=== PATIENT | male | born 1935 | race Caucasian/White ===

== ENCOUNTER 2019-08-23 07:26 | Outpatient (RCR) | payer MEDICARE, SELFPAY ==
--- NOTE | 2019-07-01 12:43 | WPDWOUNDNOTE ---
Wound Care Note Date/Time: 07/01/19 12:43 History: Past Medical History: Asperger's syndrome AV fistula Grubbs's palsy Depression Diabetic peripheral neuropathy Duodenal ulcer disease End stage renal disease on dialysis Gout Hypertension Kidney stones Morbid obesity Plantar fasciitis Type II diabetes mellitus Wound history: This is an 84-year-old diabetic male with a history of IDDM, peripheral neuropathy, CKD on hemodialysis, HTN, EVIE, COPD, Asbergers, depression, gout, and GERD, who presented to the emergency department with a left heel wound on 06/23/19. He reports that he does pay close attention to his feet daily and sees a Corrections Corporal regularly. He typically wears either socks or his diabetic orthopedic shoes. The patient reports he had first noticed any abnormality in his left foot that morning (06/23/19) upon waking. He was getting dressed for dialysis and putting on his socks when he noticed an open red wound on the heel of his left foot. He does not recall any injury to this area or previous wounds. He denies fevers or chills. He states that he also noticed a layer of skin lying on his bed right under where his heel was and he thinks it was a blister that the top skin had rubbed off while sleeping. He states his feet looked normal the day prior. ED workup revealed a normal WBC count, slightly elevated CRP, and elevated renal function tests knowing that he was due for dialysis this day. I had seen the patient in the ER at that time and he appeared to have a blister on his left heel that had unroofed with no signs of infection or surrounding cellulitis. He was given a dose of IV antibiotics in the ER. He was sent home with a prescription of ciprofloxacin x 7 days and silver gel. He was instructed to apply silver gel to this wound once daily and cover with gauze with a gauze roll. He was also instructed to wash this daily. He has home health come to his house on Thursday, Thursday, and Thursday. He also has ongoing physical therapy. He does live at home alone. The patient now presents to the wound clinic today for his initial follow-up after his ER visit to be seen by Dr. Copeland and myself. No new complaints at this time. He reports having no feeling in his feet, so no pain. No concerning changes to the wound of infection. He does report some bilateral lower extremity edema due to missing 2 days of dialysis with the infection and GI upset from the antibiotics. No other complaints at this time. The patient did have another wound that was noted on assessment and appeared to be an abrasion to the left anterior burris but the patient denies any known or recent injury to this area. He is unsure when this occurred. Wound approximation: No Wound width: 6.0 cm Wound length: 5.3 cm Wound depth: 0.2 cm Drainage: Serosanguineous drainage on the dressing. No purulent or pus drainage. Surrounding tissue appearance: Surrounding skin appears dry and there is pitting edema of the bilateral lower legs and feet. No significant cellulitis surrounding the wound. Percentage granulation tissue: 100% Treatment/Procedures: Dressing change and wound evaluation. Assessment: Left heel wound has some granulation tissue noted in the wound bed and epithelialization noted at the wound edges. No signs of infection or surrounding cellulitis. He does have lower extremity pitting edema that was discussed with him as well. There were some areas of skin around the wound edges that were trimmed with sharp scissors and pickups by Dr. Copeland. Otherwise, the wound appears to be healing well and we will continue with the below mentioned treatment. Also noted was a small abrasion to the left anterior burris that did have some scabbing noted. No signs of infection or surrounding cellulitis. Patient is unsure how this occurred. Dressings: Applied silver gel to the left heel wound and left anterior burris abrasion. Cover the heel wound with gauze roll and cover the left burris abrasion with either Mepliex border o
[2019-07-01 12:59] VITALS: BMI 44.6
--- NOTE | 2019-08-09 13:05 | WPDWOUNDNOTE ---
Wound Care Note Date/Time: 08/09/19 12:30 History: Past Medical History: Asperger's syndrome AV fistula Grubbs's palsy Depression Diabetic peripheral neuropathy Duodenal ulcer disease End stage renal disease on dialysis Gout Hypertension Kidney stones Morbid obesity Plantar fasciitis Type II diabetes mellitus Wound history: This is an 84-year-old diabetic male with a history of IDDM, peripheral neuropathy, CKD on hemodialysis, HTN, EVIE, COPD, Asbergers, depression, gout, and GERD, who presented to the emergency department with a left heel wound and was initially seen on 06/23/19. He reported paying close attention to his feet daily and seeing a Tram Operator regularly. He typically wears either socks or his diabetic orthopedic shoes. The patient reports he had first noticed an abnormality in his left foot the morning of 06/23/19 upon waking. He was getting dressed for dialysis and putting on his socks when he noticed an open red wound on the heel of his left foot. He does not recall any injury to this area or previous wounds. He denies fevers or chills. He states that he also noticed a layer of skin lying on his bed right under where his heel was and he thinks it was a blister that the top skin had rubbed off while sleeping. He states his feet looked normal the day prior. ED workup revealed a normal WBC count, slightly elevated CRP, and elevated renal function tests knowing that he was due for dialysis this day. I had seen the patient in the ER at that time and he appeared to have a blister on his left heel that had unroofed with no signs of infection or surrounding cellulitis. He was given a dose of IV antibiotics in the ER. He was sent home with a prescription of ciprofloxacin x 7 days and silver gel. He was instructed to apply silver gel to this wound once daily and cover with gauze with a gauze roll and wash the wound daily. He was apparently doing well and was seen in the wound clinic on 07/01/[address] Copeland. The wound was continuing to heal without signs of infection. He was instructed to continue dressing changes and wound care as he was previously doing. He then presented back to the emergency department on 07/08/19 and 07/09/19 due to worsening symptoms of the left heel wound. He was then admitted through 07/14/19. He was treated with IV antibiotics and evaluated by Dr. Gilliam. He had evidence of a blister that had formed over the wound with concern that there was purulent drainage underneath this. Dr. Gilliam then performed a bedside debridement of the skin of a left heel ulcer on 08/10/19. Findings showed an enlarged thick blister of the left heel extending around the medial aspect of the heel with no purulent fluid or necrotic tissue. We restarted local wound care with silver gel dressing changes post-operatively and antibiotics were stopped. The [facility] for [facility] care. He apparently did well there and has now been transferred back to home with home health who comes three days per week. The patient reports doing dressing changes as instructed. No significant changes in the left heel ulcer per the patient and his caregiver. The patient presents today for follow-up after discharge in the wound clinic with myself and Dr. Copeland. He denies any new complaints. He does have neuropathy and denies feeling or pain in the left lower leg. He apparently is scheduled to see Dr. Mayes, a Vascular Surgeon at [facility], next week to discuss the need for vascular intervention for peripheral arterial disease. He knows the patient from the past when he formed his fistula for dialysis. 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 Angioplasty was not successful due to significant tortuosity and he was referred to Dr. Mayes. The patient denies any other new complaints or changes in his care. Uvaldo
--- NOTE | ~2019-08-23 | XR_ITS ---
XR heel LT min 2V 08/23/2019 12:52 Indication: Redness and swelling. Open wound of the left heel. Procedure: 2 views left heel/os calcis Comparison: 07/09/2017 Findings: There has been development of mixed lucency and sclerosis along the posterior aspect of the calcaneus, suspicious for osteomyelitis. There is soft tissue ulceration overlying the heel. No fore ign bodies identified. Impression: 1: Ill-defined mixed ostial lysis and sclerosis involving the posterior aspect of the calcaneus, susp icious for underlying osteomyelitis. Recommend correlation with MRI. Reviewed, dictated and finalized at location B. SCOPY TECH Impression: 1: Ill-defined mixed ostial lysis and sclerosis involving the posterior aspect of the calcaneus, suspicious for underlying osteomyelitis. Recommend correlatio n with MRI.
--- NOTE | 2019-08-23 15:47 | WPDWOUNDNOTE ---
Wound Care Note Date/Time: 08/23/19 15:47 Patient seen today in the outpatient wound clinic because his is a nurse called and stated that he was developing some cellulitis of his left leg which is the leg where he has a open heel ulcer which we have been treating with silver gel. Oral Levaquin was started last Thursday and the patient was set up to come to wound clinic sooner. Tomorrow he is scheduled to go in for a vascular procedure with Dr. Mcclelland. Also be noted today that there was a mix up and the physician that he was to go to see about the vascular surgery actually does only vascular access surgery does not do peripheral vascular surgery. So he will not be going to see the physician ( Dr. Mayes) at [facility] that did his vascular access in the past. History: This is an 84-year-old diabetic male with a history of IDDM, peripheral neuropathy, CKD on hemodialysis, HTN, EVIE, COPD, Asbergers, depression, gout, and GERD, who presented to the emergency department with a left heel wound and was initially seen on 06/23/19. He reported paying close attention to his feet daily and seeing a Plisse Machine Operator regularly. He typically wears either socks or his diabetic orthopedic shoes. The patient reports he had first noticed an abnormality in his left foot the morning of 06/23/19 upon waking. He was getting dressed for dialysis and putting on his socks when he noticed an open red wound on the heel of his left foot. He does not recall any injury to this area or previous wounds. He denies fevers or chills. He states that he also noticed a layer of skin lying on his bed right under where his heel was and he thinks it was a blister that the top skin had rubbed off while sleeping. He states his feet looked normal the day prior. ED workup revealed a normal WBC count, slightly elevated CRP, and elevated renal function tests knowing that he was due for dialysis this day. I had seen the patient in the ER at that time and he appeared to have a blister on his left heel that had unroofed with no signs of infection or surrounding cellulitis. He was given a dose of IV antibiotics in the ER. He was sent home with a prescription of ciprofloxacin x 7 days and silver gel. He was instructed to apply silver gel to this wound once daily and cover with gauze with a gauze roll and wash the wound daily. Wound history: He was apparently doing well and was seen in the wound clinic on 07/01/19 Giselle ELY and myself. The wound was continuing to heal without signs of infection. He was instructed to continue dressing changes and wound care as he was previously doing. He then presented back to the emergency department on 07/08/19 and 07/09/19 due to worsening symptoms of the left heel wound. He was then admitted through 07/14/19. He was treated with IV antibiotics and evaluated by Dr. Gilliam. He had evidence of a blister that had formed over the wound with concern that there was purulent drainage underneath this. Dr. Gilliam then performed a bedside debridement of the skin of a left heel ulcer on 08/10/19. Findings showed an enlarged thick blister of the left heel extending around the medial aspect of the heel with no purulent fluid or necrotic tissue. We restarted local wound care with silver gel dressing changes post-operatively and antibiotics were stopped. The patient was eventually discharged to [place] [facility] on 07/14/19 for wound care. He apparently did well there and has now been transferred back to home with home health who comes three days per week. The patient reports doing dressing changes as instructed. No significant changes in the left heel ulcer per the patient and his caregiver. The patient presents today for follow-up after discharge, Dr. Copeland. He denies any new complaints. He does have neuropathy and denies feeling or pain in the left lower leg. During the patient's last hospital stay, he did have an angiography showing significant distal vessel disease with total occlusion of l
--- NOTE | 2019-08-24 18:32 | PM.PROC ---
Procedure Note - Detailed Date of procedure: 08/23/19 Pre-op diagnosis: diabetic ulcer left foot Necrotic left heel ulcer Post-op diagnosis: same Procedure performed: outpatient wound debridement left heel Description of procedure: with the patient sitting in the wound clinic and his left heel exposed elevated an approximate 4 x 5 cm eschar of subcutaneous tissue and a small amount of muscle was debrided with a 15 blade knife off the approximately 6 x 6 cm rounded ulcer on the patient's heel. There was some underlying purulent material and a culture was taken. On palpation following the debridement it appears that there was some fatty tissue between the wound and the calcaneal bone but probably only 0.5 cm of tissue present still be for exposure of the bone. The edges of this wound blood just a small amount. The center of the wound is not granulating yet and has spongy reddish brown fat present. More posterior another 2 x 1 cm area of necrotic tissue was debrided separately. None of this tissue was sent for pathology at this time. Anesthesia: none Surgeon: Gomez Copeland MD Underwriter Solicitation Director: Wound care nurseAhmet Estimated blood loss (mL): 5 Drains: No Packing: No Pathology: none sent Complications: No immediate complications Condition: stable Disposition: no change Findings: Thick necrotic tissue about 1 cm thick overlying the open wound with underlying reddish brown purulence. C&S and Gram stain sent.
== END 2019-09-29 23:59 | disposition home or self-care (01) ==
LOC: ANHWOC 07:26
PROVIDERS: PCP Nurse Practitioner Family; Visit Provider Surgery
DX: E11.621 Type 2 diabetes mellitus with foot ulcer (principal); L97.429 Non-pressure chronic ulcer of left heel and midfoot with unspecified severity
CPT/HCPCS: 11043; 73650; 87070; 87077; 87186; 87205; 99214; A9270; G0463

== ENCOUNTER 2019-08-24 15:03 | Inpatient (IN) | payer MEDICARE, SELFPAY ==
[2019-08-24] VITALS (8 sets, daily range): BP systolic 98–122; BP diastolic 40–55; PULSE 53–58; RESP 16–20; TEMP 36.5–36.6; O2SAT 98–100; BMI 42.5
--- NOTE | ~2019-08-24 | US_ITS ---
EXAMINATION: US arterial ankle brachial ind DATE: 08/31/2019 13:57 INDICATION: Peripheral vascular disease. TECHNIQUE: Segmental pressures and plethysmographic and Doppler waveforms of the brachial and lower e xtremity arteries were obtained. COMPARISON: Arterial Doppler and segmental pressures 07/11/2019 FINDINGS: Right brachial artery pressure is 118 mm Hg. The left brachial artery pressure was not measured due t o the fistula. The right ankle-brachial index (STEPHANIE) could not be measured due to inability to cuff occlude the arter ies (normal >= 0.9-1.0). The right great toe-brachial index (TBI) is 0.72 (normal >= 0.65). Arterial Doppler waveforms are at least biphasic at the ankle. The left STEPHANIE could not be measured due to inability to cuff occlude the arteries. The left TBI is 0.3 6. Arterial Doppler waveforms are biphasic at the ankle. IMPRESSION: 1. Decreased left TBI, consistent with arterial occlusive disease. Normal right STEPHANIE. Nondiagnostic AB Is. Reviewed, dictated and finalized at location A. IMPRESSION: 1. Decreased left TBI, consistent with arterial occlusive disease. Normal right STEPHANIE. Nondiagnostic ABIs.
--- NOTE | ~2019-08-24 | XR_ITS ---
EXAMINATION: XR chest 2V EXAM DATE: 08/24/2019 17:14 INDICATION: Generalized weakness.] The foot infection yesterday. TECHNIQUE: Frontal and lateral projections of the chest obtained and reviewed. Comparison is made to prior examination from 12/15/2018. FINDINGS: The lungs are clear. There are no pleural effusions. The cardiomediastinal silhouette is within normal limits. There is no pneumothorax suspected. The bones and soft tissues are unremarkab le. IMPRESSION: No acute cardiopulmonary findings. Reviewed, dictated and finalized at location A. [employer] PERSON
--- NOTE | ~2019-08-24 | XR_ITS ---
EXAMINATION: XR foot LT min 3V EXAM DATE: 08/24/2019 19:08 INDICATION: Wound left heel. Pain in heel. TECHNIQUE: Left foot dorsoplantar, lateral and oblique projections obtained and reviewed. Comparison is made to prior examination from 08/23/2019. FINDINGS: Left metatarsal bones unremarkable. Difficult to identify the small region of cortical il l-defined left calcaneal demineralization identified on yesterday's dorsal plantar calcaneal image. There are no acute fractures identified. No appreciable subcutaneous gas. Posterior heel ulceration w hich has bandaged. There are arterial calcifications, arteriosclerosis. Scattered mild to moderate po lyarticular osteoarthritis. IMPRESSION: 1. Mild polyarticular osteoarthritis. 2. Posterior heel ulceration. 3. Please correlate with yesterday's calcaneal x-ray. Reviewed, dictated and finalized at location A. [employer]
--- NOTE | ~2019-08-24 | MR_ITS ---
EXAMINATION: MR ankle LT wo con DATE: 08/30/2019 15:14 INDICATION: Osteomyelitis of left calcaneus. TECHNIQUE: Magnetic resonance imaging (MRI) of the left ankle was performed without intravenous contr ast. Sequences included sagittal, axial, and coronal STIR FSE and T1-weighted FSE. COMPARISON: Left foot radiographs 08/24/2019, calcaneus radiographs 08/23/2019 FINDINGS: Medial ankle ligaments: There are changes of prior sprain of the superficial component of the deltoid ligament characterized by thickening and increased signal intensity. The deep component is intact. Lateral ankle ligaments: The anterior and posterior talofibular ligaments, calcaneofibular ligament, and posterior tibiofibula r ligament are intact. There are changes of prior sprain of anterior tibiofibular ligament characteri zed by thickening and increased signal intensity. Tendons: The medial and anterior ankle tendons, peroneal tendons, and Achilles tendon are normal. Plantar fascia: There is thickening of central band of plantar fascia, consistent with plantar fasciitis. There is an enthesophyte at the calcaneal attachment. Bones/other: Bone alignment is normal. There is a large ulcer overlying the calcaneal tuberosity, which demonstrat es cortical erosions and bone marrow edema, consistent with osteoarthritis. Bone marrow edema extends into the body of the calcaneus. The talar dome is normal. There is widespread moderate to severe fat ty atrophy of the musculature. There is widespread increased T2-weighted signal intensity in the musc ulature, consistent with subacute on chronic denervation. Fluid: There is no joint effusion. IMPRESSION: 1. Osteomyelitis involving the calcaneal body and tuberosity. Reviewed, dictated and finalized at location A.
[2019-08-24 17:00] LABS: Basophils Percent Auto 0.2 % (0.2-1.2); Eosinophils Percent Auto 0.3 % (0-4.4); Hematocrit 28.2 % (42.0-52.0); Hemoglobin 8.9 g/dL (14.0-18.0); Lymphocytes Absolute Auto 1.06 K/mm3 (0.9-3.2); Lymphocytes Percent Auto 11.1 % (18.3-44.2); Mean Corpuscular HGB Conc 31.6 g/dl (32-36); Mean Corpuscular Volume 98.3 fl (80-100); Mean Platelet Volume 11.3 fl (7.4-10.4); Monocytes Absolute Auto 1.2 K/mm3 (0.1-0.6); Monocytes Percent Auto 12.5 % (2.6-8.5); Neutrophils Absolute Auto 7.1 K/mm3 (1.3-6.7); Neutrophils Percent Auto 74.9 % (45.5-73.1); Platelet Count Result 222 k/mm3 (150-375); Red Blood Count 2.87 M/mm3 (4.6-6.20); Red Cell Distribution Width 13.5 % (11.5-14.5); White Blood Count 9.5 K/mm3 (4.5-10.0)
[2019-08-24 17:13] LABS: Alanine Aminotransferase 23 U/L (4-50); Albumin Level 3.5 g/dL (3.5-5.1); Alkaline Phosphatase 70 U/L (38-126); Aspartate Amino Transferase 39 U/L (17-59); Bilirubin,Total 0.7 mg/dL (0.2-1.3); Blood Urea Nitrogen 58 mg/dL (9-20); Calcium 9.1 mg/dL (8.4-10.2); Carbon Dioxide 27 mmol/L (22-30); Chloride 95 mmol/L (98-107); Estimated CRCL calculation 11 ml/min; Estimated Glomerular Filt Rate 8; Glucose 124 mg/dL (75-110); Potassium 5.1 mmol/L (3.4-5.0); Sodium 137 mmol/L (137-145)
--- NOTE | 2019-08-24 17:53 | ECG_ITS ---
Measurements Intervals [place] Rate: 54 P: 81 MO: 185 QRS: 26 QRSD: 106 T: 40 QT: 452 QTc: 431 Interpretive Statements SINUS BRADYCARDIA BASELINE ARTIFACT- I, II, III, AVR, AVL, AVF BORDERLINE ECG Electronically Signed On 08-24-2019 20:12:19 FLEXO PRESS OPERATOR by César Aragon D.O.
--- NOTE | 2019-08-24 18:42 | ED.WEAKNESS ---
HPI - Weakness General Chief complaint: Weakness Stated complaint: weakness/n/v/fever Time Seen by Provider: 08/24/19 18:36 Source: patient and RN notes reviewed Mode of arrival: EMS Limitations: no limitations History of Present Illness HPI Narrative: Pt is a 84 y/o male with a Hx of DM, who presents to the ED via EMS with c/o generalized weakness. He notes that he has been weak and nauseas for the past several days. Pt states that he received a debridement of an ulcer on his lt heel by Dr. Copeland yesterday. He notes that he became increasingly fatigued and weak after the procedure last night. Pt states that he vomited after eating dinner last night. He notes having a decreased intake throughout the day today due to his nausea. Pt also reports a low-grade fever and chronic dyspnea on exertion, but denies any CP. He notes that he hasn't had any recent falls. MD Complaint: generalized weakness Onset (ago): day(s) (several) Location: generalized Context: recent surgery (debridement of ulcer) Associated symptoms: fever/chills (low-grade fever), nausea/vomiting and other (decreased intake; dyspnea on exertion (chronic); fatigue) Related Data Home Medications Medication Instructions Recorded Confirmed AndroGel 2 pump TOPICAL DAILY 05/10/19 08/24/19 Anoro Ellipta 1 puff INHALATION DAILY 05/10/19 08/24/19 Centrum Silver Men 1 tablet PO DAILY 05/10/19 08/24/19 Januvia 25 mg PO DAILY 05/10/19 08/24/19 allopurinol 300 mg PO DAILY 05/10/19 08/24/19 cholecalciferol (vitamin D3) 400 unit PO DAILY 05/10/19 08/24/19 citalopram 1 mg DAILY 05/10/19 08/24/19 cyanocobalamin (vitamin B-12) 1,000 mcg PO [id number] 05/10/19 08/24/19 fenofibrate 160 mg PO DAILY 05/10/19 08/24/19 fexofenadine [Louisa Allergy] 180 mg PO DAILY 05/10/19 08/24/19 metoclopramide HCl [Reglan] 10 mg PO Q6H PRN 05/10/19 08/24/19 pioglitazone [Actos] 45 mg PO DAILY 05/10/19 08/24/19 pyridoxine (vitamin B6) 100 mg PO DAILY 05/10/19 08/24/19 sevelamer carbonate [Renvela] 800 mg PO TID 05/10/19 08/24/19 trazodone 50 mg PO HS 05/10/19 08/24/19 propranolol 60 mg PO DAILY 05/11/19 08/24/19 labetalol 100 mg PO BID 06/23/19 08/24/19 silodosin [Rapaflo] 8 mg DAILY 06/23/19 08/24/19 Ultra CoQ10 75 mg PO DAILY 07/09/19 08/24/19 lactulose 20 g PO DAILY 08/24/19 08/25/19 Allergies Allergy/AdvReac Type Severity Reaction Status Date / Time aspirin Allergy Unknown Flushing Verified 06/23/19 08:05 salicylates Allergy Unknown Flushing Verified 06/23/19 08:05 Review of Systems Review of Systems: All systems reviewed & are unremarkable except as noted in HPI and below Constitutional: Constitutional: Reports fatigue, Reports fever(s) (low-grade), Reports weakness (generalized) and Reports other (decreased intake) Cardiovascular: Cardiovascular: Denies chest pain Respiratory: Respiratory: Reports dyspnea on exertion (chronic) Gastrointestinal: Gastrointestinal: Reports nausea and Reports vomiting PMFSH Past Medical History Medical History Asperger's syndrome AV fistula Grubbs's palsy Constipation Depression Diabetic peripheral neuropathy Dialysis patient Thursday, , Thursday Duodenal ulcer disease Emphysema of lung End stage renal disease on dialysis Gout Hypertension Kidney stones Morbid obesity Plantar fasciitis Type II diabetes mellitus Surgical History Surgical History History of appendectomy History of cardiac catheterization History of cataract surgery History of cholecystectomy History of colonoscopy History of esophagogastroduodenoscopy (EGD) History of gastric bypass History of morbid obesity with Gastric Bypass in 1974 with reversal when he had a colectomy performed in 1999 for pre-cancerous polyps. History of total right knee replacement Family History Family History Father Prostate carcinoma
--- NOTE | 2019-08-24 19:00 | PC.NURSE ---
Portable xray being taken of patient's right foot. Multiple attempts to initiate IV unsuccessful per this RN.
--- NOTE | 2019-08-24 19:34 | PC.NURSE ---
Report to MILE Hernandez, to continue care.
[2019-08-24 20:05] LABS: Lactic Acid Reflex 0.8 mmol/L (0.7-2.1)
[2019-08-24] MEDS: SODIUM CHLORIDE 0.9% IV 500 ML 999 ML IV CONT (20:25)
[2019-08-24 20:33] LABS: CRP 15.3 mg/dL (<1.0)
--- NOTE | 2019-08-24 21:31 | PC.NURSE ---
Patient report faxed to 3rd [facility] med-surg.
[2019-08-24 22:14] LABS: Glucose Point of Care 86 (65-105)
--- NOTE | 2019-08-24 22:14 | PM.IMHP ---
H&P: HPI History of Present Illness Chief complaint: generalized weakness left heel infected wound Narrative: This is a pleasant 84-year-old diabetic male with known past medical history of end-stage renal disease on hemodialysis 3 times a week, obstructive sleep apnea with CPAP use and chronic hypoxic respiratory failure who presented to the [facility] with a complaint of increased weakness. Yesterday the patient had debridement of his left heel by general surgeon, Dr. Copeland. The patient's left heel diabetic wound has been ongoing for the past 2 months and has only worsened. He states that since last night he has had severe weakness and he laid in his urine all night because he was too weak to clean himself. The patient is known to live alone and is mostly wheelchair bound but he does transfer on his own normally. Associated symptoms include fever, nausea, and vomiting. He states he was just recently on Levquin for his diabetic foot ulcer. He apparently had a follow up visit with Dr. Corey to be evaluate for possible vascular intervention to help with his poor circulation of his left lower extremity. The patient tells me that his surgeon has already advised him that if his foot ulcer does not improve he may need to have an amputation. Review of Systems Review of Systems: All systems reviewed & are unremarkable except as noted in HPI and below PMFSH Past Medical History Medical History Asperger's syndrome AV fistula Grubbs's palsy Constipation Depression Diabetic peripheral neuropathy Dialysis patient Thursday, , Thursday Duodenal ulcer disease Emphysema of lung End stage renal disease on dialysis Gout Hypertension Kidney stones Morbid obesity Plantar fasciitis Type II diabetes mellitus Surgical History Surgical History History of appendectomy History of cardiac catheterization History of cataract surgery History of cholecystectomy History of colonoscopy History of esophagogastroduodenoscopy (EGD) History of gastric bypass History of morbid obesity with Gastric Bypass in 1973 with reversal when he had a colectomy performed in 1999 for pre-cancerous polyps. History of total right knee replacement Family History Family History Father Prostate carcinoma Social History Social History Social History: The patient currently lives at home alone. He has a close friend, Camila Pittman, who helps him and checks in on him. He also has a healthcare power of managing attorney, Rossy Way. The patient has a separate caregiver come to his house 3 times per week as well. Smoking status: Never smoker Second hand tobacco smoke exposure: No Alcohol intake: never Substance use: never Substance use type: does not use Gender identity (if verbalized by the patient): Male Spiritual care concerns: No Agree to blood products: Yes Meds Home Medications and Allergies Home Medications Medication Instructions Recorded Confirmed Type AndroGel 2 pump TOPICAL DAILY 05/10/19 08/24/19 History Anoro Ellipta 1 puff INHALATION DAILY 05/10/19 08/24/19 History Centrum Silver Men 1 tablet PO DAILY 05/10/19 08/24/19 History Januvia 25 mg PO DAILY 05/10/19 08/24/19 History allopurinol 300 mg PO DAILY 05/10/19 08/24/19 History cholecalciferol (vitamin D3) 400 unit PO DAILY 05/10/19 08/24/19 History citalopram 1 mg DAILY 05/10/19 08/24/19 History cyanocobalamin (vitamin B-12) 1,000 mcg PO [id number] 05/10/19 08/24/19 History fenofibrate 160 mg PO DAILY 05/10/19 08/24/19 History fexofenadine [Louisa Allergy] 180 mg PO DAILY 05/10/19 08/24/19 History metoclopramide HCl [Reglan] 10 mg PO Q6H PRN 05/10/19 08/24/19 History pioglitazone [Actos] 45 mg PO DAILY 05/10/19 08/24/19 History pyridoxine (vitamin B6) 100 mg PO DA
--- NOTE | 2019-08-24 22:19 | ADMGEN ---
This patient, Gonsalo Moore, was admitted to [facility] Surg Room 307-01. Patient/family oriented to hospital policies and general routines including ID bracelet, bed and alarms, visiting hours, pain management, procedures, bathroom and other care routines, personal items, smoking policy, room service/diet, and visiting hours. Valuables list has been completed. Information on how to activate the Rapid Response Team has been discussed. Patient/Family are encouraged to report perceived risks to care and to ask questions if they do not understand what they are told or what they should do.
[2019-08-25] VITALS (51 sets, daily range): BP systolic 120–139; BP diastolic 43–67; PULSE 50–70; RESP 14–22; TEMP 36–36.9; O2SAT 94–100
[2019-08-25 06:43] LABS: Basophils Percent Auto 0.3 % (0.2-1.2); Eosinophils Absolute Auto 0.1 K/mm3 (0-0.3); Hematocrit 26.6 % (42.0-52.0); Hemoglobin 8.5 g/dL (14.0-18.0); Immature Granulocyte Absolute 0.09 K/mm3 (0.00-0.031); Immature Granulocyte Percent A 0.9 % (0-0.5); Lymphocytes Absolute Auto 0.96 K/mm3 (0.9-3.2); Mean Corpuscular Hemoglobin 30.9 pg (26-34); Mean Corpuscular Volume 96.7 fl (80-100); Mean Platelet Volume 11.3 fl (7.4-10.4); Monocytes Absolute Auto 1.3 K/mm3 (0.1-0.6); Monocytes Percent Auto 13.3 % (2.6-8.5); Neutrophils Absolute Auto 7.1 K/mm3 (1.3-6.7); Neutrophils Percent Auto 74.5 % (45.5-73.1); Platelet Count Result 203 k/mm3 (150-375); Red Blood Count 2.75 M/mm3 (4.6-6.20); Red Cell Distribution Width 13.5 % (11.5-14.5); White Blood Count 9.6 K/mm3 (4.5-10.0)
[2019-08-25 06:57] LABS: Alanine Aminotransferase 22 U/L (4-50); Albumin Level 3.2 g/dL (3.5-5.1); Alkaline Phosphatase 68 U/L (38-126); Aspartate Amino Transferase 36 U/L (17-59); Bilirubin,Total 0.6 mg/dL (0.2-1.3); Blood Urea Nitrogen 67 mg/dL (9-20); Calcium 8.7 mg/dL (8.4-10.2); Carbon Dioxide 24 mmol/L (22-30); Chloride 94 mmol/L (98-107); Estimated CRCL calculation 10 ml/min; Estimated Glomerular Filt Rate 7; Glucose 173 mg/dL (75-110); Phosphorus 5.9 mg/dL (2.5-4.5); Potassium 4.6 mmol/L (3.4-5.0); Sodium 136 mmol/L (137-145)
[2019-08-25] MEDS: ENOXAPARIN 30 MG/0.3 ML SYRINGE SUB-Q (08:24)
[2019-08-25] MEDS: CLOPIDOGREL BISULFATE 75 MG TABLET PO (08:25)
[2019-08-25] MEDS: INSULIN GLARGINE (*BKC) 100 UNITS/ML 20 UNITS SUB-Q (08:26)
[2019-08-25 08:27] LABS: Glucose Point of Care 149 (65-105)
[2019-08-25 09:09] LABS: Hepatitis B Surface Antigen Negative (Negative)
[2019-08-25 09:15] LABS: HAV RESULT Negative (Negative); Hepatitis B Core IgM Result Negative (Negative)
[2019-08-25 09:28] LABS: Hepatitis B Surface Anti Res Positive; Hepatitis C Virus Antibody Negative (Negative)
[2019-08-25] MEDS: EPOETIN ALFA 10,000 UNITS/ML VIAL 10000 UNITS IV PUSH (10:00)
--- NOTE | 2019-08-25 10:05 | P.PNNP_ITS ---
Progress Note: A&P Assessment and Plan (1) End stage renal disease: Code(s): N18.6 - End stage renal disease Status: Chronic Assessment and Plan: * HD today and continue T/T/S schedule while hospitalized * follow electrolytes, volume status, and clearance (2) Chronic ulcer of left heel: Qualifiers: Non-pressure ulcer stage: unspecified non-pressure ulcer stage Qualified Code(s): L97.429 - Non-pressure chronic ulcer of left heel and midfoot with unspecified severity Code(s): L97.429 - Non-pressure chronic ulcer of left heel and midfoot with unspecified severity Status: Acute Assessment and Plan: * long standing issues * follows in wound clinic with Dr. Copeland * local wound care (3) Peripheral vascular disease: Code(s): I73.9 - Peripheral vascular disease, unspecified Status: Acute Assessment and Plan: * concern that this may cause of poor wound healing * Dr. Corey consulted for further evaluation (4) Weakness: Code(s): R53.1 - Weakness Status: Acute Assessment and Plan: * multifactorial - heal wound, deconditioning, ESRD...etc. * PT/OT as tolerated FULL CONSULT TO FOLLOW Subjective Date/time seen: 08/25/19 10:05 Tolerating dialysis at the time of my visi (seen on HD at ~10:00AM); no acute issues or problems noted; no events overnight or earlier this AM. Exam Narrative: Exam Narrative: General: WD/WN male in NAD Heart: normal S1 and S2; no rub Lungs: clear to auscultation Abdomen: soft, nontender, nondistended, positive bowel sounds Extremities: no cyanosis or clubbing; 1++ edema Skin: left heel ulcer in dressings Objective Data Vital Signs Vital Signs: Vital Signs Temp Pulse Resp BP Pulse Ox 08/25/19 08:00 56 L 08/25/19 06:47 36.4 C 53 L 16 122/52 L 99 08/25/19 04:24 54 L 17 98 08/25/19 04:00 51 L 08/25/19 00:51 18 08/25/19 00:00 58 L 08/24/19 22:05 36.6 C 58 L 20 122/52 L 100 08/24/19 21:21 58 L 18 113/54 L 98 08/24/19 19:31 56 L 114/51 L 100 08/24/19 19:30 55 L 100 08/24/19 19:16 54 L 113/55 L 100 08/24/19 19:00 53 L 100 08/24/19 18:54 53 L 08/24/19 16:40 36.5 C 54 L 16 98/40 L 99 Intake/Output Intake/Output: Intake & Output 08/22/19 08/23/19 08/24/19 08/25/19 23:59 23:59 23:59 23:59 Intake Total 500 250 Output Total 500 Balance 500 -250 Meds/Results Medications: Active Medications Generic Name Dose Route Start Last Admin Trade Name Freq PRN Reason Stop Dose Admin Acetaminophen 650 mg 08/24/19 22:28 Tylenol Tablet PO Q4H PRN Mild Pain (1-3) or Fever Allopurinol 300 mg 08/25/19 08:00 Zyloprim PO DAILY@0800 [facility] Citalopram Hydrobromide 40 mg 08/25/19 09:00 Celexa BY MOUTH DAILY [facility] Clopidogrel Bisulfate 75 mg 08/25/19 09:00 08/25/19 08:25 Plavix PO 75 mg QAM [facility] Administration Cyanocobalamin 1,000 mcg 09/07/19 09:00 Vitamin B-12 Tab PO [id number] [facility] Dextrose 12.5 gm 08/24/19 22:28 Dextrose 50% Syringe IV PUSH
--- NOTE | 2019-08-25 10:05 | PM.PNNEP ---
Progress Note: A&P Assessment and Plan (1) End stage renal disease: Code(s): N18.6 - End stage renal disease Status: Chronic Assessment and Plan: HD today and continue T/T/S schedule while hospitalized follow electrolytes, volume status, and clearance (2) Chronic ulcer of left heel: Qualifiers: Non-pressure ulcer stage: unspecified non-pressure ulcer stage Qualified Code(s): L97.429 - Non-pressure chronic ulcer of left heel and midfoot with unspecified severity Code(s): L97.429 - Non-pressure chronic ulcer of left heel and midfoot with unspecified severity Status: Acute Assessment and Plan: long standing issues follows in wound clinic with Dr. Copeland local wound care (3) Peripheral vascular disease: Code(s): I73.9 - Peripheral vascular disease, unspecified Status: Acute Assessment and Plan: concern that this may cause of poor wound healing Dr. Corey consulted for further evaluation (4) Weakness: Code(s): R53.1 - Weakness Status: Acute Assessment and Plan: multifactorial - heal wound, deconditioning, ESRD...etc. PT/OT as tolerated FULL CONSULT TO FOLLOW Subjective Date/time seen: 08/25/19 10:05 Tolerating dialysis at the time of my visi (seen on HD at ~10:00AM); no acute issues or problems noted; no events overnight or earlier this AM. Exam Narrative: Exam Narrative: General: WD/WN male in NAD Heart: normal S1 and S2; no rub Lungs: clear to auscultation Abdomen: soft, nontender, nondistended, positive bowel sounds Extremities: no cyanosis or clubbing; 1++ edema Skin: left heel ulcer in dressings Objective Data Vital Signs Vital Signs: Vital Signs Temp Pulse Resp BP Pulse Ox 08/25/19 08:00 56 L 08/25/19 06:47 36.4 C 53 L 16 122/52 L 99 08/25/19 04:24 54 L 17 98 08/25/19 04:00 51 L 08/25/19 00:51 18 08/25/19 00:00 58 L 08/24/19 22:05 36.6 C 58 L 20 122/52 L 100 08/24/19 21:21 58 L 18 113/54 L 98 08/24/19 19:31 56 L 114/51 L 100 08/24/19 19:30 55 L 100 08/24/19 19:16 54 L 113/55 L 100 08/24/19 19:00 53 L 100 08/24/19 18:54 53 L 08/24/19 16:40 36.5 C 54 L 16 98/40 L 99 Intake/Output Intake/Output: Intake & Output 08/22/19 08/23/19 08/24/19 08/25/19 23:59 23:59 23:59 23:59 Intake Total 500 250 Output Total 500 Balance 500 -250 Meds/Results Medications: Active Medications Generic Name Dose Route Start Last Admin Trade Name Freq PRN Reason Stop Dose Admin Acetaminophen 650 mg 08/24/19 22:28 Tylenol Tablet PO Q4H PRN Mild Pain (1-3) or Fever Allopurinol 300 mg 08/25/19 08:00 Zyloprim PO DAILY@0800 [facility] Citalopram Hydrobromide 40 mg 08/25/19 09:00 Celexa BY MOUTH DAILY [facility] Clopidogrel Bisulfate 75 mg 08/25/19 09:00 08/25/19 08:25 Plavix PO 75 mg QAM [facility] Administration Cyanocobalamin 1,000 mcg 09/07/19 09:00 Vitamin B-12 Tab PO [id number] [facility] Dextrose 12.5 gm 08/24/19 22:28 Dextrose 50% Syringe IV PUSH PRN PRN Hypoglycemia Protocol Enoxaparin Sodium 30 mg 08/25/19 09:00 08/25/19 08:24 Lovenox SUB-Q 30 mg DAILY [facility] Administration Epoetin Isaiah 10,000 units 08/25/19 18:00 08/25/19 10:00 Epogen IV PUSH 10,000 units TuThSa@1800 [facility] Administration Fenofibrate 160 mg 08/25/19 09:00 Fenofibrate PO DAILY [facility] Glucagon 1 mg 08/24/19 22:28 Glucagon For Inj IM PRN PRN Hypoglycemia Protocol Glucose 15 gm 08/24/19 22:28 Glutose 15 PO PRN PRN Hypoglycemia Protocol Vancomycin HCl 1,500 mg in 500 mls @ 333.333 mls/hr 08/24/19 20:55 Vancomycin 1,500 Mg/D5w 500 Ml IVPB PRN PRN PER PROTOCOL Piperacillin Sod/Tazobactam Sod 2.25 gm in 50 mls @ 100 mls/hr 08/25/19 06:00 08/25/19 05:51 Zosyn 2.25 Gm/D5w 50 Ml IVPB Infused
--- NOTE | 2019-08-25 11:57 | PM.IMPN ---
Progress Note: A&P Assessment and Plan (1) Chronic ulcer of left heel: Qualifiers: Non-pressure ulcer stage: unspecified non-pressure ulcer stage Qualified Code(s): L97.429 - Non-pressure chronic ulcer of left heel and midfoot with unspecified severity Code(s): L97.429 - Non-pressure chronic ulcer of left heel and midfoot with unspecified severity Status: Acute Assessment and Plan: -----x-ray concerning for osteomyelitis but requires MRI. I spoke to surgery briefly about this and they will look into it. Continue IV antibiotics at this time. Cardiology on board who may do an intervention since he has decreased blood flow to the area. Will hold off on infectious disease consult as the patient may be transferred depending on vascular status? If not, would suggest getting Dr. young involved. (2) Peripheral vascular disease: Code(s): I73.9 - Peripheral vascular disease, unspecified Status: Acute Assessment and Plan: -----may undergo intervention today. Will await further instructions from Dr. Mcclelland's group (3) Generalized weakness: Code(s): R53.1 - Weakness Status: Acute Assessment and Plan: -----likely secondary to chronic illnesses and acute GI upset. Will hold off on PT and OT until plan for his foot ulcer is in place. (4) End stage renal disease on dialysis: Code(s): N18.6 - End stage renal disease; Z99.2 - Dependence on renal dialysis Status: Chronic Assessment and Plan: -----continue dialysis. Patient usually goes Thursday, , Thursday. (5) Diabetic peripheral neuropathy: Code(s): E11.42 - Type 2 diabetes mellitus with diabetic polyneuropathy Status: Chronic Assessment and Plan: -----stable in chronic (6) T2DM (type 2 diabetes mellitus): Code(s): E11.9 - Type 2 diabetes mellitus without complications Status: Chronic Assessment and Plan: -----last glucose 149. Patient may be going under procedure today so will watch his sugar closely since he did receive some Lantus. MILE Guadarrama aware. Continue accuchecks, SSI coverage, continue long acting insulin. hypoglycemic protocol. (7) Congestive heart failure: Code(s): I50.9 - Heart failure, unspecified Status: Chronic Assessment and Plan: ------Monitor fluid status, Is and Os, daily weights. (8) Chronic anticoagulation: Code(s): Z79.01 - senior living (current) use of anticoagulants Status: Acute Assessment and Plan: -----patient usually on Xarelto. He does not recall why he is on this and says he has never had a blood clot or afib. He says the doctor at [facility] started it. With his vascular disease and immobility, I suspect this is for preventative measures. Will hold this in light of possible procedure. If no procedure planned, would recommend restarting. (9) Bradycardia: Code(s): R00.1 - Bradycardia, unspecified Status: Acute Assessment and Plan: -----patient has asymptomatic bradycardia and looks like this is chronic for him. He is on propanolol and labetalol for unclear reasons. I will hold the propanolol and likely stop this altogether at discharge. Additional Plan Date of service was 08/24/2019 at 22:00 hrs. Time Spent With Patient Time with patient: 25 - 35 minutes Subjective Date/time seen: 08/25/19 11:57 Interval history: Pt is a 84-year-old male who presented emergency room for weakness and chronic heel wound. Patient was seen today and says he is not any pain and he has neuropathy so he does not usually have pain in his feet. He said he is very tired because he did get any sleep because of rowdy roommate. He said he ate breakfast with no vomiting but has had some vomiting last few days. He denies chest pain, shortness of breath, nausea, vomiting, chills, diarrhea or constipation. He had a bowel movement yes
--- NOTE | 2019-08-25 13:29 | PM.CNGS ---
Assessment and Plan Assessment and plan (1) Chronic ulcer of left heel: Onset Date: ~05/2019 Qualifiers: Non-pressure ulcer stage: unspecified non-pressure ulcer stage Qualified Code(s): L97.429 - Non-pressure chronic ulcer of left heel and midfoot with unspecified severity Code(s): L97.429 - Non-pressure chronic ulcer of left heel and midfoot with unspecified severity Status: Acute Assessment and Plan: This heal wound was recently debrided of all necrotic tissue. Recent dressing changes have been Dakin's solution and gauze with a daily dressing change. Our plan had been to consider placing a wound VAC on it on 08/26/2019 if wound was improving after revascularization by Dr. Canales. Will await results of today's planned procedure and evaluation of the wound tomorrow with the wound care nurses. Thank you for asking us to help with the continuing care of this complex patient. (2) Diabetic foot ulcer: Onset Date: ~04/2019 Code(s): E11.621 - Type 2 diabetes mellitus with foot ulcer; L97.509 - Non-pressure chronic ulcer of other part of unspecified foot with unspecified severity Status: Acute Assessment and Plan: see above under chronic heel ulcer (3) Chronic anticoagulation: Onset Date: Unknown Code(s): Z79.01 - [facility] (current) use of anticoagulants Status: Acute (4) Generalized weakness: Onset Date: ~08/23/19 Code(s): R53.1 - Weakness Status: Acute Assessment and Plan: Unknown etiology. (5) Peripheral vascular disease: Code(s): I73.9 - Peripheral vascular disease, unspecified Status: Acute Assessment and Plan: Stenosis in 1 of 3 left lower leg vessels possible leading to ischemia and ulcer formation on his left heel (6) End stage renal disease on dialysis: Code(s): N18.6 - End stage renal disease; Z99.2 - Dependence on renal dialysis Status: Chronic Assessment and Plan: appreciate nephrology consultation and continued care. History of Present Illness Consult details Consult date: 08/25/19 Reason for consult: wound care Requesting physician: Jeffy Munson MD Narrative: This is an 84-year-old diabetic male with a history of IDDM, peripheral neuropathy, CKD on hemodialysis, HTN, EVIE, COPD, Asbergers, depression, gout, and GERD, who presented to the emergency department with a left heel wound and was initially seen on 06/23/19. last night a presented to the ER again with generalized weakness. Please see the ER workup and H&P by Dr. Munson from last night In the past he reported paying close attention to his feet daily and seeing a [employer] regularly. He typically wears either socks or his diabetic orthopedic shoes. The patient reports he had first noticed an abnormality on his left foot the morning of 06/23/19 upon waking. He was getting dressed for dialysis and putting on his socks when he noticed an open red wound on the heel of his left foot. He does not recall any injury to this area or previous wounds. At that time he denied fevers or chills. He states that he also noticed a layer of skin lying on his bed right under where his heel was and he thinks it was a blister that the top skin had rubbed off while he was sleeping. He states his feet looked normal the day prior. The previous ED workup revealed a normal WBC count, slightly elevated CRP, and elevated renal function tests knowing that he was due for dialysis that day. The patient had been seen iin the ER at that time and he appeared to have a blister on his left heel that had become unroofed with no signs of infection or surrounding cellulitis. He was given a dose of IV antibiotics in the ER. He was sent home with a prescription of ciprofloxacin x 7 days and silver gel dressing. He was instructed to apply silver gel to this wound once daily and cover with gauze with a gauze roll and wash the wound daily. Most recently the p
--- NOTE | 2019-08-25 14:26 | WPDMODSED ---
Moderate Sedation Note-Pt Data Patient Data Allergies Allergy/AdvReac Type Severity Reaction Status Date / Time aspirin Allergy Unknown Flushing Verified 06/23/19 08:05 salicylates Allergy Unknown Flushing Verified 06/23/19 08:05 Home Medications Medication Instructions Recorded Confirmed Type AndroGel 2 pump TOPICAL DAILY 05/10/19 08/24/19 History Anoro Ellipta 1 puff INHALATION DAILY 05/10/19 08/24/19 History Centrum Silver Men 1 tablet PO DAILY 05/10/19 08/24/19 History Januvia 25 mg PO DAILY 05/10/19 08/24/19 History allopurinol 300 mg PO DAILY 05/10/19 08/24/19 History cholecalciferol (vitamin D3) 400 unit PO DAILY 05/10/19 08/24/19 History citalopram 1 mg DAILY 05/10/19 08/24/19 History cyanocobalamin (vitamin B-12) 1,000 mcg PO [id number] 05/10/19 08/24/19 History fenofibrate 160 mg PO DAILY 05/10/19 08/24/19 History fexofenadine [Louisa Allergy] 180 mg PO DAILY 05/10/19 08/24/19 History metoclopramide HCl [Reglan] 10 mg PO Q6H PRN 05/10/19 08/24/19 History pioglitazone [Actos] 45 mg PO DAILY 05/10/19 08/24/19 History pyridoxine (vitamin B6) 100 mg PO DAILY 05/10/19 08/24/19 History sevelamer carbonate [Renvela] 800 mg PO TID 05/10/19 08/24/19 History trazodone 50 mg PO HS 05/10/19 08/24/19 History propranolol 60 mg PO DAILY 05/11/19 08/24/19 History labetalol 100 mg PO BID 06/23/19 08/24/19 History silodosin [Rapaflo] 8 mg DAILY 06/23/19 08/24/19 History Ultra CoQ10 75 mg PO DAILY 07/09/19 08/24/19 History Laurent Rodney U-300 Insulin 20 unit SUBCUT DAILY #0 ml 07/14/19 08/24/19 Rx clopidogrel 75 mg PO QAM #30 tablet 07/14/19 08/24/19 Rx polyethylene glycol 3350 [Miralax] 17 g PO QAM #30 ea 07/14/19 08/24/19 Rx rivaroxaban [Xarelto] 2.5 mg PO Q12HR #60 tablet 07/14/19 08/24/19 Rx tramadol 50 mg PO TID PRN #15 tablet 07/14/19 08/24/19 Rx lactulose 20 g PO DAILY 08/24/19 08/25/19 History Current Medications: Active Medications Acetaminophen (Tylenol Tablet) 650 mg PO Q4H PRN PRN Reason: Mild Pain (1-3) or Fever Allopurinol (Zyloprim) 300 mg PO DAILY@0800 [facility] Citalopram Hydrobromide (Celexa) 40 mg BY MOUTH DAILY [facility] Clopidogrel Bisulfate (Plavix) 75 mg PO QAM [facility] Last Admin: 08/25/19 08:25 Dose: 75 mg Documented by: Cyanocobalamin (Vitamin B-12 Tab) 1,000 mcg PO [id number] [facility] Dextrose (Dextrose 50% Syringe) 12.5 gm IV PUSH PRN PRN; Protocol PRN Reason: Hypoglycemia Enoxaparin Sodium (Lovenox) 30 mg SUB-Q DAILY [facility] Last Admin: 08/25/19 08:24 Dose: 30 mg Documented by: Epoetin Isaiah (Epogen) 10,000 units IV PUSH TuThSa@1800 [facility] Last Admin: 08/25/19 10:00 Dose: 10,000 units Documented by: Fenofibrate (Fenofibrate) 160 mg PO DAILY [facility] Glucagon (Glucagon For Inj) 1 mg IM PRN PRN; Protocol PRN Reason: Hypoglycemia Glucose (Glutose 15) 15 gm PO PRN PRN; Protocol PRN Reason: Hypoglycemia Vancomycin HCl (Vancomycin 1,500 Mg/D5w 500 Ml) 1,500 mg in 500 mls @ 333.333 mls/hr IVPB PRN PRN PRN Reason: PER PROTOCOL Piperacillin Sod/Tazobactam Sod (Zosyn 2.25 Gm/D5w 50 Ml) 2.25 gm in 50 mls @ 100 mls/hr IVPB Q8HR [facility] Last Admin: 08/25/19 14:17 Dose: 100 mls/hr Documented by: Dextrose (Dextrose 5% 1,000 Ml) 1,000 mls @ 100 mls/hr IVPB PRN PRN; Protocol PRN Reason: Hypoglycemia Albumin Human (Albutein) 50 mls @ 999 mls/hr IVPB Q10M PRN PRN Reason: HYPOTENSION Stop: 09/23/19 23:39 Insulin Aspart (Novolog) 3 - 6 units SUB-Q TIDWM BELKIS; Protocol Last Admin: 08/25/19 14:11 Dose: Not Given Documented by: Insulin Glargine (Lantus) 20 units SUB-Q DAILY [facility] Stop: 09/24/19 09:01 Last Admin: 08/25/19 08:26 Dose: 20 units Documented by: Labetalol HCl (Trandate) 100 mg PO BID [facility] Lactulose (Lactulose) 20 gm PO DAILY PRN PRN Reason: Constipation Loratadine (Claritin) 10 mg PO DAILY [facility] Stop: 09/24/19 09:01 Melatonin (Melatonin) 5 mg PO HS [facility] Metoclopramide HCl (Reglan) 10 mg PO Q6H PRN PRN Reason: Heartburn Multivitamins/Minerals (Ocuvite) 1 tablet PO DAILY [facility] Non-Formulary Medication (Anoro Ellipt
--- NOTE | 2019-08-25 16:55 | WPDCARDPROC ---
Cardiac Cath Procedure Note Date of procedure:: 08/25/19 Performing physician:: Emre Mcclelland MD Balloon angioplasty to the left posterior tibial artery was done, I was able to open the the proximal 50% of the vessel which was totally occluded, with chronic total occlusion. The distal half of the vessel is very calcified we could not get that open, there was good flow noted after the angioplasty, but the distal portion is still showing so totally occluded vessel was very calcified lesion. Will continue medical treatment I would expect some improvement of the perfusion of the ankle.. Need to be on systemic oral anticoagulation long-term to improve blood flow once all the surgical interventions are done
--- NOTE | 2019-08-25 18:00 | PC.NURSE ---
Was informed by cardiac cath nurse that the patient will be going to ICU post procedure. Belongings and medications gathered and sent with ICU staff. Gave report to Rupali TREADWELL.
[2019-08-25 18:18] LABS: Activated Clotting Time 153 sec (74-137)
[2019-08-25 18:18] LABS: Activated Clotting Time 169 sec (74-137)
--- NOTE | 2019-08-25 18:44 | PC.NURSE ---
Received patient from labor relations consultant. Left groin sheath in place. Will get PTT at [address] ulrich sheath may be pulled if PTT is 45 or below.
[2019-08-25 18:56] LABS: Glucose Point of Care 155 (65-105)
[2019-08-25 19:12] LABS: Partial Thromboplastin Time 34.8 SECONDS (22.3-36.8)
[2019-08-25] MEDS: LABETALOL HCL 100 MG TABLET PO (19:21)
[2019-08-25 20:11] LABS: Vancomycin Random 7.7 ug/mL (10-20)
[2019-08-25] MEDS: MELATONIN 5 MG TABLET PO (21:10)
[2019-08-25] MEDS: TRAZODONE HCL 50 MG TABLET PO (21:10)
[2019-08-25 21:20] LABS: Glucose Point of Care 212 (65-105)
--- NOTE | 2019-08-25 22:23 | OP_ITS ---
DATE OF PROCEDURE: COMPLICATIONS: None. BLOOD LOSS: Minimal. SEDATION: Conscious sedation using 1 mg of Versed, 25 mcg of fentanyl administered by Tashia TREADWELL, under my supervision. He received total of 1 mg of Versed, 25 mcg fentanyl. Starting time is 1442, ending time is 1616. PROCEDURE: 1. Access to the left common femoral artery using an antegrade approach using ultrasound guidance. 2. Insertion of 6-Kazakh sheath to the left common femoral artery extending to the left SFA. 3. Angiogram to the SFA on the left side with distal runoff. 4. Balloon angioplasty to the totally occluded posterior tibial artery, multiple inflations. 5. Repeat angiogram. 6. Conscious sedation as above. 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 He has nonhealing ulcer which got worse and did not improve with medical treatment only, was brought for possible treatment with revascularization. TECHNIQUE: After informed consent obtained from the patient, he was brought to the vat house laborer and put on a vat house laborer table, prepped and draped in usual sterile fashion. The left groin was prepped and draped. Subsequently, ultrasound-guided access was obtained. There was some difficulty obtaining access, but this over came by further assistance with the radiographic imaging. Finally, we were able to get access, 6-Kazakh sheath inserted and angiogram was done to visualize the lesion. Subsequently, a [place] catheter was inserted over the guidewire, advanced to the level of the popliteal and then subsequently a Command wire was inserted, advanced to the popliteal and subsequently advanced to the TP trunk and subsequently advanced to the left posterior tibial artery. With some difficulties, I was able to navigate the wire down about 10 cm within the totally occluded vessel, but then at the distal section of the vessel, multiple attempts were made. I cannot further pass the wire. I was able to use balloon to support the wire and then balloon angioplasty was done to the proximal portion of the left posterior tibial using a 1.5 x 100 mm balloon and subsequently a 2.5 x 100 mm balloon with multiple inflations, which improved the proximal portion of the vessel, but still could not navigate through the distal portion of the vessel. I used a Seek support catheter to try to navigate the vessel further. In spite of multiple attempts, not able to go any further. At this point, the procedure was stopped. The patient tolerated the procedure with no complication. Taken from the vat house laborer to his room in stable condition and stable vital signs. Subsequently, the sheath was removed applying pressure for hemostasis. ANGIOGRAPHIC FINDINGS: Left SFA is patent, no significant disease or stenosis. Left popliteal patent, no significant disease or stenosis. Left anterior tibial, minimal disease distally. Peroneal on the left, minimal disease distally. Posterior tibial on the left showed total occlusion at the proximal portion. This improved after the angioplasty with open vessel, less than 10% narrowing up to 50% of the vessel and then distal portion still totally occluded with heavy calcification. SUMMARY: 1. 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 2. Severe peripheral vascular disease. RECOMMENDATION: Continue with medical treatment. Would continue to watch closely. If no improvement with this procedure, we will consider amputation of the gangrenous area. Kiera I MT: Lupe HAMILTON
[2019-08-26] VITALS (17 sets, daily range): BP systolic 100–136; BP diastolic 38–72; PULSE 49–84; RESP 12–22; TEMP 36.3–37.1; O2SAT 94–100
[2019-08-26 04:43] LABS: Hematocrit 28.1 % (42.0-52.0); Mean Corpuscular Volume 96.9 fl (80-100); Platelet Count Result 196 k/mm3 (150-375); Red Cell Distribution Width 13.3 % (11.5-14.5); White Blood Count 8.4 K/mm3 (4.5-10.0)
[2019-08-26 05:00] LABS: Albumin Level 3.3 g/dL (3.5-5.1); Blood Urea Nitrogen 39 mg/dL (9-20); Calcium 8.9 mg/dL (8.4-10.2); Carbon Dioxide 26 mmol/L (22-30); Chloride 99 mmol/L (98-107); Estimated CRCL calculation 16 ml/min; Estimated Glomerular Filt Rate 12; Glucose 182 mg/dL (75-110); Magnesium 1.8 mg/dL (1.6-2.3); Phosphorus 5.3 mg/dL (2.5-4.5); Potassium 4.1 mmol/L (3.4-5.0); Sodium 134 mmol/L (137-145)
--- NOTE | 2019-08-26 08:12 | PM.CNCAR ---
Assessment and Plan Assessment and plan (1) Peripheral vascular disease: Code(s): I73.9 - Peripheral vascular disease, unspecified Status: Acute Assessment and Plan: s/p intervention on posterior tibial artery occlusion. Continue Plavix. Also on Xarelto 2.5 BID (2) End stage renal disease: Code(s): N18.6 - End stage renal disease Status: Chronic Assessment and Plan: Dialysis per nephrology (3) T2DM (type 2 diabetes mellitus): Code(s): E11.9 - Type 2 diabetes mellitus without complications Status: Chronic History of Present Illness History of Present Illness Consult date/time: 08/26/19 08:12 Late entry. Pt was seen yesterday. 84 y/o with h/o ESRD on HD, DM, and severe PVD followed by Dr Alexander. He is known to have totally occluded posterior tibial artery with unsuccessful attempt of revascularization in the past. He had recent debridement of left leg ulcer and following that returned home but was too weak to take care of him self. He was brought back to the hospital. He denies chest pain or shortness of breath. He was seen by Dr Mcclelland and underwent peripheral angiogram and balloon angioplasty with some improvement of flow. . Reason For Visit: generalized weakness left heel infected wound Review of Systems Review of Systems: All systems reviewed & are unremarkable except as noted in HPI and below Constitutional: Constitutional: Denies fatigue and Denies headache(s) Eyes: Eyes: Denies blurry vision ENT: Reports Normal hearing present and Denies headache(s) Cardiovascular: Cardiovascular: Denies chest pain, Denies diaphoresis, Denies pedal edema, Denies leg edema, Denies lightheadedness, Denies palpitations and Denies dyspnea Respiratory: Respiratory: Denies cough and Denies dyspnea Gastrointestinal: Gastrointestinal: Denies abdominal pain Musculoskeletal: Musculoskeletal: Denies back pain Neurologic: Reports Normal hearing present and Denies headache(s) Psychiatric: Psychiatric: Denies anxiety Endocrine: Endocrine: Denies fatigue and Denies palpitations PMF Past Medical History Medical History Asperger's syndrome AV fistula Grubbs's palsy Constipation Depression Diabetic peripheral neuropathy Dialysis patient Thursday, , Thursday Duodenal ulcer disease Emphysema of lung End stage renal disease on dialysis Gout Hypertension Kidney stones Morbid obesity Plantar fasciitis Type II diabetes mellitus Surgical History Surgical History History of appendectomy History of cardiac catheterization History of cataract surgery History of cholecystectomy History of colonoscopy History of esophagogastroduodenoscopy (EGD) History of gastric bypass History of morbid obesity with Gastric Bypass in 1973 with reversal when he had a colectomy performed in 1999 for pre-cancerous polyps. History of total right knee replacement Family History Family History Father Prostate carcinoma Social History Social History Social History: The patient currently lives at home alone. He has a close friend, Camila Pittman, who helps him and checks in on him. He also has a healthcare power of admitted attorneys, [address]. The patient has a separate caregiver come to his house 3 times per week as well. Smoking status: Never smoker Second hand tobacco smoke exposure: No Alcohol intake: never Substance use: never Substance use type: does not use Gender identity (if verbalized by the patient): Male Spiritual care concerns: No Agree to blood products: Yes Meds Home Medications and Allergies Home Medications Medication Instructions Recorded Confirmed Type AndroGel 2 pump TOPICAL DAILY 05/10/19 08/24/19 History Anoro Ellipta 1 puf
[2019-08-26] MEDS: polyethylene glycoL 3350 17 GM POWD.PACK PO (09:06)
[2019-08-26] MEDS: CLOPIDOGREL BISULFATE 75 MG TABLET PO (09:06)
[2019-08-26] MEDS: SEVELAMER CARBONATE 800 MG TABLET PO ×3 (09:06→16:53)
[2019-08-26] MEDS: ENOXAPARIN 30 MG/0.3 ML SYRINGE SUB-Q (09:06)
[2019-08-26] MEDS: CHOLECALCIFEROL 400 UNITS TABLET (VIT D) PO (09:06)
[2019-08-26] MEDS: PIOGLITAZONE HCL 45 MG TABLET PO (09:06)
[2019-08-26] MEDS: FENOFIBRATE 160 MG TABLET PO (09:07)
[2019-08-26] MEDS: PYRIDOXINE HCL 50 MG TABLET 100 MG PO (09:07)
[2019-08-26] MEDS: allopurinoL 300 MG TABLET PO (09:07)
[2019-08-26] MEDS: CITALOPRAM HYDROBROMIDE 20 MG TABLET 40 MG BY MOUTH (09:07)
[2019-08-26] MEDS: LORATADINE 10 MG TABLET PO (09:08)
[2019-08-26] MEDS: LABETALOL HCL 100 MG TABLET PO ×2 (09:08→16:53)
[2019-08-26] MEDS: INSULIN GLARGINE (*BKC) 100 UNITS/ML 20 UNITS SUB-Q (09:12)
[2019-08-26 09:19] LABS: Glucose Point of Care 166 (65-105)
--- NOTE | 2019-08-26 09:52 | WPDCNINT ---
Assessment and Plan Assessment and plan (1) Sepsis: Qualifiers: Sepsis type: sepsis due to unspecified organism Sepsis acute organ dysfunction status: without acute organ dysfunction Qualified Code(s): A41.9 - Sepsis, unspecified organism Code(s): A41.9 - Sepsis, unspecified organism Status: Acute Assessment and Plan: patient presented with generalized weakness, fevers - blood culture 08/24/2019 growing Proteus, 1 of 2 bottles. will repeat blood cultures - wound culture 08/23/2019 growing Staph aureus and Gram-negative bacilli - continue patient on Zosyn and vancomycin (2) Chronic ulcer of left heel: Onset Date: ~05/2019 Qualifiers: Non-pressure ulcer stage: unspecified non-pressure ulcer stage Qualified Code(s): L97.429 - Non-pressure chronic ulcer of left heel and midfoot with unspecified severity Code(s): L97.429 - Non-pressure chronic ulcer of left heel and midfoot with unspecified severity Status: Acute Assessment and Plan: appreciate surgery evaluation and recommendations - patient had debridement of his wound today (3) Peripheral vascular disease: Code(s): I73.9 - Peripheral vascular disease, unspecified Status: Acute Assessment and Plan: peripheral vascular disease most likely related to end-stage renal disease and diabetes could also be related to hypertension - partially successful treatment to the totally occluded 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 (4) Generalized weakness: Onset Date: ~08/23/19 Code(s): R53.1 - Weakness Status: Acute Assessment and Plan: will have PT/OT follow the patient (5) End stage renal disease on dialysis: Code(s): N18.6 - End stage renal disease; Z99.2 - Dependence on renal dialysis Status: Chronic Assessment and Plan: nephrology following the patient, patient did get dialyzed on 08/25/2019. Further dialysis per Nephrology (6) DVT prophylaxis: Code(s): Z29.9 - Encounter for prophylactic measures, unspecified Status: Acute Assessment and Plan: and oxaprozin Additional Plan discussed with patient updated him with his condition and plan of care. I answered all question. Also discussed with Dr. Copeland the surgeon. code status: Full code Critical care time spent: 42 minutes Due to a high probability of clinically significant, life threatening deterioration, the patient required my highest level of preparedness to intervene emergently and I personally spent this critical care time directly and personally managing the patient. This critical care time included obtaining a history; examining the patient; pulse oximetry; ordering and review of studies; arranging urgent treatment with development of a management plan; evaluation of patient's response to treatment; frequent reassessment; and discussions with other providers. It was exclusive of separately billable procedures and treating other patients and teaching time. 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 HPI: Gonsalo Moore is a 84 year old male with known history of end-stage renal disease on hemodialysis, peripheral vascular disease, diabetes, diabetic left heel ulcer/wound, chronic hypoxic respiratory failure, EVIE with CPAP use presented the ED on 08/24/2019 with complains of increased weakness. Patient had is left heel debrided by Dr. Copeland on 08/23/2019 and was started on Levaquin. A day prior to admission patient had severe weakness and was unable to clean himself or get out of bed. Nhung
--- NOTE | 2019-08-26 10:27 | PM.IMPN ---
Progress Note: A&P Assessment and Plan (1) Chronic ulcer of left heel: Onset Date: ~05/2019 Qualifiers: Non-pressure ulcer stage: unspecified non-pressure ulcer stage Qualified Code(s): L97.429 - Non-pressure chronic ulcer of left heel and midfoot with unspecified severity Code(s): L97.429 - Non-pressure chronic ulcer of left heel and midfoot with unspecified severity Status: Acute Assessment and Plan: -----x-ray concerning for osteomyelitis but requires MRI to make diagnosis. Culture reviewed growing staph aureus. No sensativities back as of yet. Will add vanc. Plan discussed with Dr. Copeland, may do MRI on thursday before dialysis. Angiogram with balloon angioplasty 08/24. Will hold off on infectious disease consult as the patient may be transferred depending on vascular status? If not, would suggest getting Dr. young involved. (2) Peripheral vascular disease: Code(s): I73.9 - Peripheral vascular disease, unspecified Status: Acute Assessment and Plan: -----Partially successful Balloon angioplasty 08/[address] Mcclelland. Jeremiahrelto still on hold, await cardiology's recs on when to restart. (3) Generalized weakness: Onset Date: ~08/23/19 Code(s): R53.1 - Weakness Status: Acute Assessment and Plan: -----likely secondary to chronic illnesses and acute GI upset. Will hold off on PT and OT until plan for his foot ulcer is in place. (4) End stage renal disease on dialysis: Code(s): N18.6 - End stage renal disease; Z99.2 - Dependence on renal dialysis Status: Chronic Assessment and Plan: -----continue dialysis. Patient usually goes Thursday, , Thursday. (5) Diabetic peripheral neuropathy: Code(s): E11.42 - Type 2 diabetes mellitus with diabetic polyneuropathy Status: Chronic Assessment and Plan: -----stable in chronic (6) T2DM (type 2 diabetes mellitus): Code(s): E11.9 - Type 2 diabetes mellitus without complications Status: Chronic Assessment and Plan: -----last glucose 166. Continue accuchecks, SSI coverage, continue long acting insulin. hypoglycemic protocol. (7) Congestive heart failure: Code(s): I50.9 - Heart failure, unspecified Status: Chronic Assessment and Plan: ------Monitor fluid status, Is and Os, daily weights. (8) Chronic anticoagulation: Onset Date: Unknown Code(s): Z79.01 - skilled nursing (current) use of anticoagulants Status: Acute Assessment and Plan: -----patient usually on Xarelto. He does not recall why he is on this and says he has never had a blood clot or afib. He says the doctor at [facility] started it. With his vascular disease and immobility, I suspect this is for preventative measures. Will hold this in light of recent procedure. Recommend restarting once okay with cardiology/sx (9) Bradycardia: Code(s): R00.1 - Bradycardia, unspecified Status: Acute Assessment and Plan: -----Improved. patient had asymptomatic bradycardia and looks like this is chronic for him. He came in on propanolol and labetalol for unclear reasons. I will hold the propanolol and likely stop this altogether at discharge. Additional Plan Date of service was 08/24/2019 at 22:00 hrs. Subjective Date/time seen: 08/26/19 10:27 Interval history: Pt is a 84-year-old male who presented emergency room for weakness and chronic heel wound. Patient was seen today and has no complaints. he is eating and drinking well and is not having any issues with pain. he has no pain in his LE. Pt denies nausea, vomiting, fevers, chills, constipation, diarrhea, chest pain, sob, or abdominal pain. Exam Narrative: Exam Narrative: General: Overweight patient resting comfortably in bed in NAD HEENT: normocephalic Neck: supple Neuro: Alert and oriented x 4 CV: NSR 72 on tele. Less br
--- NOTE | 2019-08-26 10:40 | PM.PNGS ---
Progress Note: A&P Assessment and Plan (1) Chronic ulcer of left heel: Onset Date: ~05/2019 Qualifiers: Non-pressure ulcer stage: unspecified non-pressure ulcer stage Qualified Code(s): L97.429 - Non-pressure chronic ulcer of left heel and midfoot with unspecified severity Code(s): L97.429 - Non-pressure chronic ulcer of left heel and midfoot with unspecified severity Status: Acute Assessment and Plan: Wound cultures from Thursday growing Staph aureus and an unclassified bacillus (gram-negative). Some necrotic tissue remained and this was debrided. There wa mild purulence present but not as bad as 3 days ago. Will plan to use an irrigating wound VAC over the next 3 days. Then in order to rule out osteomyelitis remove the wound VAC on Thursday and do MR of his foot prior to his dialysis on Thursday of next week. (2) Diabetic foot ulcer: Onset Date: ~04/2019 Code(s): E11.621 - Type 2 diabetes mellitus with foot ulcer; L97.509 - Non-pressure chronic ulcer of other part of unspecified foot with unspecified severity Status: Acute Assessment and Plan: See note above. (3) Peripheral vascular disease: Code(s): I73.9 - Peripheral vascular disease, unspecified Status: Acute Assessment and Plan: Peripheral vascular angioplasty yesterday. Apparently partially opened left posterior tibial. Will await results and evaluation of the wound over the next week or so. Patient may develop some improved collaterals with the partial revascularization. Patient knows that there is still unfortunately a possible need to pursue below the knee amputation on this left side if he actually has osteomyelitis of the calcaneus or if his wound does not begin granulating well with use of the wound VAC. (4) End stage renal disease on dialysis: Code(s): N18.6 - End stage renal disease; Z99.2 - Dependence on renal dialysis Status: Chronic (5) Morbid obesity: Code(s): E66.01 - Morbid (severe) obesity due to excess calories Status: Acute Assessment and Plan: Will ask dietitian to consult and see if his nutritional status is adequate for good healing. Subjective Subjective Date/Time Seen: 08/26/19 10:40 Patient in ICU today only because he still had a femoral sheath in place after his peripheral vascular procedure by Dr. M a solid yesterday. He is sitting up eating. He is not in any pain. Dressing had been changed yesterday with Dakin's solution on his left heel. Review of Systems Constitutional: Constitutional: Reports no additional constitutional complaints ENT: Reports other (Mucous Membranes moist.) Cardiovascular: Cardiovascular: Denies dyspnea Respiratory: Respiratory: Denies pain on inspiration and Denies dyspnea Musculoskeletal: Musculoskeletal: Reports other (No calf swelling or edema) Integumentary/Breasts: Skin/Breast: Reports system reviewed and no additional complaints, except as docu Exam Const: General: cooperative, no acute distress, alert and awake Orientation/consciousness: patient oriented x3 HENMT: Mouth: Yes moist mucous membranes Neck: Neck: normal visual inspection Chest: Chest palpation & inspection: normal inspection of the chest Resp: Effort & Inspection: normal respiratory effort Auscultation: clear to auscultation bilaterally Cardio: Jugular venous distension: no JVD Rate: regular rate Rhythm: regular rhythm GI: Rectal Exam: deferred Neuro: General: patient oriented x3 and moves all extremities Speech: normal speech Extrem: Left lower extremity: foot ( Nearly half of the wound had some necrotic tissue on it.) Other: Dressing removed and the circular heel ulcer debrided at bedside (see separate note). the wound had a slight necrotic black edges upon completing the debridement and some grayish bowie residual subcutaneous tissue present but no significant amount of necrotic tissue remains af
[2019-08-26 11:45] LABS: Glucose Point of Care 277 (65-105)
[2019-08-26] MEDS: INSULIN ASPART (*BKC) 100 UNITS/ML SUB-Q (11:48)
--- NOTE | 2019-08-26 15:13 | PM.CNNEP ---
Assessment and Plan Assessment and plan (1) End stage renal disease: Code(s): N18.6 - End stage renal disease Status: Chronic Assessment and Plan: continue hemodialysis schedule of T/T/S while hospitalized follow electrolytes, volume status, and clearance (2) Chronic ulcer of left heel: Onset Date: ~05/2019 Qualifiers: Non-pressure ulcer stage: unspecified non-pressure ulcer stage Qualified Code(s): L97.429 - Non-pressure chronic ulcer of left heel and midfoot with unspecified severity Code(s): L97.429 - Non-pressure chronic ulcer of left heel and midfoot with unspecified severity Status: Acute Assessment and Plan: long standing issues follows in wound clinic with Dr. Copeland local wound care (3) Peripheral vascular disease: Code(s): I73.9 - Peripheral vascular disease, unspecified Status: Acute Assessment and Plan: concern that this may cause of poor wound healing s/p left lower extremity angiogram and intervention as noted by Dr. Corey Cardiology following (4) Weakness: Code(s): R53.1 - Weakness Status: Acute Assessment and Plan: multifactorial - heal wound, deconditioning, ESRD...etc. PT/OT as tolerated I will continue to follow the patient with you and make further recommendations during his hospital course. Thank you for allowing me to participate in the care of this patient History of Present Illness Reason for Consult Consult date: 08/26/19 Reason for consult: end stage renal disease Chief Complaint Chief complaint: generalized weakness left heel infected wound History of Present Illness Narrative: The patient is a 84-year-old Caucasianwith an extensive past medical history as outlined below who presented to [facility] ER with compliaints of generalized weakness and fatigue. The day prior to admssion, patient had debridement of his left heel by Dr. Copeland in the [facility]. He has had a left heel diabetic wound has been ongoing for the past 2 months and despite conservative therapy appears to continue to deteriorate. For the last 24 hours prior to admission, he states that he has not been able to do his activities of daily living including cleaning after himself. Other associaed symptoms included s urine all night because he was too weak he has not beebto clean himself. The patient is known to live alone and is mostly wheelchair bound but he does transfer on his own normally. Associated symptoms include fever, nausea, and vomiting. He apparently was scheduled for a follow up visit with Dr. Corey to be evaluate for possible vascular intervention to help with his poor circulation of his left lower extremity. He apparanely also states that his surgeon has already advised him that if his foot ulcer does not improve he may need to have an amputation. Workup and evaluation in the emergency room demonstrated the patient to be hemodynamically stable with routine blood test that were consistent with his known history of end-stage renal disease. However, given his history as above and has his chronic medical issues and problems, he was admitted the hospital for further evaluation and therapy. Renal consultation was requested due to his end-stage renal disease. The patient normally dialyzes on a Thursday, , Thursday dialysis schedule at [facility] under the care of Dr. Tulio Blas. From a dialysis perspective, he usually tolerates his treatments reasonably well and most of his issues/problems related to his end-stage renal disease her are due to his significant and large fluid gains in between dialysis treatments which result in difficulty getting him down to his dry weight. He did receive dialysis yesterday in the hospital in effort to maintain his outpatient dialysis schedule. Since his admission to the hospital, he is noted to have positive cultures with regard to the afor
--- NOTE | 2019-08-26 15:36 | PM.PNNEP ---
Progress Note: A&P Assessment and Plan (1) End stage renal disease: Code(s): N18.6 - End stage renal disease Status: Chronic Assessment and Plan: hemodialysis tomorrow and continue outpatient schedule of T/T/S while hospitalized follow electrolytes, volume status, and clearance (2) Chronic ulcer of left heel: Onset Date: ~05/2019 Qualifiers: Non-pressure ulcer stage: unspecified non-pressure ulcer stage Qualified Code(s): L97.429 - Non-pressure chronic ulcer of left heel and midfoot with unspecified severity Code(s): L97.429 - Non-pressure chronic ulcer of left heel and midfoot with unspecified severity Status: Acute Assessment and Plan: long standing issues follows in wound clinic with Dr. Copeland local wound care (3) Peripheral vascular disease: Code(s): I73.9 - Peripheral vascular disease, unspecified Status: Acute Assessment and Plan: concern that this may cause of poor wound healing s/p left lower extremity angiogram and intervention as noted by Dr. Corey Cardiology following (4) Weakness: Code(s): R53.1 - Weakness Status: Acute Assessment and Plan: multifactorial - heal wound, deconditioning, ESRD...etc. PT/OT as tolerated Will continue to follow Subjective Date/time seen: 08/26/19 15:36 Tolerated dialysis yesterday and subsequent angiogram without any issues or problems; admitted to ICU post-procedure for closer monitoring; no acute distress voiced at this time; no distress voiced. Objective Data Vital Signs Vital Signs: Vital Signs Temp Pulse Pulse Resp BP Pulse Ox 08/26/19 14:00 74 14 128/65 99 08/26/19 12:00 36.9 C 70 22 H 120/47 L 99 08/26/19 10:00 68 20 136/72 98 08/26/19 09:08 58 L 08/26/19 08:00 36.9 C 50 L 14 120/43 L 99 08/26/19 06:00 53 L 20 117/50 L 97 08/26/19 04:00 36.9 C 56 L 12 112/42 L 99 08/26/19 02:50 53 L 19 98 08/26/19 02:00 53 L 17 102/40 L 94 08/26/19 01:43 49 L 20 100/40 L 98 08/26/19 00:43 55 L 17 119/52 L 99 08/26/19 00:00 36.8 C 49 L 18 129/49 L 100 08/25/19 23:45 53 L 22 H 98 08/25/19 23:43 60 21 H 132/48 L 100 08/25/19 23:13 51 L 17 133/53 L 100 08/25/19 22:43 55 L 16 128/54 L 100 08/25/19 22:13 54 L 20 129/51 L 98 08/25/19 22:00 55 L 17 126/49 L 98 08/25/19 21:43 56 L 16 131/54 L 99 08/25/19 21:13 65 15 122/47 L 97 08/25/19 20:43 63 16 128/56 L 100 08/25/19 20:40 64 19 127/51 L 97 08/25/19 20:35 64 16 130/53 L 96 08/25/19 20:30 65 18 120/53 L 98 08/25/19 20:25 65 14 131/54 L 98 08/25/19 20:20 65 14 129/52 L 94 08/25/19 20:15 67 14 134/51 L 95 08/25/19 20:10 36.8 C 66 18 139/46 L 99 08/25/19 20:00 36.9 C 65 16 125/65 98 08/25/19 19:21 62 08/25/19 18:46 61 08/25/19 18:45 61 14 130/57 L 100 08/25/19 18:00 63 61 16 128/54 L 100 08/25/19 17:30 61 61 16 122/50 L 100 08/25/19 17:15 60 60 16 126/50 L 100 08/25/19 17:00 62 62 16 120/43 L 100 08/25/19 16:45 61 61 16 122/52 L 100 08/25/19 16:30 61 61 16 139/63 100 Intake/Output Intake/Output: Intake & Output 08/23/19 08/24/19 08/25/19 08/26/19 23:59 23:59 23:59 23:59 Intake Total 500 1210 890 Output Total 5500 Balance 500 -4290 890 Meds/Results Medications: Active Medications Generic Name Dose Route Start Last Admin Trade Name Red PRN Reason Stop Dose Admin Acetaminophen 650 mg 08/24/19 22:28 Tylenol Tablet PO Q4H PRN Mild Pain (1-3) or Fever Allopurinol 300 mg 08/25/19 08:00 08/26/19 09:07 Zyloprim PO 300 mg DAILY@0800 [facility] Administration Citalopram Hydrobromide 40 mg 08/25/19 09:00 08/26/19 09:07 Celexa BY MOUTH 40 mg DAILY [facility] Administration Clopidogrel Bisulfate 75 mg 08/25/19 09:00 0
--- NOTE | 2019-08-26 15:39 | P.OP_ITS ---
Procedure Note - Detailed Date of procedure: 08/26/19 Pre-op diagnosis: generalized weakness left heel infected wound Necrotic wound left heel Post-op diagnosis: same Procedure performed: excisionally debridement of fat and muscle left heel Description of procedure: Patient was seen in his ICU bed. Dressing removed and it appeared that there was significant necrotic tissue again present specially on the posterior inferior part of the circular tissue defect on his left heel. The patient was placed in the supine position. After a surgical time out confirming patient and procedure the patient was prepped and draped in the usual sterile fashion. Because the patient has significant neuropathy the there was no pain during this debridement. Wound was already opened and is considered contaminated so I simply used a suture removal kit and using the forceps and scissors trimmed away any necrotic tissue that was able to be elevated. Did not expose any bone in doing so. There was minimal bleeding which stopped with pressure as I did this. An elliptical area of necrotic tissue approximately 4 x 3 cm in size was removed. This included tissue that I feel was the most likely devascularized fat and muscle that would of been underneath the skin of the heel but superficial to the calcaneus.. I dissected as much as possible all the necrotic tissue off of this area. There may be slight necrotic skin along the edges and extending underneath the edge a little bit in some areas. Bleeding was controlled with pressure. Patient tolerated this well. The wound care nurse Rosy our wound care nurse a nice myself evaluated the wound it appeared the rest the tissue was fairly viable and there was no bone exposed. Therefore will try placing a area a wound VAC on this to see if this will stimulate some better blood flow and granulation formation. Anesthesia: none Surgeon: Gomez Copeland MD [employer] Instructor: Wound care nurse -- Rosy Estimated blood loss (mL): 3 Drains: No Packing: No Pathology: none sent Complications: No immediate complications Condition: stable Disposition: other ( patient remains in his ICU bed under monitoring.) Findings: Necrotic subcutaneous and muscular tissue on the left heel
[2019-08-26 17:01] LABS: Glucose Point of Care 162 (65-105)
--- NOTE | 2019-08-26 19:23 | PC.NURSE ---
This patient, Gonsalo Moore, was transferred to [facility] on 08/26/19 at 1915. Personal belongings sent with patient. Belongings list checked and signed with receiving. Report given to MILE Wallis on dayshift. Appropriate documentation sent with patient.
--- NOTE | 2019-08-26 19:24 | PC.NURSE ---
Request for medical records pertaining to stent in left upper arm sent.
[2019-08-26] MEDS: MELATONIN 5 MG TABLET PO (20:11)
[2019-08-26] MEDS: TRAZODONE HCL 50 MG TABLET PO (20:11)
[2019-08-26] MEDS: RIVAROXABAN 2.5 MG TABLET PO (20:11)
[2019-08-26 21:42] LABS: Glucose Point of Care 200 (65-105)
[2019-08-27] VITALS (24 sets, daily range): BP systolic 112–163; BP diastolic 39–81; PULSE 52–80; RESP 16–22; TEMP 36–36.7; O2SAT 95–100
[2019-08-27 05:32] LABS: Hematocrit 27.2 % (42.0-52.0); Hemoglobin 8.6 g/dL (14.0-18.0)
[2019-08-27 05:59] LABS: Albumin Level 3.1 g/dL (3.5-5.1); Blood Urea Nitrogen 51 mg/dL (9-20); Calcium 8.7 mg/dL (8.4-10.2); Carbon Dioxide 24 mmol/L (22-30); Chloride 97 mmol/L (98-107); Estimated CRCL calculation 11 ml/min; Estimated Glomerular Filt Rate 8; Glucose 141 mg/dL (75-110); Phosphorus 5.8 mg/dL (2.5-4.5); Potassium 4.1 mmol/L (3.4-5.0); Sodium 133 mmol/L (137-145)
[2019-08-27 08:17] LABS: Glucose Point of Care 128 (65-105)
--- NOTE | 2019-08-27 08:18 | PM.IMPN ---
Progress Note: A&P Assessment and Plan (1) Chronic ulcer of left heel: Onset Date: ~05/2019 Qualifiers: Non-pressure ulcer stage: unspecified non-pressure ulcer stage Qualified Code(s): L97.429 - Non-pressure chronic ulcer of left heel and midfoot with unspecified severity Code(s): L97.429 - Non-pressure chronic ulcer of left heel and midfoot with unspecified severity Status: Acute Assessment and Plan: -----status post debridement 08/25 with wound VAC placement. Plan to do an MRI on Thursday before dialysis. I will talk to Nephrology about this. We are awaiting records from [facility] due to a stent. X-ray concerning for osteomyelitis but requires MRI to make diagnosis. Culture reviewed growing staph aureus and sensativities are not back. I called [facility] and they said this sensitivities will probably be back tomorrow because they had to isolated before they could grow it. He also has Proteus in his blood which is sensitive to zosyn. Only 1 bottle is positive complaints of fevers, chills or systemic infection. His wound culture had multiple organisms as well. At this point I will consult infectious disease and I appreciate his recommendations on antibiotic management. (2) Peripheral vascular disease: Code(s): I73.9 - Peripheral vascular disease, unspecified Status: Acute Assessment and Plan: -----Partially successful Balloon angioplasty 08/[address] Mcclelland. Jeremiahrelto still on hold, surgery recommends restarting Thursday. Pulses were able to be heard with Doppler this morning (3) Generalized weakness: Onset Date: ~08/23/19 Code(s): R53.1 - Weakness Status: Acute Assessment and Plan: -----likely secondary to chronic illnesses and acute GI upset. Will placed PT and OT orders. (4) End stage renal disease on dialysis: Code(s): N18.6 - End stage renal disease; Z99.2 - Dependence on renal dialysis Status: Chronic Assessment and Plan: -----continue dialysis. Patient usually goes Thursday, , Thursday. (5) Diabetic peripheral neuropathy: Code(s): E11.42 - Type 2 diabetes mellitus with diabetic polyneuropathy Status: Chronic Assessment and Plan: -----stable in chronic (6) T2DM (type 2 diabetes mellitus): Code(s): E11.9 - Type 2 diabetes mellitus without complications Status: Chronic Assessment and Plan: -----last glucose 166. Continue accuchecks, SSI coverage, continue long acting insulin. hypoglycemic protocol. (7) Congestive heart failure: Code(s): I50.9 - Heart failure, unspecified Status: Chronic Assessment and Plan: ------Monitor fluid status, Is and Os, daily weights. (8) Chronic anticoagulation: Onset Date: Unknown Code(s): Z79.01 - [employer] (current) use of anticoagulants Status: Acute Assessment and Plan: -----patient usually on Xarelto. He does not recall why he is on this and says he has never had a blood clot or afib. He says the doctor at [facility] started it. With his vascular disease and immobility, I suspect this is for preventative measures. Will restart on Thursday (9) Bradycardia: Code(s): R00.1 - Bradycardia, unspecified Status: Acute Assessment and Plan: -----patient is still persistently bradycardic. Initial he came on on propanolol and. Initially the propanolol was held but the patient continues to be bradycardic. He is asymptomatic with this. He has been utilizing his CPAP. I will hold the labetalol today. May end up decreasing it in the future. I will hold the propanolol and likely stop this altogether at discharge. Subjective Date/time seen: 08/27/19 08:18 Interval history: Pt is a 84-year-old male who presented emergency room for weakness and chronic heel wound. Patient was seen today and states that he is doing okay. Last night he said h
[2019-08-27] MEDS: LORATADINE 10 MG TABLET PO (08:25)
[2019-08-27] MEDS: polyethylene glycoL 3350 17 GM POWD.PACK PO (08:25)
[2019-08-27] MEDS: PYRIDOXINE HCL 50 MG TABLET 100 MG PO (08:25)
[2019-08-27] MEDS: PIOGLITAZONE HCL 45 MG TABLET PO (08:25)
[2019-08-27] MEDS: CITALOPRAM HYDROBROMIDE 20 MG TABLET 40 MG BY MOUTH (08:25)
[2019-08-27] MEDS: SEVELAMER CARBONATE 800 MG TABLET PO ×3 (08:26→18:36)
[2019-08-27] MEDS: allopurinoL 300 MG TABLET PO (08:26)
[2019-08-27] MEDS: CLOPIDOGREL BISULFATE 75 MG TABLET PO (08:26)
[2019-08-27] MEDS: CHOLECALCIFEROL 400 UNITS TABLET (VIT D) PO (08:26)
[2019-08-27] MEDS: FENOFIBRATE 160 MG TABLET PO (08:26)
[2019-08-27] MEDS: INSULIN GLARGINE (*BKC) 100 UNITS/ML 20 UNITS SUB-Q (08:27)
--- NOTE | 2019-08-27 08:42 | PM.PNNEP ---
Progress Note: A&P Assessment and Plan (1) End stage renal disease: Code(s): N18.6 - End stage renal disease Status: Chronic Assessment and Plan: hemodialysis today. Volume status looks good. Potassium is fine. (2) Chronic ulcer of left heel: Onset Date: ~05/2019 Qualifiers: Non-pressure ulcer stage: unspecified non-pressure ulcer stage Qualified Code(s): L97.429 - Non-pressure chronic ulcer of left heel and midfoot with unspecified severity Code(s): L97.429 - Non-pressure chronic ulcer of left heel and midfoot with unspecified severity Status: Acute Assessment and Plan: long standing issues follows in wound clinic with Dr. Copeland He has a wound VAC on. Considering an MRI. (3) Peripheral vascular disease: Code(s): I73.9 - Peripheral vascular disease, unspecified Status: Acute Assessment and Plan: concern that this may cause of poor wound healing s/p left lower extremity angiogram and intervention as noted by Dr. Corey Cardiology following No cardiac issues. (4) Weakness: Code(s): R53.1 - Weakness Status: Acute Assessment and Plan: multifactorial - heal wound, deconditioning, ESRD...etc. PT/OT as tolerated With the wound and wound VAC he can't bear weight on that foot. Will continue to follow Subjective Date/time seen: 08/27/19 08:42 Interval history: patient is feeling okay no cp or sob no more nausea or vomiting. he ate a good dinner last night. Review of Systems Cardiovascular: Cardiovascular: Reports no additional cardiovascular complaints Respiratory: Respiratory: Reports no additional respiratory complaints Gastrointestinal: Gastrointestinal: Reports no additional gastrointestinal complaints Genitourinary: Genitourinary: Reports no additional male genitourinary complaints Exam Narrative: Exam Narrative: Well developed well-nourished in no acute distress Lungs clear Heart regular without rub Abdomen bowel sounds positive soft nontender Extremities no edema! Skin no rash Objective Data Vital Signs Vital Signs: Vital Signs - 24 hr 08/26/19 09:08 08/26/19 10:00 08/26/19 12:00 Temperature 36.9 C Pulse Rate 58 L 68 70 Respiratory Rate 20 22 H Blood Pressure 136/72 120/47 L Pulse Oximetry 98 99 08/26/19 14:00 08/26/19 16:00 08/26/19 16:53 Temperature 37.1 C Pulse Rate 74 70 74 Respiratory Rate 14 20 Blood Pressure 128/65 123/54 L Pulse Oximetry 99 100 08/26/19 20:00 08/26/19 21:23 08/26/19 22:55 Temperature 36.3 C L Pulse Rate 73 84 63 Respiratory Rate 18 20 Blood Pressure 118/38 L Pulse Oximetry 95 96 08/27/19 00:00 08/27/19 02:00 08/27/19 04:00 Temperature 36.2 C L Pulse Rate 53 L 80 59 L Respiratory Rate 16 Blood Pressure 116/42 L Pulse Oximetry 96 08/27/19 06:00 Temperature 36.1 C L Pulse Rate 68 Respiratory Rate 18 Blood Pressure 125/41 L Pulse Oximetry 100 Intake/Output Intake/Output: Intake & Output 08/24/19 08/25/19 08/26/19 08/27/19 23:59 23:59 23:59 23:59 Intake Total 500 1210 2150 300 Output Total 5500 125 Balance 500 -4290 2025 300 Meds/Results Medications: Active Medications Generic Name Dose Route Start Last Admin Trade Name Freq PRN Reason Stop Dose Admin Acetaminophen 650 mg 08/24/19 22:28 Tylenol Tablet PO Q4H PRN Mild Pain (1-3) or Fever Allopurinol 300 mg 08/25/19 08:00 08/27/19 08:26 Zyloprim PO 300 mg DAILY@0800 [facility] Administration Citalopram Hydrobromide 40 mg 08/25/19 09:00 08/27/19 08:25 Celexa BY MOUTH 40 mg DAILY [facility] Administration Clopidogrel Bisulfate 75 mg 08/25/19 09:00 08/27/19 08:26 Plavix PO 75 mg QAM [facility] Administration Cyanocobalamin 1,000 mcg 09/07/19 09:00 Vitamin B-12 Tab PO [id number] [facility] Dextrose 12.5 gm 08/24/19 22:28 Dextrose 50% Syringe IV PUSH PRN PRN Hypoglycemia
--- NOTE | 2019-08-27 09:20 | PM.PNCARD ---
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 Also on Xarelto 2.5 BID (2) End stage renal disease: Code(s): N18.6 - End stage renal disease Status: Chronic Assessment and Plan: Dialysis per nephrology (3) T2DM (type 2 diabetes mellitus): Code(s): E11.9 - Type 2 diabetes mellitus without complications Status: Chronic Subjective Date/time seen: 08/27/19 09:20 He feels pretty well today, no chest pain no shortness of breath and no leg pain or leg swelling. Left ankle seems to be slightly improving, no active pain Exam Const: General: no acute distress Eyes: Sclera: sclerae normal Neck: Neck: no JVD Carotids: no bruits Resp: Effort & Inspection: normal respiratory effort Auscultation: clear to auscultation bilaterally Cardio: Rate: regular rate and not tachycardic Rhythm: regular rhythm Heart sounds: no gallops, no murmurs and no rubs Skin: General skin exam: normal color Neuro: Cranial nerves: Yes Normal hearing present Speech: normal speech Extrem: General: capillary refill normal, no pedal edema and no edema Psych: Affect: normal affect Objective Data Vital Signs Vital Signs: Vital Signs - 24 hr 08/26/19 10:00 08/26/19 12:00 08/26/19 14:00 Temperature 36.9 C Pulse Rate 68 70 74 Respiratory Rate 20 22 H 14 Blood Pressure 136/72 120/47 L 128/65 Pulse Oximetry 98 99 99 08/26/19 16:00 08/26/19 16:53 08/26/19 20:00 Temperature 37.1 C Pulse Rate 70 74 73 Respiratory Rate 20 Blood Pressure 123/54 L Pulse Oximetry 100 08/26/19 21:23 08/26/19 22:55 08/27/19 00:00 Temperature 36.3 C L Pulse Rate 84 63 53 L Respiratory Rate 18 20 Blood Pressure 118/38 L Pulse Oximetry 95 96 08/27/19 02:00 08/27/19 04:00 08/27/19 06:00 Temperature 36.2 C L 36.1 C L Pulse Rate 80 59 L 68 Respiratory Rate 16 18 Blood Pressure 116/42 L 125/41 L Pulse Oximetry 96 100 Intake/Output Intake/Output: Intake & Output 08/24/19 08/25/19 08/26/19 08/27/19 23:59 23:59 23:59 23:59 Intake Total 500 1210 2150 300 Output Total 5500 125 Balance 500 -4290 2025 300 Meds/Results Medications: Active Medications Generic Name Dose Route Start Last Admin Trade Name Freq PRN Reason Stop Dose Admin Acetaminophen 650 mg 08/24/19 22:28 Tylenol Tablet PO Q4H PRN Mild Pain (1-3) or Fever Allopurinol 300 mg 08/25/19 08:00 08/27/19 08:26 Zyloprim PO 300 mg DAILY@0800 [facility] Administration Citalopram Hydrobromide 40 mg 08/25/19 09:00 08/27/19 08:25 Celexa BY MOUTH 40 mg DAILY [facility] Administration Clopidogrel Bisulfate 75 mg 08/25/19 09:00 08/27/19 08:26 Plavix PO 75 mg QAM [facility] Administration Cyanocobalamin 1,000 mcg 09/07/19 09:00 Vitamin B-12 Tab PO [id number] [facility] Dextrose 12.5 gm 08/24/19 22:28 Dextrose 50% Syringe IV PUSH PRN PRN Hypoglycemia Protocol Epoetin Isaiah 10,000 units 08/25/19 18:00 08/25/19 10:00 Epogen IV PUSH 10,000 units TuThSa@1800 [facility] Administration Epoetin Isaiah 10,000 units 08/27/19 19:45 Epogen IV PUSH 08/27/19 19:46 ONCE ONE Fenofibrate 160 mg 08/25/19 09:00 08/27/19 08:26 Fenofibrate PO 160 mg DAILY [facility] Administration Glucagon 1 mg 08/24/19 22:28 Glucagon For Inj IM PRN PRN Hypoglycemia Protocol Glucose 15 gm 08/24/19 22:28 Glutose 15 PO PRN PRN Hypoglycemia Protocol Vancomycin HCl 1,500 mg in 500 mls @ 333.333 mls/hr 08/24/19 20:55 Vancomycin 1,500 Mg/D5w 500 Ml IVPB PRN PRN PER PROTOCOL Piperacillin Sod/Tazobactam Sod 2.25 gm in 50 mls @ 100 mls/hr 08/25/19 06:00 08/27/19 05:48 Zosyn 2.25 Gm/D5w 50 Ml IVPB 100 mls/
[2019-08-27] MEDS: INSULIN ASPART (*BKC) 100 UNITS/ML SUB-Q (11:45)
[2019-08-27] MEDS: RIVAROXABAN 2.5 MG TABLET PO ×2 (11:45→20:12)
[2019-08-27 12:20] LABS: Glucose Point of Care 243 (65-105)
--- NOTE | 2019-08-27 14:28 | PM.PNGS ---
Progress Note: A&P Assessment and Plan (1) Chronic ulcer of left heel: Onset Date: ~05/2019 Qualifiers: Non-pressure ulcer stage: unspecified non-pressure ulcer stage Qualified Code(s): L97.429 - Non-pressure chronic ulcer of left heel and midfoot with unspecified severity Code(s): L97.429 - Non-pressure chronic ulcer of left heel and midfoot with unspecified severity Status: Acute Assessment and Plan: continue wound VAC with irrigation after debridement yesterday. Check wound again on Thursday. (2) Peripheral vascular disease: Code(s): I73.9 - Peripheral vascular disease, unspecified Status: Acute Assessment and Plan: Had posterior tibial artery angioplasty 2 days ago. Continue Plavix and Xarelto. (3) End stage renal disease on dialysis: Code(s): N18.6 - End stage renal disease; Z99.2 - Dependence on renal dialysis Status: Chronic Subjective Subjective Date/Time Seen: 08/27/19 14:28 Patient reports: no new complaints and tolerating a regular diet Review of Systems Review of Systems: All systems reviewed & are unremarkable except as noted in HPI and below Constitutional: Constitutional: Denies headache(s) ENT: Denies headache(s) Cardiovascular: Cardiovascular: Denies chest pain and Denies dyspnea Respiratory: Respiratory: Denies cough and Denies dyspnea Neurologic: Denies confusion and Denies headache(s) Psychiatric: Psychiatric: Denies confusion Exam Const: General: comfortable and no acute distress; No confusion Orientation/consciousness: patient oriented x3 and No confusion Neuro: General: patient oriented x3, no focal motor deficits and No confusion Extrem: General: no calf tenderness and no edema Left lower extremity: foot ( Left heel with wound VAC in place. No bleeding, no swelling. Foot warm ) Psych: Affect: normal affect Insight: Good insight present (Psych) Judgement: Good judgement present (Psych) Objective Data Vital Signs Vital Signs: Vital Signs - 24 hr 08/26/19 16:00 08/26/19 16:53 08/26/19 20:00 Temperature 37.1 C Pulse Rate 70 74 73 Respiratory Rate 20 Blood Pressure 123/54 L Pulse Oximetry 100 08/26/19 21:23 08/26/19 22:55 08/27/19 00:00 Temperature 36.3 C L Pulse Rate 84 63 53 L Respiratory Rate 18 20 Blood Pressure 118/38 L Pulse Oximetry 95 96 08/27/19 02:00 08/27/19 04:00 08/27/19 06:00 Temperature 36.2 C L 36.1 C L Pulse Rate 80 59 L 68 Respiratory Rate 16 18 Blood Pressure 116/42 L 125/41 L Pulse Oximetry 96 100 08/27/19 10:00 08/27/19 13:02 08/27/19 13:13 Temperature 36.1 C L 36.7 C Pulse Rate 63 67 65 Respiratory Rate 18 18 Blood Pressure 114/45 L 163/57 H 133/81 Pulse Oximetry 96 08/27/19 13:30 08/27/19 13:45 08/27/19 14:00 Temperature Pulse Rate 57 L 54 L 53 L Respiratory Rate Blood Pressure 144/67 H 151/72 H 155/74 H Pulse Oximetry Intake/Output Intake/Output: Intake & Output 08/24/19 08/25/19 08/26/19 08/27/19 23:59 23:59 23:59 23:59 Intake Total 500 1210 2150 780 Output Total 5500 125 Balance 500 -4290 2025 780 Meds/Results Medications: Active Medications Generic Name Dose Route Start Last Admin Trade Name Freq PRN Reason Stop Dose Admin Acetaminophen 650 mg 08/24/19 22:28 Tylenol Tablet PO Q4H PRN Mild Pain (1-3) or Fever Allopurinol 300 mg 08/25/19 08:00 08/27/19 08:26 Zyloprim PO 300 mg DAILY@0800 [facility] Administration Citalopram Hydrobromide 40 mg 08/25/19 09:00 08/27/19 08:25 Celexa BY MOUTH 40 mg DAILY [facility] Administration Clopidogrel Bisulfate 75 mg 08/25/19 09:00 08/27/19 08:26 Plavix PO 75 mg QAM [facility] Administration Cyanocobalamin 1,000 mcg 09/07/19 09:00 Vitamin B-12 Tab PO [id number] [facility] Dextrose 12.5 gm 08/24/19 22:28 Dextrose 50% Syringe IV PUSH PRN PRN Hypoglycemia Protocol Epoetin Isaiah 10,000 units 08/25/19
[2019-08-27] MEDS: EPOETIN ALFA 10,000 UNITS/ML VIAL 10000 UNITS IV PUSH ×2 (14:36→18:45)
[2019-08-27 18:53] LABS: Glucose Point of Care 115 (65-105)
[2019-08-27] MEDS: MELATONIN 5 MG TABLET PO (20:13)
[2019-08-27] MEDS: TRAZODONE HCL 50 MG TABLET PO (20:13)
[2019-08-27 21:38] LABS: Glucose Point of Care 212 (65-105)
[2019-08-28] VITALS (14 sets, daily range): BP systolic 96–120; BP diastolic 43–58; PULSE 48–76; RESP 16–22; TEMP 36.1–36.7; O2SAT 95–100
--- NOTE | 2019-08-28 03:07 | PC.NURSE ---
Daylight Savings Time For Daylight Savings Time Ending in the Fall - Clocks are moved back. For Daylight Savings Time Beginning in the Spring - Clocks are moved ahead. For [facility], the time of change occurs at 0200 hrs. Time is taken from the beverage server. This entry on the patient's chart recognizes the change in time reflected during documentation. Example: 2 entries for vital signs may be charted for 0200 hrs.
[2019-08-28 05:42] LABS: Hematocrit 29.9 % (42.0-52.0); Hemoglobin 9.4 g/dL (14.0-18.0)
[2019-08-28 05:48] LABS: Basophils Absolute Auto 0.1 K/mm3 (0.0-0.1); Basophils Percent Auto 0.8 % (0.2-1.2); Eosinophils Absolute Auto 0.2 K/mm3 (0-0.3); Eosinophils Percent Auto 1.9 % (0-4.4); Hematocrit 29.9 % (42.0-52.0); Hemoglobin 9.4 g/dL (14.0-18.0); Immature Granulocyte Absolute 0.49 K/mm3 (0.00-0.031); Immature Granulocyte Percent A 5.3 % (0-0.5); Lymphocytes Absolute Auto 1.53 K/mm3 (0.9-3.2); Lymphocytes Percent Auto 16.4 % (18.3-44.2); Mean Corpuscular HGB Conc 31.4 g/dl (32-36); Mean Corpuscular Volume 98.7 fl (80-100); Mean Platelet Volume 10.6 fl (7.4-10.4); Monocytes Percent Auto 11.1 % (2.6-8.5); Neutrophils Percent Auto 64.5 % (45.5-73.1); Nucleated Red Blood Cells Perc 0.2 % (0.0-0.2); Platelet Count Result 217 k/mm3 (150-375); Red Blood Count 3.03 M/mm3 (4.6-6.20); Red Cell Distribution Width 13.4 % (11.5-14.5); White Blood Count 9.3 K/mm3 (4.5-10.0)
[2019-08-28 06:07] LABS: Albumin Level 3.2 g/dL (3.5-5.1); Blood Urea Nitrogen 33 mg/dL (9-20); CRP 7.2 mg/dL (<1.0); Calcium 8.9 mg/dL (8.4-10.2); Carbon Dioxide 28 mmol/L (22-30); Chloride 98 mmol/L (98-107); Estimated CRCL calculation 16 ml/min; Estimated Glomerular Filt Rate 12; Glucose 132 mg/dL (75-110); Phosphorus 4.6 mg/dL (2.5-4.5); Sodium 135 mmol/L (137-145)
--- NOTE | 2019-08-28 09:27 | PM.PNNEP ---
Progress Note: A&P Assessment and Plan (1) End stage renal disease: Code(s): N18.6 - End stage renal disease Status: Chronic Assessment and Plan: hemodialysis Thursday. Volume status looks good. Potassium is fine. His dialysis went well yesterday. They removed some fluid. (2) Chronic ulcer of left heel: Onset Date: ~05/2019 Qualifiers: Non-pressure ulcer stage: unspecified non-pressure ulcer stage Qualified Code(s): L97.429 - Non-pressure chronic ulcer of left heel and midfoot with unspecified severity Code(s): L97.429 - Non-pressure chronic ulcer of left heel and midfoot with unspecified severity Status: Acute Assessment and Plan: long standing issues follows in wound clinic with Dr. Copeland He has a wound VAC on. Considering an MRI. (3) Peripheral vascular disease: Code(s): I73.9 - Peripheral vascular disease, unspecified Status: Acute Assessment and Plan: concern that this may cause of poor wound healing s/p left lower extremity angiogram and intervention as noted by Dr. Corey Cardiology following No cardiac issues. He denies chest pain or shortness of breath. (4) Weakness: Code(s): R53.1 - Weakness Status: Acute Assessment and Plan: multifactorial - heal wound, deconditioning, ESRD...etc. PT/OT as tolerated With the wound and wound VAC he can't bear weight on that foot. Subjective Date/time seen: 08/28/19 09:27 Interval history: patient is feeling okay Slept well with his CPAP machine. Eating okay. Review of Systems Cardiovascular: Cardiovascular: Reports no additional cardiovascular complaints Respiratory: Respiratory: Reports no additional respiratory complaints Gastrointestinal: Gastrointestinal: Reports no additional gastrointestinal complaints Genitourinary: Genitourinary: Reports no additional male genitourinary complaints Exam Narrative: Exam Narrative: Well developed well-nourished in no acute distress Lungs clear Heart regular without rub or gallop Abdomen bowel sounds positive soft nontender Extremities no edema! Skin no rash or subcu nodules Objective Data Vital Signs Vital Signs: Vital Signs - 24 hr 08/27/19 10:00 08/27/19 13:02 08/27/19 13:13 Temperature 36.1 C L 36.7 C Pulse Rate 63 67 65 Respiratory Rate 18 18 Blood Pressure 114/45 L 163/57 H 133/81 Pulse Oximetry 96 08/27/19 13:30 08/27/19 13:45 08/27/19 14:00 Temperature Pulse Rate 57 L 54 L 53 L Respiratory Rate Blood Pressure 144/67 H 151/72 H 155/74 H Pulse Oximetry 08/27/19 14:15 08/27/19 14:30 08/27/19 14:45 Temperature Pulse Rate 53 L 55 L 53 L Respiratory Rate Blood Pressure 159/73 H 143/72 H 159/77 H Pulse Oximetry 08/27/19 15:00 08/27/19 15:15 08/27/19 16:00 Temperature Pulse Rate 73 52 L 53 L Respiratory Rate Blood Pressure 150/63 H 151/73 H Pulse Oximetry 08/27/19 17:20 08/27/19 18:00 08/27/19 20:00 Temperature 36.6 C 36.1 C L Pulse Rate 61 58 L 70 Respiratory Rate 20 18 Blood Pressure 116/61 112/39 L Pulse Oximetry 100 08/27/19 21:18 08/27/19 21:35 08/28/19 00:00 Temperature 36.3 C L Pulse Rate 66 56 L 50 L Respiratory Rate 22 H 18 Blood Pressure 112/42 L Pulse Oximetry 95 97 08/28/19 00:45 08/28/19 01:20 08/28/19 04:00 Temperature 36.2 C L Pulse Rate 76 62 48 L Respiratory Rate 22 H 18 Blood Pressure 116/48 L Pulse Oximetry 95 98 08/28/19 06:00 Temperature 36.2 C L Pulse Rate 66 Respiratory Rate 18 Blood Pressure 110/51 L Pulse Oximetry 98 Intake/Output Intake/Output: Intake & Output 08/25/19 08/26/19 08/27/19 08/29/19 23:59 23:59 23:59 00:59 Intake Total 1210 2150 1330 350 Output Total 5500 125 5000 Balance -4290 2025 -3670 350 Meds/Results Medications: Active Medications Generic Name Dose Route Start Last Admin Trade Name Freq PRN Reason Stop Dose Admin Ac
[2019-08-28] MEDS: SEVELAMER CARBONATE 800 MG TABLET PO ×3 (09:42→17:32)
[2019-08-28] MEDS: allopurinoL 300 MG TABLET PO (09:42)
[2019-08-28] MEDS: LORATADINE 10 MG TABLET PO (09:43)
[2019-08-28] MEDS: CITALOPRAM HYDROBROMIDE 20 MG TABLET 40 MG BY MOUTH (09:43)
[2019-08-28] MEDS: CLOPIDOGREL BISULFATE 75 MG TABLET PO (09:43)
[2019-08-28] MEDS: FENOFIBRATE 160 MG TABLET PO (09:43)
[2019-08-28] MEDS: PIOGLITAZONE HCL 45 MG TABLET PO (09:43)
[2019-08-28] MEDS: CHOLECALCIFEROL 400 UNITS TABLET (VIT D) PO (09:43)
[2019-08-28] MEDS: PYRIDOXINE HCL 50 MG TABLET 100 MG PO (09:44)
[2019-08-28] MEDS: RIVAROXABAN 2.5 MG TABLET PO ×2 (09:44→20:31)
[2019-08-28] MEDS: polyethylene glycoL 3350 17 GM POWD.PACK PO (09:44)
[2019-08-28] MEDS: INSULIN GLARGINE (*BKC) 100 UNITS/ML 20 UNITS SUB-Q (09:44)
--- NOTE | 2019-08-28 11:01 | PM.IMPN ---
Progress Note: A&P Assessment and Plan (1) Chronic ulcer of left heel: Onset Date: ~05/2019 Qualifiers: Non-pressure ulcer stage: unspecified non-pressure ulcer stage Qualified Code(s): L97.429 - Non-pressure chronic ulcer of left heel and midfoot with unspecified severity Code(s): L97.429 - Non-pressure chronic ulcer of left heel and midfoot with unspecified severity Status: Acute Assessment and Plan: -----status post debridement 08/25 with wound VAC placement. Culture growing MRSA and vancomycin added. Awaiting Dr. young is recommendations. Plan to do an MRI on Thursday before dialysis. I will talk to Nephrology about this. We are awaiting records from [facility] due to a stent and I have asked the nursing staff to re-fax it today since records are not back yet. X-ray concerning for osteomyelitis but requires MRI to make diagnosis. He also has Proteus in his blood which is sensitive to zosyn. Only 1 bottle is positive complaints of fevers, chills or systemic infection. His wound culture had multiple organisms as well. At this point I will consult infectious disease and I appreciate his recommendations on antibiotic management. New blood cultures have no growth. (2) Peripheral vascular disease: Code(s): I73.9 - Peripheral vascular disease, unspecified Status: Acute Assessment and Plan: -----Partially successful Balloon angioplasty 08/[address] Mcclelland. Continue Xarelto and Plavix. Pulses palpable (3) Generalized weakness: Onset Date: ~08/23/19 Code(s): R53.1 - Weakness Status: Acute Assessment and Plan: -----likely secondary to chronic illnesses and acute GI upset. Pt has not been out of bed. Will try and get him a recliner. (4) End stage renal disease on dialysis: Code(s): N18.6 - End stage renal disease; Z99.2 - Dependence on renal dialysis Status: Chronic Assessment and Plan: -----continue dialysis. Patient usually goes Thursday, , Thursday. (5) Diabetic peripheral neuropathy: Code(s): E11.42 - Type 2 diabetes mellitus with diabetic polyneuropathy Status: Chronic Assessment and Plan: -----stable in chronic (6) T2DM (type 2 diabetes mellitus): Code(s): E11.9 - Type 2 diabetes mellitus without complications Status: Chronic Assessment and Plan: -----last glucose 132. Continue accuchecks, SSI coverage, continue long acting insulin. hypoglycemic protocol. (7) Congestive heart failure: Code(s): I50.9 - Heart failure, unspecified Status: Chronic Assessment and Plan: ------Monitor fluid status, Is and Os, daily weights. (8) Chronic anticoagulation: Onset Date: Unknown Code(s): Z79.01 - halfway (current) use of anticoagulants Status: Acute Assessment and Plan: -----continue xaralto, likely due to vascular disease and immobility since pt states hes never had a DVT, PE or Afib. (9) Bradycardia: Code(s): R00.1 - Bradycardia, unspecified Status: Acute Assessment and Plan: -----patient is still persistently bradycardic. Initial he came on on propanolol and labetalol. Initially the propanolol was held and then the labetalol was held as well and the patient continues to be bradycardic. He is asymptomatic with this. He has been utilizing his CPAP. May stop beta-blockers at discharge? Will speak to Cardiology about this Additional Plan Subjective Date/time seen: 08/28/19 11:01 Interval history: Pt is a 84-year-old male here for left foot wound. Patient was seen today and states that he is doing okay with no problems overnight. Pt denies nausea, vomiting, fevers, chills, night sweats, constipation, diarrhea, chest pain, sob, or abdominal pain. He is eating and drinking well. He is not not been out of bed. He usually doesn't walk much but sits at his computer [facility]
[2019-08-28 11:16] LABS: Glucose Point of Care 135 (65-105)
[2019-08-28 12:26] LABS: Glucose Point of Care 243 (65-105)
[2019-08-28] MEDS: INSULIN ASPART (*BKC) 100 UNITS/ML SUB-Q (12:29)
[2019-08-28 14:02] LABS: Vancomycin Trough 11.2 ug/mL (10.0-20.0)
[2019-08-28 17:36] LABS: Glucose Point of Care 195 (65-105)
[2019-08-28] MEDS: TRAZODONE HCL 50 MG TABLET PO (20:30)
[2019-08-28] MEDS: MELATONIN 5 MG TABLET PO (20:30)
[2019-08-28 22:23] LABS: Glucose Point of Care 181 (65-105)
[2019-08-29] VITALS (14 sets, daily range): BP systolic 106–115; BP diastolic 53–62; PULSE 48–88; RESP 17–21; TEMP 35.9–36.3; O2SAT 95–100
[2019-08-29 06:42] LABS: Hemoglobin 9.1 g/dL (14.0-18.0)
[2019-08-29 07:01] LABS: Albumin Level 3.2 g/dL (3.5-5.1); Blood Urea Nitrogen 48 mg/dL (9-20); Calcium 9.1 mg/dL (8.4-10.2); Carbon Dioxide 23 mmol/L (22-30); Chloride 95 mmol/L (98-107); Estimated CRCL calculation 12 ml/min; Estimated Glomerular Filt Rate 9; Glucose 102 mg/dL (75-110); Phosphorus 5.2 mg/dL (2.5-4.5); Potassium 4.4 mmol/L (3.4-5.0); Sodium 131 mmol/L (137-145)
[2019-08-29] MEDS: allopurinoL 300 MG TABLET PO (08:53)
[2019-08-29] MEDS: FENOFIBRATE 160 MG TABLET PO (08:53)
[2019-08-29] MEDS: SEVELAMER CARBONATE 800 MG TABLET PO ×3 (08:53→18:00)
[2019-08-29] MEDS: CHOLECALCIFEROL 400 UNITS TABLET (VIT D) PO (08:53)
[2019-08-29] MEDS: CITALOPRAM HYDROBROMIDE 20 MG TABLET 40 MG BY MOUTH (08:53)
[2019-08-29] MEDS: CLOPIDOGREL BISULFATE 75 MG TABLET PO (08:53)
[2019-08-29] MEDS: LORATADINE 10 MG TABLET PO (08:54)
[2019-08-29] MEDS: PYRIDOXINE HCL 50 MG TABLET 100 MG PO (08:54)
[2019-08-29] MEDS: polyethylene glycoL 3350 17 GM POWD.PACK PO (08:54)
[2019-08-29] MEDS: PIOGLITAZONE HCL 45 MG TABLET PO (08:54)
[2019-08-29] MEDS: INSULIN GLARGINE (*BKC) 100 UNITS/ML 20 UNITS SUB-Q (08:55)
[2019-08-29] MEDS: RIVAROXABAN 2.5 MG TABLET PO ×2 (08:59→21:29)
[2019-08-29 09:06] LABS: Glucose Point of Care 140 (65-105)
[2019-08-29 12:05] LABS: Glucose Point of Care 186 (65-105)
--- NOTE | 2019-08-29 12:17 | WPDINFPN2 ---
Progress Note: A&P Assessment and Plan (1) Proteus septicemia: Code(s): A41.59 - Other Gram-negative sepsis Status: Acute Assessment and Plan: 1. Proteus septicemia, L heel soft tissue source 2. MRSA in wound, of questionable significance 3. 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 CRF 5. PN REC PipTazo # 5, Vanc #1. 6 weeks IV therapy would be ideal, SNF is the most realistic option. Even then, I counseled the patient that he may after all require BKA. Subjective Date/time seen: 08/29/19 12:17 Objective Data Vital Signs Vital Signs: Vital Signs - 24 hr 08/28/19 14:00 08/28/19 16:00 08/28/19 18:00 Temperature 36.7 C 36.5 C Pulse Rate 63 57 L 58 L Respiratory Rate 20 18 Blood Pressure 96/58 L 117/43 L Pulse Oximetry 97 100 08/28/19 20:00 08/28/19 21:25 08/28/19 22:55 Temperature 36.1 C L Pulse Rate 69 62 71 Respiratory Rate 16 18 Blood Pressure 104/48 L Pulse Oximetry 98 96 08/29/19 00:00 08/29/19 02:13 08/29/19 04:00 Temperature 36.1 C L Pulse Rate 48 L 52 L 53 L Respiratory Rate 18 Blood Pressure 106/59 L Pulse Oximetry 100 08/29/19 04:10 08/29/19 06:00 08/29/19 08:00 Temperature 36.0 C L Pulse Rate 73 76 60 Respiratory Rate 18 18 Blood Pressure 107/53 L Pulse Oximetry 95 100 08/29/19 10:16 Temperature 36.1 C L Pulse Rate 65 Respiratory Rate 18 Blood Pressure 111/56 L Pulse Oximetry 96 Intake/Output Intake/Output: Intake & Output 08/26/19 08/27/19 08/28/19 08/29/19 22:59 22:59 23:59 23:59 Intake Total 470 Output Total 240 Balance 230 Meds/Results Medications: Active Medications Generic Name Dose Route Start Last Admin Trade Name Freq PRN Reason Stop Dose Admin Acetaminophen 650 mg 08/24/19 22:28 Tylenol Tablet PO Q4H PRN Mild Pain (1-3) or Fever Allopurinol 300 mg 08/25/19 08:00 08/29/19 08:53 Zyloprim PO 300 mg DAILY@0800 [facility] Administration Citalopram Hydrobromide 40 mg 08/25/19 09:00 08/29/19 08:53 Celexa BY MOUTH 40 mg DAILY [facility] Administration Clopidogrel Bisulfate 75 mg 08/25/19 09:00 08/29/19 08:53 Plavix PO 75 mg QAM [facility] Administration Cyanocobalamin 1,000 mcg 09/07/19 09:00 Vitamin B-12 Tab PO [id number] [facility] Dextrose 12.5 gm 08/24/19 22:28 Dextrose 50% Syringe IV PUSH PRN PRN Hypoglycemia Protocol Epoetin Isaiah 10,000 units 08/25/19 18:00 08/27/19 18:45 Epogen IV PUSH 10,000 units TuThSa@1800 [facility] Administration Fenofibrate 160 mg 08/25/19 09:00 08/29/19 08:53 Fenofibrate PO 160 mg DAILY [facility] Administration Glucagon 1 mg 08/24/19 22:28 Glucagon For Inj IM PRN PRN Hypoglycemia Protocol Glucose 15 gm 08/24/19 22:28 Glutose 15 PO PRN PRN Hypoglycemia Protocol Piperacillin Sod/Tazobactam Sod 2.25 gm in 50 mls @ 100 mls/hr 08/25/19 06:00 08/29/19 06:43 Zosyn 2.25 Gm/D5w 50 Ml IVPB Infused Q8HR [facility] Infusion Dextrose 1,000 mls @ 100 mls/hr 08/24/19 22:28 Dextrose 5% 1,000 Ml IVPB PRN PRN Hypoglycemia Protocol Albumin Human 50 mls @ 999 mls/hr 08/24/19 23:38 Albutein IVPB 09/23/19 23:39 Q10M PRN HYPOTENSION Sodium Chloride 1,000 mls @ 0 mls/hr 08/26/19 12:25 Normal Saline Iv IRRIGATION .Q0M [facility] Wide Open Vancomycin HCl 1,500 mg in 500 mls @ 333.333 mls/hr 08/28/19 15:28 Vancomycin 1,500 Mg/D5w 500 Ml IVPB PRN PRN Kinetics Consult Insulin Aspart 3 - 6 units 08/25/19 08:00 08/29/19 12:02 Novolog SUB-Q Not Given TIDWM [facility] Protocol Insulin Glargine 20 units 08/25/19 09:00 08/29/19 08:55 Lantus SUB-Q 09/24/19 09:01 20 units DAILY [facility] Administration Labetalol HCl 100 mg 08/25/19 09:00 08/26/19 16:53 Trandate PO 100 mg BID [facility] Administration Lactulose 20 gm 08/25/19 01:15 Lactulose PO DAILY PRN Constipation [place]
--- NOTE | 2019-08-29 14:19 | CONS_ITS ---
DATE OF CONSULTATION: 08/29/2019 REASON FOR CONSULTATION: Proteus bacteremia. HISTORY OF PRESENT ILLNESS: The patient is an 84-year-old male who has longstanding diabetes mellitus. He has been on a chronic hemodialysis for about the last year and a half. About 2 months before admission, he developed a blood blister over the left heel. This then burst and he has had a progressive ulcer ever since, then he seen Wound Care and has had debridement performed just prior to admission. However, the appearance of the wound was concerning enough that he was sent to the emergency room on August 23. He is now on piperacillin and vancomycin was added today, consultation was requested. Blood cultures 1 set show Proteus. The patient was on levofloxacin in the days prior to admission, but this caused too much nausea for him and it is not ongoing. He has no other antibiotic intolerances. He is on no systemic immunosuppressants. He denies previous surgery to the left foot and knows of no vascular compromise. ALLERGIES: ASPIRIN CAUSES FLUSHING. HABITS: Never smoked. No alcohol. PRESENT MEDICATIONS: List reviewed. No immunosuppressants. PAST MEDICAL HISTORY: Right total knee arthroplasty, gastric bypass, cholecystectomy, cataract surgery, cardiac cath, appendectomy, plantar fasciitis, morbid obesity, nephrolithiasis, hypertension, gout, COPD, peripheral neuropathy, depression, constipation, Grubbs's palsy, Asperger's. He has an AV fistula for dialysis. FAMILY HISTORY: Prostate cancer. SOCIAL HISTORY: He is single, retired, lives here in [place]. Has a friend who helps look after him. No pets. REVIEW OF SYSTEMS: Constipation is improved. Urinates 0 to 2 times per day in small volumes, some edema, largely wheelchair-bound due to generalized weakness and poor balance, though does use a walker for transfers or very short distances. 14-point review otherwise negative. PHYSICAL EXAMINATION: GENERAL: This is an elderly male who appears younger than his actual age. No acute distress. VITAL SIGNS: Since arrival, he has been afebrile and his blood pressure 111/56, pulse 65, respirations 18, 96% room air. SKIN: Venous stasis changes in both shins. No rashes. Warm and dry. EENT: The conjunctivae appear normal. Pupils equal, round, and reactive to light. The oral mucosa also normal. NECK: Supple. No masses, thyromegaly, or tenderness. LUNGS: Clear to auscultation and percussion. CARDIAC: Regular rate and rhythm without murmur, gallop, or rub. Peripheral pulses are 2+ and equal at the dorsalis pedis and the popliteals. ABDOMEN: Obese, nontender. No mass. No organomegaly. EXTREMITIES: He has a wound VAC in place of the left heel. No surrounding erythema and there is no streaking. He has no pedal edema. No tenderness. He has absent light touch sensation from the ankle distally. He can move his ankle and toes without difficulty. LABORATORY DATA: From August 23, blood cultures 1/2 sets Proteus mirabilis. I reviewed the susceptibilities. Blood culture repeated on August 25, no growth after 3 days incubation. Previous MRSA screen was negative. His white count consistently normal 9.3 yesterday, hemoglobin is stable 9.1, and platelets are 217. Differential with minimal left shift. Has mild hyponatremia, low chloride. BUN 48, creatinine 6.1, and glucose 102. His phosphorus high, normal calcium, albumin 3.2, vancomycin trough 11. Hepatitis panel, positive for surface antibody, core IgM is nonreactive. RADIOLOGY: Foot x-ray showed posterior heel ulceration, osteolysis, and sclerosis of the posterior aspect of the calcaneus. ASSESSMENT: 1. Proteus bacteremia with infection, left heel soft tissue source. Other sources less likely including pulmonary, primar
--- NOTE | 2019-08-29 17:02 | PM.PNGS ---
Progress Note: A&P Assessment and Plan (1) Chronic ulcer of left heel: Onset Date: ~05/2019 Qualifiers: Non-pressure ulcer stage: unspecified non-pressure ulcer stage Qualified Code(s): L97.429 - Non-pressure chronic ulcer of left heel and midfoot with unspecified severity Code(s): L97.429 - Non-pressure chronic ulcer of left heel and midfoot with unspecified severity Status: Acute Assessment and Plan: We are continuing the irrigating wound VAC on his heel wound. Planning for MR without contrast tomorrow to check for osteomyelitis of the left heel. Patient was subsequently have dialysis. Both Radiology and Nephrology have suggested avoiding the gadolinium contrast associated with MR so will see what kind of imaging we get with the MR without contrast. Main goal is to image the calcaneus and see if there are signs of osteomyelitis. (2) Proteus septicemia: Onset Date: ~08/23/19 Code(s): A41.59 - Other Gram-negative sepsis Status: Acute Assessment and Plan: Dialysis tomorrow after MR of the left heel. (3) End stage renal disease on dialysis: Code(s): N18.6 - End stage renal disease; Z99.2 - Dependence on renal dialysis Status: Chronic Additional Plan Appreciate input from ID. Will evaluate left heel wound while dressing off tomorrow. Subjective Subjective Date/Time Seen: 08/29/19 17:02 Patient is sitting up in the chair with his leg propped up. No pressure on his heel. Wound VAC is worked well over the weekend. Review of Systems Constitutional: Constitutional: Reports no additional constitutional complaints ENT: Reports other (Mucous Membranes moist.) Cardiovascular: Cardiovascular: Denies dyspnea Respiratory: Respiratory: Denies pain on inspiration and Denies dyspnea Musculoskeletal: Musculoskeletal: Reports other (No calf swelling or edema) Integumentary/Breasts: Skin/Breast: Reports system reviewed and no additional complaints, except as docu Exam Const: General: cooperative, no acute distress, alert and awake Orientation/consciousness: patient oriented x3 HENMT: Mouth: Yes moist mucous membranes Neck: Neck: normal visual inspection Chest: Chest palpation & inspection: normal inspection of the chest Resp: Effort & Inspection: normal respiratory effort Auscultation: clear to auscultation bilaterally Cardio: Jugular venous distension: no JVD Rate: regular rate Rhythm: regular rhythm GI: Rectal Exam: deferred Neuro: General: patient oriented x3 and moves all extremities Speech: normal speech Extrem: General: normal exam except as noted Left lower extremity: foot (Dressing and wound VAC over the heel aspect of left foot) Other: Yellowish serous drainage in the wound VAC canister. Wound VAC is apparently keeping a nice seal. Psych: Mental Status: mental status grossly normal Speech and movement: Normal speech and movement present Affect: normal affect Thought content: Yes Normal thought content present Objective Data Vital Signs Vital Signs: Vital Signs - 24 hr 08/28/19 18:00 08/28/19 20:00 08/28/19 21:25 Temperature 36.5 C 36.1 C L Pulse Rate 58 L 69 62 Respiratory Rate 18 16 Blood Pressure 117/43 L 104/48 L Pulse Oximetry 100 98 08/28/19 22:55 08/29/19 00:00 08/29/19 02:13 Temperature 36.1 C L Pulse Rate 71 48 L 52 L Respiratory Rate 18 18 Blood Pressure 106/59 L Pulse Oximetry 96 100 08/29/19 04:00 08/29/19 04:10 08/29/19 06:00 Temperature 36.0 C L Pulse Rate 53 L 73 76 Respiratory Rate 18 18 Blood Pressure 107/53 L Pulse Oximetry 95 100 08/29/19 08:00 08/29/19 10:16 08/29/19 12:00 Temperature 36.1 C L Pulse Rate 60 65 68 Respiratory Rate 18 Blood Pressure 111/56 L Pulse Oximetry 96 08/29/19 14:30 Temperature 35.9 C L Pulse Rate 61 Respiratory Rate 20 Blood Pressure 115/55 L Pulse Oximetry 98 Intake/Output Intake/Output: Intake & Output 08/26/19
--- NOTE | 2019-08-29 17:24 | PM.IMPN ---
Progress Note: A&P Assessment and Plan (1) Chronic ulcer of left heel: Onset Date: ~05/2019 Qualifiers: Non-pressure ulcer stage: unspecified non-pressure ulcer stage Qualified Code(s): L97.429 - Non-pressure chronic ulcer of left heel and midfoot with unspecified severity Code(s): L97.429 - Non-pressure chronic ulcer of left heel and midfoot with unspecified severity Status: Acute Assessment and Plan: -----status post debridement 08/25 with wound VAC placement. Culture growing MRSA and pt on vanc and piperacillin per Dr. Wilks. Plan to do an MRI on Thursday before dialysis without contrast. We are awaiting records from [facility] due to a stent. X-ray concerning for osteomyelitis but requires MRI to make diagnosis. He also has Proteus in his blood which is sensitive to zosyn. (2) Peripheral vascular disease: Code(s): I73.9 - Peripheral vascular disease, unspecified Status: Acute Assessment and Plan: -----Partially successful Balloon angioplasty 08/[address] Mcclelland. Continue Xarelto and Plavix. Pulses palpable (3) Generalized weakness: Onset Date: ~08/23/19 Code(s): R53.1 - Weakness Status: Acute Assessment and Plan: -----likely secondary to chronic illnesses and acute GI upset. Pt has not been out of bed. Will try and get him a recliner. (4) End stage renal disease on dialysis: Code(s): N18.6 - End stage renal disease; Z99.2 - Dependence on renal dialysis Status: Chronic Assessment and Plan: -----continue dialysis. Patient usually goes Thursday, , Thursday. (5) Diabetic peripheral neuropathy: Code(s): E11.42 - Type 2 diabetes mellitus with diabetic polyneuropathy Status: Chronic Assessment and Plan: -----stable in chronic (6) T2DM (type 2 diabetes mellitus): Code(s): E11.9 - Type 2 diabetes mellitus without complications Status: Chronic Assessment and Plan: -----last glucose 186. Continue accuchecks, SSI coverage, continue long acting insulin. hypoglycemic protocol. (7) Congestive heart failure: Code(s): I50.9 - Heart failure, unspecified Status: Chronic Assessment and Plan: ------Monitor fluid status, Is and Os, daily weights. (8) Chronic anticoagulation: Onset Date: Unknown Code(s): Z79.01 - manager long term care (current) use of anticoagulants Status: Acute Assessment and Plan: -----continue xaralto, likely due to vascular disease and immobility since pt states hes never had a DVT, PE or Afib. (9) Bradycardia: Code(s): R00.1 - Bradycardia, unspecified Status: Acute Assessment and Plan: -----patient is still persistently bradycardic mostly at night. Likely worsens at night because of his obesity. Initial he came on on propanolol and labetalol. Initially the propanolol was held and then the labetalol was held as well and the patient continues to be bradycardic. He is asymptomatic with this. He has been utilizing his CPAP. Will d/c tele. May stop beta-blockers at discharge? Will speak to Cardiology about this Additional Plan Subjective Date/time seen: 08/29/19 17:24 Interval history: Pt is a 84-year-old male here for left foot wound. Patient was seen today and states that he is doing okay with no problems overnight. Pt denies nausea, vomiting, fevers, chills, night sweats, constipation, diarrhea, chest pain, sob, or abdominal pain. His last BM was yesterday. Exam Narrative: Exam Narrative: General: Overweight patient resting comfortably in the recliner in NAD HEENT: normocephalic Neck: supple Neuro: Alert and oriented x 4 CV: Telemetry shows sinus bradycardia down in the 50s. Current rate 64. Bradycardic with no murmurs on physical exam. Lower extremity pulses weak but present. Resp: CTA Abd: Soft, non distended. Hernia palpated. No pain to
[2019-08-29] MEDS: INSULIN ASPART (*BKC) 100 UNITS/ML SUB-Q (18:00)
--- NOTE | 2019-08-29 18:06 | PC.NURSE ---
On returning to bed from the chair via the maxi move, patient had moderate amount of bright red blood from rectum. On returning to bed, no further active bleeding was noted. Noted hemorrhoid in patient's rectum. No open areas present. Patient states he has had trouble with hemorrhoids in the past. Notified Radha GODINEZ of episode and orders received. Patient states he has been constipated recently and has been straining to have a BM.
[2019-08-29 18:07] LABS: Glucose Point of Care 208 (65-105)
--- NOTE | 2019-08-29 18:22 | PM.PNNEP ---
Progress Note: A&P Assessment and Plan (1) End stage renal disease: Code(s): N18.6 - End stage renal disease Status: Chronic Assessment and Plan: hemodialysis tomorrow and continue T/T/S schedule while hosptialized follow electrolytes, volume status, and clearance (2) Chronic ulcer of left heel: Onset Date: ~05/2019 Qualifiers: Non-pressure ulcer stage: unspecified non-pressure ulcer stage Qualified Code(s): L97.429 - Non-pressure chronic ulcer of left heel and midfoot with unspecified severity Code(s): L97.429 - Non-pressure chronic ulcer of left heel and midfoot with unspecified severity Status: Acute Assessment and Plan: General Surgery following MRI planned for tomorrow on IV antibiotics per Infectious Disease (3) Peripheral vascular disease: Code(s): I73.9 - Peripheral vascular disease, unspecified Status: Acute Assessment and Plan: concerned that this may cause of poor wound healing s/p left lower extremity angiogram and intervention as noted by Dr. Corey Cardiology following as needed (4) Weakness: Code(s): R53.1 - Weakness Status: Acute Assessment and Plan: multifactorial - heal wound, deconditioning, ESRD...etc. PT/OT as tolerated Subjective Date/time seen: 08/29/19 18:22 No acute distress voiced at this time; sitting up in chair (with wound vac in place); no issues or problems overnight or earlier this AM. Exam Narrative: Exam Narrative: General: WD/WN male in NAD Heart: normal S1 and S2; no rub Lungs: clear to auscultation Abdomen: soft, nontender, nondistended, positive bowel sounds Extremities: no cyanosis or clubbing; trace edema Skin: left heel wound Vac in place Objective Data Vital Signs Vital Signs: Vital Signs Temp Pulse Resp BP Pulse Ox 08/29/19 18:00 36.2 C L 88 18 109/62 99 08/29/19 16:00 68 08/29/19 14:30 35.9 C L 61 20 115/55 L 98 08/29/19 12:00 68 08/29/19 10:16 36.1 C L 65 18 111/56 L 96 08/29/19 08:00 60 08/29/19 06:00 36.0 C L 76 18 107/53 L 100 08/29/19 04:10 73 18 95 08/29/19 04:00 53 L 08/29/19 02:13 36.1 C L 52 L 18 106/59 L 100 08/29/19 00:00 48 L 08/28/19 22:55 71 18 96 08/28/19 21:25 36.1 C L 62 16 104/48 L 98 08/28/19 20:00 69 Intake/Output Intake/Output: Intake & Output 08/26/19 08/27/19 08/28/19 08/29/19 22:59 22:59 23:59 23:59 Intake Total 2100 Output Total 240 Balance 1860 Meds/Results Medications: Active Medications Generic Name Dose Route Start Last Admin Trade Name Freq PRN Reason Stop Dose Admin Acetaminophen 650 mg 08/24/19 22:28 Tylenol Tablet PO Q4H PRN Mild Pain (1-3) or Fever Allopurinol 300 mg 08/25/19 08:00 08/29/19 08:53 Zyloprim PO 300 mg DAILY@0800 ON LICENSE OF [facility] Administration Citalopram Hydrobromide 40 mg 08/25/19 09:00 08/29/19 08:53 Celexa BY MOUTH 40 mg DAILY ON LICENSE OF [facility] Administration Clopidogrel Bisulfate 75 mg 08/25/19 09:00 08/29/19 08:53 Plavix PO 75 mg QAM ON LICENSE OF [facility] Administration Cyanocobalamin 1,000 mcg 09/07/19 09:00 Vitamin B-12 Tab PO [id number] ON LICENSE OF [facility] Dextrose 12.5 gm 08/24/19 22:28 Dextrose 50% Syringe IV PUSH PRN PRN Hypoglycemia Protocol Epoetin Isaiah 10,000 units 08/25/19 18:00 08/27/19 18:45 Epogen IV PUSH 10,000 units TuThSa@1800 ON LICENSE OF [facility] Administration Fenofibrate 160 mg 08/25/19 09:00 08/29/19 08:53 Fenofibrate PO 160 mg DAILY ON LICENSE OF [facility] Administration Glucagon 1 mg 08/24/19 22:28 Glucagon For Inj IM PRN PRN Hypoglycemia Protocol Glucose 15 gm 08/24/19 22:28 Glutose 15 PO PRN PRN Hypoglycemia Protocol Piperacillin Sod/Tazobactam Sod 2.25 gm in 50 mls @ 100 mls/hr 08/25/19 06:00 08/29/19 15:21 Zosyn 2.25 Gm/D5w 50 Ml IVPB Infused Q8HR [facility] Infusion Dextrose 1,000 mls @ 10
[2019-08-29 20:36] LABS: Glucose Point of Care 224 (65-105)
[2019-08-29] MEDS: TRAZODONE HCL 50 MG TABLET PO (21:13)
[2019-08-29] MEDS: MELATONIN 5 MG TABLET PO (21:14)
[2019-08-30] VITALS (22 sets, daily range): BP systolic 100–141; BP diastolic 46–75; PULSE 50–75; RESP 16–21; TEMP 35.9–37.3; O2SAT 95–100
[2019-08-30 06:23] LABS: Blood Urea Nitrogen 62 mg/dL (9-20); Calcium 9.1 mg/dL (8.4-10.2); Carbon Dioxide 24 mmol/L (22-30); Chloride 93 mmol/L (98-107); Estimated CRCL calculation 10 ml/min; Estimated Glomerular Filt Rate 7; Glucose 132 mg/dL (75-110); Phosphorus 6.3 mg/dL (2.5-4.5); Potassium 4.3 mmol/L (3.4-5.0); Sodium 128 mmol/L (137-145)
[2019-08-30 08:06] LABS: Activated Clotting Time 180 SEC (74-137)
[2019-08-30] MEDS: INSULIN GLARGINE (*BKC) 100 UNITS/ML 20 UNITS SUB-Q (08:41)
[2019-08-30] MEDS: polyethylene glycoL 3350 17 GM POWD.PACK PO (08:44)
[2019-08-30] MEDS: LORATADINE 10 MG TABLET PO (08:45)
[2019-08-30] MEDS: FENOFIBRATE 160 MG TABLET PO (08:45)
[2019-08-30] MEDS: LACTULOSE 20 GM/30 ML UDC PO (08:45)
[2019-08-30] MEDS: SEVELAMER CARBONATE 800 MG TABLET PO ×3 (08:45→16:23)
[2019-08-30] MEDS: CHOLECALCIFEROL 400 UNITS TABLET (VIT D) PO (08:45)
[2019-08-30] MEDS: allopurinoL 300 MG TABLET PO (08:45)
[2019-08-30] MEDS: CLOPIDOGREL BISULFATE 75 MG TABLET PO (08:46)
[2019-08-30] MEDS: PYRIDOXINE HCL 50 MG TABLET 100 MG PO (08:46)
[2019-08-30] MEDS: PIOGLITAZONE HCL 45 MG TABLET PO (08:46)
[2019-08-30] MEDS: RIVAROXABAN 2.5 MG TABLET PO (08:47)
[2019-08-30] MEDS: CITALOPRAM HYDROBROMIDE 20 MG TABLET 40 MG BY MOUTH (08:47)
--- NOTE | 2019-08-30 10:31 | PM.PNNEP ---
Progress Note: A&P Assessment and Plan (1) End stage renal disease: Code(s): N18.6 - End stage renal disease Status: Chronic Assessment and Plan: hemodialysis today and continue T/T/S schedule while hosptialized follow electrolytes, volume status, and clearance (2) Chronic ulcer of left heel: Onset Date: ~05/2019 Qualifiers: Non-pressure ulcer stage: unspecified non-pressure ulcer stage Qualified Code(s): L97.429 - Non-pressure chronic ulcer of left heel and midfoot with unspecified severity Code(s): L97.429 - Non-pressure chronic ulcer of left heel and midfoot with unspecified severity Status: Acute Assessment and Plan: General Surgery following MRI today on IV antibiotics per Infectious Disease (3) Peripheral vascular disease: Code(s): I73.9 - Peripheral vascular disease, unspecified Status: Acute Assessment and Plan: concerned that this may cause of poor wound healing s/p left lower extremity angiogram and intervention as noted by Dr. Corey Cardiology following as needed (4) Weakness: Code(s): R53.1 - Weakness Status: Acute Assessment and Plan: multifactorial - heal wound, deconditioning, ESRD...etc. PT/OT as tolerated Subjective Date/time seen: 08/30/19 10:31 Appears to be doing reasonably well at the time of my visit; due for dialysis today; no other issues or problems voiced at this time. Exam Narrative: Exam Narrative: General: WD/WN male in NAD Heart: normal S1 and S2; no rub Lungs: clear to auscultation Abdomen: soft, nontender, nondistended, positive bowel sounds Extremities: no cyanosis or clubbing; trace edema Skin: left heel wound Vac in place Objective Data Vital Signs Vital Signs: Vital Signs Temp Pulse Resp BP Pulse Ox 08/30/19 06:00 37.3 C 50 L 21 H 108/46 L 100 08/30/19 03:02 72 18 95 08/30/19 02:00 36.2 C L 51 L 20 141/55 H 98 08/29/19 23:30 70 17 96 08/29/19 22:00 36.3 C L 57 L 21 H 113/57 L 100 08/29/19 20:00 70 17 96 08/29/19 18:00 36.2 C L 88 18 109/62 99 08/29/19 16:00 68 08/29/19 14:30 35.9 C L 61 20 115/55 L 98 08/29/19 12:00 68 Intake/Output Intake/Output: Intake & Output 08/27/19 08/28/19 08/29/19 08/30/19 22:59 23:59 23:59 23:59 Intake Total 2150 590 Output Total 240 Balance 1910 590 Meds/Results Medications: Active Medications Generic Name Dose Route Start Last Admin Trade Name Freq PRN Reason Stop Dose Admin Acetaminophen 650 mg 08/24/19 22:28 Tylenol Tablet PO Q4H PRN Mild Pain (1-3) or Fever Allopurinol 300 mg 08/25/19 08:00 08/30/19 08:45 Zyloprim PO 300 mg DAILY@0800 [facility] Administration Citalopram Hydrobromide 40 mg 08/25/19 09:00 08/30/19 08:47 Celexa BY MOUTH 40 mg DAILY [facility] Administration Clopidogrel Bisulfate 75 mg 08/25/19 09:00 08/30/19 08:46 Plavix PO 75 mg QAM [facility] Administration Cyanocobalamin 1,000 mcg 09/07/19 09:00 Vitamin B-12 Tab PO [id number] [facility] Dextrose 12.5 gm 08/24/19 22:28 Dextrose 50% Syringe IV PUSH PRN PRN Hypoglycemia Protocol Epoetin Isaiah 10,000 units 08/25/19 18:00 08/27/19 18:45 Epogen IV PUSH 10,000 units TuThSa@1800 [facility] Administration Fenofibrate 160 mg 08/25/19 09:00 08/30/19 08:45 Fenofibrate PO 160 mg DAILY [facility] Administration Glucagon 1 mg 08/24/19 22:28 Glucagon For Inj IM PRN PRN Hypoglycemia Protocol Glucose 15 gm 08/24/19 22:28 Glutose 15 PO PRN PRN Hypoglycemia Protocol Piperacillin Sod/Tazobactam Sod 2.25 gm in 50 mls @ 100 mls/hr 08/25/19 06:00 08/30/19 06:57 Zosyn 2.25 Gm/D5w 50 Ml IVPB Infused Q8HR [facility] Infusion Dextrose 1,000 mls @ 100 mls/hr 08/24/19 22:28 Dextrose 5% 1,000 Ml IVPB PRN PRN Hypoglycemia Protocol Albumin Human 50 mls @ 999
[2019-08-30 11:33] LABS: Glucose Point of Care 126 (65-105)
[2019-08-30 11:35] LABS: Glucose Point of Care 200 (65-105)
--- NOTE | 2019-08-30 12:50 | PM.IMPN ---
Progress Note: A&P Assessment and Plan (1) Chronic ulcer of left heel: Onset Date: ~05/2019 Qualifiers: Non-pressure ulcer stage: unspecified non-pressure ulcer stage Qualified Code(s): L97.429 - Non-pressure chronic ulcer of left heel and midfoot with unspecified severity Code(s): L97.429 - Non-pressure chronic ulcer of left heel and midfoot with unspecified severity Status: Acute Assessment and Plan: S/p debridement 08/25 with wound VAC placement - poor healing. Significant peripheral vascular disease. MRI today confirms osteomyelitis. Wound culture grew MRSA; blood culture grew Proteus. Repeat blood cultures pending. ID, general surgery, Dr Mcclelland following and appreciate all input. Wound not healing well despite balloon angioplasty to left posterior tib, debridement and wound vac ; may consider transfer for vascular surgery vs possibly left BKA? Continue vancomycin and Zosyn per Dr. Wilks's recommendations (2) Osteomyelitis: Qualifiers: Osteomyelitis type: unspecified type Osteomyelitis location: foot Laterality: left Qualified Code(s): M86.9 - Osteomyelitis, unspecified Code(s): M86.9 - Osteomyelitis, unspecified Status: Acute Assessment and Plan: See above. (3) Peripheral vascular disease: Code(s): I73.9 - Peripheral vascular disease, unspecified Status: Acute Assessment and Plan: Partially successful Balloon angioplasty 08/[address] Mcclelland. 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 Continue Xarelto and Plavix. (4) Generalized weakness: Onset Date: ~08/23/19 Code(s): R53.1 - Weakness Status: Acute Assessment and Plan: Suspect secondary to chronic illnesses and acute GI upset. Up to chair. (5) End stage renal disease on dialysis: Code(s): N18.6 - End stage renal disease; Z99.2 - Dependence on renal dialysis Status: Chronic Assessment and Plan: HD on Thu/ur/Sat; appreciate nephrology recommendations. (6) Diabetic peripheral neuropathy: Code(s): E11.42 - Type 2 diabetes mellitus with diabetic polyneuropathy Status: Chronic (7) T2DM (type 2 diabetes mellitus): Qualifiers: Diabetes mellitus pigs feet cleaner insulin use: with pigs feet cleaner use Diabetes mellitus complication status: with skin complications Diabetes mellitus complication detail: with foot ulcer Qualified Code(s): E11.621 - Type 2 diabetes mellitus with foot ulcer; L97.509 - Non-pressure chronic ulcer of other part of unspecified foot with unspecified severity; Z79.4 - longterm (current) use of insulin Code(s): E11.9 - Type 2 diabetes mellitus without complications Status: Chronic Assessment and Plan: Blood sugars appropriate today. Continue to monitor with Accu-Cheks and cover with SSI. Continue long-acting insulin for tight glycemic control to optimize wound healing. (8) Congestive heart failure: Qualifiers: Heart failure type: diastolic Heart failure chronicity: chronic Qualified Code(s): I50.32 - Chronic diastolic (congestive) heart failure Code(s): I50.9 - Heart failure, unspecified Status: Chronic Assessment and Plan: Chronic, diastolic. Appears well-compensated at this time. Monitor fluid status, Is and Os, daily weights. (9) Chronic anticoagulation: Onset Date: Unknown Code(s): Z79.01 - longterm (current) use of anticoagulants Status: Acute Assessment and Plan: Continue xarelto (10) Bradycardia: Code(s): R00.1 - Bradycardia, unspecified Status: Acute Assessment and Plan: Asymptomatic, mostly at night. Patient was on both prop
--- NOTE | 2019-08-30 13:59 | WPDINFPN2 ---
Progress Note: A&P Assessment and Plan (1) Proteus septicemia: Onset Date: ~08/23/19 Code(s): A41.59 - Other Gram-negative sepsis Status: Acute Assessment and Plan: 1. Proteus septicemia, L heel soft tissue source 2. MRSA in wound, of questionable significance 3. Diabetic heel ulcer with probable osteomyelitis, stable 4. CRF 5. PN REC PipTazo # 6, Vanc #2, continue, target trough 15-20, PharmD dosing and appreciate assistance. 6 weeks IV therapy would be ideal, SNF is the most realistic option. I counseled the patient caity today that he may after all require BKA. Subjective Date/time seen: 08/30/19 13:59 Interval history: no diarrhea skin rash, nausea anorecxia Exam Narrative: Exam Narrative: afebrile Const: General: no acute distress Eyes: General: appearance normal, both eyes and all related structures Resp: Effort & Inspection: normal respiratory effort Auscultation: clear to auscultation bilaterally Cardio: Rate: regular rate Rhythm: regular rhythm Heart sounds: Gallop heart sound present GI: Inspection: non-distended GI Palp: Yes Soft to palpation and No Tenderness to palpation present (GI) Skin: General skin exam: normal color and no rashes or lesions noted Other: foot dressed, no drainage Objective Data Vital Signs Vital Signs: Vital Signs - 24 hr 08/29/19 14:30 08/29/19 16:00 08/29/19 18:00 Temperature 35.9 C L 36.2 C L Pulse Rate 61 68 88 Respiratory Rate 20 18 Blood Pressure 115/55 L 109/62 Pulse Oximetry 98 99 08/29/19 20:00 08/29/19 22:00 08/29/19 23:30 Temperature 36.3 C L Pulse Rate 70 57 L 70 Respiratory Rate 17 21 H 17 Blood Pressure 113/57 L Pulse Oximetry 96 100 96 08/30/19 02:00 08/30/19 03:02 08/30/19 06:00 Temperature 36.2 C L 37.3 C Pulse Rate 51 L 72 50 L Respiratory Rate 20 18 21 H Blood Pressure 141/55 H 108/46 L Pulse Oximetry 98 95 100 08/30/19 10:52 Temperature 35.9 C L Pulse Rate 63 Respiratory Rate 20 Blood Pressure 105/53 L Pulse Oximetry 98 Intake/Output Intake/Output: Intake & Output 08/27/19 08/28/19 08/29/19 08/30/19 22:59 23:59 23:59 23:59 Intake Total 2150 590 Output Total 240 Balance 1910 590 Meds/Results Medications: Active Medications Generic Name Dose Route Start Last Admin Trade Name Freq PRN Reason Stop Dose Admin Acetaminophen 650 mg 08/24/19 22:28 Tylenol Tablet PO Q4H PRN Mild Pain (1-3) or Fever Allopurinol 300 mg 08/25/19 08:00 08/30/19 08:45 Zyloprim PO 300 mg DAILY@0800 [facility] Administration Citalopram Hydrobromide 40 mg 08/25/19 09:00 08/30/19 08:47 Celexa BY MOUTH 40 mg DAILY [facility] Administration Clopidogrel Bisulfate 75 mg 08/25/19 09:00 08/30/19 08:46 Plavix PO 75 mg QAM [facility] Administration Cyanocobalamin 1,000 mcg 09/07/19 09:00 Vitamin B-12 Tab PO [id number] [facility] Dextrose 12.5 gm 08/24/19 22:28 Dextrose 50% Syringe IV PUSH PRN PRN Hypoglycemia Protocol Epoetin Isaiah 10,000 units 08/25/19 18:00 08/27/19 18:45 Epogen IV PUSH 10,000 units TuThSa@1800 [facility] Administration Fenofibrate 160 mg 08/25/19 09:00 08/30/19 08:45 Fenofibrate PO 160 mg DAILY [facility] Administration Glucagon 1 mg 08/24/19 22:28 Glucagon For Inj IM PRN PRN Hypoglycemia Protocol Glucose 15 gm 08/24/19 22:28 Glutose 15 PO PRN PRN Hypoglycemia Protocol Piperacillin Sod/Tazobactam Sod 2.25 gm in 50 mls @ 100 mls/hr 08/25/19 06:00 08/30/19 06:57 Zosyn 2.25 Gm/D5w 50 Ml IVPB Infused Q8HR [facility] Infusion Dextrose 1,000 mls @ 100 mls/hr 08/24/19 22:28 Dextrose 5% 1,000 Ml IVPB PRN PRN Hypoglycemia Protocol Albumin Human 50 mls @ 999 mls/hr 08/24/19 23:38 Albutein IVPB 09/23/19 23:39 Q10M PRN HYPOTENSION Sodium Chloride 1,000 mls @ 0 mls/hr 08/26/19 12:25 Normal Saline Iv IRRIGATION .Q0M [facility] Wide Ope
--- NOTE | 2019-08-30 16:05 | PM.PNGS ---
Progress Note: A&P Assessment and Plan (1) Chronic ulcer of left heel: Onset Date: ~05/2019 Qualifiers: Non-pressure ulcer stage: unspecified non-pressure ulcer stage Qualified Code(s): L97.429 - Non-pressure chronic ulcer of left heel and midfoot with unspecified severity Code(s): L97.429 - Non-pressure chronic ulcer of left heel and midfoot with unspecified severity Status: Acute Assessment and Plan: Wound VAC dressing changed today and the wound continues to have areas of necrosis and slough with poor healing. Will stop wound irrigating VAC therapy therapy and switch to local wound care with Dakin's solution dressing changes. MRI showed osteomyelitis involving the calcaneal body and tuberosity. Continue IV antibiotics for now, which he is also currently on for the bactremia per ID. Before considering partial amputation or further surgical intervention to the left heel, we would recommend evaluation from a vascular surgeon to see what the patient's options are to maximize the inflow to his left foot. Could consider seeing what Dr. Mcclelland's opinion would be about discussing the patient's case with vascular surgery at [facility]. If there is no other options for vascular surgery to improve the inflow to his left foot, then the patient will likely require a left below the knee amputation. (2) Proteus septicemia: Onset Date: ~08/23/19 Code(s): A41.59 - Other Gram-negative sepsis Status: Acute Assessment and Plan: Continue IV antibiotics per ID. (3) End stage renal disease on dialysis: Code(s): N18.6 - End stage renal disease; Z99.2 - Dependence on renal dialysis Status: Chronic Additional Plan Discussed patient's case and plan of care with Dr. Copeland. Subjective Subjective Date/Time Seen: 08/30/19 10:05 Patient reports: no new complaints and bowel movement (today) Interval history: Patient seen and examined. Denies any new complaints. Reports feeling well today. Has had a bowel movement. No acute events overnight. Review of Systems Review of Systems: All systems reviewed & are unremarkable except as noted in HPI and below Exam Const: General: comfortable, no acute distress, alert and awake Orientation/consciousness: patient oriented x3 Extrem: General: no calf tenderness and no edema Other: Left heel ulcer with minimal granulation tissue noted on the edge of the medial aspect of the wound but the remaining surface of the wound is yellow/bowie slough with some darkened necrotic areas on the lateral edge of the wound. The wound bed is soft and boggy on the more lateral edges as well. No purulent drainage. No crepitus. The skin on the lateral aspect of the heel around the wound appears moist and callused and is peeling back. Psych: Mental Status: mental status grossly normal Affect: normal affect Attitude: cooperative Insight: Good insight present (Psych) Judgement: Good judgement present (Psych) Objective Data Vital Signs Vital Signs: Vital Signs - 24 hr 08/29/19 18:00 08/29/19 20:00 08/29/19 22:00 Temperature 36.2 C L 36.3 C L Pulse Rate 88 70 57 L Respiratory Rate 18 17 21 H Blood Pressure 109/62 113/57 L Pulse Oximetry 99 96 100 08/29/19 23:30 08/30/19 02:00 08/30/19 03:02 Temperature 36.2 C L Pulse Rate 70 51 L 72 Respiratory Rate 17 20 18 Blood Pressure 141/55 H Pulse Oximetry 96 98 95 08/30/19 06:00 08/30/19 10:52 08/30/19 15:15 Temperature 37.3 C 35.9 C L 36.2 C L Pulse Rate 50 L 63 75 Respiratory Rate 21 H 20 20 Blood Pressure 108/46 L 105/53 L 121/67 Pulse Oximetry 100 98 98 Intake/Output Intake/Output: Intake & Output 08/27/19 08/28/19 08/29/19 08/30/19 22:59 23:59 23:59 23:59 Intake Total 2150 590 Output Total 240 Balance 1910 590 Meds/Results Medications: Active Medications Generic Name Dose Route Start Last Admin Trade Name Freq PRN Reason Stop Dose Admin Acetaminophen 650 mg
[2019-08-30] MEDS: SOD HYPOCHLORITE 1/4 STRENGTH 473 ML 1 APPLIC TOPICAL (16:23)
[2019-08-30 18:19] LABS: Glucose Point of Care 173 (65-105)
[2019-08-30 18:56] LABS: Vancomycin Random 16.6 ug/mL (10-20)
[2019-08-30] MEDS: EPOETIN ALFA 10,000 UNITS/ML VIAL 10000 UNITS IV PUSH (23:20)
[2019-08-31] VITALS: BP 123/57; BP 132/54; PULSE 52; PULSE 61; RESP 21; TEMP 36.9; O2SAT 100
[2019-08-31 00:12] VITALS: BP 124/56; PULSE 64
[2019-08-31] MEDS: MELATONIN 5 MG TABLET PO (01:37)
[2019-08-31] MEDS: RIVAROXABAN 2.5 MG TABLET PO ×2 (01:37→09:54)
[2019-08-31] MEDS: TRAZODONE HCL 50 MG TABLET PO (01:37)
[2019-08-31 05:59] LABS: Basophils Absolute Auto 0.1 K/mm3 (0.0-0.1); Basophils Percent Auto 0.7 % (0.2-1.2); Eosinophils Absolute Auto 0.2 K/mm3 (0-0.3); Eosinophils Percent Auto 1.8 % (0-4.4); Hematocrit 27.8 % (42.0-52.0); Hemoglobin 9.1 g/dL (14.0-18.0); Immature Granulocyte Absolute 0.54 K/mm3 (0.00-0.031); Immature Granulocyte Percent A 5.6 % (0-0.5); Lymphocytes Percent Auto 14.6 % (18.3-44.2); Mean Corpuscular HGB Conc 32.7 g/dl (32-36); Mean Corpuscular Hemoglobin 31.2 pg (26-34); Mean Corpuscular Volume 95.2 fl (80-100); Monocytes Percent Auto 10.4 % (2.6-8.5); Neutrophils Absolute Auto 6.4 K/mm3 (1.3-6.7); Neutrophils Percent Auto 66.9 % (45.5-73.1); Platelet Count Result 243 k/mm3 (150-375); Red Blood Count 2.92 M/mm3 (4.6-6.20); Red Cell Distribution Width 13.6 % (11.5-14.5); White Blood Count 9.6 K/mm3 (4.5-10.0)
[2019-08-31 06:00] VITALS: BP 133/57; PULSE 53; RESP 20; TEMP 36.6; O2SAT 99
[2019-08-31 06:20] LABS: Alanine Aminotransferase 16 U/L (4-50); Albumin Level 3.1 g/dL (3.5-5.1); Alkaline Phosphatase 78 U/L (38-126); Aspartate Amino Transferase 24 U/L (17-59); Bilirubin,Total 0.4 mg/dL (0.2-1.3); Blood Urea Nitrogen 29 mg/dL (9-20); Carbon Dioxide 27 mmol/L (22-30); Chloride 97 mmol/L (98-107); Estimated CRCL calculation 17 ml/min; Estimated Glomerular Filt Rate 13; Glucose 154 mg/dL (75-110); Magnesium 1.9 mg/dL (1.6-2.3); Phosphorus 4.3 mg/dL (2.5-4.5); Potassium 3.5 mmol/L (3.4-5.0); Sodium 133 mmol/L (137-145)
[2019-08-31 06:53] LABS: Glucose Point of Care 136 (65-105)
--- NOTE | 2019-08-31 09:52 | PM.PNCARD ---
Progress Note: A&P Assessment and Plan (1) Peripheral vascular disease: Code(s): I73.9 - Peripheral vascular disease, unspecified Status: Acute Assessment and Plan: s/p intervention on left posterior tibial artery occlusion, continue to improve Plan for transfer to [facility] vascular surgery consultation and consideration of peripheral bypass Continue Plavix. Also on Xarelto 2.5 BID (2) End stage renal disease: Code(s): N18.6 - End stage renal disease Status: Chronic Assessment and Plan: Dialysis per nephrology (3) T2DM (type 2 diabetes mellitus): Qualifiers: Diabetes mellitus group home insulin use: with group home use Diabetes mellitus complication status: with skin complications Diabetes mellitus complication detail: with foot ulcer Qualified Code(s): E11.621 - Type 2 diabetes mellitus with foot ulcer; L97.509 - Non-pressure chronic ulcer of other part of unspecified foot with unspecified severity; Z79.4 - terminal clerk (current) use of insulin Code(s): E11.9 - Type 2 diabetes mellitus without complications Status: Chronic Subjective Date/time seen: 08/31/19 09:52 No overnight events. Denies chest pain or dyspnea. Review of Systems Review of Systems: All systems reviewed & are unremarkable except as noted in HPI and below Constitutional: Constitutional: Denies fatigue and Denies headache(s) Eyes: Eyes: Denies blurry vision ENT: Reports Normal hearing present and Denies headache(s) Cardiovascular: Cardiovascular: Denies chest pain, Denies diaphoresis, Denies pedal edema, Denies leg edema, Denies lightheadedness, Denies palpitations and Denies dyspnea Respiratory: Respiratory: Denies cough and Denies dyspnea Gastrointestinal: Gastrointestinal: Denies abdominal pain Musculoskeletal: Musculoskeletal: Denies back pain Neurologic: Reports Normal hearing present and Denies headache(s) Psychiatric: Psychiatric: Denies anxiety Endocrine: Endocrine: Denies fatigue and Denies palpitations Exam Const: General: no acute distress Eyes: Sclera: sclerae normal Neck: Neck: no JVD Carotids: no bruits Resp: Effort & Inspection: normal respiratory effort Auscultation: clear to auscultation bilaterally Cardio: Rate: regular rate and not tachycardic Rhythm: regular rhythm Heart sounds: no gallops, no murmurs and no rubs Skin: General skin exam: normal color Neuro: Cranial nerves: Yes Normal hearing present Speech: normal speech Extrem: General: capillary refill normal, no pedal edema and no edema Psych: Affect: normal affect Objective Data Vital Signs Vital Signs: Vital Signs - 24 hr 08/30/19 10:52 08/30/19 15:15 08/30/19 18:00 Temperature 35.9 C L 36.2 C L 36.0 C L Pulse Rate 63 75 61 Respiratory Rate 20 20 18 Blood Pressure 105/53 L 121/67 114/75 Pulse Oximetry 98 98 99 08/30/19 20:00 08/30/19 20:10 08/30/19 20:30 Temperature 36.7 C Pulse Rate 61 62 56 L Respiratory Rate 16 Blood Pressure 140/67 129/62 118/53 L Pulse Oximetry 100 08/30/19 20:45 08/30/19 21:00 08/30/19 21:15 Temperature Pulse Rate 54 L 55 L 57 L Respiratory Rate Blood Pressure 119/53 L 110/55 L 117/56 L Pulse Oximetry 08/30/19 21:30 08/30/19 21:45 08/30/19 22:00 Temperature Pulse Rate 54 L 54 L 55 L Respiratory Rate Blood Pressure 100/57 L 112/54 L 123/54 L Pulse Oximetry 08/30/19 22:19 08/30/19 22:30 08/30/19 22:45 Temperature Pulse Rate 56 L 55 L 60 Respiratory Rate Blood Pressure 125/56 L 121/58 L 124/55 L Pulse Oximetry 08/30/19 23:00 08/30/19 23:15 08/30/19 23:30 Temperature Pulse Rate 61 58 L 58 L Respiratory Rate Blood Pressure 104/60 122/60 124/57 L Pulse Oximetry 08/30/19 23:45 08/31/19 00:00 08/31/19 00:12 Temperature 36.9 C Pulse Rate 57 L 52 L 64 Respiratory Rate 21 H Blood Pressure 112/61 132/54 L 124/56 L Pulse Oximetry 100 08/31/19 06:00 Tempera
[2019-08-31] MEDS: PIOGLITAZONE HCL 45 MG TABLET PO (09:54)
[2019-08-31] MEDS: PYRIDOXINE HCL 50 MG TABLET 100 MG PO (09:54)
[2019-08-31] MEDS: CITALOPRAM HYDROBROMIDE 20 MG TABLET 40 MG BY MOUTH (09:54)
[2019-08-31] MEDS: LORATADINE 10 MG TABLET PO (09:54)
[2019-08-31] MEDS: FENOFIBRATE 160 MG TABLET PO (09:55)
[2019-08-31] MEDS: CHOLECALCIFEROL 400 UNITS TABLET (VIT D) PO (09:55)
[2019-08-31] MEDS: SEVELAMER CARBONATE 800 MG TABLET PO ×2 (09:55→15:18)
[2019-08-31] MEDS: CLOPIDOGREL BISULFATE 75 MG TABLET PO (09:55)
[2019-08-31] MEDS: allopurinoL 300 MG TABLET PO (09:55)
[2019-08-31] MEDS: INSULIN GLARGINE (*BKC) 100 UNITS/ML 20 UNITS SUB-Q (09:56)
[2019-08-31] MEDS: polyethylene glycoL 3350 17 GM POWD.PACK PO (09:56)
[2019-08-31] MEDS: SOD HYPOCHLORITE 1/4 STRENGTH 473 ML 1 APPLIC TOPICAL (09:56)
[2019-08-31 10:00] VITALS: BP 116/45; PULSE 58; RESP 16; TEMP 37; O2SAT 100
[2019-08-31 10:06] LABS: Glucose Point of Care 144 (65-105)
--- NOTE | 2019-08-31 11:51 | WPDINFPN2 ---
Progress Note: A&P Assessment and Plan (1) Proteus septicemia: Onset Date: ~08/23/19 Code(s): A41.59 - Other Gram-negative sepsis Status: Acute Assessment and Plan: 1. Proteus septicemia, L heel soft tissue source, microbiologic cure from blood 2. MRSA in wound, of questionable significance 3. Diabetic heel ulcer with acute osteomyelitis, stable. MRI noted 4. CRF 5. PN REC PipTazo # 7, Vanc #3, continue, target trough 15-20, PharmD dosing and appreciate assistance. 6 weeks IV therapy would be ideal. Possible transfer for vascular surgery opinion. Subjective Date/time seen: 08/31/19 11:51 Interval history: no new complaints Exam Narrative: Exam Narrative: afebrile Const: General: no acute distress Resp: Effort & Inspection: normal respiratory effort Auscultation: clear to auscultation bilaterally Cardio: Rate: regular rate Rhythm: regular rhythm Heart sounds: no murmurs GI: Inspection: non-distended GI Palp: Yes Soft to palpation, No Tenderness to palpation present (GI) and No Guarding due to palpation present (GI) Skin: Other: foot dressed, no drainage, no odor, no proximal erythema nor tenderness Objective Data Vital Signs Vital Signs: Vital Signs - 24 hr 08/30/19 15:15 08/30/19 18:00 08/30/19 20:00 Temperature 36.2 C L 36.0 C L 36.7 C Pulse Rate 75 61 61 Respiratory Rate 20 18 16 Blood Pressure 121/67 114/75 140/67 Pulse Oximetry 98 99 100 08/30/19 20:10 08/30/19 20:30 08/30/19 20:45 Temperature Pulse Rate 62 56 L 54 L Respiratory Rate Blood Pressure 129/62 118/53 L 119/53 L Pulse Oximetry 08/30/19 21:00 08/30/19 21:15 08/30/19 21:30 Temperature Pulse Rate 55 L 57 L 54 L Respiratory Rate Blood Pressure 110/55 L 117/56 L 100/57 L Pulse Oximetry 08/30/19 21:45 08/30/19 22:00 08/30/19 22:19 Temperature Pulse Rate 54 L 55 L 56 L Respiratory Rate Blood Pressure 112/54 L 123/54 L 125/56 L Pulse Oximetry 08/30/19 22:30 08/30/19 22:45 08/30/19 23:00 Temperature Pulse Rate 55 L 60 61 Respiratory Rate Blood Pressure 121/58 L 124/55 L 104/60 Pulse Oximetry 08/30/19 23:15 08/30/19 23:30 08/30/19 23:45 Temperature Pulse Rate 58 L 58 L 57 L Respiratory Rate Blood Pressure 122/60 124/57 L 112/61 Pulse Oximetry 08/31/19 00:00 08/31/19 00:12 08/31/19 06:00 Temperature 36.9 C 36.6 C Pulse Rate 52 L 64 53 L Respiratory Rate 21 H 20 Blood Pressure 132/54 L 124/56 L 133/57 L Pulse Oximetry 100 99 Intake/Output Intake/Output: Intake & Output 08/28/19 08/29/19 08/30/19 08/31/19 23:59 23:59 23:59 23:59 Intake Total 2150 1740 350 Output Total 591 323 7023 Balance 1910 1340 -2650 Meds/Results Medications: Active Medications Generic Name Dose Route Start Last Admin Trade Name Freq PRN Reason Stop Dose Admin Acetaminophen 650 mg 08/24/19 22:28 Tylenol Tablet PO Q4H PRN Mild Pain (1-3) or Fever Allopurinol 300 mg 08/25/19 08:00 08/31/19 09:55 Zyloprim PO 300 mg DAILY@0800 [facility] Administration Citalopram Hydrobromide 40 mg 08/25/19 09:00 08/31/19 09:54 Celexa BY MOUTH 40 mg DAILY [facility] Administration Clopidogrel Bisulfate 75 mg 08/25/19 09:00 08/31/19 09:55 Plavix PO 75 mg QAM [facility] Administration Cyanocobalamin 1,000 mcg 09/07/19 09:00 Vitamin B-12 Tab PO [id number] [facility] Dextrose 12.5 gm 08/24/19 22:28 Dextrose 50% Syringe IV PUSH PRN PRN Hypoglycemia Protocol Epoetin Isaiah 10,000 units 08/25/19 18:00 08/30/19 23:20 Epogen IV PUSH 10,000 units TuThSa@1800 [facility] Administration Fenofibrate 160 mg 08/25/19 09:00 08/31/19 09:55 Fenofibrate PO 160 mg DAILY [facility] Administration Glucagon 1 mg 08/24/19 22:28 Glucagon For Inj IM PRN PRN Hypoglycemia Protocol Glucose 15 gm 08/24/19 22:28 Glutose 15 PO PRN PRN Hypoglycemia Protocol Piperacillin Sod/Tazo
--- NOTE | 2019-08-31 12:00 | PM.IMPN ---
Progress Note: A&P Assessment and Plan (1) Osteomyelitis: Qualifiers: Laterality: left Osteomyelitis location: foot Osteomyelitis type: unspecified type Qualified Code(s): M86.9 - Osteomyelitis, unspecified Code(s): M86.9 - Osteomyelitis, unspecified Status: Acute Assessment and Plan: Transfer to [facility]; see Transfer Summary. Subjective Date/time seen: 08/31/19 1145 Interval history: Transfer to [facility], see Transfer Summary. Objective Data Vital Signs Vital Signs: Vital Signs - 24 hr 08/30/19 15:15 08/30/19 18:00 08/30/19 20:00 Temperature 97.2 F L 96.8 F L 98.0 F Pulse Rate 75 61 61 Respiratory Rate 20 18 16 Blood Pressure 121/67 114/75 140/67 Pulse Oximetry 98 99 100 08/30/19 20:10 08/30/19 20:30 08/30/19 20:45 Temperature Pulse Rate 62 56 L 54 L Respiratory Rate Blood Pressure 129/62 118/53 L 119/53 L Pulse Oximetry 08/30/19 21:00 08/30/19 21:15 08/30/19 21:30 Temperature Pulse Rate 55 L 57 L 54 L Respiratory Rate Blood Pressure 110/55 L 117/56 L 100/57 L Pulse Oximetry 08/30/19 21:45 08/30/19 22:00 08/30/19 22:19 Temperature Pulse Rate 54 L 55 L 56 L Respiratory Rate Blood Pressure 112/54 L 123/54 L 125/56 L Pulse Oximetry 08/30/19 22:30 08/30/19 22:45 08/30/19 23:00 Temperature Pulse Rate 55 L 60 61 Respiratory Rate Blood Pressure 121/58 L 124/55 L 104/60 Pulse Oximetry 08/30/19 23:15 08/30/19 23:30 08/30/19 23:45 Temperature Pulse Rate 58 L 58 L 57 L Respiratory Rate Blood Pressure 122/60 124/57 L 112/61 Pulse Oximetry 08/31/19 00:00 08/31/19 00:12 08/31/19 06:00 Temperature 98.4 F 97.8 F Pulse Rate 52 L 64 53 L Respiratory Rate 21 H 20 Blood Pressure 132/54 L 124/56 L 133/57 L Pulse Oximetry 100 99 08/31/19 10:00 Temperature 98.6 F Pulse Rate 58 L Respiratory Rate 16 Blood Pressure 116/45 L Pulse Oximetry 100 Intake/Output Intake/Output: Intake & Output 08/28/19 08/29/19 08/30/19 08/31/19 23:59 23:59 23:59 23:59 Intake Total 2150 1740 590 Output Total 053 532 2426 Balance 1910 1340 -2410 Meds/Results Medications: Active Medications Generic Name Dose Route Start Last Admin Trade Name Freq PRN Reason Stop Dose Admin Acetaminophen 650 mg 08/24/19 22:28 Tylenol Tablet PO Q4H PRN Mild Pain (1-3) or Fever Allopurinol 300 mg 08/25/19 08:00 08/31/19 09:55 Zyloprim PO 300 mg DAILY@0800 [facility] Administration Citalopram Hydrobromide 40 mg 08/25/19 09:00 08/31/19 09:54 Celexa BY MOUTH 40 mg DAILY [facility] Administration Clopidogrel Bisulfate 75 mg 08/25/19 09:00 08/31/19 09:55 Plavix PO 75 mg QAM [facility] Administration Cyanocobalamin 1,000 mcg 09/07/19 09:00 Vitamin B-12 Tab PO [id number] [facility] Dextrose 12.5 gm 08/24/19 22:28 Dextrose 50% Syringe IV PUSH PRN PRN Hypoglycemia Protocol Epoetin Isaiah 10,000 units 08/25/19 18:00 08/30/19 23:20 Epogen IV PUSH 10,000 units TuThSa@1800 [facility] Administration Fenofibrate 160 mg 08/25/19 09:00 08/31/19 09:55 Fenofibrate PO 160 mg DAILY [facility] Administration Glucagon 1 mg 08/24/19 22:28 Glucagon For Inj IM PRN PRN Hypoglycemia Protocol Glucose 15 gm 08/24/19 22:28 Glutose 15 PO PRN PRN Hypoglycemia Protocol Piperacillin Sod/Tazobactam Sod 2.25 gm in 50 mls @ 100 mls/hr 08/25/19 06:00 08/31/19 09:49 Zosyn 2.25 Gm/D5w 50 Ml IVPB 100 mls/hr Q8HR [facility] Administration Dextrose 1,000 mls @ 100 mls/hr 08/24/19 22:28 Dextrose 5% 1,000 Ml IVPB PRN PRN Hypoglycemia Protocol Albumin Human 50 mls @ 999 mls/hr 08/24/19 23:38 Albutein IVPB 09/23/19 23:39 Q10M PRN HYPOTENSION Sodium Chloride 1,000 mls @ 0 mls/hr 08/26/19 12:25 Normal Saline Iv IRRIGATION .Q0M [facility] Wide Open Vancomycin HCl 1,500 mg in 500 mls @ 333.
--- NOTE | 2019-08-31 13:05 | PM.PNGS ---
Progress Note: A&P Assessment and Plan (1) Chronic ulcer of left heel: Onset Date: ~05/2019 Qualifiers: Non-pressure ulcer stage: unspecified non-pressure ulcer stage Qualified Code(s): L97.429 - Non-pressure chronic ulcer of left heel and midfoot with unspecified severity Code(s): L97.429 - Non-pressure chronic ulcer of left heel and midfoot with unspecified severity Status: Acute Assessment and Plan: Chronic left heel ulcer still with areas of necrosis but poor inflow. Continue with local wound care with Dakin's solution. MRI showed osteomyelitis involving the calcaneal body and tuberosity. Continue IV antibiotics for now, which he is also currently on for the bactremia per ID. Before considering partial amputation or further surgical intervention to the left heel, we would recommend evaluation from a vascular surgeon to see what the patient's options are to maximize the inflow to his left foot. Discussed with the Hospitalist today to see if Vascular surgery at [place] would consider accepting the patient to evaluate him for vascular intervention. Appreciate their help. If there is no other options for vascular surgery to improve the inflow to his left foot, then the patient will likely require a left below the knee amputation. Discussed all of this with the patient who understands and is agreeable with current plan. (2) Proteus septicemia: Onset Date: ~08/23/19 Code(s): A41.59 - Other Gram-negative sepsis Status: Acute Assessment and Plan: Continue IV antibiotics per ID. (3) End stage renal disease on dialysis: Code(s): N18.6 - End stage renal disease; Z99.2 - Dependence on renal dialysis Status: Chronic Additional Plan Discussed patient's case and plan of care with Dr. Copeland. Subjective Subjective Date/Time Seen: 08/31/19 13:05 Patient reports: no new complaints Interval history: Patient reports feeling good today. No new complaints. No pain in his left foot. Review of Systems Review of Systems: All systems reviewed & are unremarkable except as noted in HPI and below Exam Const: General: comfortable, no acute distress, alert and awake Orientation/consciousness: patient oriented x3 Neuro: General: no focal motor deficits Extrem: Other: Left heel ulcer with minimal granulation tissue noted on the edge of the medial aspect of the wound but the remaining surface of the wound is yellow/bowie slough with some darkened necrotic areas on the lateral edge of the wound. The wound bed near the edges away from the calcaneus is soft and boggy. No purulent drainage. Mild odor. No crepitus. The skin on the lateral aspect of the heel around the wound appears moist and callused and is peeling back. Palpable weak left DP pulse. Weak but able to doppler PT pulse on left foot. Full ROM of left foot/ankle/toes. Decreased sensation of left foot. Psych: Mental Status: mental status grossly normal Speech and movement: Normal speech and movement present Affect: normal affect Attitude: cooperative Insight: Good insight present (Psych) Judgement: Good judgement present (Psych) Objective Data Vital Signs Vital Signs: Vital Signs - 24 hr 08/30/19 15:15 08/30/19 18:00 08/30/19 20:00 Temperature 36.2 C L 36.0 C L 36.7 C Pulse Rate 75 61 61 Respiratory Rate 20 18 16 Blood Pressure 121/67 114/75 140/67 Pulse Oximetry 98 99 100 08/30/19 20:10 08/30/19 20:30 08/30/19 20:45 Temperature Pulse Rate 62 56 L 54 L Respiratory Rate Blood Pressure 129/62 118/53 L 119/53 L Pulse Oximetry 08/30/19 21:00 08/30/19 21:15 08/30/19 21:30 Temperature Pulse Rate 55 L 57 L 54 L Respiratory Rate Blood Pressure 110/55 L 117/56 L 100/57 L Pulse Oximetry 08/30/19 21:45 08/30/19 22:00 08/30/19 22:19 Temperature Pulse Rate 54 L 55 L 56 L Respiratory Rate Blood Pressure 112/54 L 123/54 L 125/56 L Pulse Oximetry 08/30/19 22:30 08/30/19 22:4
[2019-08-31 14:00] VITALS: BP 113/58; PULSE 70; RESP 16; TEMP 36.7; O2SAT 93
[2019-08-31 14:10] LABS: Glucose Point of Care 188 (65-105)
--- NOTE | 2019-08-31 14:42 | PM.TDS ---
Transfer Discharge Sum: Prov Provider Date of admission: 08/26/19 11:15 Primary care physician: JENA,MALICK REYEZ Admitting clinician: Jeffy Munson MD Consults: 08/24/19 20:54 Consult to Physician Routine Comment: Consulting Provider: Gomez Copeland Reason for consultation: left heel infected wound Has provider been notified: Yes Consult to Physician Routine Comment: Consulting Provider: Cristina Amador Reason for consultation: ESRD on dialysis, Has provider been notified: Yes 08/25/19 06:33 Consult to Physician Routine Comment: consulted at 0925([facility] [place]) Consulting Provider: Emre Mcclelland automatic wheel line operator/MD group to consult: Dr. Corey Reason for consultation: revascularization of LLE- patient was scheduled to see you. Has provider been notified: Yes 08/27/19 07:13 Consult to Physician Routine Comment: Spoke with Dr Wilks @ 0835 ([facility]) Consulting Provider: Noel Wilks automatic wheel line operator/MD group to consult: infectious disease Reason for consultation: positive blood culture, foot wound Has provider been notified: Yes DS: Diagnosis Admitting Diagnosis Admitting Diagnosis: Non-pressure chronic ulcer of left heel and midfoot with unspecified severity Discharge Diagnosis (1) Chronic ulcer of left heel: Onset Date: ~05/2019 Qualifiers: Non-pressure ulcer stage: unspecified non-pressure ulcer stage Qualified Code(s): L97.429 - Non-pressure chronic ulcer of left heel and midfoot with unspecified severity Code(s): L97.429 - Non-pressure chronic ulcer of left heel and midfoot with unspecified severity Status: Acute Assessment and Plan: Date of Service 08/31/19 Mr. Moore is a pleasant 84yo M with history of end-stage renal disease on hemodialysis e//Thu, insulin-dependent type 2 diabetes mellitus, peripheral vascular disease on long-term Xarelto and Plavix, obstructive sleep apnea with CPAP use, and chronic diastolic CHF, who presented to the ER 08/24/19 due to weakness and a nonhealing left heel diabetic wound. He has been following with Dr Copeland, General Surgery, and the wound clinic at [facility] for this wound since June 2019 when he first noticed the wound 06/23/19. He was admitted here at [facility] from 07/09 - 07/14 and treated with IV antibiotics, bedside debridement by Dr Gilliam (General Surgery) 07/10/19. 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 Patient presented to Wound Clinic 08/24/19 and had outpatient debridement by Dr. Copeland and later presented to the ED for further evaluation. Dr. Copeland performed another bedside excisional debridement 08/26/19 and wound VAC was placed. He was started on IV Zosyn 08/25/19 and IV vancomycin was added 08/28/19 when wound culture began growing MRSA. He was seen by Dr. Wilks, Infectious Disease, for antibiotic recommendations. Blood cultures from 08/24/19; 1 of 2 bottles grew Proteus mirabilis; repeat blood cultures drawn 08/26/2019 are still pending on day of transfer with no growth to date so far. Dr. 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 Wound was reassessed 08/30/19 after 4 days of wound VAC therapy, still found to have areas of necrosis and slough with poor healing. Wound VAC was discontinued in general surgery switched to local wound care with Dakin's solution dressing changes. Delay in obtaining MRI over the weekend due to needing records regarding a left upper extremity peripheral stent to check for MRI safety. MRI 08/30/19 confirmed osteomyelitis involving the calcaneal body in tuberosity. General Surgery team recommends transfer to [facility] for Vascular Surgery consult.
== END 2019-08-31 15:55 | disposition short-term general hospital (02) | DRG 853 ==
LOC: ANHED 20:56 → ANH3MEDSUR 21:30 → ANHICU 08-25 18:35 → ANH2MED 08-27 06:50 → ANHICU 09-05 09:21
PROVIDERS: Emergency Medicine; Internal Medicine; Internal Medicine Nephrology; Physician Assistant; Specialist; Admitting Provider Family Medicine; Emergency Provider General Practice; PCP Nurse Practitioner Family; Visit Provider Physician Assistant
PROC: 047S3ZZ Dilation of Left Posterior Tibial Artery, Percutaneous Approach (ICD-10-PCS; CPT 37228; principal; 2019-08-25 14:00)
DX: A41.59 Other Gram-negative sepsis (principal); N18.6 End stage renal disease; I70.92 Chronic total occlusion of artery of the extremities; L97.429 Non-pressure chronic ulcer of left heel and midfoot with unspecified severity; F84.5 Asperger's syndrome; Z68.41 Body mass index [BMI] 40.0-44.9, adult; I12.0 Hypertensive chronic kidney disease with stage 5 chronic kidney disease or end stage renal disease; J96.11 Chronic respiratory failure with hypoxia; M86.172 Other acute osteomyelitis, left ankle and foot; I50.32 Chronic diastolic (congestive) heart failure; E11.621 Type 2 diabetes mellitus with foot ulcer; E11.51 Type 2 diabetes mellitus with diabetic peripheral angiopathy without gangrene; Z99.2 Dependence on renal dialysis; E11.22 Type 2 diabetes mellitus with diabetic chronic kidney disease; E11.42 Type 2 diabetes mellitus with diabetic polyneuropathy; K59.00 Constipation, unspecified; F32.9 Major depressive disorder, single episode, unspecified; J43.9 Emphysema, unspecified; Z87.442 Personal history of urinary calculi; E66.01 Morbid (severe) obesity due to excess calories; M10.9 Gout, unspecified; Z98.49 Cataract extraction status, unspecified eye; Z90.49 Acquired absence of other specified parts of digestive tract; K21.9 Gastro-esophageal reflux disease without esophagitis; Z98.84 Bariatric surgery status; Z96.651 Presence of right artificial knee joint; G47.33 Obstructive sleep apnea (adult) (pediatric); Z99.3 Dependence on wheelchair; B95.61 Methicillin susceptible Staphylococcus aureus infection as the cause of diseases classified elsewhere; Z79.01 Long term (current) use of anticoagulants; R00.1 Bradycardia, unspecified; Z79.4 Long term (current) use of insulin
CPT/HCPCS: 11043; 36415; 37228; 71046; 73630; 73650; 73721; 80053; 80069; 80074; 80202; 83605; 83735; 84100; 85014; 85018; 85025; 85027; 85730; 86140; 86706; 87040; 87070; 87077; 87186; 87205; 87804; 93005; 93922; 96361; 96365; 96366; 96367; 96372; 96375; 97110; 97162; 97165; 97166; 97530; 97535; 99285; C1725; C1769; A9270; C1887; C1894; G0257; G0378; J1644; J1650; J1815; J2250; J2543; J3010; J3370; J7030; J7040; Q4081

== ENCOUNTER 2019-11-14 12:46 | Emergency (ER) | payer MEDICARE, SELFPAY ==
--- NOTE | ~2019-11-14 | CT_ITS ---
EXAMINATION: CT brain wo con EXAM DATE: 11/14/2019 13:20 INDICATION: Fall, on blood thinners. TECHNIQUE: Spiral CT of the head was performed without contrast. Axial, coronal and sagittal images were reviewed. The dose-length product (DLP) for this examination was 681.00 mGy-cm. The exposure w as tailored according to patient size, and iterative reconstruction (ASIR) was used as additional dos e reduction technique. Comparison is made to prior examination from 06/26/2017. FINDINGS: There is no acute intraparenchymal hemorrhage. No evidence of intraparenchymal brain mass lesion. No evidence of acute infarction. Please note that initial head CT has limited sensitivity f or small or acute infarctions. There is mild periventricular and subcortical hypodensity, nonspecific but probably related to small vessel ischemic disease. There is moderate prominence of the sulci a nd ventricles related to cerebral atrophy. There is intracranial carotid arteriosclerosis. There a re no extra-axial collections. There is no mass effect or midline shift. Patient has had bilateral ocular lens surgery. There is laceration over the right brow. The visualized sinuses and mastoid air cells are well aerated. IMPRESSION: 1. No acute intracranial findings. 2. Chronic age related findings. 3. Right frontal brow soft tissue laceration. Reviewed, dictated and finalized at location A.
[2019-11-14 12:51] VITALS: BP 147/65; PULSE 56; RESP 17; TEMP 37.1; O2SAT 95
[2019-11-14 13:33] LABS: Glucose Point of Care 75 (65-105)
--- NOTE | 2019-11-14 14:19 | PC.NURSE ---
ALL SUPPLIES AT BEDSIDE FOR LACERATION. HERBERT GUNTER AWARE.
[2019-11-14 14:34] VITALS: BP 144/72; PULSE 69; RESP 16; O2SAT 100
--- NOTE | 2019-11-14 14:59 | PC.NURSE ---
HERBERT GUNTER AT BEDSIDE SUTURING PT.
--- NOTE | 2019-11-14 15:23 | ED.FALL ---
HPI - Fall General Chief Complaint: Fall <Rebecca Guzman PA-C - Last Filed: 11/14/19 15:31> Stated Complaint: Fall - laceration <YONATAN Alexandre Last Filed: 11/14/19 15:31> Time Seen by Provider: 11/14/19 13:02 <YONATAN Alexandre Last Filed: 11/14/19 15:31> Source: patient <YONATAN Alexandre Last Filed: 11/14/19 15:31> Mode of arrival: EMS <YONATAN Alexandre Last Filed: 11/14/19 15:31> Limitations: no limitations <YONATAN Alexandre Last Filed: 11/14/19 15:31> History of Present Illness HPI Narrative: This is an 84-year-old male that presents the emergency department after a fall today with laceration to the forehead. Reports he was repositioning in his wheelchair and lost his balance and fell forward. Reports hitting his head. Denies loss of consciousness. Reports a laceration over the right eyebrow. Denies chest pain, shortness of breath, prodromal symptoms, other injuries, neck, or back pain. <YONATAN Alexandre Last Filed: 11/14/19 15:31> Related Data Home Medications: Home Medications Medication Instructions Recorded Confirmed AndroGel 2 pump TOPICAL DAILY 05/10/19 08/24/19 Anoro Ellipta 1 puff INHALATION DAILY 05/10/19 08/24/19 Centrum Silver Men 1 tablet PO DAILY 05/10/19 08/24/19 allopurinol 100 mg PO DAILY 05/10/19 08/24/19 metoclopramide HCl [Reglan] 10 mg PO Q6H PRN 05/10/19 08/24/19 pyridoxine (vitamin B6) 100 mg PO DAILY 05/10/19 08/24/19 sevelamer carbonate [Renvela] 800 mg PO TID 05/10/19 08/24/19 trazodone 50 mg PO HS 05/10/19 08/24/19 labetalol 100 mg PO BID 06/23/19 08/24/19 Ultra CoQ10 75 mg PO DAILY 07/09/19 08/24/19 lactulose 20 g PO DAILY 08/24/19 08/25/19 acetaminophen 325 mg PO ONCE PRN 11/14/19 albuterol sulfate 1 inh INHALATION QID 11/14/19 azithromycin [Zithromax] 250 mg PO DAILY 11/14/19 dextromethorphan-guaifenesin 1 tablet PO Q12H 11/14/19 [Mucinex DM] epoetin narciso-epbx [Retacrit] 4,000 unit SUBCUT 3XW 11/14/19 escitalopram oxalate 20 mg PO DAILY 11/14/19 fenofibrate nanocrystallized 145 mg PO DAILY 11/14/19 [Tricor] fluticasone propionate 2 spray INTRANASAL DAILY 11/14/19 gabapentin 100 mg PO BID 11/14/19 guaifenesin 200 mg PO Q4H PRN 11/14/19 hydrocodone-acetaminophen [Ruby] 1 tablet PO HS PRN 11/14/19 insulin aspart U-100 7 unit SUBCUT TID 11/14/19 loperamide 2 mg PO Q4H PRN 11/14/19 loratadine 10 mg PO DAILY 11/14/19 pantoprazole 40 mg PO HS 11/14/19 sennosides-docusate sodium 1 tab-cap PO HS 11/14/19 [Senna-S] sucroferric oxyhydroxide [Velphoro] 500 mg PO TID 11/14/19 sulfamethoxazole-trimethoprim 1 tablet PO Q12H 11/14/19 [Bactrim DS] <Rebecca Guzman PA-C - Last Filed: 11/14/19 15:31> Allergies/Adverse Reactions: Allergies Allergy/AdvReac Type Severity Reaction Status Date / Time aspirin Allergy Unknown Flushing Verified 11/14/19 13:00 salicylates Allergy Unknown Flushing Verified 11/14/19 13:00 <Rebecca Guzman PA-C - Last Filed: 11/14/19 15:31> Review of Systems Review of Systems: Narrative: CONSTITUTIONAL: Denies fever EYES: Denies visual changes CARDIOVASCULAR: Denies chest pain RESPIRATORY: Denies dyspnea. GASTROINTESTINAL: Denies vomiting MUSCULOSKELETAL: Denies back pain, joint pain, or myalgia. NEUROLOGIC: Denies headache, numbness, or weakness. <Rebecca Guzman PA-C - Last Filed: 11/14/19 15:31> All systems reviewed & are unremarkable except as noted in HPI and below <Rebecca Guzman PA-C - Last Filed: 11/14/19 15:31> [facility] Social History Social History: Social History Social History: The patient currently lives at home alone. He has a close friend, Camila Pittman, who helps him and checks in on him. He also has a healthcare power of bandmill operator, Rossy [address]. The patient has a separate caregiver come to his house 3 times per week as well. Smoking status: Never smoker Second h
--- NOTE | 2019-11-14 15:35 | PC.NURSE ---
report called to RN at [facility] Tiera Alves.
--- NOTE | 2019-11-14 15:39 | PC.NURSE ---
[facility] CONTACTING EMS FOR TRANSPORT TO [facility] AT THIS TIME.
[2019-11-14] MEDS: TETANUS,DIPHTHERIA,AC PERTUSSIS ADULT (0.5 ML) BOOSTRIX IM (16:06)
[2019-11-14 18:08] VITALS: BP 138/75; PULSE 78; RESP 16; O2SAT 100
== END 2019-11-14 18:12 ==
PROVIDERS: Emergency Provider General Practice; PCP Nurse Practitioner Family
DX: S01.111A Laceration without foreign body of right eyelid and periocular area, initial encounter (principal); Z23 Encounter for immunization; Z79.4 Long term (current) use of insulin; E11.42 Type 2 diabetes mellitus with diabetic polyneuropathy; F32.9 Major depressive disorder, single episode, unspecified; E11.22 Type 2 diabetes mellitus with diabetic chronic kidney disease; I12.0 Hypertensive chronic kidney disease with stage 5 chronic kidney disease or end stage renal disease; N18.6 End stage renal disease; Z99.2 Dependence on renal dialysis; M10.9 Gout, unspecified; Z87.442 Personal history of urinary calculi; J43.9 Emphysema, unspecified; F84.5 Asperger's syndrome; W05.0XXA Fall from non-moving wheelchair, initial encounter
CPT/HCPCS: 12013; 70450; 82948; 90471; 90715; 99284

== ENCOUNTER 2019-12-20 16:55 | Observation (INO) | payer MEDICARE, SELFPAY ==
--- NOTE | ~2019-12-20 | CT_ITS ---
EXAMINATION: CT abdomen pelvis wo con DATE: 12/20/2019 17:46 INDICATION: Perineal pain and swelling, possible scrotal abscess TECHNIQUE: Computed tomography (CT) of the chest was performed without intravenous contrast. The dose -length product (DLP) was 2059.79 mGy-cm. Automated exposure control and iterative reconstruction kimmie hnique were employed. COMPARISON: 05/10/2019 FINDINGS: There are small pleural effusions, left greater than right. Calcified coronary artery ather osclerosis is noted. There is cardiomegaly. The gallbladder is absent. The liver, spleen, and adrenal glands are normal. Punctate calcifications of the pancreas are consistent with chronic pancreatitis. There is atrophy of the kidneys. Small cysts of the kidneys measure up to 13 mm on the left. There i s an approximately 6.5 x 4.8 cm abscess containing gas and fluid in the posterior aspect of the left perineum/scrotum. There is mild bilateral inguinal lymphadenopathy, likely reactive. There are change s of right hemicolectomy. There is no free intraperitoneal gas or evidence of bowel obstruction. Ther e is mild lumbar spondylosis. IMPRESSION: 1. 6.5 x 4.8 cm abscess of the left perineum/scrotum. 2. Mild inguinal lymphadenopathy, likely reactive. Reviewed, dictated and finalized at location A.
[2019-12-20 17:24] VITALS: BP 141/50; PULSE 66; RESP 20; TEMP 37.1; O2SAT 97
[2019-12-20 17:31] LABS: Basophils Absolute Auto 0.1 K/mm3 (0.0-0.1); Basophils Percent Auto 0.5 % (0.2-1.2); Eosinophils Absolute Auto 0.2 K/mm3 (0-0.3); Eosinophils Percent Auto 1.5 % (0-4.4); Hematocrit 36.7 % (42.0-52.0); Hemoglobin 11.7 g/dL (14.0-18.0); Immature Granulocyte Absolute 0.07 K/mm3 (0.00-0.031); Immature Granulocyte Percent A 0.7 % (0-0.5); Lymphocytes Absolute Auto 1.12 K/mm3 (0.9-3.2); Lymphocytes Percent Auto 11.3 % (18.3-44.2); Mean Corpuscular HGB Conc 31.9 g/dl (32-36); Mean Corpuscular Hemoglobin 33.1 pg (26-34); Mean Corpuscular Volume 103.7 fl (80-100); Mean Platelet Volume 9.6 fl (7.4-10.4); Monocytes Absolute Auto 1.2 K/mm3 (0.1-0.6); Monocytes Percent Auto 12.6 % (2.6-8.5); Neutrophils Absolute Auto 7.2 K/mm3 (1.3-6.7); Neutrophils Percent Auto 73.4 % (45.5-73.1); Platelet Count Result 164 k/mm3 (150-375); Red Blood Count 3.54 M/mm3 (4.6-6.20); Red Cell Distribution Width 15.6 % (11.5-14.5); White Blood Count 9.9 K/mm3 (4.5-10.0)
[2019-12-20 17:41] LABS: INR 1.1; Prothrombin Time 13.8 Seconds (11.1-14.7)
[2019-12-20 17:42] LABS: Partial Thromboplastin Time 30.7 SECONDS (22.3-36.8)
[2019-12-20 17:43] LABS: Lactic Acid Reflex 1.4 mmol/L (0.7-2.1)
[2019-12-20 17:47] LABS: Blood Urea Nitrogen 18 mg/dL (9-20); Calcium 9.2 mg/dL (8.4-10.2); Carbon Dioxide 25 mmol/L (22-30); Estimated Glomerular Filt Rate 22; Glucose 142 mg/dL (75-110); Potassium 4.4 mmol/L (3.4-5.0); Sodium 134 mmol/L (137-145)
[2019-12-20 17:52] LABS: Chloride 104 mmol/L (98-107)
--- NOTE | 2019-12-20 18:48 | ED.WOUNDLAC ---
HPI - Wound/Laceration General Chief Complaint: Wound/Laceration Stated Complaint: SCROTAL ABSCESS Time Seen by Provider: 12/20/19 17:03 History of Present Illness HPI narrative: Patient is an 84-year-old male who presents ER with concern for abscess to his scrotum and perineum. Patient reports he started having discomfort on Thursday (2 days ago) and was started on antibiotics. Chart review shows that he has been on ceftriaxone IM twice daily. Denies fevers or chills or sweats. Reports abscess continued to grow and so he was sent here for further evaluation. Patient is diabetic and on dialysis. Related Data Home Medications Medication Instructions Recorded Confirmed AndroGel 2 pump TOPICAL DAILY 05/10/19 08/24/19 Anoro Ellipta 1 puff INHALATION DAILY 05/10/19 08/24/19 Centrum Silver Men 1 tablet PO DAILY 05/10/19 08/24/19 allopurinol 100 mg PO DAILY 05/10/19 08/24/19 metoclopramide HCl [Reglan] 10 mg PO Q6H PRN 05/10/19 08/24/19 pyridoxine (vitamin B6) 100 mg PO DAILY 05/10/19 08/24/19 sevelamer carbonate [Renvela] 800 mg PO TID 05/10/19 08/24/19 trazodone 50 mg PO HS 05/10/19 08/24/19 labetalol 100 mg PO BID 06/23/19 08/24/19 Ultra CoQ10 75 mg PO DAILY 07/09/19 08/24/19 lactulose 20 g PO DAILY 08/24/19 08/25/19 acetaminophen 325 mg PO ONCE PRN 11/14/19 albuterol sulfate 1 inh INHALATION QID 11/14/19 azithromycin [Zithromax] 250 mg PO DAILY 11/14/19 dextromethorphan-guaifenesin 1 tablet PO Q12H 11/14/19 [Mucinex DM] epoetin narciso-epbx [Retacrit] 4,000 unit SUBCUT 3XW 11/14/19 escitalopram oxalate 20 mg PO DAILY 11/14/19 fenofibrate nanocrystallized 145 mg PO DAILY 11/14/19 [Tricor] fluticasone propionate 2 spray INTRANASAL DAILY 11/14/19 gabapentin 100 mg PO BID 11/14/19 guaifenesin 200 mg PO Q4H PRN 11/14/19 hydrocodone-acetaminophen [Sheppton] 1 tablet PO HS PRN 11/14/19 insulin aspart U-100 7 unit SUBCUT TID 11/14/19 loperamide 2 mg PO Q4H PRN 11/14/19 loratadine 10 mg PO DAILY 11/14/19 pantoprazole 40 mg PO HS 11/14/19 sennosides-docusate sodium 1 tab-cap PO HS 11/14/19 [Senna-S] sucroferric oxyhydroxide [Velphoro] 500 mg PO TID 11/14/19 sulfamethoxazole-trimethoprim 1 tablet PO Q12H 11/14/19 [Bactrim DS] Allergies Allergy/AdvReac Type Severity Reaction Status Date / Time aspirin Allergy Unknown Flushing Verified 12/20/19 17:29 salicylates Allergy Unknown Flushing Verified 12/20/19 17:29 Review of Systems Review of Systems: All systems reviewed & are unremarkable except as noted in HPI and below Constitutional: Constitutional: Denies chills, Denies fever(s) and Denies weakness Gastrointestinal: Gastrointestinal: Denies abdominal pain, Denies nausea and Denies vomiting Genitourinary: Genitourinary: Denies genital lesions and Denies testicular pain Comments: Perineal swelling Integumentary/Breasts: Skin/Breast: Denies pruritus and Denies erythema PMFSH Social History Social History Social History: The patient currently lives at home alone. He has a close friend, Camila Pittman, who helps him and checks in on him. He also has a healthcare power of anodizing line operator, [address]. The patient has a separate caregiver come to his house 3 times per week as well. Smoking status: Never smoker Second hand tobacco smoke exposure: No Alcohol intake: never Substance use: never Substance use type: does not use Gender identity (if verbalized by the patient): Male Spiritual care concerns: No Agree to blood products: Yes Exam Narrative: Exam Narrative: GENERAL: Chronically ill-appearing, morbidly obese, and in no acute distress. HEAD: Normocephalic, atraumatic. ENT: Mucous membranes moist. CHEST: Clear to auscultation. No respiratory distress. HEART: Regular rate and rhythm. Normal peripheral pulses. ABDOMEN: Soft, nontender, nondistended. : Normal-appearing penis and testicles without tenderness. Scrotum is very edematous and swo
[2019-12-20 19:05] VITALS: BP 126/80; PULSE 70; RESP 20; O2SAT 99
[2019-12-20 20:20] VITALS: BP 139/58; PULSE 65; RESP 20; TEMP 36.8; O2SAT 99
[2019-12-20 21:07] VITALS: BP 139/58; PULSE 66; RESP 16; TEMP 36.8; O2SAT 100
[2019-12-20 21:15] VITALS: BP 128/51; PULSE 64; RESP 18; TEMP 37.2; O2SAT 94; BMI 39.5
[2019-12-20 22:00] VITALS: BP 128/51; PULSE 66; RESP 18; TEMP 37.2; O2SAT 95
[2019-12-21 04:00] VITALS: BP 142/60; PULSE 62; RESP 20; TEMP 36.6; O2SAT 96
--- NOTE | 2019-12-21 04:30 | PM.IMHP ---
H&P: HPI History of Present Illness Chief complaint: Pain near his scrotum Narrative: Date and time of patient contact: 12/21/2019 at 2:45 a.m. Gonsalo Moore is a 84 year old male with a past medical history end-stage renal disease on hemodialysis, obesity and type 2 diabetes mellitus who presented to the ER from via EMS due to area of scrotal erythema and concern for possible scrotal abscess. The patient started having pain 2 days prior to presentation. He was started on antibiotic therapy with Rocephin IM on . He denies any fevers or chills. However he reported pain in his left peroneal region that was 7 to 8/10 in intensity. The pain was worse with any movement. He was unable to get up in his wheelchair due to the pain. The pain was pressure-like in nature. The abscess continue to grow in size and the snf since patient in for evaluation. Patient denied any constipation or diarrhea. In fact the patient had a very mushy black and is depends when I went to evaluate his perineal area. He still urinates once or twice a day and denies any dysuria. He has not been having any chest pain or shortness of breath. He denies any cough or congestion. When I asked what his recent glucoses have been he states they have been doing ?okay.? He undergoes dialysis Thursday// Thursday and completed his hemodialysis prior to arriving in the ER. The patient's abscess was I&D'd in the ER. The patient reports significant improvement in his pain in fact states that he has no pain at this time. Review of Systems Review of Systems: Narrative: 12 systems were reviewed with pertinent positives and negatives per HPI. Except as documented in the HPI, all other systems were reviewed and are negative. [facility] Past Medical History Medical History (Updated 12/21/19 @ 04:53 by Cecily Trevino DO) Asperger's syndrome Grubbs's palsy Constipation Critical limb ischemia with history of revascularization of same extremity With subsequent left heel ulcer requiring left below-knee amputation August 2019 Depression Diabetic peripheral neuropathy Duodenal ulcer disease Emphysema of lung End stage renal disease on dialysis Thursday managed by Dr. Blas. Gout Hypertension Kidney stones Morbid obesity Obstructive sleep apnea Peripheral vascular disease Plantar fasciitis Type II diabetes mellitus Hemoglobin A1c 7 in November of 2018 Surgical History Surgical History (Updated 12/21/19 @ 04:52 by Cecily Trevino DO) AV fistula Left upper extremity History of appendectomy History of cardiac catheterization History of cataract surgery History of cholecystectomy History of colonoscopy History of esophagogastroduodenoscopy (EGD) History of gastric bypass History of morbid obesity with Gastric Bypass in 1973 with reversal when he had a colectomy performed in 1999 for pre-cancerous polyps. History of left below knee amputation Due to peripheral vascular disease, nonhealing diabetic foot wound with osteomyelitis and Proteus bacteremia History of total right knee replacement Social History Social History (Updated 12/21/19 @ 05:04 by Cecily Trevino DO) Social History: He is currently residing [facility]. He lived in his own home until his hospitalization in August at which time he required a left [id number] amputation. He is wheelchair-bound. Healthcare power of assistant county attorney, [address]. Smoking status: Never smoker Second hand tobacco smoke exposure: No Alcohol intake: never Substance use: never Substance use type: does not use Gender identity (if verbalized by the patient): Male Spiritual care concerns: No Agree to blood products: Yes Meds Home Medications and Allergies Home Medications Medication Instructions Recorded Confirmed Type Anoro Ellipta 1 puff INHALATION DAILY 05/10/19 08/24/19 History Centrum Silver Men 1 tablet PO DAILY 05/10/19 08/24/19 History
[2019-12-21 06:20] LABS: Basophils Absolute Auto 0.1 K/mm3 (0.0-0.1); Basophils Percent Auto 0.6 % (0.2-1.2); Eosinophils Absolute Auto 0.2 K/mm3 (0-0.3); Eosinophils Percent Auto 2.3 % (0-4.4); Hematocrit 34.6 % (42.0-52.0); Hemoglobin 11.3 g/dL (14.0-18.0); Immature Granulocyte Absolute 0.05 K/mm3 (0.00-0.031); Immature Granulocyte Percent A 0.5 % (0-0.5); Lymphocytes Absolute Auto 1.11 K/mm3 (0.9-3.2); Lymphocytes Percent Auto 11.8 % (18.3-44.2); Mean Corpuscular HGB Conc 32.7 g/dl (32-36); Mean Corpuscular Hemoglobin 33.6 pg (26-34); Mean Platelet Volume 9.8 fl (7.4-10.4); Monocytes Absolute Auto 1.3 K/mm3 (0.1-0.6); Monocytes Percent Auto 13.3 % (2.6-8.5); Neutrophils Absolute Auto 6.7 K/mm3 (1.3-6.7); Neutrophils Percent Auto 71.5 % (45.5-73.1); Platelet Count Result 189 k/mm3 (150-375); Red Blood Count 3.36 M/mm3 (4.6-6.20); Red Cell Distribution Width 15.4 % (11.5-14.5); White Blood Count 9.4 K/mm3 (4.5-10.0)
[2019-12-21 06:47] LABS: Blood Urea Nitrogen 23 mg/dL (9-20); Calcium 9.3 mg/dL (8.4-10.2); Carbon Dioxide 24 mmol/L (22-30); Chloride 103 mmol/L (98-107); Estimated CRCL calculation 22 ml/min; Estimated Glomerular Filt Rate 18; Glucose 180 mg/dL (75-110); Potassium 4.5 mmol/L (3.4-5.0); Sodium 133 mmol/L (137-145)
[2019-12-21] MEDS: METOCLOPRAMIDE HCL 10 MG TABLET PO ×3 (07:41→18:39)
[2019-12-21 07:45] LABS: Folic Acid 12.6 ng/mL (2.76->20)
--- NOTE | 2019-12-21 08:11 | ADMGEN ---
This patient, Gonsalo Moore, was admitted to [facility] Surg Room 313-01. Patient/family oriented to hospital policies and general routines including ID bracelet, bed and alarms, visiting hours, pain management, procedures, bathroom and other care routines, personal items, smoking policy, room service/diet, and visiting hours. Valuables list has been completed. Information on how to activate the Rapid Response Team has been discussed. Patient/Family are encouraged to report perceived risks to care and to ask questions if they do not understand what they are told or what they should do.
[2019-12-21 08:19] LABS: Glucose Point of Care 165 (65-105)
[2019-12-21 08:51] VITALS: PULSE 64
[2019-12-21] MEDS: SEVELAMER CARBONATE 800 MG TABLET PO ×3 (08:51→18:39)
[2019-12-21] MEDS: CLOPIDOGREL BISULFATE 75 MG TABLET PO (08:51)
[2019-12-21] MEDS: LABETALOL HCL 100 MG TABLET PO ×2 (08:51→18:38)
[2019-12-21] MEDS: LORATADINE 10 MG TABLET PO (08:53)
[2019-12-21] MEDS: GABAPENTIN 100 MG CAPSULE PO ×2 (08:53→21:19)
[2019-12-21] MEDS: PYRIDOXINE HCL 50 MG TABLET 100 MG PO (08:53)
[2019-12-21] MEDS: ESCITALOPRAM OXALATE 10 MG TABLET 20 MG PO (08:53)
[2019-12-21] MEDS: PANTOPRAZOLE 40 MG TABLET PO (08:53)
[2019-12-21] MEDS: INSULIN ASPART (*BKC) 100 UNITS/ML 7 UNITS SUB-Q ×3 (08:54→18:36)
[2019-12-21] MEDS: FLUTICASONE PROPIONATE 0.05% NA SPR 16 GM BTL (*BKC) 2 SPRAY NASAL (08:55)
[2019-12-21] MEDS: INSULIN GLARGINE (*BKC) 100 UNITS/ML 14 UNITS SUB-Q ×2 (08:56→18:37)
[2019-12-21 12:24] LABS: Glucose Point of Care 171 (65-105)
[2019-12-21] MEDS: allopurinoL 100 MG TABLET PO (12:40)
--- NOTE | 2019-12-21 12:55 | PM.CNGS ---
Assessment and Plan Assessment and plan (1) Abscess of perineum: Code(s): L02.215 - Cutaneous abscess of perineum Status: Acute Assessment and Plan: The patient has evidence of a perineal abscess and is status post I&D in the ER yesterday. On my exam today, this seems to be adequately drained with no purulent drainage. No further indication for surgical intervention at this time. WBC normal and patient is afebrile. Continue with IV antibiotics and local wound care with packing 1/4 iodoform gauze daily to the incision. Thank you for allowing me to see the patient in consultation and we will continue to follow along with you. (2) Diabetes mellitus, with long-term current use of insulin: Code(s): E11.9 - Type 2 diabetes mellitus without complications; Z79.4 - long-term (current) use of insulin Status: Acute Assessment and Plan: Last hgb A1C 7.0 November of 2018. Blood glucose running in upper 100's currently. Glycemic control will be important for wound healing. Discussed this with the patient. (3) Congestive heart failure: Qualifiers: Heart failure chronicity: chronic Heart failure type: diastolic Qualified Code(s): I50.32 - Chronic diastolic (congestive) heart failure Code(s): I50.9 - Heart failure, unspecified Status: Chronic (4) End stage renal disease on dialysis: Code(s): N18.6 - End stage renal disease; Z99.2 - Dependence on renal dialysis Status: Chronic Assessment and Plan: Dialysis on Thursday//Thursday. Nephrology following. (5) Diabetic peripheral neuropathy: Code(s): E11.42 - Type 2 diabetes mellitus with diabetic polyneuropathy Status: Chronic (6) Morbid obesity: Code(s): E66.01 - Morbid (severe) obesity due to excess calories Status: Acute (7) Obstructive sleep apnea: Code(s): G47.33 - Obstructive sleep apnea (adult) (pediatric) Status: Acute (8) Antiplatelet or antithrombotic long-term use: Code(s): Z79.02 - long-term (current) use of antithrombotics/antiplatelets Status: Acute Assessment and Plan: Currently on Plavix. Okay to continue from our standpoint. Additional Plan Discussed the patient's case and plan of care with Dr. Whitlock today. History of Present Illness Consult details Consult date: 12/21/19 Reason for consult: other (Perineal abscess) Requesting physician: Durga Mcfarlane MD Narrative: This is an 82-year-old male with a history of end-stage renal disease on hemodialysis, type 2 diabetes, significant peripheral vascular disease, hypertension, and obstructive sleep apnea, who presented to the emergency department from [facility] for evaluation of perineal pain and scrotal swelling. ED workup revealed a left perineal abscess measuring 6.5 x 4.8 cm with mild inguinal lymphadenopathy noted on the CT scan. Labs revealed normal white blood cell count 9,900 and the patient was afebrile. An incision and drainage of the perineal abscess was performed by the ER provider. He was admitted to the hospitalist service and started on IV antibiotics and analgesics. Our service was consulted by the ED physician for the perineal abscess. The patient is now being seen on the medical floor. He reports noticing perineal pain for about 2 days, but denies any fever or chills. Also reports recent constipation but is unsure if he is taking anything for this. Patient reports his pain has improved significantly today since the I&D. No other complaints at this time. Reports a history of MRSA but cannot recall details. Patient is anuric on hemodialysis and typically gets dialysis on Thursday, , and Thursday. Nephrology has been consulted. Review of Systems Constitutional: Constitutional: Reports as per HPI, Denies chills, Denies excessive sweating, Denies fatigue, Denies fever(s), Denies headache(s) and Denies weakness Eyes: Eyes: Denies change in vision and Denies loss of vi
--- NOTE | 2019-12-21 13:00 | PM.IMPN ---
Progress Note: A&P Assessment and Plan (1) Abscess of perineum: Code(s): L02.215 - Cutaneous abscess of perineum Status: Acute Assessment and Plan: The patient presented with scrotal erythema and edema and was diagnosed with a scrotal abscess. He was treated with ceftriaxone IM outpatient for 2 days prior to admission without improvement. He underwent incision and drainage in the ED with resolution of his pain. General surgery is on board and input is greatly appreciated. General surgery packed the wound today. He is afebrile without leukocytosis. Plan to continue IV zosyn. (2) End stage renal disease on dialysis: Code(s): N18.6 - End stage renal disease; Z99.2 - Dependence on renal dialysis Status: Chronic Assessment and Plan: Nephrology has been consulted for hemodialysis management while inpatient and recommendations are greatly appreciated. Renally dose medications and avoid nephrotoxins. (3) Obstructive sleep apnea: Code(s): G47.33 - Obstructive sleep apnea (adult) (pediatric) Status: Acute Assessment and Plan: Autotitrate CPAP/BIPAP to home settings. (4) Diabetes mellitus, with long-term current use of insulin: Code(s): E11.9 - Type 2 diabetes mellitus without complications; Z79.4 - exterminator (current) use of insulin Status: Acute Assessment and Plan: Blood sugars were reviewed and are reasonably controlled. Continue home insulin regimen with mealtime insulin and tojeo (substitute lantus while inpatient and reduce dose by 20%). Continue moderate dose SSI. Continue ACHS blood glucose monitoring. Continue hypoglycemia protocol. Continue to monitor. (5) Hypertension: Code(s): I10 - Essential (primary) hypertension Status: Acute Assessment and Plan: Blood pressures were reviewed and are reasonably controlled. Plan to continue labetalol. Continue to monitor. (6) Emphysema of lung: Code(s): J43.9 - Emphysema, unspecified Status: Acute Assessment and Plan: Chronic and not in acute exacerbation. Contiue albuterol PRN and anoro. (7) Depression: Code(s): F32.9 - Major depressive disorder, single episode, unspecified Status: Acute Assessment and Plan: Stable. Continue escitalopram. (8) Congestive heart failure: Qualifiers: Heart failure type: diastolic Heart failure chronicity: chronic Qualified Code(s): I50.32 - Chronic diastolic (congestive) heart failure Code(s): I50.9 - Heart failure, unspecified Status: Chronic Assessment and Plan: Chronic and diastolic. Appears clinically compensated and he is euvolemic. Monitor fluid status, I/Os, and daily weights. (9) DVT prophylaxis: Code(s): Z29.9 - Encounter for prophylactic measures, unspecified Status: Acute Assessment and Plan: Will add lovenox SQ for DVT ppx. Time Spent With Patient Time with patient: 15 - 25 minutes Subjective Date/time seen: 12/21/19 13:00 Interval history: Mr. Moore is seen and examined at bedside in follow-up for a scrotal abscess. He has a hx of ESRD on HD, obesity, and IDDM. He reports that his pain has improved significantly following I&D. He denies nausea, vomiting, fever, and chills. He is tolerating PO intake well. He reports a regular bowel movement today and denies diarrhea. He denies chest pain and dyspnea. He denies cough. He denies lightheadedness, headaches, and dizziness. Review of Systems Review of Systems: All systems reviewed & are unremarkable except as noted in HPI and below Exam Narrative: Exam Narrative: General: Morbidly obese, well-developed, chronically ill-appearing 84 y.o. male lying in the semi-still's position in bed eating lunch in no acute distress. HEENT: Normocephalic and atraumatic. Conjunctivae and lids normal. Sclerae anicteric. EOMI. Mucous membranes moist. Oropharynx without eryt
[2019-12-21 14:00] VITALS: BP 145/53; PULSE 60; RESP 16; TEMP 36.5; O2SAT 96
--- NOTE | 2019-12-21 18:04 | PM.CNNEP ---
Assessment and Plan Assessment and plan (1) End stage renal disease: Code(s): N18.6 - End stage renal disease Status: Chronic (2) Abscess of perineum: Code(s): L02.215 - Cutaneous abscess of perineum Status: Acute (3) Hypertension: Code(s): I10 - Essential (primary) hypertension Status: Acute (4) T2DM (type 2 diabetes mellitus): Qualifiers: Diabetes mellitus complication detail: with foot ulcer Diabetes mellitus complication status: with skin complications Diabetes mellitus prison insulin use: with long term care social worker use Qualified Code(s): E11.621 - Type 2 diabetes mellitus with foot ulcer; L97.509 - Non-pressure chronic ulcer of other part of unspecified foot with unspecified severity; Z79.4 - residential (current) use of insulin Code(s): E11.9 - Type 2 diabetes mellitus without complications Status: Chronic Assessment and Plan: . Additional Plan Gonsalo has end-stage renal disease and is due for dialysis tomorrow I will continue his dialysis treatments on his outpatient schedule of Thursday, , and Thursday with his next planned treatment tomorrow. I will continue to follow his CKD parameters while he remains hospitalized and make further adjustments to his medications and dialysis prescription as deemed necessary Surgery is following the patient with regard to his scrotal abscess and the tentative plan for now is to continue IV antibiotic therapy and wound care since the initial incision and drainage done by the ER physician seems to have significantly improved this issue/problem. I will continue follow patient with you while remains hospitalized and make further recommendations during his hospital course Thank you for allowing me to participate in the care this patient. History of Present Illness Reason for Consult Consult date: 12/21/19 Reason for consult: end stage renal disease Chief Complaint Chief complaint: Pain near his scrotum History of Present Illness Narrative: The patient is a 84-year-old with an extensive past medical history as outlined below who presented to [facility] ER with complaints of scrotal pain and erythema. The patient states he started having pain 2 - 3 days prior to admission. The pain was localized to his perineal area, more so on the left side, rated 8/10 in severity. The described the pain as a pressure-like sensation and was worse with any type of movement. Apparently, it was noted by nursing facility that in the area of his pain was what appeared to be a scrotal abscess. As the presumed abscess continued to grow in size since first noted, he sent to the ER for further evaluation. Workup and evaluation in the emergency room demonstrated the patient to be hemodynamically stable with routine blood test that were consistent with his known history of end-stage renal disease. The scrotal abscess was noted in the ER physician performed an incision and drainage of this area. Given his complex medical history and the a for mentioned scrotal abscess, appropriate cultures were obtained and he was started on IV antibiotic therapy with subsequent admission to the hospital. Renal consultation was requested due to his end-stage renal disease. The patient normally dialyzes on a Thursday, , Thursday dialysis schedule at [facility] under the care of Dr. Tulio Blas. From a dialysis perspective, he usually tolerates his treatments reasonably well and most of his issues/problems related to his end-stage renal disease her are due to his significant and large fluid gains in between dialysis treatments which result in difficulty getting him down to his dry weight. He did receive dialysis yesterday at his outpatient unit prior to admission. Since his admission to the hospital, he has been seen in consultation by General surgery who feel that ongoing antibiotic therapy and dressing changes are appropriate given the
[2019-12-21 18:27] LABS: Glucose Point of Care 142 (65-105)
[2019-12-21 18:38] VITALS: PULSE 80
[2019-12-21 20:44] VITALS: PULSE 51; RESP 18; O2SAT 97
[2019-12-21] MEDS: HEPARIN SODIUM 5,000 UNITS/ML VIAL 5000 UNITS SUB-Q (21:19)
[2019-12-21] MEDS: traZODone HCL 50 MG TABLET PO (21:20)
[2019-12-21 22:00] VITALS: BP 136/37; PULSE 53; RESP 20; TEMP 36.3; O2SAT 100
[2019-12-21 22:12] LABS: Glucose Point of Care 180 (65-105)
[2019-12-22] VITALS (29 sets, daily range): BP systolic 118–164; BP diastolic 45–104; PULSE 51–80; RESP 16–27; TEMP 36.2–37; O2SAT 95–100
[2019-12-22] MEDS: METOCLOPRAMIDE HCL 10 MG TABLET PO ×5 (00:15→23:26)
[2019-12-22] MEDS: HEPARIN SODIUM 5,000 UNITS/ML VIAL 5000 UNITS SUB-Q ×3 (05:31→22:39)
[2019-12-22 06:01] LABS: Basophils Absolute Auto 0.1 K/mm3 (0.0-0.1); Basophils Percent Auto 0.8 % (0.2-1.2); Eosinophils Absolute Auto 0.3 K/mm3 (0-0.3); Eosinophils Percent Auto 3.7 % (0-4.4); Hematocrit 37.5 % (42.0-52.0); Hemoglobin 11.9 g/dL (14.0-18.0); Immature Granulocyte Absolute 0.05 K/mm3 (0.00-0.031); Immature Granulocyte Percent A 0.7 % (0-0.5); Lymphocytes Absolute Auto 1.21 K/mm3 (0.9-3.2); Lymphocytes Percent Auto 15.9 % (18.3-44.2); Mean Corpuscular HGB Conc 31.7 g/dl (32-36); Mean Corpuscular Volume 103.9 fl (80-100); Mean Platelet Volume 10.1 fl (7.4-10.4); Monocytes Absolute Auto 0.9 K/mm3 (0.1-0.6); Monocytes Percent Auto 11.7 % (2.6-8.5); Neutrophils Absolute Auto 5.1 K/mm3 (1.3-6.7); Neutrophils Percent Auto 67.2 % (45.5-73.1); Platelet Count Result 167 k/mm3 (150-375); Red Blood Count 3.61 M/mm3 (4.6-6.20); Red Cell Distribution Width 15.3 % (11.5-14.5); White Blood Count 7.6 K/mm3 (4.5-10.0)
[2019-12-22 06:37] LABS: Alanine Aminotransferase 24 U/L (4-50); Albumin Level 2.9 g/dL (3.5-5.1); Alkaline Phosphatase 95 U/L (38-126); Aspartate Amino Transferase 34 U/L (17-59); Bilirubin,Total 0.5 mg/dL (0.2-1.3); Blood Urea Nitrogen 31 mg/dL (9-20); Calcium 9.7 mg/dL (8.4-10.2); Carbon Dioxide 25 mmol/L (22-30); Chloride 103 mmol/L (98-107); Estimated CRCL calculation 18 ml/min; Estimated Glomerular Filt Rate 14; Glucose 102 mg/dL (75-110); Magnesium 1.7 mg/dL (1.6-2.3); Potassium 4.2 mmol/L (3.4-5.0); Sodium 134 mmol/L (137-145)
[2019-12-22] MEDS: INSULIN ASPART (*BKC) 100 UNITS/ML 7 UNITS SUB-Q ×3 (08:44→18:01)
[2019-12-22] MEDS: SEVELAMER CARBONATE 800 MG TABLET PO ×3 (08:44→18:50)
[2019-12-22] MEDS: allopurinoL 100 MG TABLET PO (08:44)
[2019-12-22] MEDS: FLUTICASONE PROPIONATE 0.05% NA SPR 16 GM BTL (*BKC) 2 SPRAY NASAL (08:44)
[2019-12-22] MEDS: CLOPIDOGREL BISULFATE 75 MG TABLET PO (08:44)
[2019-12-22] MEDS: INSULIN GLARGINE (*BKC) 100 UNITS/ML 14 UNITS SUB-Q ×2 (08:45→18:01)
--- NOTE | 2019-12-22 09:18 | PC.NURSE ---
To dialysis per bed.
[2019-12-22] MEDS: HEPARIN SODIUM 1,000 UNITS/ML VIAL 1000 UNITS (09:27)
[2019-12-22] MEDS: HEPARIN SODIUM 1,000 UNITS/ML VIAL 4000 UNITS (09:27)
[2019-12-22 10:19] LABS: Glucose Point of Care 129 (65-105)
[2019-12-22] MEDS: MORPHINE SULFATE 4 MG/ML INJ IV PUSH (11:03)
--- NOTE | 2019-12-22 11:08 | PM.PNNEP ---
Progress Note: A&P Assessment and Plan (1) End stage renal disease: Code(s): N18.6 - End stage renal disease Status: Chronic Assessment and Plan: HD today and continue T/T/S schedule follow electrolytes, volume status, and clearance (2) Abscess of perineum: Code(s): L02.215 - Cutaneous abscess of perineum Status: Acute Assessment and Plan: s/p I & D local wound care antibiotics General Surgery following (3) Hypertension: Code(s): I10 - Essential (primary) hypertension Status: Acute Assessment and Plan: reasonable control continue home medications follow hemodynamics (4) T2DM (type 2 diabetes mellitus): Qualifiers: Diabetes mellitus complication detail: with foot ulcer Diabetes mellitus complication status: with skin complications Diabetes mellitus longterm insulin use: with longterm use Qualified Code(s): E11.621 - Type 2 diabetes mellitus with foot ulcer; L97.509 - Non-pressure chronic ulcer of other part of unspecified foot with unspecified severity; 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 Subjective Date/time seen: 12/22/19 11:08 Tolerating dialysis at the time of my visit (seen on HD at ~ 11:00AM); no apparent distress voiced at this time; no events overnight or earlier this AM. Exam Narrative: Exam Narrative: General: WD/WN male in NAD Heart: normal S1 and S2; no rub Lungs: clear to auscultation Abdomen: soft, nontender, nondistended, positive bowel sounds Extremities: no cyanosis or clubbing; no edema; left BKA Skin: warm and dry Objective Data Vital Signs Vital Signs: Vital Signs Temp Pulse Resp BP Pulse Ox 12/22/19 11:00 54 L 140/79 12/22/19 10:45 55 L 152/72 H 12/22/19 10:30 53 L 151/69 H 12/22/19 10:15 54 L 144/64 H 12/22/19 10:00 53 L 153/73 H 12/22/19 09:45 53 L 152/79 H 12/22/19 09:30 59 L 149/77 H 12/22/19 09:20 36.7 C 59 L 16 153/79 H 12/22/19 05:57 36.2 C L 55 L 18 118/45 L 100 12/22/19 02:55 51 L 16 97 12/22/19 00:06 52 L 18 96 12/21/19 22:00 36.3 C L 53 L 20 136/37 L 100 12/21/19 20:44 51 L 18 97 12/21/19 18:38 80 12/21/19 14:00 36.5 C 60 16 145/53 H 96 Intake/Output Intake/Output: Intake & Output 12/19/19 12/20/19 12/21/19 12/22/19 23:59 23:59 23:59 23:59 Intake Total 50 1420 410 Output Total 0 Balance 50 1420 410 Meds/Results Medications: Active Medications Generic Name Dose Route Start Last Admin Trade Name Freq PRN Reason Stop Dose Admin Acetaminophen 650 mg 12/20/19 19:18 Tylenol Tablet PO Q4H PRN Mild Pain (1-3) or Fever Hydrocodone Bitart/Acetaminophen 1 tab 12/20/19 19:18 12/22/19 00:17 [place] 5-325 Mg PO 1 tab Q4H PRN Administration Pain Rated 4-6 Hydrocodone Bitart/Acetaminophen 1 tab 12/21/19 04:03 [place] 5-325 Mg PO Q6H PRN Pain (Scale Score 4-6) Albuterol 2 puff 12/21/19 04:03 Proventil Hfa INHALATION Q4H PRN Shortness Of Breath Allopurinol 100 mg 12/21/19 09:00 12/22/19 08:44 Zyloprim PO 100 mg DAILY BELKIS Administration Clopidogrel Bisulfate 75 mg 12/21/19 09:00 12/22/19 08:44 Plavix PO 75 mg QAM BELKIS Administration Dextrose 12.5 gm 12/21/19 04:09 Dextrose 50% Syringe IV PUSH PRN PRN Hypoglycemia Protocol Escitalopram Oxalate 20 mg 12/21/19 09:00 12/21/19 08:53 Lexapro PO 20 mg DAILY BELKIS Administration Fluticasone Propionate 2 spray 12/21/19 09:00 12/22/19 08:44 Flonase 0.05% Nasal [place] NASAL 2 spray DAILY BELKIS Administration Gabapentin 100 mg 12/21/19 09:12/21/19 21:19 Neurontin PO 100 mg Q12HR BELKIS Administration Glucagon 1 mg
[2019-12-22] MEDS: LORATADINE 10 MG TABLET PO (14:06)
[2019-12-22] MEDS: GABAPENTIN 100 MG CAPSULE PO ×2 (14:06→20:15)
[2019-12-22] MEDS: LABETALOL HCL 100 MG TABLET PO ×2 (14:06→18:49)
[2019-12-22] MEDS: ESCITALOPRAM OXALATE 10 MG TABLET 20 MG PO (14:08)
[2019-12-22] MEDS: PANTOPRAZOLE 40 MG TABLET PO (14:08)
[2019-12-22] MEDS: PYRIDOXINE HCL 50 MG TABLET 100 MG PO (14:09)
[2019-12-22 14:36] LABS: Glucose Point of Care 111 (65-105)
--- NOTE | 2019-12-22 16:23 | PM.IMPN ---
Progress Note: A&P Assessment and Plan (1) Abscess of perineum: Code(s): L02.215 - Cutaneous abscess of perineum Status: Acute Assessment and Plan: The patient presented with scrotal erythema and edema and was diagnosed with a scrotal abscess. He was treated with ceftriaxone IM outpatient for 2 days prior to admission without improvement. He underwent incision and drainage in the ED 12/20/19 with resolution of his pain. General surgery is on board and input is greatly appreciated. Wound care/packing per general surgery. He will continue dressing changes at the [facility]. His swelling, induration, erythema, and pain have improved significantly. He is afebrile without leukocytosis. Continue IV zosyn and transition to a PO antibiotic regimen at discharge. Hopeful discharge tomorrow. COVID-19 testing is pending for discharge. (2) End stage renal disease on dialysis: Code(s): N18.6 - End stage renal disease; Z99.2 - Dependence on renal dialysis Status: Chronic Assessment and Plan: Nephrology has been consulted for hemodialysis management while inpatient and recommendations are greatly appreciated. He will continue dialysis on a schedule. Management per nephrology. (3) Obstructive sleep apnea: Code(s): G47.33 - Obstructive sleep apnea (adult) (pediatric) Status: Acute Assessment and Plan: Autotitrate CPAP/BIPAP to home settings. 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 Continue home insulin regimen with mealtime insulin and substitute lantus while inpatient with reduced dose of 20% for now. Continue moderate dose SSI. Continue ACHS blood glucose monitoring. Continue hypoglycemia protocol. Continue to monitor. (5) Hypertension: Code(s): I10 - Essential (primary) hypertension Status: Acute Assessment and Plan: Blood pressures were reviewed and are reasonably controlled. Continue labetalol. Continue to monitor. (6) Emphysema of lung: Code(s): J43.9 - Emphysema, unspecified Status: Acute Assessment and Plan: Chronic and not in acute exacerbation. Contiue albuterol PRN and anoro. (7) Depression: Code(s): F32.9 - Major depressive disorder, single episode, unspecified Status: Acute Assessment and Plan: Stable. Continue escitalopram. (8) Congestive heart failure: Qualifiers: Heart failure type: diastolic Heart failure chronicity: chronic Qualified Code(s): I50.32 - Chronic diastolic (congestive) heart failure Code(s): I50.9 - Heart failure, unspecified Status: Chronic Assessment and Plan: Chronic and diastolic. Appears clinically compensated and he is euvolemic. Monitor fluid status, I/Os, and daily weights. (9) DVT prophylaxis: Code(s): Z29.9 - Encounter for prophylactic measures, unspecified Status: Acute Assessment and Plan: Continue heparin SQ for DVT ppx. Subjective Date/time seen: 12/22/19 16:23 Interval history: Mr. Moore is seen and examined at bedside in follow-up for a scrotal abscess. He has a hx of ESRD on HD, obesity, and IDDM. He reports that his pain has improved significantly following I&D. He denies nausea, vomiting, fever, and chills. He is tolerating PO intake well. He reports a regular bowel movement today and denies diarrhea. He denies chest pain and dyspnea. He denies cough. He denies lightheadedness, headaches, and dizziness. Review of Systems Review of Systems: All systems reviewed & are unremarkable except as noted in HPI and below Exam Narrative: Exam Narrative: General: Morbidly obese, well-developed, chronically ill-appearing 84 y.o. male barry
--- NOTE | 2019-12-22 16:43 | PM.PNGS ---
Progress Note: A&P Assessment and Plan (1) Abscess of perineum: Code(s): L02.215 - Cutaneous abscess of perineum Status: Acute Assessment and Plan: S/p I&D of perineal abscess in ER. POD2 and continues to improve. WBC normal and afebrile. Okay from a surgical standpoint to discharge the patient when okay with other services. Oral antibiotics on discharge per Hospitalist. Continue daily packing of 1/4 iodoform gauze. Will have the [facility] continue dressing changes. Follow-up only as needed. 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 Discussed this with the patient. (3) Congestive heart failure: Qualifiers: Heart failure type: diastolic Heart failure chronicity: chronic Qualified Code(s): I50.32 - Chronic diastolic (congestive) heart failure Code(s): I50.9 - Heart failure, unspecified Status: Chronic (4) End stage renal disease on dialysis: Code(s): N18.6 - End stage renal disease; Z99.2 - Dependence on renal dialysis Status: Chronic Assessment and Plan: Had dialysis today. Nephrology following. (5) Diabetic peripheral neuropathy: Code(s): E11.42 - Type 2 diabetes mellitus with diabetic polyneuropathy Status: Chronic (6) Morbid obesity: Code(s): E66.01 - Morbid (severe) obesity due to excess calories Status: Acute (7) Obstructive sleep apnea: Code(s): G47.33 - Obstructive sleep apnea (adult) (pediatric) Status: Acute (8) Antiplatelet or antithrombotic long-term use: Code(s): Z79.02 - jail (current) use of antithrombotics/antiplatelets Status: Acute Assessment and Plan: Currently on Plavix. Okay to continue from our standpoint. Additional Plan Discussed the patient's case and plan of care with Dr. Whitlock today. Subjective Subjective Date/Time Seen: 12/22/19 16:43 Post Op day: 2 (I&D perineal abscess) Patient reports: no new complaints, feels better and pain is less Interval history: Doing well today. No new complaints. Reports pain has improved. No complaints of pain except during dressing changes. Review of Systems Review of Systems: All systems reviewed & are unremarkable except as noted in HPI and below Exam Const: General: comfortable, no acute distress, alert and awake : Penis: Yes Localized penile swelling present (buried penis due to swelling) Scrotum: edematous (improved) and erythematous (improved) Other: Perineal abscess with 1 cm incision midway between the scrotum and the rectum, surrounding erythema and induration improved on my exam. Dressing and packing removed. No purulent drainage noted. Overall swelling improved. Repacked the incision with 1/4 iodoform packing and covered with gauze. Neuro: General: moves all extremities and Unable to assess gait Extrem: General: normal to inspection, no clubbing, cyanosis or edema and amputation noted Below the knee: left Psych: Appearance: grossly normal Mental Status: mental status grossly normal Speech and movement: Normal speech and movement present Affect: normal affect Attitude: cooperative Thought process: Normal thought process present Objective Data Vital Signs Vital Signs: Vital Signs - 24 hr 12/21/19 18:38 12/21/19 20:44 12/21/19 22:00 Temperature 36.3 C L Pulse Rate 80 51 L 53 L Respiratory Rate 18 20 Blood Pressure 136/37 L Pulse Oximetry 97 100 12/22/19 00:06 12/22/19 02:55 12/22/19 05:57 Temperature 36.2 C L Pulse Rate 52 L 51 L 55 L Respiratory Rate 18 16 18 Blood Pressure 118/45 L Pulse Oximetry 96 97 100 12/22/19 09:20 12/22/19 09:30 12/22/19 09:45 Temperature 36.7 C Pulse Rate 59 L 59 L 53 L Respiratory Rate 16 Blood Pressure 153/79 H 149/
[2019-12-22 17:54] LABS: Glucose Point of Care 175 (65-105)
[2019-12-22] MEDS: traZODone HCL 50 MG TABLET PO (20:15)
[2019-12-22 21:56] LABS: Glucose Point of Care 205 (65-105)
[2019-12-23 02:59] VITALS: PULSE 55; RESP 17; O2SAT 97
[2019-12-23] MEDS: HEPARIN SODIUM 5,000 UNITS/ML VIAL 5000 UNITS SUB-Q ×2 (05:20→13:37)
[2019-12-23] MEDS: METOCLOPRAMIDE HCL 10 MG TABLET PO ×3 (05:20→17:34)
[2019-12-23 05:33] VITALS: BP 174/67; PULSE 58; RESP 18; TEMP 36.4; O2SAT 98
[2019-12-23 06:28] LABS: Hematocrit 34.4 % (42.0-52.0); Hemoglobin 11.1 g/dL (14.0-18.0); Mean Corpuscular HGB Conc 32.3 g/dl (32-36); Mean Corpuscular Hemoglobin 33.2 pg (26-34); Mean Platelet Volume 10.4 fl (7.4-10.4); Platelet Count Result 149 k/mm3 (150-375); Red Blood Count 3.34 M/mm3 (4.6-6.20); White Blood Count 6.4 K/mm3 (4.5-10.0)
[2019-12-23 06:41] LABS: Albumin Level 2.8 g/dL (3.5-5.1); Blood Urea Nitrogen 21 mg/dL (9-20); Carbon Dioxide 30 mmol/L (22-30); Chloride 97 mmol/L (98-107); Estimated CRCL calculation 23 ml/min; Estimated Glomerular Filt Rate 19; Glucose 95 mg/dL (75-110); Phosphorus 2.5 mg/dL (2.5-4.5); Potassium 3.8 mmol/L (3.4-5.0); Sodium 133 mmol/L (137-145)
[2019-12-23 08:15] LABS: Glucose Point of Care 90 (65-105)
[2019-12-23] MEDS: CLOPIDOGREL BISULFATE 75 MG TABLET PO (08:59)
[2019-12-23] MEDS: ESCITALOPRAM OXALATE 10 MG TABLET 20 MG PO (09:00)
[2019-12-23] MEDS: allopurinoL 100 MG TABLET PO (09:00)
[2019-12-23 09:01] VITALS: PULSE 80
[2019-12-23] MEDS: FLUTICASONE PROPIONATE 0.05% NA SPR 16 GM BTL (*BKC) 2 SPRAY NASAL (09:01)
[2019-12-23] MEDS: LABETALOL HCL 100 MG TABLET PO ×2 (09:01→17:35)
[2019-12-23] MEDS: INSULIN GLARGINE (*BKC) 100 UNITS/ML 14 UNITS SUB-Q ×2 (09:01→17:38)
[2019-12-23] MEDS: SEVELAMER CARBONATE 800 MG TABLET PO ×3 (09:02→17:34)
[2019-12-23] MEDS: GABAPENTIN 100 MG CAPSULE PO (09:02)
[2019-12-23] MEDS: PANTOPRAZOLE 40 MG TABLET PO (09:03)
[2019-12-23] MEDS: LORATADINE 10 MG TABLET PO (09:03)
[2019-12-23] MEDS: PYRIDOXINE HCL 50 MG TABLET 100 MG PO (09:04)
--- NOTE | 2019-12-23 11:48 | PM.PNNEP ---
Progress Note: A&P Assessment and Plan (1) End stage renal disease: Code(s): N18.6 - End stage renal disease Status: Chronic Assessment and Plan: HD tomorrow and continue T/T/S schedule follow electrolytes, volume status, and clearance (2) Abscess of perineum: Code(s): L02.215 - Cutaneous abscess of perineum Status: Acute Assessment and Plan: s/p I & D local wound care antibiotics General Surgery following (3) Hypertension: Code(s): I10 - Essential (primary) hypertension Status: Acute Assessment and Plan: reasonable control continue home medications follow hemodynamics (4) T2DM (type 2 diabetes mellitus): Qualifiers: Diabetes mellitus complication detail: with foot ulcer Diabetes mellitus complication status: with skin complications Diabetes mellitus usp insulin use: with usp use Qualified Code(s): E11.621 - Type 2 diabetes mellitus with foot ulcer; L97.509 - Non-pressure chronic ulcer of other part of unspecified foot with unspecified severity; 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 Subjective Date/time seen: 12/23/19 11:48 Tolerated dialysis treatment yesterday without any acute issues or problems; no new issues or problems to report at this time; feels reasonable well. Exam Narrative: Exam Narrative: General: WD/WN male in NAD Heart: normal S1 and S2; no rub Lungs: clear to auscultation Abdomen: soft, nontender, nondistended, positive bowel sounds Extremities: no cyanosis or clubbing; no edema; left BKA Skin: warm and intact Objective Data Vital Signs Vital Signs: Vital Signs Temp Pulse Resp BP Pulse Ox 12/23/19 09:01 80 12/23/19 05:33 36.4 C 58 L 18 174/67 H 98 12/23/19 02:59 55 L 17 97 12/22/19 23:56 16 12/22/19 22:10 57 L 27 H 97 12/22/19 22:00 36.4 C L 58 L 18 142/45 H 95 12/22/19 18:49 80 12/22/19 14:06 72 12/22/19 14:00 36.9 C 73 16 130/61 100 12/22/19 13:35 36.8 C 58 L 16 137/73 12/22/19 13:30 53 L 148/68 H 12/22/19 13:15 56 L 146/104 H 12/22/19 13:00 55 L 130/63 12/22/19 12:45 54 L 136/67 12/22/19 12:30 55 L 134/64 12/22/19 12:15 57 L 131/75 12/22/19 12:00 58 L 162/72 H Intake/Output Intake/Output: Intake & Output 12/20/19 12/21/19 12/22/19 12/23/19 23:59 23:59 23:59 23:59 Intake Total 50 1420 1400 490 Output Total 0 3000 Balance 50 1420 -1600 490 Meds/Results Medications: Active Medications Generic Name Dose Route Start Last Admin Trade Name Freq PRN Reason Stop Dose Admin Acetaminophen 650 mg 12/20/19 19:18 Tylenol Tablet PO Q4H PRN Mild Pain (1-3) or Fever Hydrocodone Bitart/Acetaminophen 1 tab 12/20/19 19:18 12/22/19 00:17 [place] 5-325 Mg PO 1 tab Q4H PRN Administration Pain Rated 4-6 Hydrocodone Bitart/Acetaminophen 1 tab 12/21/19 04:03 12/22/19 14:44 [place] 5-325 Mg PO 1 tab Q6H PRN Administration Pain (Scale Score 4-6) Albuterol 2 puff 12/21/19 04:03 Proventil Hfa INHALATION Q4H PRN Shortness Of Breath Allopurinol 100 mg 12/21/19 09:00 12/23/19 09:00 Zyloprim PO 100 mg DAILY BELKIS Administration Clopidogrel Bisulfate 75 mg 12/21/19 09:00 12/23/19 08:59 Plavix PO 75 mg QAM BELKIS Administration Dextrose 12.5 gm 12/21/19 04:09 Dextrose 50% Syringe IV PUSH PRN PRN Hypoglycemia Protocol Escitalopram Oxalate 20 mg 12/21/19 09:00 12/23/19 09:00 Lexapro PO 20 mg DAILY BELKIS Administration Fluticasone Propionate 2 spray 12/21/19 09:00 12/23/19 09:01 Flonase 0.05% Nasal [place] NASAL 2 spray DAILY BELKIS Administration Gabapentin 100 mg 12/21/19 09:00 07
[2019-12-23 12:08] LABS: Glucose Point of Care 119 (65-105)
[2019-12-23 13:34] LABS: SARS-CoV-2 RNA PCR Negative
[2019-12-23] MEDS: INSULIN ASPART (*BKC) 100 UNITS/ML 7 UNITS SUB-Q ×2 (13:39→17:38)
[2019-12-23 14:00] VITALS: BP 170/63; PULSE 59; RESP 18; TEMP 36.7; O2SAT 98
--- NOTE | 2019-12-23 14:57 | PM.DS ---
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 Status: Chronic (5) Hypertension: Code(s): I10 - Essential (primary) hypertension Status: Chronic (6) Emphysema of lung: Code(s): J43.9 - Emphysema, unspecified Status: Chronic (7) Depression: Code(s): F32.9 - Major depressive disorder, single episode, unspecified Status: Chronic (8) Congestive heart failure: Qualifiers: Heart failure type: diastolic Heart failure chronicity: chronic Qualified Code(s): I50.32 - Chronic diastolic (congestive) heart failure Code(s): I50.9 - Heart failure, unspecified Status: Chronic DS: Summary Hospital Course Reason for hospitalization: Perineal/scrotal swelling and warmth Hospital Course: Mr. Moore is an 84 y.o. male with PMH significant for T2DM, ESRD ON HD, COPD, PAD, hypertension, and EVIE who presented to the ED due to concern for scrotal and perineal swelling, warmth, and pain. He reported pain in the area for 2 days. He was treated with ceftriaxone IM for 2 days without improvement. The abscess continued to enlarge so the [facility] sent him to the ED for further evaluation. Initial workup revealed WBC 9,900, Hb 11.7, Hct 36.7, platelet count 164, MCV 103.7, sodium 134, potassium 4.4, chloride 104, CO2 25, BUN 18, Cr 2.8, glucose 142, calcium 9.2, lactic acid 1.4, CT abd/pelvis was read as 6.5x4.8cm abscess of the left perineum/scrotum and mild inguinal lymphadenopathy, likely reactive. An incision and drainage was performed in the ED and the patient had significant improvement in his pain. He was admitted for IV antibiotics and evaluation by general surgery. Nephrology was consulted for hemodialysis management while inpatient. General surgery recommended local wound care with iodoform gauze packing and continued IV antibiotics. He improved clinically with resolution of the surrounding erythema, induration, and swelling. He tolerated dressing changes without discomfort and will need to continue dressing changes at the [facility] as instructed in his discharge instructions. He was cleared for discharge from a general surgery standpoint. He was discharged on PO augmentin and flagyl. He was discharged in stable condition on the afternoon of 12/23/19. Status at Discharge Functional status at discharge: wheelchair bound Overall status at discharge: patient is back to baseline Time Spent with Patient Time attestation: Total time spent providing and/or coordinating discharge services: 35 minutes Exam Narrative: Exam Narrative: General: Morbidly obese, well-developed, chronically ill-appearing 84 y.o. male lying in the semi-recumbent position in no acute distress. HEENT: Normocephalic and atraumatic. Conjunctivae and lids normal. EOMI. Mucous membranes moist. Oropharynx without erythema or exudate. Neck: Large neck circumference. Supple without lymphadenopathy or masses. Cardiac: Regular rate and rhythm. S1 and S2 normal. Lungs: Effort normal. Lungs are clear to auscultation bilaterally. Abdomen: Obese. Bowel sounds normoactive. Abdomen soft, non-distended, and non-tender. Extremities: Left BKA. Scant RLE pitting edema and chronic venous stasis skin changes with hemosiderin staining. Pedal pulses easily palpable on the right. AV graft present to the LUE with petey
[2019-12-23 17:35] VITALS: PULSE 75
[2019-12-23 18:33] LABS: Glucose Point of Care 129 (65-105)
== END 2019-12-23 19:40 ==
LOC: ANHED 19:28 → ANH3MEDSUR 20:21
PROVIDERS: Physician Assistant; Admitting Provider Internal Medicine; Emergency Provider Emergency Medicine; PCP Nurse Practitioner Family; Visit Provider Family Medicine
DX: L02.215 Cutaneous abscess of perineum (principal); E11.22 Type 2 diabetes mellitus with diabetic chronic kidney disease; I13.2 Hypertensive heart and chronic kidney disease with heart failure and with stage 5 chronic kidney disease, or end stage renal disease; I50.32 Chronic diastolic (congestive) heart failure; N18.6 End stage renal disease; Z99.2 Dependence on renal dialysis; Z11.59 Encounter for screening for other viral diseases; E11.621 Type 2 diabetes mellitus with foot ulcer; L97.509 Non-pressure chronic ulcer of other part of unspecified foot with unspecified severity; E11.42 Type 2 diabetes mellitus with diabetic polyneuropathy; E11.51 Type 2 diabetes mellitus with diabetic peripheral angiopathy without gangrene; E66.01 Morbid (severe) obesity due to excess calories; Z68.39 Body mass index [BMI] 39.0-39.9, adult; G47.33 Obstructive sleep apnea (adult) (pediatric); J43.9 Emphysema, unspecified; F32.9 Major depressive disorder, single episode, unspecified; F84.5 Asperger's syndrome; Z99.3 Dependence on wheelchair; Z79.02 Long term (current) use of antithrombotics/antiplatelets; Z79.4 Long term (current) use of insulin; Z89.512 Acquired absence of left leg below knee; Z96.651 Presence of right artificial knee joint
CPT/HCPCS: 10060; 36415; 46040; 74176; 80048; 80053; 80069; 82607; 82746; 83605; 83735; 85025; 85027; 85610; 85730; 87635; 96365; 96366; 96375; 96376; 99285; A9270; C9803; G0257; G0378; J1644; J1815; J2270; J2543; J7030; U0003

== ENCOUNTER 2020-05-13 05:53 | Emergency (ER) | payer MEDICARE, SELFPAY ==
[2020-05-13] VITALS (11 sets, daily range): BP systolic 91–130; BP diastolic 49–57; PULSE 57–63; RESP 12–22; O2SAT 96–99
--- NOTE | ~2020-05-13 | CT_ITS ---
EXAMINATION: CT abdomen pelvis wo con EXAM DATE: 05/13/2020 08:31 INDICATION: Kidney stone. TECHNIQUE: Spiral CT of the abdomen and pelvis was performed without contrast. Axial, coronal and sag ittal images were reviewed. The dose-length product (DLP) for this examination was 1453.40 mGy-cm. The exposure was tailored according to patient size (auto mA exposure control), and iterative reconst ruction (ASIR) was used as additional dose reduction technique. There is no prior study for comparis on. FINDINGS: There is no nephrolithiasis or hydronephrosis. There are small bilateral renal cysts, large st in the left kidney measuring 1.8 cm. Moderate bilateral renal atrophy. There is mild prostatomegal y. The bladder is unremarkable. Pancreatic calcifications, chronic pancreatitis. The liver, spleen, adrenal glands are unremarkable. Gallbladder is unremarkable. No biliary obstruction. There is no retroperitoneal or pelvic lymphadenopathy. There is mild to moderate scattered arteriosclerotic dis ease. There is severely distended rectosigmoid colon, mostly with gas but also with some stool, moderate di stention of the remaining transverse and descending colon. The stomach and small bowel are unremarkab le. Probable cecal resection. No free intraperitoneal gas. Trace left pleural effusion and left lower lobe subsegmental atelectasis. The lung bases are unremarkable. Mild to moderate lumbar dextr oscoliosis. IMPRESSION: 1. Severely distended rectosigmoid colon with more gas than stool. Consider constipation. 2. Moderate bilateral renal atrophy. 3. Chronic pancreatitis. 4. No nephrolithiasis or obstructive nephropathy. Reviewed, dictated and finalized at location A. LER HELPER IMPRESSION: 1. Severely distended rectosigmoid colon with more gas than stool. Consider co nstipation. 2. Moderate bilateral renal atrophy. 3. Chronic pancreatitis. 4. No nephrolithiasis or obstructive nephropathy.
[2020-05-13 06:25] LABS: Basophils Percent Auto 0.4 % (0.2-1.2); Eosinophils Absolute Auto 0.2 K/mm3 (0-0.3); Eosinophils Percent Auto 1.6 % (0-4.4); Hematocrit 27.7 % (42.0-52.0); Immature Granulocyte Absolute 0.07 K/mm3 (0.00-0.031); Immature Granulocyte Percent A 0.6 % (0-0.5); Lymphocytes Absolute Auto 1.39 K/mm3 (0.9-3.2); Lymphocytes Percent Auto 12.7 % (18.3-44.2); Mean Corpuscular HGB Conc 32.5 g/dl (32-36); Mean Corpuscular Hemoglobin 33.1 pg (26-34); Mean Corpuscular Volume 101.8 fl (80-100); Mean Platelet Volume 9.7 fl (7.4-10.4); Monocytes Percent Auto 8.7 % (2.6-8.5); Neutrophils Absolute Auto 8.3 K/mm3 (1.3-6.7); Platelet Count Result 194 k/mm3 (150-375); Red Blood Count 2.72 M/mm3 (4.6-6.20); Red Cell Distribution Width 13.2 % (11.5-14.5); White Blood Count 10.9 K/mm3 (4.5-10.0)
[2020-05-13 06:39] LABS: Alanine Aminotransferase 16 U/L (4-50); Albumin Level 3.5 g/dL (3.5-5.1); Alkaline Phosphatase 109 U/L (38-126); Anion Gap 7 mmol/L (8-16); Aspartate Amino Transferase 28 U/L (17-59); Bilirubin,Total 0.4 mg/dL (0.2-1.3); Blood Urea Nitrogen 52 mg/dL (9-20); Calcium 9.5 mg/dL (8.4-10.2); Carbon Dioxide 31 mmol/L (22-30); Chloride 97 mmol/L (98-107); Estimated CRCL calculation 19 ml/min; Estimated Glomerular Filt Rate 13; Glucose 148 mg/dL (75-110); Lipase 19 U/L (23-300); Potassium 4.1 mmol/L (3.4-5.0); Sodium 135 mmol/L (137-145)
[2020-05-13 07:16] LABS: Add Urine Microscopic? YES; Appearance Urine Clear (Clear); Bacteria Urine Trace /hpf; Bilirubin Urine Negative (Negative); Blood Urine Negative (Negative); Color Urine Yellow (Yellow); Glucose Urine UA Negative (Negative); Ketones Urine Negative (Negative); Leukocyte Esterase Ur Negative LEU/UL (Negative); Nitrate Urine Negative (Negative); Protein Urine 2+ mg/dL (Negative); RBC Urine 0-2 /hpf (0-2); Specific Grav Ur 1.017 (1.001-1.035); Squamous Epithelial Cell Urine Rare /hpf (Few); Urobilinogen Urine Negative mg/dL (<2.0)
--- NOTE | 2020-05-13 07:24 | PC.NURSE ---
Assumed care of pt, pt repositioned and is upright on stretcher, pt on tele monitor, VSS. Discussed POC.
--- NOTE | 2020-05-13 07:30 | ED.ABDPAIN ---
HPI - Abdominal Pain General Chief Complaint: Abdominal Pain Stated Complaint: abd pain Time Seen by Provider: 05/13/20 07:11 Source: patient and EMS Mode of arrival: EMS History of Present Illness HPI narrative: 84 years old white male, morbidly obese, [facility], went for dialysis at [facility] today, blood pressure was low. Patient denying any new symptoms except intermittent lower abdominal pain for the last 3 days. Patient denies any aggravating or relieving factors. Patient reported the pain is like a squeezing. Currently patient main complaint is pain at the anus. History of abdominal hernia repair, gastric bypass, cholecystectomy and appendectomy. Patient is DNR Patient blood pressure on arrival was 91/54, then 112/49. Currently 102/53 Related Data Home Medications Medication Instructions Recorded Confirmed Anoro Ellipta 1 puff INHALATION DAILY 05/10/19 12/21/19 Centrum Silver Men 1 tablet PO DAILY 05/10/19 12/21/19 allopurinol 100 mg PO DAILY 05/10/19 12/21/19 metoclopramide HCl [Reglan] 10 mg PO Q6H 05/10/19 12/21/19 pyridoxine (vitamin B6) 100 mg PO DAILY 05/10/19 12/21/19 sevelamer carbonate [Renvela] 800 mg PO TID 05/10/19 12/21/19 trazodone 50 mg PO HS 05/10/19 12/21/19 labetalol 100 mg PO BID 06/23/19 12/21/19 Ultra CoQ10 30 mg PO DAILY 07/09/19 12/21/19 lactulose 20 g PO DAILY PRN 08/24/19 12/21/19 Mucinex DM 1 tablet PO Q12H PRN 11/14/19 12/21/19 Retacrit 4,000 unit SUBCUT 3XW 11/14/19 12/21/19 Velphoro 500 mg PO TID 11/14/19 12/21/19 acetaminophen 650 mg PO Q6H PRN 11/14/19 12/21/19 albuterol sulfate 2 puff INHALATION Q4H PRN 11/14/19 12/21/19 escitalopram oxalate 20 mg PO DAILY 11/14/19 12/21/19 fenofibrate nanocrystallized 145 mg PO DAILY 11/14/19 12/21/19 [Tricor] fluticasone propionate 2 spray INTRANASAL DAILY 11/14/19 12/21/19 gabapentin 100 mg PO Q12H 11/14/19 12/21/19 guaifenesin 300 mg PO Q6H PRN 11/14/19 12/21/19 hydrocodone-acetaminophen [Downs] 1 tablet PO Q6H PRN 11/14/19 12/21/19 insulin aspart U-100 7 unit SUBCUT TID 11/14/19 12/21/19 loperamide 2 mg PO DIRECTED PRN 11/14/19 12/21/19 loratadine 10 mg PO DAILY 11/14/19 12/21/19 pantoprazole 40 mg PO DAILY 11/14/19 12/21/19 sennosides-docusate sodium 1 tab-cap PO Q12H PRN 11/14/19 12/21/19 [Senna-S] Toujeo SoloStar U-300 Insulin 20 unit SUBCUT BID 12/21/19 12/21/19 polyethylene glycol 3350 [Miralax] 17 g PO DAILY PRN 12/21/19 12/21/19 Allergies Allergy/AdvReac Type Severity Reaction Status Date / Time aspirin Allergy Unknown [place] Verified 05/13/20 06:03 salicylates Allergy Unknown [place] Verified 05/13/20 06:03 Review of Systems Review of Systems: Narrative: CONSTITUTIONAL: Denies fever, chills, or sweats. EYES: Denies visual changes, redness, or discharge. ENT: Denies rhinorrhea, congestion, sore throat, or otalgia. CARDIOVASCULAR: Denies chest pain, palpitations, or edema. RESPIRATORY: Denies cough or dyspnea. GASTROINTESTINAL: Denies abdominal pain, nausea, vomiting, or diarrhea. GENITOURINARY: Complaining of abdominal pain SKIN: Denies rash or itching. MUSCULOSKELETAL: Denies back pain, joint pain, or myalgia. NEUROLOGIC: Denies headache, numbness, or weakness. PSYCHIATRIC: Denies anxiety or depression. [facility] Past Medical History Medical History (Updated 05/13/20 @ 08:49 by Maisha Ayala MD) Asperger's syndrome Grubbs's palsy Constipation Critical limb ischemia with history of revascularization of same extremity With subsequent left heel ulcer requiring left below-knee amputation August 2019 Depression Diabetic peripheral neuropathy Duodenal ulcer disease Emphysema of lung End stage renal disease on dialysis Thursday managed by Dr. Blas. Gout Hypertension Kidney stones Morbid obesity Obstructive sleep apnea Peripheral vascular disease Plantar fasciitis Type II diabetes mellitus Hemoglobin A1c 7 in November of 2018 Surgical History Surgical History
[2020-05-13] MEDS: SODIUM CHLORIDE 0.9% IV 1,000 ML 500 ML IV CONT ×2 (07:44→09:05)
--- NOTE | 2020-05-13 09:53 | PC.NURSE ---
called gupta to transfer patient to [facility]. eta [id number]
--- NOTE | 2020-05-13 11:28 | PC.NURSE ---
gupta has arrived
== END 2020-05-13 11:42 ==
PROVIDERS: Emergency Medicine; Emergency Provider Emergency Medicine; PCP Nurse Practitioner Family
DX: K59.00 Constipation, unspecified (principal); I95.9 Hypotension, unspecified; F84.5 Asperger's syndrome; J43.9 Emphysema, unspecified; E11.22 Type 2 diabetes mellitus with diabetic chronic kidney disease; I12.0 Hypertensive chronic kidney disease with stage 5 chronic kidney disease or end stage renal disease; N18.6 End stage renal disease; Z99.2 Dependence on renal dialysis; E11.51 Type 2 diabetes mellitus with diabetic peripheral angiopathy without gangrene; E66.01 Morbid (severe) obesity due to excess calories; E11.42 Type 2 diabetes mellitus with diabetic polyneuropathy; Z79.4 Long term (current) use of insulin; Z89.512 Acquired absence of left leg below knee; Z68.43 Body mass index [BMI] 50.0-59.9, adult; Z98.84 Bariatric surgery status; Z96.651 Presence of right artificial knee joint; Z98.49 Cataract extraction status, unspecified eye; K86.1 Other chronic pancreatitis
CPT/HCPCS: 36415; 51701; 74176; 80053; 81001; 83690; 85025; 96360; 96361; 99284; J7030

== ENCOUNTER 2020-07-16 07:22 | Emergency (ER) | payer MEDICARE, SELFPAY ==
[2020-07-16 07:25] VITALS: BP 111/60; PULSE 66; RESP 18; TEMP 36.6; O2SAT 100
--- NOTE | 2020-07-16 07:25 | PC.NURSE ---
Dr. Michel wants pt to return to dialysis. [facility] called and states they will accept him. Nurse states we'll take him back, but if his blood pressure gets low again im sending him back
--- NOTE | 2020-07-16 07:25 | ED.GENADULT ---
HPI - General Adult General Chief complaint: Unspecified Stated complaint: low bp Source: patient and EMS Mode of arrival: EMS Limitations: no limitations History of Present Illness HPI narrative: An 85-year-old male presents to the emergency department tonight after he was found to have low blood pressure at dialysis. Apparently per EMS story the patient was noted to be hypotensive at his senior care. He was sent to dialysis anyway. They did try to dialyze him and he became more hypotensive. After 200 saline bolus EMS had been called. By the time the patient arrived here he stated that he was feeling much better and no longer lightheaded. Patient has no complaints at this time. Related Data Home Medications Medication Instructions Recorded Confirmed Anoro Ellipta 1 puff INHALATION DAILY 05/10/19 12/21/19 Centrum Silver Men 1 tablet PO DAILY 05/10/19 12/21/19 allopurinol 100 mg PO DAILY 05/10/19 12/21/19 metoclopramide HCl [Reglan] 10 mg PO Q6H 05/10/19 12/21/19 pyridoxine (vitamin B6) 100 mg PO DAILY 05/10/19 12/21/19 sevelamer carbonate [Renvela] 800 mg PO TID 05/10/19 12/21/19 trazodone 50 mg PO HS 05/10/19 12/21/19 labetalol 100 mg PO BID 06/23/19 12/21/19 Ultra CoQ10 30 mg PO DAILY 07/09/19 12/21/19 lactulose 20 g PO DAILY PRN 08/24/19 12/21/19 Mucinex DM 1 tablet PO Q12H PRN 11/14/19 12/21/19 Retacrit 4,000 unit SUBCUT 3XW 11/14/19 12/21/19 Velphoro 500 mg PO TID 11/14/19 12/21/19 acetaminophen 650 mg PO Q6H PRN 11/14/19 12/21/19 albuterol sulfate 2 puff INHALATION Q4H PRN 11/14/19 12/21/19 escitalopram oxalate 20 mg PO DAILY 11/14/19 12/21/19 fenofibrate nanocrystallized 145 mg PO DAILY 11/14/19 12/21/19 [Tricor] fluticasone propionate 2 spray INTRANASAL DAILY 11/14/19 12/21/19 gabapentin 100 mg PO Q12H 11/14/19 12/21/19 guaifenesin 300 mg PO Q6H PRN 11/14/19 12/21/19 hydrocodone-acetaminophen [[place]] 1 tablet PO Q6H PRN 11/14/19 12/21/19 insulin aspart U-100 7 unit SUBCUT TID 11/14/19 12/21/19 loperamide 2 mg PO DIRECTED PRN 11/14/19 12/21/19 loratadine 10 mg PO DAILY 11/14/19 12/21/19 pantoprazole 40 mg PO DAILY 11/14/19 12/21/19 sennosides-docusate sodium 1 tab-cap PO Q12H PRN 11/14/19 12/21/19 [Senna-S] Toujeo SoloStar U-300 Insulin 20 unit SUBCUT BID 12/21/19 12/21/19 polyethylene glycol 3350 [Miralax] 17 g PO DAILY PRN 12/21/19 12/21/19 Allergies Allergy/AdvReac Type Severity Reaction Status Date / Time aspirin Allergy Unknown Flushing Verified 05/13/20 06:03 salicylates Allergy Unknown Flushing Verified 05/13/20 06:03 Review of Systems Review of Systems: Narrative: CONSTITUTIONAL: Denies fever, chills, or sweats. EYES: Denies visual changes, redness, or discharge. ENT: Denies rhinorrhea, congestion, sore throat, or otalgia. CARDIOVASCULAR: Denies chest pain, palpitations, or edema. RESPIRATORY: Denies cough or dyspnea. GASTROINTESTINAL: Denies abdominal pain, nausea, vomiting, or diarrhea. GENITOURINARY: Denies dysuria or hematuria. SKIN: Denies rash or itching. MUSCULOSKELETAL: Denies back pain, joint pain, or myalgia. NEUROLOGIC: Denies headache, numbness, dizziness, or weakness. PSYCHIATRIC: Denies anxiety or depression. [facility] Past Medical History Medical History (Updated 07/16/20 @ 07:33 by Rod Michel DO) Asperger's syndrome Grubbs's palsy Constipation Critical limb ischemia with history of revascularization of same extremity With subsequent left heel ulcer requiring left below-knee amputation August 2019 Depression Diabetic peripheral neuropathy Duodenal ulcer disease Emphysema of lung End stage renal disease on dialysis Thursday managed by Dr. Blas. Gout Hypertension Kidney stones Morbid obesity Obstructive sleep apnea Peripheral vascular disease Plantar fasciitis Type II diabetes mellitus Hemoglobin A1c 7 in November of 2018 Surgical History Surgical History AV fistula Left upper extremity History of a
--- NOTE | 2020-07-16 07:27 | ECG_ITS ---
Measurements Intervals [place] Rate: 66 P: [place]: 0 QRS: 5 QRSD: 124 T: 28 QT: 442 QTc: 466 Interpretive Statements SINUS RHYTHM ATRIAL COUPLET INTRAVENTRICULAR CONDUCTION DELAY NONSPECIFIC ST & T-WAVE ABNORMALITY- DIFFUSE LEADS BASELINE ARTIFACT- I, II, III, AVL, AVF, V1-V2 BORDERLINE ECG Electronically Signed On 07-16-2020 8:01:35 MANAGER OF DATA by César Aragon D.O.
--- NOTE | 2020-07-16 07:37 | PC.NURSE ---
contacted [place] to transfer patient to [facility] in [place]. eta [phone]
[2020-07-16 07:40] VITALS: PULSE 64
--- NOTE | 2020-07-16 07:58 | PC.NURSE ---
alonso switched patients around and took paula villatoro. alonso was here at 0727
--- NOTE | 2020-07-16 08:03 | PC.NURSE ---
ignore last note.
--- NOTE | 2020-07-16 08:05 | PC.NURSE ---
gupta has arrived
[2020-07-16 08:07] VITALS: BP 108/57; PULSE 67; RESP 18; O2SAT 99
== END 2020-07-16 08:08 | disposition home or self-care (01) ==
LOC: ANHED 07:40
PROVIDERS: Emergency Provider Emergency Medicine; Family Provider Family Medicine Adolescent Medicine; PCP Nurse Practitioner Family
DX: I95.3 Hypotension of hemodialysis (principal); E11.22 Type 2 diabetes mellitus with diabetic chronic kidney disease; I12.0 Hypertensive chronic kidney disease with stage 5 chronic kidney disease or end stage renal disease; N18.6 End stage renal disease; Z99.2 Dependence on renal dialysis; E11.42 Type 2 diabetes mellitus with diabetic polyneuropathy; E11.51 Type 2 diabetes mellitus with diabetic peripheral angiopathy without gangrene; M10.9 Gout, unspecified; J43.9 Emphysema, unspecified; G47.33 Obstructive sleep apnea (adult) (pediatric); M72.2 Plantar fascial fibromatosis; F84.5 Asperger's syndrome; F32.9 Major depressive disorder, single episode, unspecified; Z89.512 Acquired absence of left leg below knee; Z79.4 Long term (current) use of insulin; Z87.442 Personal history of urinary calculi; I45.9 Conduction disorder, unspecified; R00.8 Other abnormalities of heart beat; R94.31 Abnormal electrocardiogram [ECG] [EKG]
CPT/HCPCS: 93005; 99283

== ENCOUNTER 2020-07-17 12:46 | Emergency (ER) | payer MEDICARE, SELFPAY ==
--- NOTE | ~2020-07-17 | CT_ITS ---
EXAMINATION: CT abdomen pelvis w con DATE: 07/17/2020 14:40 INDICATION: Perineal fistulas. TECHNIQUE: Computed tomography (CT) of the abdomen and pelvis was performed with 100 mL Omnipaque 350 intravenous contrast. Automated exposure control and iterative reconstruction technique were employe d. The dose-length product was 1645.39 mGy-cm. COMPARISON: CT abdomen and pelvis 05/13/2020 FINDINGS: The visualized portions of the lung bases demonstrate small pleural effusions, left worse t [place] right. There is mild atelectasis bilaterally with a dependent predominance. The heart size is nor mal. There are coronary artery calcifications. No pericardial effusion. The liver is normal. The gall bladder is absent. The spleen is normal. There are calcifications in the pancreas, consistent with ch ronic pancreatitis. The adrenal glands are normal. There is mild atrophy of the kidneys. There are cy sts in the kidneys measuring up to 16 mm on the right. There is soft tissue attenuation and stranding in the perianal fat, consistent with inflammation. There is a 5 mm focus of gas in this area, consis tent with fistula. There is gaseous distention of the sigmoid colon, likely adynamic ileus. There is diverticulosis of the colon without evidence of diverticulitis. There are changes of right hemicolect reinier. There is a small sliding hiatal hernia. There is mild periportal lymphadenopathy, likely reactiv e. There is stretching of the abdominal wall musculature with surgical changes. There is no free intr aperitoneal fluid. There is mild thoracolumbar spondylosis. IMPRESSION: 1. Perianal inflammation and fistula. 2. Distention of the sigmoid colon, likely adynamic ileus. 3. Small pleural effusions. Reviewed, dictated and finalized at location A. UP DRIVER
[2020-07-17 12:56] VITALS: BP 120/52; PULSE 71; RESP 20; TEMP 37; O2SAT 98
--- NOTE | 2020-07-17 13:15 | ED.GENADULT ---
HPI - General Adult General Chief complaint: Wound/Laceration Stated complaint: wounds Time Seen by Provider: 07/17/20 13:06 Source: patient and RN notes reviewed Mode of arrival: EMS Limitations: no limitations History of Present Illness HPI narrative: An 85-year-old man comes into the emergency department today with complaints of new wounds per his nursing care team at the long-term. They note they were going to change and clean up the patient and noted that that appears that there are new perineal fistulous with stool actively draining out of them. They stated that if they pushed on his perineum stool would come out. Patient states that he feels fine and in his usual state of health and is not having any complaints at this time. Related Data Home Medications Medication Instructions Recorded Confirmed Anoro Ellipta 1 puff INHALATION DAILY 05/10/19 12/21/19 Centrum Silver Men 1 tablet PO DAILY 05/10/19 12/21/19 allopurinol 100 mg PO DAILY 05/10/19 12/21/19 metoclopramide HCl [Reglan] 10 mg PO Q6H 05/10/19 12/21/19 pyridoxine (vitamin B6) 100 mg PO DAILY 05/10/19 12/21/19 sevelamer carbonate [Renvela] 800 mg PO TID 05/10/19 12/21/19 trazodone 50 mg PO HS 05/10/19 12/21/19 labetalol 100 mg PO BID 06/23/19 12/21/19 Ultra CoQ10 30 mg PO DAILY 07/09/19 12/21/19 lactulose 20 g PO DAILY PRN 08/24/19 12/21/19 Mucinex DM 1 tablet PO Q12H PRN 11/14/19 12/21/19 Retacrit 4,000 unit SUBCUT 3XW 11/14/19 12/21/19 Velphoro 500 mg PO TID 11/14/19 12/21/19 acetaminophen 650 mg PO Q6H PRN 11/14/19 12/21/19 albuterol sulfate 2 puff INHALATION Q4H PRN 11/14/19 12/21/19 escitalopram oxalate 20 mg PO DAILY 11/14/19 12/21/19 fenofibrate nanocrystallized 145 mg PO DAILY 11/14/19 12/21/19 [Tricor] fluticasone propionate 2 spray INTRANASAL DAILY 11/14/19 12/21/19 gabapentin 100 mg PO Q12H 11/14/19 12/21/19 guaifenesin 300 mg PO Q6H PRN 11/14/19 12/21/19 hydrocodone-acetaminophen [[place]] 1 tablet PO Q6H PRN 11/14/19 12/21/19 insulin aspart U-100 7 unit SUBCUT TID 11/14/19 12/21/19 loperamide 2 mg PO DIRECTED PRN 11/14/19 12/21/19 loratadine 10 mg PO DAILY 11/14/19 12/21/19 pantoprazole 40 mg PO DAILY 11/14/19 12/21/19 sennosides-docusate sodium 1 tab-cap PO Q12H PRN 11/14/19 12/21/19 [Senna-S] Touabdio SoloStar U-300 Insulin 20 unit SUBCUT BID 12/21/19 12/21/19 polyethylene glycol 3350 [Miralax] 17 g PO DAILY PRN 12/21/19 12/21/19 Allergies Allergy/AdvReac Type Severity Reaction Status Date / Time aspirin Allergy Unknown Flushing Verified 07/17/20 13:00 salicylates Allergy Unknown Flushing Verified 07/17/20 13:00 Review of Systems Review of Systems: Narrative: CONSTITUTIONAL: Denies fever, chills, or sweats. EYES: Denies visual changes, redness, or discharge. ENT: Denies rhinorrhea, congestion, sore throat, or otalgia. CARDIOVASCULAR: Denies chest pain, palpitations, or edema. RESPIRATORY: Denies cough or dyspnea. GASTROINTESTINAL: Denies abdominal pain, nausea, vomiting, or diarrhea. GENITOURINARY: Denies dysuria or hematuria. SKIN: Denies rash or itching. MUSCULOSKELETAL: Denies back pain, joint pain, or myalgia. NEUROLOGIC: Denies headache, numbness, dizziness, or weakness. PSYCHIATRIC: Denies anxiety or depression. [facility] Past Medical History Medical History (Updated 07/17/20 @ 17:09 by Rod Michel DO) Asperger's syndrome Grubbs's palsy Constipation Critical limb ischemia with history of revascularization of same extremity With subsequent left heel ulcer requiring left below-knee amputation August 2019 Depression Diabetic peripheral neuropathy Duodenal ulcer disease Emphysema of lung End stage renal disease on dialysis Thursday managed by Dr. Blas. Gout Hypertension Kidney stones Morbid obesity Obstructive sleep apnea Peripheral vascular disease Plantar fasciitis Type II diabetes mellitus Hemoglobin A1c 7 in November of 2018 Surgical History Surgical History (Reviewed 07/17/20 @ 13:16 by Rod Michel,
[2020-07-17 13:36] LABS: Basophils Percent Auto 0.3 % (0.2-1.2); Eosinophils Absolute Auto 0.2 K/mm3 (0-0.3); Eosinophils Percent Auto 1.7 % (0-4.4); Hemoglobin 8.9 g/dL (14.0-18.0); Immature Granulocyte Absolute 0.05 K/mm3 (0.00-0.031); Immature Granulocyte Percent A 0.6 % (0-0.5); Lymphocytes Absolute Auto 1.11 K/mm3 (0.9-3.2); Lymphocytes Percent Auto 12.6 % (18.3-44.2); Mean Corpuscular Hemoglobin 31.8 pg (26-34); Mean Corpuscular Volume 96.4 fl (80-100); Mean Platelet Volume 9.8 fl (7.4-10.4); Monocytes Absolute Auto 0.8 K/mm3 (0.1-0.6); Monocytes Percent Auto 9.5 % (2.6-8.5); Neutrophils Absolute Auto 6.6 K/mm3 (1.3-6.7); Neutrophils Percent Auto 75.3 % (45.5-73.1); Platelet Count Result 178 k/mm3 (150-375); Red Cell Distribution Width 12.9 % (11.5-14.5); White Blood Count 8.8 K/mm3 (4.5-10.0)
[2020-07-17] MEDS: LACTATED RINGERS 1,000 ML 999 ML IV CONT (13:44)
[2020-07-17 13:46] LABS: INR 1.1; Prothrombin Time 14.6 Seconds (11.1-14.7)
[2020-07-17 13:48] LABS: Lactic Acid Reflex 1.9 mmol/L (0.7-2.1)
[2020-07-17 13:54] LABS: Alanine Aminotransferase 26 U/L (4-50); Albumin Level 2.7 g/dL (3.5-5.1); Alkaline Phosphatase 155 U/L (38-126); Anion Gap 6 mmol/L (8-16); Aspartate Amino Transferase 28 U/L (17-59); Bilirubin,Total 0.5 mg/dL (0.2-1.3); Blood Urea Nitrogen 54 mg/dL (9-20); Calcium 8.5 mg/dL (8.4-10.2); Carbon Dioxide 31 mmol/L (22-30); Chloride 96 mmol/L (98-107); Estimated CRCL calculation 11 ml/min; Estimated Glomerular Filt Rate 9; Glucose 188 mg/dL (75-110); Lipase 33 U/L (23-300); Potassium 2.6 mmol/L (3.4-5.0); Sodium 133 mmol/L (137-145)
[2020-07-17 14:05] LABS: Troponin I 0.044 ng/mL (0.000-0.034)
[2020-07-17 15:00] VITALS: BP 149/61; PULSE 68; RESP 16; O2SAT 99
[2020-07-17] MEDS: POTASSIUM CHLORIDE 20 MEQ PACKET (FOR LIQUID) 40 MEQ PO (15:22)
[2020-07-17 16:37] VITALS: BP 158/71; PULSE 55; RESP 16; O2SAT 97
--- NOTE | 2020-07-17 17:36 | PC.NURSE ---
2999- Dr. Michel called Durga TREADWELL at [facility] to give report.
[2020-07-17 18:10] VITALS: BP 148/76; PULSE 66; RESP 18; O2SAT 97
== END 2020-07-17 18:12 ==
PROVIDERS: Emergency Provider Emergency Medicine; Family Provider Family Medicine Adolescent Medicine; PCP Nurse Practitioner Family
DX: K60.3 Anal fistula (principal); E87.6 Hypokalemia; E11.22 Type 2 diabetes mellitus with diabetic chronic kidney disease; I12.0 Hypertensive chronic kidney disease with stage 5 chronic kidney disease or end stage renal disease; N18.6 End stage renal disease; Z99.2 Dependence on renal dialysis; E11.42 Type 2 diabetes mellitus with diabetic polyneuropathy; E11.51 Type 2 diabetes mellitus with diabetic peripheral angiopathy without gangrene; M10.9 Gout, unspecified; J43.9 Emphysema, unspecified; G47.33 Obstructive sleep apnea (adult) (pediatric); M72.2 Plantar fascial fibromatosis; F84.5 Asperger's syndrome; F32.9 Major depressive disorder, single episode, unspecified; Z89.512 Acquired absence of left leg below knee; Z79.4 Long term (current) use of insulin; Z87.442 Personal history of urinary calculi; E66.01 Morbid (severe) obesity due to excess calories; Z68.34 Body mass index [BMI] 34.0-34.9, adult
CPT/HCPCS: 36415; 74177; 80053; 83605; 83690; 84484; 85025; 85610; 96360; 96361; 99284; A9270; J7120; Q9967

== ENCOUNTER 2020-12-11 19:12 | Emergency (ER) | payer MEDICARE, SELFPAY ==
--- NOTE | ~2020-12-11 | XR_ITS ---
EXAMINATION: XR chest 1V portable DATE: 12/11/2020 21:43 INDICATION: Transient alteration of awareness. TECHNIQUE: A single frontal view of the chest was obtained. COMPARISON: Chest 2 views 08/24/2019, CT abdomen and pelvis 07/17/2020 FINDINGS: The patient is rotated to his right. There is no pneumonia, pleural effusion, or pneumothor ax. The heart size is normal. IMPRESSION: 1. No acute cardiopulmonary disease. Reviewed, dictated and finalized at location A.
--- NOTE | ~2020-12-11 | CT_ITS ---
EXAMINATION: CT brain wo con DATE: 12/11/2020 20:32 INDICATION: Confusion. TECHNIQUE: Computed tomography (CT) of the head was performed without intravenous contrast. The mA wa s adjusted according to patient size. Iterative reconstruction technique was employed. The dose-lengt h product was 681.00 mGy-cm. COMPARISON: Head CT 11/14/2019 FINDINGS: There are scattered areas of low attenuation in the cerebral white matter, which is within normal limits for the patient's age. There is no intracranial hemorrhage, acute infarction, or abnorm al intracranial mass lesion. The ventricles are normal in size. The paranasal sinuses are clear. Ther e are likely changes of ocular lens replacement surgeries. There are trace bilateral mastoid effusion s. IMPRESSION: 1. Normal aging brain. Reviewed, dictated and finalized at location A. IMPRESSION: 1. Normal aging brain.
[2020-12-11 19:19] VITALS: BP 127/72; PULSE 77; RESP 24; TEMP 37.2; O2SAT 100
--- NOTE | 2020-12-11 19:28 | ECG_ITS ---
Measurements Intervals [place] Rate: 81 P: [place]: 0 QRS: 17 QRSD: 99 T: 26 QT: 391 QTc: 457 Interpretive Statements ATRIAL FIBRILLATION LOW QRS VOLTAGE IN LIMB LEADS BORDERLINE T WAVE ABNORMALITY- DIFFUSE LEADS BASELINE ARTIFACT- I, II, AVR, AVF ABNORMAL ECG Electronically Signed On 12-12-2020 5:38:11 CDT by César Aragon D.O.
--- NOTE | 2020-12-11 19:51 | ED.GENADULT ---
HPI - General Adult General Chief complaint: Altered Mental Status Stated complaint: ams Time Seen by Provider: 12/11/20 19:20 Source: patient and EMS History of Present Illness HPI narrative: Patient is a 85 y/o male sent from [place] for altered mental status. He reportedly was chews his pills instead of swallowing them when given meds. Patient is poor historian and does not know why he is here. He has no complaints. He states that he feels fine. Related Data Home Medications Medication Instructions Recorded Confirmed Anoro Ellipta 1 puff INHALATION DAILY 05/10/19 12/21/19 Centrum Silver Men 1 tablet PO DAILY 05/10/19 12/21/19 allopurinol 100 mg PO DAILY 05/10/19 12/21/19 metoclopramide HCl [Reglan] 10 mg PO Q6H 05/10/19 12/21/19 pyridoxine (vitamin B6) 100 mg PO DAILY 05/10/19 12/21/19 sevelamer carbonate [Renvela] 800 mg PO TID 05/10/19 12/21/19 trazodone 50 mg PO HS 05/10/19 12/21/19 labetalol 100 mg PO BID 06/23/19 12/21/19 Ultra CoQ10 30 mg PO DAILY 07/09/19 12/21/19 lactulose 20 g PO DAILY PRN 08/24/19 12/21/19 Mucinex DM 1 tablet PO Q12H PRN 11/14/19 12/21/19 Retacrit 4,000 unit SUBCUT 3XW 11/14/19 12/21/19 Velphoro 500 mg PO TID 11/14/19 12/21/19 acetaminophen 650 mg PO Q6H PRN 11/14/19 12/21/19 albuterol sulfate 2 puff INHALATION Q4H PRN 11/14/19 12/21/19 escitalopram oxalate 20 mg PO DAILY 11/14/19 12/21/19 fenofibrate nanocrystallized 145 mg PO DAILY 11/14/19 12/21/19 [Tricor] fluticasone propionate 2 spray INTRANASAL DAILY 11/14/19 12/21/19 gabapentin 100 mg PO Q12H 11/14/19 12/21/19 guaifenesin 300 mg PO Q6H PRN 11/14/19 12/21/19 hydrocodone-acetaminophen [[place]] 1 tablet PO Q6H PRN 11/14/19 12/21/19 insulin aspart U-100 7 unit SUBCUT TID 11/14/19 12/21/19 loperamide 2 mg PO DIRECTED PRN 11/14/19 12/21/19 loratadine 10 mg PO DAILY 11/14/19 12/21/19 pantoprazole 40 mg PO DAILY 11/14/19 12/21/19 sennosides-docusate sodium 1 tab-cap PO Q12H PRN 11/14/19 12/21/19 [Senna-S] Laurent LovelloStar U-300 Insulin 20 unit SUBCUT BID 12/21/19 12/21/19 polyethylene glycol 3350 [Miralax] 17 g PO DAILY PRN 12/21/19 12/21/19 Allergies Allergy/AdvReac Type Severity Reaction Status Date / Time aspirin Allergy Unknown Flushing Verified 07/17/20 13:00 salicylates Allergy Unknown Flushing Verified 07/17/20 13:00 Review of Systems Review of Systems: ROS unobtainable: Yes unobtainable due to mental status PMFSH Past Medical History Medical History (Updated 12/13/20 @ 00:01 by Lynnette Walsh) Asperger's syndrome Grubbs's palsy Constipation Critical limb ischemia with history of revascularization of same extremity With subsequent left heel ulcer requiring left below-knee amputation August 2019 Depression Diabetic peripheral neuropathy Duodenal ulcer disease Emphysema of lung End stage renal disease on dialysis Thursday managed by Dr. Blas. Gout Hypertension Kidney stones Morbid obesity Obstructive sleep apnea Peripheral vascular disease Plantar fasciitis Type II diabetes mellitus Hemoglobin A1c 7 in November of 2018 Surgical History Surgical History AV fistula Left upper extremity History of appendectomy History of cardiac catheterization History of cataract surgery History of cholecystectomy History of colonoscopy History of esophagogastroduodenoscopy (EGD) History of gastric bypass History of morbid obesity with Gastric Bypass in 1973 with reversal when he had a colectomy performed in 1999 for pre-cancerous polyps. History of left below knee amputation Due to peripheral vascular disease, nonhealing diabetic foot wound with osteomyelitis and Proteus bacteremia History of total right knee replacement Family History Family History Father Prostate carcinoma Social History Social History Social History: He is currently residing [facility]
[2020-12-11 19:54] LABS: Add Urine Microscopic? YES; Appearance Urine Turbid (Clear); Bacteria Urine 2+ /hpf; Bilirubin Urine Negative (Negative); Blood Urine 3+ (Negative); Color Urine Yellow (Yellow); Glucose Urine UA Negative (Negative); Ketones Urine Negative (Negative); Leukocyte Esterase Ur 2+ LEU/UL (Negative); Nitrate Urine Negative (Negative); Protein Urine 2+ mg/dL (Negative); RBC Urine >75 /hpf (0-2); Specific Grav Ur 1.017 (1.001-1.035); Squamous Epithelial Cell Urine Few /hpf (Few); Urobilinogen Urine Negative mg/dL (<2.0); WBC Urine >75 /hpf
[2020-12-11 20:05] LABS: Basophils Percent Auto 0.3 % (0.2-1.2); Eosinophils Absolute Auto 0.1 K/mm3 (0-0.3); Eosinophils Percent Auto 0.4 % (0-4.4); Hematocrit 33.9 % (42.0-52.0); Hemoglobin 11.1 g/dL (14.0-18.0); Immature Granulocyte Absolute 0.07 K/mm3 (0.00-0.031); Immature Granulocyte Percent A 0.5 % (0-0.5); Lymphocytes Percent Auto 8.5 % (18.3-44.2); Mean Corpuscular HGB Conc 32.7 g/dl (32-36); Mean Corpuscular Hemoglobin 32.1 pg (26-34); Mean Platelet Volume 10.4 fl (7.4-10.4); Monocytes Absolute Auto 1.2 K/mm3 (0.1-0.6); Monocytes Percent Auto 8.7 % (2.6-8.5); Neutrophils Absolute Auto 11.5 K/mm3 (1.3-6.7); Neutrophils Percent Auto 81.6 % (45.5-73.1); Platelet Count Result 120 k/mm3 (150-375); Red Blood Count 3.46 M/mm3 (4.6-6.20); Red Cell Distribution Width 13.7 % (11.5-14.5); White Blood Count 14.1 K/mm3 (4.5-10.0)
[2020-12-11 20:17] LABS: Alanine Aminotransferase 15 U/L (4-50); Albumin Level 3.7 g/dL (3.5-5.1); Alkaline Phosphatase 160 U/L (38-126); Anion Gap 11 mmol/L (8-16); Aspartate Amino Transferase 23 U/L (17-59); Bilirubin,Total 0.6 mg/dL (0.2-1.3); Blood Urea Nitrogen 63 mg/dL (9-20); Calcium 9.6 mg/dL (8.4-10.2); Carbon Dioxide 29 mmol/L (22-30); Chloride 97 mmol/L (98-107); Estimated CRCL calculation 13 ml/min; Estimated Glomerular Filt Rate 11; Glucose 131 mg/dL (75-110); Potassium 3.9 mmol/L (3.4-5.0); Sodium 137 mmol/L (137-145)
[2020-12-11 21:14] VITALS: BP 97/56; PULSE 81; RESP 17; O2SAT 98
[2020-12-11] MEDS: ACETAMINOPHEN 325 MG TABLET 650 MG PO (22:51)
[2020-12-11 23:00] VITALS: BP 112/49; PULSE 77; RESP 20; O2SAT 98
--- NOTE | 2020-12-11 23:02 | PC.NURSE ---
called [facility] to update ETA. ETA [phone] pending any 911 calls.
--- NOTE | 2020-12-11 23:03 | PC.NURSE ---
called [facility] to request transport. ETA [phone]
--- NOTE | 2020-12-11 23:30 | PC.NURSE ---
called [facility] to request transport. Accepted and ETA is drive time from [place]. Cancelled [facility].
--- NOTE | 2020-12-11 23:57 | PC.NURSE ---
[facility] here.
== END 2020-12-12 00:04 ==
PROVIDERS: Emergency Provider Emergency Medicine; PCP Family Medicine
DX: R41.82 Altered mental status, unspecified (principal); J43.9 Emphysema, unspecified; E11.22 Type 2 diabetes mellitus with diabetic chronic kidney disease; I12.0 Hypertensive chronic kidney disease with stage 5 chronic kidney disease or end stage renal disease; N18.6 End stage renal disease; Z99.2 Dependence on renal dialysis; F84.5 Asperger's syndrome; E11.51 Type 2 diabetes mellitus with diabetic peripheral angiopathy without gangrene; E11.42 Type 2 diabetes mellitus with diabetic polyneuropathy; G47.33 Obstructive sleep apnea (adult) (pediatric); E66.01 Morbid (severe) obesity due to excess calories; Z68.34 Body mass index [BMI] 34.0-34.9, adult; M10.9 Gout, unspecified; Z89.512 Acquired absence of left leg below knee; Z87.442 Personal history of urinary calculi; Z86.010 Personal history of colon polyps; Z90.49 Acquired absence of other specified parts of digestive tract; Z96.651 Presence of right artificial knee joint; I48.91 Unspecified atrial fibrillation; R94.31 Abnormal electrocardiogram [ECG] [EKG]; Z79.4 Long term (current) use of insulin
CPT/HCPCS: 36415; 51701; 70450; 71045; 80053; 81001; 85025; 87077; 87086; 87186; 93005; 99284; A9270

== ENCOUNTER 2021-02-01 06:43 | Inpatient (IN) | payer MEDICARE, SELFPAY ==
[2021-02-01] VITALS (21 sets, daily range): BP systolic 92–149; BP diastolic 47–78; PULSE 60–73; RESP 11–22; TEMP 0–36.7; O2SAT 94–100; BMI 49.8
--- NOTE | ~2021-02-01 | XR_ITS ---
EXAMINATION: XR chest 1V portable DATE: 02/04/2021 INDICATION: Shortness of breath. TECHNIQUE: A single frontal view of the chest was obtained. COMPARISON: Chest single view 02/02/2021, CT abdomen and pelvis 07/17/2020 FINDINGS: There are small pleural effusions. There are airspace opacities at the lung bases. No pneum othorax. Cardiomegaly is noted. IMPRESSION: 1. Small pleural effusions. 2. Airspace opacities at the lung bases, consistent with atelectasis versus pneumonia. 3. Cardiomegaly. Reviewed, dictated and finalized at location B. IMPRESSION: 1. Small pleural effusions. 2. Airspace opacities at the lung bases, consistent with atelectasis versus pne umonia. 3. Cardiomegaly.
--- NOTE | ~2021-02-01 | CT_ITS ---
EXAMINATION: CT brain wo con DATE: 02/01/2021 09:03 INDICATION: Altered mental state TECHNIQUE: Computed tomography (CT) of the head was performed without intravenous contrast. The mA wa s adjusted according to patient size. Iterative reconstruction technique was employed. Exam dose: 60 5.33 mGy-cm total exam DLP. COMPARISON: 12/11/2020 CT brain FINDINGS: Examination is mildly limited due to motion artifact. No intracranial mass lesion or hemorrhage or cerebrovascular accident is evident. No midline shift or mass effect effect. There is vertebral artery and bilateral carotid siphon and supraclinoid internal carotid artery calci fication. There is nonspecific diminished attenuation of the cerebral white matter, likely due to chr onic small vessel ischemic changes. No subdural or epidural hematoma is detected. No fracture or bone destruction of the cranial vault. Included mastoid air cells and paranasal sinuse s are unremarkable. IMPRESSION: Cerebral atherosclerosis and chronic small vessel ischemic changes of the cerebral white matter Reviewed, dictated and finalized at Location [facility]. Reviewed, dictated and finalized at location A.
--- NOTE | ~2021-02-01 | XR_ITS ---
EXAMINATION: XR chest 1V INDICATION: Shortness of breath TECHNIQUE: AP view of the chest is obtained. COMPARISON: 12/11/2020 FINDINGS: Cardiomegaly is noted. There is a mild diffuse interstitial pattern. Small to moderate-size d pleural effusions are present. There is no pneumothorax. There are airspace opacities of the mid an d lower lung zones. IMPRESSION: 1. Cardia megaly with likely mild pulmonary edema. 2. Small to moderate-sized pleural effusions. 3. Airspace opacities of the mid and lower lung zones, consistent with atelectasis versus pneumonia Reviewed, dictated and finalized at location B. IMPRESSION: 1. Cardia megaly with likely mild pulmonary edema. 2. Small to moderate-sized pleural effusions. 3. Airspace opacities of the mid and lower lung zones, consistent with atelecta sis versus pneumonia
--- NOTE | ~2021-02-01 | XR_ITS ---
EXAMINATION: XR chest 1V portable INDICATION: Respiratory distress TECHNIQUE: Portable AP chest at 0609 hours COMPARISON: 02/01/2021 FINDINGS: Cardiomegaly is noted. A mild diffuse interstitial pattern persists with slight worsening. There are small to moderate-sized pleural effusions. No pneumothorax is identified. Bibasilar airspac e opacities are unchanged. IMPRESSION: 1. Cardiomegaly with mild pulmonary edema. 2. [id number]-mj-[id number] sized pleural effusions. 3. Stable airspace opacities in the mid and lower lung zones, consistent with atelectasis versus pneu monia. Reviewed, dictated and finalized at location A. IMPRESSION: 1. Cardiomegaly with mild pulmonary edema. 2. Kiwqh-cj-nlhrjtuq sized pleural effusions. 3. Stable airspace opacities in the mid and lower lung zones, consistent with a telectasis versus pneumonia.
--- NOTE | 2021-02-01 07:08 | ECG_ITS ---
Measurements Intervals [place] Rate: 72 P: [place]: 0 QRS: 11 QRSD: 130 T: 0 QT: 362 QTc: 398 Interpretive Statements ATRIAL FIBRILLATION INTRAVENTRICULAR CONDUCTION DELAY NONSPECIFIC T-WAVE ABNORMALITY- DIFFUSE LEADS BASELINE ARTIFACT- I, II, III, AVR, AVL, AVF, V2-V6 ABNORMAL ECG Electronically Signed On 02-01-2021 7:35:04 CDT by César Aragon D.O.
[2021-02-01 07:30] LABS: Basophils Percent Auto 0.4 % (0.2-1.2); Eosinophils Absolute Auto 0.2 K/mm3 (0-0.3); Eosinophils Percent Auto 1.6 % (0-4.4); Hematocrit 29.2 % (42.0-52.0); Hemoglobin 9.4 g/dL (14.0-18.0); Immature Granulocyte Absolute 0.13 K/mm3 (0.00-0.031); Immature Granulocyte Percent A 1.3 % (0-0.5); Lymphocytes Absolute Auto 1.12 K/mm3 (0.9-3.2); Lymphocytes Percent Auto 11.4 % (18.3-44.2); Mean Corpuscular HGB Conc 32.2 g/dl (32-36); Mean Corpuscular Hemoglobin 31.4 pg (26-34); Mean Corpuscular Volume 97.7 fl (80-100); Mean Platelet Volume 9.7 fl (7.4-10.4); Monocytes Absolute Auto 0.8 K/mm3 (0.1-0.6); Monocytes Percent Auto 7.8 % (2.6-8.5); Neutrophils Absolute Auto 7.6 K/mm3 (1.3-6.7); Neutrophils Percent Auto 77.5 % (45.5-73.1); Platelet Count Result 302 k/mm3 (150-375); Red Blood Count 2.99 M/mm3 (4.6-6.20); Red Cell Distribution Width 13.8 % (11.5-14.5); White Blood Count 9.8 K/mm3 (4.5-10.0)
--- NOTE | 2021-02-01 07:36 | ED.SOB ---
HPI - SOB/Dyspnea General Chief Complaint: Shortness of Breath/Dyspnea Stated Complaint: SOB Time Seen by Provider: 02/01/21 07:12 History of Present Illness HPI Narrative: 85 yo male w/ h/o ESRD on dialysis, DM, HTn sent to the ED from [facility] for SOB. He reports that he has not had dialysis since last week. He feels SOb. He denies any pain. He seems to be somewhat confused and an unreliable historian. Dr. Amador tells me that he last had dialysis on Thursday, although he is unsure if it was cmpleted. The nursing staff reported that he has seemed increasingly confused recently. Related Data Home Medications Medication Instructions Recorded Confirmed Anoro Ellipta 1 puff INHALATION DAILY 05/10/19 12/21/19 Centrum Silver Men 1 tablet PO DAILY 05/10/19 12/21/19 allopurinol 100 mg PO DAILY 05/10/19 12/21/19 metoclopramide HCl [Reglan] 10 mg PO Q6H 05/10/19 12/21/19 pyridoxine (vitamin B6) 100 mg PO DAILY 05/10/19 12/21/19 sevelamer carbonate [Renvela] 800 mg PO TID 05/10/19 12/21/19 trazodone 50 mg PO HS 05/10/19 12/21/19 labetalol 100 mg PO BID 06/23/19 12/21/19 Ultra CoQ10 30 mg PO DAILY 07/09/19 12/21/19 lactulose 20 g PO DAILY PRN 08/24/19 12/21/19 Mucinex DM 1 tablet PO Q12H PRN 11/14/19 12/21/19 Retacrit 4,000 unit SUBCUT 3XW 11/14/19 12/21/19 Velphoro 500 mg PO TID 11/14/19 12/21/19 acetaminophen 650 mg PO Q6H PRN 11/14/19 12/21/19 albuterol sulfate 2 puff INHALATION Q4H PRN 11/14/19 12/21/19 escitalopram oxalate 20 mg PO DAILY 11/14/19 12/21/19 fenofibrate nanocrystallized 145 mg PO DAILY 11/14/19 12/21/19 [Tricor] fluticasone propionate 2 spray INTRANASAL DAILY 11/14/19 12/21/19 gabapentin 100 mg PO Q12H 11/14/19 12/21/19 guaifenesin 300 mg PO Q6H PRN 11/14/19 12/21/19 hydrocodone-acetaminophen [[place]] 1 tablet PO Q6H PRN 11/14/19 12/21/19 insulin aspart U-100 7 unit SUBCUT TID 11/14/19 12/21/19 loperamide 2 mg PO DIRECTED PRN 11/14/19 12/21/19 loratadine 10 mg PO DAILY 11/14/19 12/21/19 pantoprazole 40 mg PO DAILY 11/14/19 12/21/19 sennosides-docusate sodium 1 tab-cap PO Q12H PRN 11/14/19 12/21/19 [Senna-S] Toujeo SoloStar U-300 Insulin 20 unit SUBCUT BID 12/21/19 12/21/19 polyethylene glycol 3350 [Miralax] 17 g PO DAILY PRN 12/21/19 12/21/19 lisinopril 02/01/21 oxycodone [Roxicodone] 5 mg PO Q6H PRN 02/01/21 02/01/21 Allergies Allergy/AdvReac Type Severity Reaction Status Date / Time aspirin Allergy Unknown Flushing Verified 02/01/21 09:55 salicylates Allergy Unknown Flushing Verified 02/01/21 09:55 Review of Systems Review of Systems: ROS unobtainable: Yes unobtainable due to mental status Cardiovascular: Cardiovascular: Denies chest pain Respiratory: Respiratory: Reports dyspnea Gastrointestinal: Gastrointestinal: Denies abdominal pain Genitourinary: Genitourinary: Reports no additional male genitourinary complaints [facility] Past Medical History Medical History (Updated 02/01/21 @ 12:45 by Payam Ocampo MD) Asperger's syndrome Grubbs's palsy Constipation Critical limb ischemia with history of revascularization of same extremity With subsequent left heel ulcer requiring left below-knee amputation August 2019 Depression Diabetic peripheral neuropathy Duodenal ulcer disease Emphysema of lung End stage renal disease on dialysis Thursday managed by Dr. Blas. Gout Hypertension Kidney stones Morbid obesity Obstructive sleep apnea Peripheral vascular disease Plantar fasciitis Type II diabetes mellitus Hemoglobin A1c 7 in November of 2018 Surgical History Surgical History AV fistula Left upper extremity History of appendectomy History of cardiac catheterization History of cataract surgery History of cholecystectomy History of colonoscopy History of esophagogastroduodenoscopy (EGD) History of gastric bypass History of morbid obesity with Gastric Bypass in 1973 with reversal when he had a colectomy performed in 1999
[2021-02-01 07:54] LABS: Lactic Acid Reflex 1.3 mmol/L (0.7-2.1)
[2021-02-01 07:56] LABS: Anion Gap 13 mmol/L (8-16); Blood Urea Nitrogen 84 mg/dL (9-20); Calcium 8.9 mg/dL (8.4-10.2); Carbon Dioxide 26 mmol/L (22-30); Chloride 94 mmol/L (98-107); Estimated CRCL calculation 11 ml/min; Estimated Glomerular Filt Rate 11; Glucose 218 mg/dL (65-110); Potassium 3.3 mmol/L (3.4-5.0); Sodium 133 mmol/L (137-145)
[2021-02-01 08:09] LABS: Alveolar/Arterial O2 Gradient 76.4 mmHg; Base Excess ABG -2.5 mEq/l (+/-2.0); Fractional Inspired Oxygen 28 %; Oxygen Content ABG 11.8 %vol (16.0-22.0); Oxygen Saturation ABG 90.5 % (95.0-100.0); Oxyhemoglobin 86.3 % THb (90.0-100.0); PCO2 ABG 49.5 mmHg (35.0-45.0); PO2 ABG 64.8 mmHg (80.0-100.0); PO2 FiO2 Ratio Arterial Blood 2.31 %; Total Hemoglobin 9.7 g/dL (12.0-18.0); pH ABG 7.304 (7.350-7.450)
[2021-02-01 08:11] LABS: Device NASAL CANNULA; Modified Allen's Test Pass; Site Drawn RIGHT RADIAL
[2021-02-01 08:35] LABS: INR 1.3; Prothrombin Time 15.5 Seconds (11.1-14.7)
[2021-02-01 08:36] LABS: Partial Thromboplastin Time 28.1 SECONDS (22.3-36.8)
[2021-02-01 09:39] LABS: Alanine Aminotransferase 20 U/L (4-50); Albumin Level 3.1 g/dL (3.5-5.1); Alkaline Phosphatase 168 U/L (38-126); Aspartate Amino Transferase 46 U/L (17-59); Bilirubin,Total 0.4 mg/dL (0.2-1.3)
[2021-02-01 10:09] LABS: NT Pro B Type Natriuretic Pept 30100 pg/mL (5-100); Troponin I 0.014 ng/mL (0.000-0.034)
--- NOTE | 2021-02-01 11:00 | PC.NURSE ---
Pt states that he doesn't produce urine that much . Informed EDP of this
--- NOTE | 2021-02-01 11:56 | PM.IMHP ---
H&P: HPI History of Present Illness Date/Time: 02/01/21 11:56 Chief Complaint: SOB Narrative: Patient is an 85-year-old male with past medical history of ESRD on HD, dm 2, COPD, CAD status post cardiac catheterization in August 2019 presenting with shortness of breath which has been worsening for a few days. Interview limited as patient prefers not to engage in lengthy conversation. However, does deny cough or fever, recent sick contacts. Says he has been vaccinated twice against COVID. Symptoms are not positional or exertional. Says he missed dialysis yesterday, and has not gone since last week. Past medical history: ESRD DM 2 COPD CAD EVIE hypertension AFib Allergies: Aspirin causes flushing Medications: Several, listed below Family history: Father had prostate cancer Social history: Never smoker, denies significant alcohol or drug use Surgical history: Several, including BKA, cholecystectomy, gastric bypass, BKA, appendectomy ER course: Vital signs: oxygen saturation of 94% on room air and tachypnea to low 20s Labs: Hemoglobin 9.4, sodium 133, potassium 3.3, creatinine 5.2 ALP 168; abg showing acidosis Head CT: chronic age related changes incl atherosclerosis Cardiac: trop negx1, afib on ekg Review of Systems Review of Systems: Limited, as patient prefers not to engage in lengthy conversation Constitutional: Constitutional: Reports fatigue and Reports weakness Cardiovascular: Cardiovascular: Denies chest pain, Denies pedal edema and Denies palpitations Respiratory: Respiratory: Denies chest congestion, Denies cough, Denies hemoptysis, Reports dyspnea and Denies wheezing Gastrointestinal: Gastrointestinal: Denies abdominal pain, Denies melena, Denies bloating, Denies hematochezia, Denies heartburn, Denies diarrhea, Denies nausea, Denies vomiting and Denies hematemesis Genitourinary: Genitourinary: Denies hematuria, Denies dysuria, Denies urinary frequency and Denies urinary incontinence Musculoskeletal: Musculoskeletal: Denies back pain and Denies arthralgias Neurologic: Denies Abnormal speech present, Denies confusion, Denies headache(s) and Denies numbness PMFSH Past Medical History Medical History (Updated 02/01/21 @ 15:45 by Miguel Lehman MD) Afib AMS (altered mental status) Asperger's syndrome Grubbs's palsy CAD (coronary artery disease) Constipation Critical limb ischemia with history of revascularization of same extremity With subsequent left heel ulcer requiring left below-knee amputation August 2019 Depression Diabetic peripheral neuropathy Duodenal ulcer disease Emphysema of lung End stage renal disease on dialysis Thursday managed by Dr. Blas. ESRD (end stage renal disease) Gout Hypertension Kidney stones Morbid obesity Obstructive sleep apnea Peripheral vascular disease Plantar fasciitis PVD (peripheral vascular disease) Type II diabetes mellitus Hemoglobin A1c 7 in November of 2018 Surgical History Surgical History AV fistula Left upper extremity History of appendectomy History of cardiac catheterization History of cataract surgery History of cholecystectomy History of colonoscopy History of esophagogastroduodenoscopy (EGD) History of gastric bypass History of morbid obesity with Gastric Bypass in 1973 with reversal when he had a colectomy performed in 1999 for pre-cancerous polyps. History of left below knee amputation Due to peripheral vascular disease, nonhealing diabetic foot wound with osteomyelitis and Proteus bacteremia History of total right knee replacement Family History Family History Father Prostate carcinoma Social History Social History Social History: He is currently residing [facility]. He lived in his own home until his hospitalization in August at which time he req
--- NOTE | 2021-02-01 15:52 | PM.CNNEP ---
Assessment and Plan Assessment and plan (1) ESRD (end stage renal disease): Code(s): N18.6 - End stage renal disease Status: Chronic Assessment and Plan: due for HD today however, electrolytes and clearance acceptable plan DUF (dry ultrafiltration) today in an effort to optimize his volume and respiratory status plan HD tomorrow and then back to Thu/Thu/Thursday schedule next week (2) Volume overload: Code(s): E87.70 - Fluid overload, unspecified Status: Acute Assessment and Plan: as evidence by admission imaging ultrafiltration today and dialysis tomorrow follow fluid and respiratory status/ (3) Acute hypercapnic respiratory failure: Code(s): J96.02 - Acute respiratory failure with hypercapnia Status: Acute Assessment and Plan: presumably due to #2 +/- pneumonia BiPAP and supplemental oxygen fluid removal with HD/DUF (4) Hypertension: Code(s): I10 - Essential (primary) hypertension Status: Chronic Assessment and Plan: reasonable control at this time follow trend of hemodynamics (5) AMS (altered mental status): Code(s): R41.82 - Altered mental status, unspecified Status: Acute Assessment and Plan: comes and goes maybe related to respiratory status? CT of head negative (6) T2DM (type 2 diabetes mellitus): Qualifiers: Diabetes mellitus watermelon harvesting supervisor insulin use: with watermelon harvesting supervisor use Diabetes mellitus complication status: with skin complications Diabetes mellitus complication detail: with foot ulcer Qualified Code(s): E11.621 - Type 2 diabetes mellitus with foot ulcer; L97.509 - Non-pressure chronic ulcer of other part of unspecified foot with unspecified severity; Z79.4 - intermediate manager (current) use of insulin Code(s): E11.9 - Type 2 diabetes mellitus without complications Status: Chronic Assessment and Plan: follow accuchecks glycemic control Will continue to follow. History of Present Illness Reason for Consult Consult date: 02/01/21 Reason for consult: end stage renal disease Chief Complaint Chief complaint: Acute Respiratory Failure w/Hypoxia & Hypercanea History of Present Illness Narrative: The patient is a 85-year-old [place] male with and extensive past medical history as outlined below who presented to [facility] ER from his outpatient dialysis center for shortness o breath. The patient is not very forthcoming with information although I am unclear of it is due to his shortness of breath or just lack of cooperation at the time of my visit. In any case, he is been apparently having issues and problems with shortness of breath for the last few days but I am unclear if he actually told anybody about this problem. He reports that he has not had dialysis for the last week but on my discussion with his outpatient dialysis clinic, he was there on Thursday as well as Thursday although he shortened his treatment by an hour on Thursday as the wanted to come off the machine to use the restroom /bathroom. On further discussion with his outpatient dialysis clinic, when he was seen in the waiting room, he appeared to be in mild respiratory distress and hence he was sent to the ER rather than being started on his regularly scheduled dialysis treatment. Workup and evaluation emergency room demonstrated the patient to be mildly tachypneic but with preserved oxygen saturations of 94% on room air. Supplemental oxygen was applied for comfort and routine blood tests that were done were consistent with his known history of end-stage renal disease. Due to his confusion about the events that led to his presentation to the ER, a CT scan of his head was done which did not demonstrate any acute intracranial findings. His EKG showed atrial fibrillation in his ABG showed a mild respiratory acidosis. His chest x-ray showed evidence of volume overload/ pulmonary edema with also the possibility of a pn
[2021-02-01] MEDS: IPRATROPIUM BR 0.02% INH SOLN 0.5 MG/2.5 ML VIAL INHALATION ×2 (16:30→20:45)
[2021-02-01] MEDS: ALBUTEROL SULFATE NEB 2.5 MG/0.5 ML INH INHALATION ×2 (16:30→20:44)
[2021-02-01 17:32] LABS: Glucose Point of Care 118 mg/dl (65-105)
--- NOTE | 2021-02-01 19:55 | ADMGEN ---
This patient, Gonsalo Moore, was admitted to IMU Room 231-01 @1235 from ER. BIPAP resumed. Pt very drowsy - will open eyes to voice- speaks in a whisper - orineted to name / time, place but dozes back to sleep. VSS- monitor placed on atrial fibrillation; Home medications verified from sheet from [facility]/ Sarah brock
[2021-02-01 21:41] LABS: Hepatitis B Surface Antigen Negative (Negative)
[2021-02-01 22:02] LABS: Hepatitis B Surface Anti Res Indeterminate
[2021-02-02] VITALS (38 sets, daily range): BP systolic 84–114; BP diastolic 35–58; PULSE 61–87; RESP 16–22; TEMP 36.1–37; O2SAT 94–100
[2021-02-02] MEDS: ALBUTEROL SULFATE NEB 2.5 MG/0.5 ML INH INHALATION ×5 (05:01→21:38)
[2021-02-02] MEDS: IPRATROPIUM BR 0.02% INH SOLN 0.5 MG/2.5 ML VIAL INHALATION ×5 (05:01→21:39)
[2021-02-02] MEDS: GABAPENTIN 100 MG CAPSULE PO ×2 (06:05→16:19)
[2021-02-02 06:27] LABS: Basophils Absolute Auto 0.1 K/mm3 (0.0-0.1); Basophils Percent Auto 0.6 % (0.2-1.2); Eosinophils Absolute Auto 0.2 K/mm3 (0-0.3); Eosinophils Percent Auto 1.6 % (0-4.4); Hematocrit 30.9 % (42.0-52.0); Hemoglobin 9.7 g/dL (14.0-18.0); Immature Granulocyte Absolute 0.11 K/mm3 (0.00-0.031); Immature Granulocyte Percent A 1.1 % (0-0.5); Lymphocytes Percent Auto 12.9 % (18.3-44.2); Mean Corpuscular HGB Conc 31.4 g/dl (32-36); Mean Corpuscular Hemoglobin 31.3 pg (26-34); Mean Corpuscular Volume 99.7 fl (80-100); Mean Platelet Volume 9.5 fl (7.4-10.4); Monocytes Absolute Auto 0.7 K/mm3 (0.1-0.6); Neutrophils Absolute Auto 7.7 K/mm3 (1.3-6.7); Neutrophils Percent Auto 76.8 % (45.5-73.1); Platelet Count Result 294 k/mm3 (150-375); Red Cell Distribution Width 13.8 % (11.5-14.5); White Blood Count 10.1 K/mm3 (4.5-10.0)
[2021-02-02 06:50] LABS: Hemoglobin A1C 5.4 % (<5.7)
[2021-02-02 06:54] LABS: Alanine Aminotransferase 16 U/L (4-50); Alkaline Phosphatase 128 U/L (38-126); Anion Gap 12 mmol/L (8-16); Aspartate Amino Transferase 15 U/L (17-59); Bilirubin,Total 0.4 mg/dL (0.2-1.3); Blood Urea Nitrogen 95 mg/dL (9-20); Calcium 9.2 mg/dL (8.4-10.2); Carbon Dioxide 24 mmol/L (22-30); Chloride 99 mmol/L (98-107); Estimated CRCL calculation 10 ml/min; Estimated Glomerular Filt Rate 9; Glucose 92 mg/dL (65-110); Magnesium 1.8 mg/dL (1.6-2.3); Phosphorus 6.1 mg/dL (2.5-4.5); Potassium 3.6 mmol/L (3.4-5.0); Sodium 135 mmol/L (137-145)
[2021-02-02 09:15] LABS: Glucose Point of Care 93 mg/dl (65-105)
--- NOTE | 2021-02-02 12:56 | PM.PNNEP ---
Progress Note: A&P Assessment and Plan (1) ESRD (end stage renal disease): Code(s): N18.6 - End stage renal disease Status: Chronic Assessment and Plan: HD today s/p DUF (dry ultrafiltration) yesterday in an effort to optimize his volume and respiratory status plan next HD on Thursday continue Thu/Thu/Thursday schedule while hospitalized follow electrolytes, volume status, and clearance (2) Volume overload: Code(s): E87.70 - Fluid overload, unspecified Status: Acute Assessment and Plan: as evidence by admission imaging ultrafiltration yesterday and dialysis today follow fluid and respiratory status (3) Acute hypercapnic respiratory failure: Code(s): J96.02 - Acute respiratory failure with hypercapnia Status: Acute Assessment and Plan: presumably due to #2 +/- pneumonia BiPAP and supplemental oxygen PRN fluid removal with HD/DUF (4) Hypertension: Code(s): I10 - Essential (primary) hypertension Status: Chronic Assessment and Plan: reasonable control at this time follow trend of hemodynamics (5) AMS (altered mental status): Code(s): R41.82 - Altered mental status, unspecified Status: Acute Assessment and Plan: comes and goes maybe related to respiratory status? CT of head negative (6) T2DM (type 2 diabetes mellitus): Qualifiers: Diabetes mellitus snf insulin use: with salvage determiner use Diabetes mellitus complication status: with skin complications Diabetes mellitus complication detail: with foot ulcer Qualified Code(s): E11.621 - Type 2 diabetes mellitus with foot ulcer; L97.509 - Non-pressure chronic ulcer of other part of unspecified foot with unspecified severity; Z79.4 - superintendent container terminal (current) use of insulin Code(s): E11.9 - Type 2 diabetes mellitus without complications Status: Chronic Assessment and Plan: follow accuchecks glycemic control Will continue to follow. Subjective Date/time seen: 02/02/21 12:56 Tolerating dialysis treatment today without any issues or problems (seen on HD at ~ 12:50PM); tolerated DUF/dry ultrafiltration session yesterday evening without any difficult as well; states his breathing is okay but does not elaborate any further; no events/issues overnight or earlier this AM. Exam Narrative: General: Large male in NAD Heart: normal S1 and S2; no rub Lungs: coarse and decreased at bases Abdomen: soft, nontender, nondistended, positive bowel sounds Extremities: no cyanosis or clubbing; no edema; s/p left BKA Skin: warm and dry Objective Data Vital Signs Vital Signs: Vital Signs Temp Pulse Resp BP Pulse Ox 02/02/21 12:45 71 100/43 L 02/02/21 12:30 73 99/53 L 02/02/21 12:15 73 98/51 L 02/02/21 12:00 79 96/54 L 02/02/21 11:45 72 95/55 L 02/02/21 11:30 73 108/58 L 02/02/21 11:20 77 101/53 L 02/02/21 11:00 73 100/54 L 02/02/21 10:45 70 104/53 L 02/02/21 10:30 71 110/56 L 02/02/21 10:15 36.8 C 76 20 94/50 L 02/02/21 09:30 36.4 C 77 22 H 114/53 L 100 02/02/21 09:09 68 96 02/02/21 08:59 64 16 02/02/21 05:13 68 16 02/02/21 05:01 71 16 02/02/21 04:00 68 98 02/02/21 01:17 36.1 C L 74 18 102/54 L 98 02/02/21 00:35 36.7 C 65 18 95/57 L 02/02/21 00:30 70 84/44 L 02/02/21 00:00 65 94/49 L 98 02/01/21 23:30 68 92/52 L 02/01/21 23:00 70 93/63 L 02/01/21 22:30 67 149/63 H 02/01/21 22:00 63 103/58 L 02/01/21 21:30 66 109/60 02/01/21 21:22 36.7 C 69 20 104/57 L 02/01/21 21:02 65 16 02/01/21 20:55 68 16 96 02/01/21 20:00 64 98 02/01/21 17:45 36.1 C L 69 22 H 115/57 L 97 02/01/21 16:49 60 12 02/01/21 16:30 60 12 02/01/21 16:00 72 02/01/21 14:00 62 Intake/Output Intake/Output: Intake & Output 01/30/21 01/31/21
--- NOTE | 2021-02-02 12:56 | P.PNNP_ITS ---
Progress Note: A&P Assessment and Plan (1) ESRD (end stage renal disease): Code(s): N18.6 - End stage renal disease Status: Chronic Assessment and Plan: * HD today * s/p DUF (dry ultrafiltration) yesterday in an effort to optimize his volume and respiratory status * plan next HD on Thursday continue Thu/Thu/Thursday schedule while hospitalized * follow electrolytes, volume status, and clearance (2) Volume overload: Code(s): E87.70 - Fluid overload, unspecified Status: Acute Assessment and Plan: * as evidence by admission imaging * ultrafiltration yesterday and dialysis today * follow fluid and respiratory status (3) Acute hypercapnic respiratory failure: Code(s): J96.02 - Acute respiratory failure with hypercapnia Status: Acute Assessment and Plan: * presumably due to #2 +/- pneumonia * BiPAP and supplemental oxygen PRN * fluid removal with HD/DUF (4) Hypertension: Code(s): I10 - Essential (primary) hypertension Status: Chronic Assessment and Plan: * reasonable control at this time * follow trend of hemodynamics (5) AMS (altered mental status): Code(s): R41.82 - Altered mental status, unspecified Status: Acute Assessment and Plan: * comes and goes * maybe related to respiratory status? * CT of head negative (6) T2DM (type 2 diabetes mellitus): Qualifiers: Diabetes mellitus watermaster insulin use: with residential use Diabetes mellitus complication status: with skin complications Diabetes mellitus complication detail: with foot ulcer Qualified Code(s): E11.621 - Type 2 diabetes mellitus with foot ulcer; L97.509 - Non-pressure chronic ulcer of other part of unspecified foot with unspecified severity; Z79.4 - extermination inspector (current) use of insulin Code(s): E11.9 - Type 2 diabetes mellitus without complications Status: Chronic Assessment and Plan: * follow accuchecks * glycemic control Will continue to follow. Subjective Date/time seen: 02/02/21 12:56 Tolerating dialysis treatment today without any issues or problems (seen on HD at ~ 12:50PM); tolerated DUF/dry ultrafiltration session yesterday evening without any difficult as well; states his breathing is okay but does not elaborate any further; no events/issues overnight or earlier this AM. Exam Narrative: General: Large male in NAD Heart: normal S1 and S2; no rub Lungs: coarse and decreased at bases Abdomen: soft, nontender, nondistended, positive bowel sounds Extremities: no cyanosis or clubbing; no edema; s/p left BKA Skin: warm and dry Objective Data Vital Signs Vital Signs: Vital Signs Temp Pulse Resp BP Pulse Ox 02/02/21 12:45 71 100/43 L 02/02/21 12:30 73 99/53 L 02/02/21 12:15 73 98/51 L 02/02/21 12:00 79 96/54 L 02/02/21 11:45 72 95/55 L 02/02/21 11:30 73 108/58 L 02/02/21 11:20 77 101/53 L 02/02/21 11:00 73 100/54 L 02/02/21 10:45 70 104/53 L 02/02/21 10:30 71 110/56 L 02/02/21 10:15 36.8 C 76 20 94/50 L 02/02/21 09:30 36.4 C 77 22 H 114/53 L 100 02/02/21 09:09 68 96 02/02/21 08:59 64 16 02/02/21 05:13 68 16 02/02/21 05:01 71 16 02/02/21 04:00 68 98 02/02/21 01:17 36.1 C L 74 1
[2021-02-02] MEDS: SODIUM CHLORIDE 0.9% IV 1,000 ML 100 ML IV CONT (13:26)
[2021-02-02] MEDS: EPOETIN ALFA-EPBX 10,000 UNITS/ML VIAL 10000 UNITS IV PUSH (13:27)
[2021-02-02] MEDS: CLOPIDOGREL BISULFATE 75 MG TABLET PO (16:09)
[2021-02-02] MEDS: HEPARIN SODIUM 5,000 UNITS/ML VIAL 5000 UNITS SUB-Q ×2 (16:10→20:26)
--- NOTE | 2021-02-02 16:39 | PM.IMPN ---
Progress Note: A&P Assessment and Plan (1) AMS (altered mental status): Code(s): R41.82 - Altered mental status, unspecified Status: Acute Assessment and Plan: Appears to be resolving, mentation is improving. May have improved after dialysis x2. Unclear if he had buildup of medications in his system, will continue home medications as his mentation is improved. Will continue his Neurontin q.12 hours for peripheral neuropathy. BiPAP q.h.s. for hypercapnia however was not that significant. (2) ESRD (end stage renal disease): Code(s): N18.6 - End stage renal disease Status: Chronic Assessment and Plan: Continue as per Nephrology consult. Patient follows Dr. Blas outpatient (3) Afib: Code(s): I48.91 - Unspecified atrial fibrillation Status: Acute Assessment and Plan: Heart rate stable, continue home medications (4) Volume overload: Code(s): E87.70 - Fluid overload, unspecified Status: Acute Assessment and Plan: -resolved, altered filtrated 5 L. breathing comfortably on room air. Blood pressure dropped to 90 systolic, may have been over ultra filtrated, holding off on fluid bolus and will let it ride on its own holding home antihypertensives. (5) Emphysema of lung: Code(s): J43.9 - Emphysema, unspecified Status: Chronic Assessment and Plan: Appears to be stable, breathing comfortably on room air with scattered wheezing (6) Respiratory failure with hypoxia and hypercapnia: Code(s): J96.91 - Respiratory failure, unspecified with hypoxia; J96.92 - Respiratory failure, unspecified with hypercapnia Status: Acute Assessment and Plan: -mentation appears improved, continue BiPAP q.h.s.. Patient likely has obesity hypoventilation (7) Depression: Code(s): F32.9 - Major depressive disorder, single episode, unspecified Status: Chronic Assessment and Plan: Continue home medications (8) Hypertension: Qualifiers: Hypertension type: primary hypertension Qualified Code(s): I10 - Essential (primary) hypertension Code(s): I10 - Essential (primary) hypertension Status: Chronic Assessment and Plan: Blood pressure post dialysis was 90 systolic, hold parameters placed on labetalol and lisinopril. Will watch his blood pressure, likely low from ultrafiltration he had 5 L removed on 02/02/2021 during 2 dialysis sessions. (9) Diabetes mellitus, with long-term current use of insulin: Code(s): E11.9 - Type 2 diabetes mellitus without complications; Z79.4 - police judge (current) use of insulin Status: Chronic Assessment and Plan: Holding home insulin at this time with blood sugars on lower side and poor p.o. intake. Will do moderate dose sliding scale insulin for now, hypoglycemia protocol, Accu-Cheks a.c. hs Additional Plan Diet: Renal DVT prophylaxis: Heparin subQ GI prophylaxis: Ppi Code status: Do not resuscitate Disposition: Pending clinical course, likely home in 2-3 days, continue Levaquin for now, it is unclear if he has a pneumonia. Will keep in IMU with blood pressure drop after dialysis Time Spent With Patient Time with patient: 25 - 35 minutes Subjective Date/time seen: 02/02/21 16:39 Patient examined. He had 3 L removed at midnight ultrafiltration and 2 more L today. His blood pressure dropped to 90 systolic, hold parameters placed on blood pressure meds. His mentation appears to be improving, no longer obtunded. He is very soft-spoken. He denies fever, chills, nausea, vomiting, diarrhea. He endorses generalized weakness, fatigue, feeling crummy . We discussed continue antibiotics for now and dialysis as per Nephrology. We discussed continuing BiPAP q.h.s.. Patient understands agrees with plan. Review of Systems Review of Systems: All systems reviewed & are unremarkable except as noted in HPI and below Exam Narrative: - GENERAL: Pleasant mo
[2021-02-02 17:45] LABS: Glucose Point of Care 76 mg/dl (65-105)
[2021-02-02 17:52] LABS: SARS-CoV-2 RNA PCR Negative
[2021-02-02] MEDS: LABETALOL HCL 50 MG TABLET PO (20:25)
[2021-02-02 21:38] LABS: Glucose Point of Care 140 mg/dl (65-105)
[2021-02-03] VITALS (17 sets, daily range): BP systolic 96–120; BP diastolic 41–57; PULSE 67–84; RESP 16–24; TEMP 36.3–37.1; O2SAT 96–100
[2021-02-03] MEDS: IPRATROPIUM BR 0.02% INH SOLN 0.5 MG/2.5 ML VIAL INHALATION ×5 (01:53→22:41)
[2021-02-03] MEDS: ALBUTEROL SULFATE NEB 2.5 MG/0.5 ML INH INHALATION ×5 (01:53→22:41)
[2021-02-03 04:44] LABS: Hematocrit 29.7 % (42.0-52.0); Hemoglobin 9.8 g/dL (14.0-18.0); Mean Corpuscular Hemoglobin 31.7 pg (26-34); Mean Corpuscular Volume 96.1 fl (80-100); Platelet Count Result 256 k/mm3 (150-375); Red Blood Count 3.09 M/mm3 (4.6-6.20); Red Cell Distribution Width 13.8 % (11.5-14.5); White Blood Count 7.4 K/mm3 (4.5-10.0)
[2021-02-03 05:02] LABS: Anion Gap 8 mmol/L (8-16); Blood Urea Nitrogen 52 mg/dL (9-20); Calcium 9.2 mg/dL (8.4-10.2); Carbon Dioxide 29 mmol/L (22-30); Chloride 97 mmol/L (98-107); Estimated CRCL calculation 12 ml/min; Estimated Glomerular Filt Rate 11; Glucose 117 mg/dL (65-110); Magnesium 1.8 mg/dL (1.6-2.3); Potassium 3.3 mmol/L (3.4-5.0); Sodium 134 mmol/L (137-145)
[2021-02-03] MEDS: GABAPENTIN 100 MG CAPSULE PO ×2 (05:50→17:50)
[2021-02-03 07:43] LABS: Glucose Point of Care 128 mg/dl (65-105)
--- NOTE | 2021-02-03 10:17 | P.PNNP_ITS ---
Progress Note: A&P Assessment and Plan (1) ESRD (end stage renal disease): Code(s): N18.6 - End stage renal disease Status: Chronic Assessment and Plan: * HD yesterday * s/p DUF (dry ultrafiltration) on admission in an effort to optimize his volume and respiratory status * plan next HD on Thursday continue Thu/Thu/Thursday schedule while hospitalized * follow electrolytes, volume status, and clearance (2) Volume overload: Code(s): E87.70 - Fluid overload, unspecified Status: Acute Assessment and Plan: * as evidence by admission imaging * ultrafiltration yesterday and dialysis today * follow fluid and respiratory status (3) Acute hypercapnic respiratory failure: Code(s): J96.02 - Acute respiratory failure with hypercapnia Status: Acute Assessment and Plan: * presumably due to #2 +/- pneumonia * BiPAP and supplemental oxygen PRN * fluid removal with HD/DUF (4) Hypertension: Qualifiers: Hypertension type: primary hypertension Qualified Code(s): I10 - Essential (primary) hypertension Code(s): I10 - Essential (primary) hypertension Status: Chronic Assessment and Plan: * reasonable control at this time * follow trend of hemodynamics (5) AMS (altered mental status): Code(s): R41.82 - Altered mental status, unspecified Status: Acute Assessment and Plan: * clinically better * maybe related to some of his medications(?) * CT of head negative (6) T2DM (type 2 diabetes mellitus): Qualifiers: Diabetes mellitus complication detail: with foot ulcer Diabetes mellitus complication status: with skin complications Diabetes mellitus alf insulin use: with alf use Qualified Code(s): E11.621 - Type 2 diabetes mellitus with foot ulcer; L97.509 - Non-pressure chronic ulcer of other part of unspecified foot with unspecified severity; Z79.4 - emt intermediate (current) use of insulin Code(s): E11.9 - Type 2 diabetes mellitus without complications Status: Chronic Assessment and Plan: * follow accuchecks * glycemic control Will continue to follow. Subjective Date/time seen: 02/03/21 10:17 Tolerated dialysis yesterday without any issues or problems; mental status seems to be improving as well; no events/issues overnight or earlier this AM; no apparent distress noted at the time of my visit. Exam Narrative: General: Large male in NAD Heart: normal S1 and S2; no rub Lungs: coarse and decreased at bases Abdomen: soft, nontender, nondistended, positive bowel sounds Extremities: no cyanosis or clubbing; no edema; s/p left BKA Skin: warm and intact Objective Data Vital Signs Vital Signs: Vital Signs Temp Pulse Resp BP Pulse Ox 02/03/21 09:37 75 18 97 02/03/21 07:48 37.1 C 80 19 100/41 L 97 02/03/21 05:25 74 18 96 02/03/21 05:24 74 18 02/03/21 04:00 67 02/03/21 02:03 77 21 H 02/03/21 01:58 75 23 H 97 02/03/21 01:53 75 23 H 02/03/21 00:00 36.9 C 73 18 96/55 L 97 02/02/21 22:20 81 18 97 02/02/21 21:50 82 18 02/02/21 21:40 78 18 97 02/02/21 20:25 85 02/02/21 20:00 37.0 C 87 20 108/55 L 95 02/02/21 18:35 112/49 L 02/02/21 16:59 66 16 02/02/21 16:00 36.4 C L 81
--- NOTE | 2021-02-03 10:17 | PM.PNNEP ---
Progress Note: A&P Assessment and Plan (1) ESRD (end stage renal disease): Code(s): N18.6 - End stage renal disease Status: Chronic Assessment and Plan: HD yesterday s/p DUF (dry ultrafiltration) on admission in an effort to optimize his volume and respiratory status plan next HD on Thursday continue Thu/Thu/Thursday schedule while hospitalized follow electrolytes, volume status, and clearance (2) Volume overload: Code(s): E87.70 - Fluid overload, unspecified Status: Acute Assessment and Plan: as evidence by admission imaging ultrafiltration yesterday and dialysis today follow fluid and respiratory status (3) Acute hypercapnic respiratory failure: Code(s): J96.02 - Acute respiratory failure with hypercapnia Status: Acute Assessment and Plan: presumably due to #2 +/- pneumonia BiPAP and supplemental oxygen PRN fluid removal with HD/DUF (4) Hypertension: Qualifiers: Hypertension type: primary hypertension Qualified Code(s): I10 - Essential (primary) hypertension Code(s): I10 - Essential (primary) hypertension Status: Chronic Assessment and Plan: reasonable control at this time follow trend of hemodynamics (5) AMS (altered mental status): Code(s): R41.82 - Altered mental status, unspecified Status: Acute Assessment and Plan: clinically better maybe related to some of his medications(?) CT of head negative (6) T2DM (type 2 diabetes mellitus): Qualifiers: Diabetes mellitus complication detail: with foot ulcer Diabetes mellitus complication status: with skin complications Diabetes mellitus termination clerk insulin use: with termination clerk use Qualified Code(s): E11.621 - Type 2 diabetes mellitus with foot ulcer; L97.509 - Non-pressure chronic ulcer of other part of unspecified foot with unspecified severity; Z79.4 - [facility] (current) use of insulin Code(s): E11.9 - Type 2 diabetes mellitus without complications Status: Chronic Assessment and Plan: follow accuchecks glycemic control Will continue to follow. Subjective Date/time seen: 02/03/21 10:17 Tolerated dialysis yesterday without any issues or problems; mental status seems to be improving as well; no events/issues overnight or earlier this AM; no apparent distress noted at the time of my visit. Exam Narrative: General: Large male in NAD Heart: normal S1 and S2; no rub Lungs: coarse and decreased at bases Abdomen: soft, nontender, nondistended, positive bowel sounds Extremities: no cyanosis or clubbing; no edema; s/p left BKA Skin: warm and intact Objective Data Vital Signs Vital Signs: Vital Signs Temp Pulse Resp BP Pulse Ox 02/03/21 09:37 75 18 97 02/03/21 07:48 37.1 C 80 19 100/41 L 97 02/03/21 05:25 74 18 96 02/03/21 05:24 74 18 02/03/21 04:00 67 02/03/21 02:03 77 21 H 02/03/21 01:58 75 23 H 97 02/03/21 01:53 75 23 H 02/03/21 00:00 36.9 C 73 18 96/55 L 97 02/02/21 22:20 81 18 97 02/02/21 21:50 82 18 02/02/21 21:40 78 18 97 02/02/21 20:25 85 02/02/21 20:00 37.0 C 87 20 108/55 L 95 02/02/21 18:35 112/49 L 02/02/21 16:59 66 16 02/02/21 16:00 36.4 C L 81 18 91/35 L 94 02/02/21 14:50 36.7 C 78 18 106/55 L 02/02/21 14:30 76 91/46 L 02/02/21 14:15 76 96/48 L 02/02/21 14:00 78 99/52 L 02/02/21 13:45 76 102/55 L 02/02/21 13:30 75 105/53 L 02/02/21 13:15 71 96/55 L 02/02/21 13:00 73 97/52 L 02/02/21 12:45 71 100/43 L 02/02/21 12:30 73 99/53 L 02/02/21 12:15 73 98/51 L 02/02/21 12:00 75 96/54 L 02/02/21 11:45 72 95/55 L 02/02/21 11:30 73 108/58 L 02/02/21 11:20 77 101/53 L 02/02/21 11:00 73 100/54 L 02/02/21 10:45 70 104/53 L 02/02/21 10:30 71 110/56 L Intake/Output Intake/
[2021-02-03] MEDS: HEPARIN SODIUM 5,000 UNITS/ML VIAL 5000 UNITS SUB-Q ×2 (10:35→21:31)
[2021-02-03] MEDS: levoFLOXacin 500 MG/D5W 100 ML 500 MG/100 ML BAG 100 MG IVPB (10:36)
--- NOTE | 2021-02-03 17:15 | PM.IMPN ---
Progress Note: A&P Assessment and Plan (1) AMS (altered mental status): Code(s): R41.82 - Altered mental status, unspecified Status: Acute Assessment and Plan: -Appears to be improving, likely metabolic which is improving with hemodialysis. Unclear from medication was building up in his system, many of his medications such as trazodone have not been restarted yet. We will be careful in restarting his medications. He is approaching baseline. BiPAP q.h.s. - will continue home Neurontin at regular scheduled b.i.d. dosing. - Possibility of infectious encephalopathy with for which he is on antibiotic Levaquin for possible pneumonia, slight leukocytosis improving. (2) Pneumonia: Code(s): J18.9 - Pneumonia, unspecified organism Status: Acute Assessment and Plan: With hypoxia and questionable pneumonia on chest x-ray with infiltrates will continue Levaquin. Patient's mentation has also been improving and it is unclear if there was infectious encephalopathy as well as metabolic. We will complete 5 day course for community-acquired pneumonia. He is afebrile in no sputum production. (3) PVD (peripheral vascular disease): Code(s): I73.9 - Peripheral vascular disease, unspecified Status: Acute Assessment and Plan: Continue home medications (4) CAD (coronary artery disease): Code(s): I25.10 - Atherosclerotic heart disease of [place] coronary artery without angina pectoris Status: Acute Assessment and Plan: Continue home medications (5) ESRD (end stage renal disease): Code(s): N18.6 - End stage renal disease Status: Chronic Assessment and Plan: Continue hemodialysis as per Nephrology, Thursday schedule (6) Afib: Code(s): I48.91 - Unspecified atrial fibrillation Status: Acute Assessment and Plan: Appears to be normal sinus rhythm, continue home medications, beta-blockers being held with hypotension parameters (7) Volume overload: Code(s): E87.70 - Fluid overload, unspecified Status: Acute Assessment and Plan: -Improved after 5 L removed yesterday, patient to return to his home hemodialysis regimen. He is on 2 L of oxygen currently however at home is only on at night. We will re-evaluate after hemodialysis tomorrow. -blood pressure improved after yesterday 5 L removed he was hypotensive now normotensive (8) Respiratory failure with hypoxia and hypercapnia: Code(s): J96.91 - Respiratory failure, unspecified with hypoxia; J96.92 - Respiratory failure, unspecified with hypercapnia Status: Acute Assessment and Plan: -improved BiPAP q.h.s. -he may have a component of obesity hypoventilation syndrome -wean oxygen as tolerated, patient has 2 L home oxygen therapy q.h.s. only. Currently on 2 L during the day as well Additional Plan Diet: Renal DVT prophylaxis: Heparin subQ GI prophylaxis: Ppi Code status: Do not resuscitate Disposition: Med tele. Pending clinical course, likely home in 1-2 days, continue Levaquin for now, it is unclear if he has a pneumonia however he is improving on Levaquin. Time Spent With Patient Time with patient: 25 - 35 minutes Subjective Date/time seen: 02/03/21 17:15 Patient examined. No overnight events. His blood pressure medications continue to be held with the hold parameters. He feels much better, getting closer to baseline. Will continue hemodialysis as per Nephrology Thursday schedule. We have been treating him for possible pneumonia chest x-ray infiltrates and mild leukocytosis at 10. He has been clinically improving in cases is infectious encephalopathy will complete antibiotic course. His breathing appears to be much better however still on some oxygen and we will continue hemodialysis, component of fluid overload. Patient denies fever, chills, nausea, vomiting, diarrhea, chest pain, abdominal pain. Review of Systems Review of
[2021-02-03 18:04] LABS: Glucose Point of Care 200 mg/dl (65-105)
[2021-02-03 18:04] LABS: Glucose Point of Care 202 mg/dl (65-105)
[2021-02-03 20:32] LABS: Glucose Point of Care 163 mg/dl (65-105)
[2021-02-03] MEDS: LABETALOL HCL 50 MG TABLET PO (21:31)
[2021-02-04] VITALS (26 sets, daily range): BP systolic 92–164; BP diastolic 48–72; PULSE 61–80; RESP 16–18; TEMP 35.8–36.9; O2SAT 95–100; BMI 49.1
[2021-02-04] MEDS: GABAPENTIN 100 MG CAPSULE PO ×2 (05:28→16:45)
[2021-02-04 06:38] LABS: Anion Gap 9 mmol/L (8-16); Blood Urea Nitrogen 71 mg/dL (9-20); Calcium 8.8 mg/dL (8.4-10.2); Carbon Dioxide 22 mmol/L (22-30); Chloride 99 mmol/L (98-107); Estimated CRCL calculation 11 ml/min; Estimated Glomerular Filt Rate 10; Glucose 150 mg/dL (65-110); Phosphorus 5.3 mg/dL (2.5-4.5); Potassium 3.6 mmol/L (3.4-5.0); Sodium 130 mmol/L (137-145)
--- NOTE | 2021-02-04 07:23 | PM.IMPN ---
Progress Note: A&P Assessment and Plan (1) AMS (altered mental status): Code(s): R41.82 - Altered mental status, unspecified Status: Acute Assessment and Plan: -Appears to be improving, likely metabolic which is improving with hemodialysis. Unclear from medication was building up in his system, many of his medications such as trazodone have not been restarted yet. We will be careful in restarting his medications with both oxycodone and trazodone which both has sedating side effects. He is approaching baseline. BiPAP q.h.s. - will continue home Neurontin at regular scheduled b.i.d. dosing. (2) Pneumonia: Code(s): J18.9 - Pneumonia, unspecified organism Status: Acute Assessment and Plan: With hypoxia and questionable pneumonia on chest x-ray with infiltrates will continue Levaquin. Patient's mentation has also been improving and it is unclear if there was infectious encephalopathy as well as metabolic. We will complete 5 day course for community-acquired pneumonia. He is afebrile in no sputum production. Cultures remain negative. (3) PVD (peripheral vascular disease): Code(s): I73.9 - Peripheral vascular disease, unspecified Status: Acute Assessment and Plan: Continue home medications (4) CAD (coronary artery disease): Code(s): I25.10 - Atherosclerotic heart disease of [place] coronary artery without angina pectoris Status: Acute Assessment and Plan: Continue home medications (5) ESRD (end stage renal disease): Code(s): N18.6 - End stage renal disease Status: Chronic Assessment and Plan: Continue hemodialysis as per Nephrology, Thursday schedule (6) Afib: Code(s): I48.91 - Unspecified atrial fibrillation Status: Acute Assessment and Plan: Appears to be normal sinus rhythm, continue home medications, beta-blockers being held with hypotension parameters (7) Volume overload: Code(s): E87.70 - Fluid overload, unspecified Status: Acute Assessment and Plan: -Improved after 5 L removed 02/02, patient to return to his home hemodialysis regimen. He is on 2 L of oxygen currently however at home is only on at night. -blood pressure improved after yesterday 5 L removed he was hypotensive now normotensive Repeat chest x-ray still showing significant fluid overload with congestion and bilateral pleural effusion. I think he need some further extra ultrafiltrate removed during next sessions of dialysis. (8) Respiratory failure with hypoxia and hypercapnia: Code(s): J96.91 - Respiratory failure, unspecified with hypoxia; J96.92 - Respiratory failure, unspecified with hypercapnia Status: Acute Assessment and Plan: -continue BiPAP overnight. He uses CPAP at his baseline. -he may have a component of obesity hypoventilation syndrome -wean oxygen as tolerated, patient has 2 L home oxygen therapy q.h.s. only with his CPAP. He was on 2 L of oxygen at the time of my evaluation. Wean oxygen if tolerated. Keep oxygen saturation between 89-90%. Additional Plan Diet: Renal DVT prophylaxis: Heparin subQ GI prophylaxis: Ppi Code status: Do not resuscitate Disposition: Med tele. Pending clinical course, likely discharge in a.m. if he remains stable. Subjective Date/time seen: 02/04/21 07:23 His mental status has improved. He seemed tired and sleepy but easily arousable. He is scheduled to have dialysis today. OT has been consulted. He denied have any significant symptoms of shortness of breath chest pain cough fever and chills. Review of Systems Review of Systems: All systems reviewed & are unremarkable except as noted in HPI and below Exam Narrative: - GENERAL: Pleasant morbidly obese male laying comfortably in bed, soft-spoken - EYES: EOMI. Anicteric. - HENT: Moist oral mucosa - LUNGS: Improved lung sounds less coarse. Nonlabored respirations. - CARDIO
[2021-02-04 08:08] LABS: Glucose Point of Care 155 mg/dl (65-105)
[2021-02-04] MEDS: ESCITALOPRAM OXALATE 10 MG TABLET PO (09:33)
[2021-02-04] MEDS: LABETALOL HCL 100 MG TABLET PO (09:34)
[2021-02-04] MEDS: HEPARIN SODIUM 5,000 UNITS/ML VIAL 5000 UNITS SUB-Q ×2 (09:34→22:51)
[2021-02-04] MEDS: PANTOPRAZOLE SOD SESQUIHYDRATE 20 MG TAB PO (09:34)
[2021-02-04] MEDS: CLOPIDOGREL BISULFATE 75 MG TABLET PO (09:34)
[2021-02-04] MEDS: lisinopriL 5 MG TABLET BY MOUTH (09:34)
--- NOTE | 2021-02-04 11:31 | P.PNNP_ITS ---
Progress Note: A&P Assessment and Plan (1) ESRD (end stage renal disease): Code(s): N18.6 - End stage renal disease Status: Chronic Assessment and Plan: * HD is due today. * We will remove more fluid today. * volume status: Chest x-ray shows pleural effusion there are small. He does not really have much swelling. (2) Volume overload: Code(s): E87.70 - Fluid overload, unspecified Status: Acute Assessment and Plan: * as evidence by admission imaging * ultrafiltration yesterday and dialysis today * follow fluid and respiratory status (3) Acute hypercapnic respiratory failure: Code(s): J96.02 - Acute respiratory failure with hypercapnia Status: Acute Assessment and Plan: * presumably due to #2 +/- pneumonia * BiPAP and supplemental oxygen PRN * On Levaquin. * fluid removal with HD/DUF (4) Hypertension: Qualifiers: Hypertension type: primary hypertension Qualified Code(s): I10 - Essential (primary) hypertension Code(s): I10 - Essential (primary) hypertension Status: Chronic Assessment and Plan: * reasonable control at this time * follow trend of hemodynamics (5) AMS (altered mental status): Code(s): R41.82 - Altered mental status, unspecified Status: Acute Assessment and Plan: * He looks baseline. (6) T2DM (type 2 diabetes mellitus): Qualifiers: Diabetes mellitus termite exterminator insulin use: with termite exterminator use Diabetes mellitus complication status: with skin complications Diabetes mellitus complication detail: with foot ulcer Qualified Code(s): E11.621 - Type 2 diabetes mellitus with foot ulcer; L97.509 - Non-pressure chronic ulcer of other part of unspecified foot with unspecified severity; Z79.4 - local intermodal truck driver (current) use of insulin Code(s): E11.9 - Type 2 diabetes mellitus without complications Status: Chronic Assessment and Plan: * follow accuchecks * glycemic control Subjective Date/time seen: 02/04/21 11:31 Interval history: Gonsalo is short of breath. He is on the BiPAP machine. He has no chest pain. Appetite is okay. Exam Narrative: General: Large male in NAD Heart: normal S1 and S2; no rub or gallop Lungs: coarse and decreased at bases Abdomen: soft, nontender, nondistended, positive bowel sounds Extremities: no cyanosis or clubbing; no edema; s/p left BKA Skin: No rash Objective Data Vital Signs Vital Signs: Vital Signs - 24 hr 02/03/21 12:00 02/03/21 16:00 02/03/21 20:00 Temperature 36.3 C L 36.8 C Pulse Rate 81 76 71 Respiratory Rate 18 24 H 24 H Blood Pressure 120/56 L 114/57 L Pulse Oximetry 100 97 97 02/03/21 21:31 02/03/21 22:00 02/03/21 22:41 Temperature Pulse Rate 78 77 74 Respiratory Rate 16 Blood Pressure Pulse Oximetry 02/04/21 00:00 02/04/21 02:00 02/04/21 04:00 Temperature 36.9 C Pulse Rate 71 73 67 Respiratory Rate 17 Blood Pressure 164/54 H Pulse Oximetry 98 02/04/21 06:00 02/04/21 08:00 Temperature 36.6 C Pulse Rate 73 70 Respiratory Rate 16 Blood Pressure 121/66 Pulse Oximetry 98 Intake/Output Intake/Ou
--- NOTE | 2021-02-04 11:31 | PM.PNNEP ---
Progress Note: A&P Assessment and Plan (1) ESRD (end stage renal disease): Code(s): N18.6 - End stage renal disease Status: Chronic Assessment and Plan: HD is due today. We will remove more fluid today. volume status: Chest x-ray shows pleural effusion there are small. He does not really have much swelling. (2) Volume overload: Code(s): E87.70 - Fluid overload, unspecified Status: Acute Assessment and Plan: as evidence by admission imaging ultrafiltration yesterday and dialysis today follow fluid and respiratory status (3) Acute hypercapnic respiratory failure: Code(s): J96.02 - Acute respiratory failure with hypercapnia Status: Acute Assessment and Plan: presumably due to #2 +/- pneumonia BiPAP and supplemental oxygen PRN On Levaquin. fluid removal with HD/DUF (4) Hypertension: Qualifiers: Hypertension type: primary hypertension Qualified Code(s): I10 - Essential (primary) hypertension Code(s): I10 - Essential (primary) hypertension Status: Chronic Assessment and Plan: reasonable control at this time follow trend of hemodynamics (5) AMS (altered mental status): Code(s): R41.82 - Altered mental status, unspecified Status: Acute Assessment and Plan: He looks baseline. (6) T2DM (type 2 diabetes mellitus): Qualifiers: Diabetes mellitus terminal system operator insulin use: with terminal system operator use Diabetes mellitus complication status: with skin complications Diabetes mellitus complication detail: with foot ulcer Qualified Code(s): E11.621 - Type 2 diabetes mellitus with foot ulcer; L97.509 - Non-pressure chronic ulcer of other part of unspecified foot with unspecified severity; Z79.4 - intermodal truck driver (current) use of insulin Code(s): E11.9 - Type 2 diabetes mellitus without complications Status: Chronic Assessment and Plan: follow accuchecks glycemic control Subjective Date/time seen: 02/04/21 11:31 Interval history: Gonsalo is short of breath. He is on the BiPAP machine. He has no chest pain. Appetite is okay. Exam Narrative: General: Large male in NAD Heart: normal S1 and S2; no rub or gallop Lungs: coarse and decreased at bases Abdomen: soft, nontender, nondistended, positive bowel sounds Extremities: no cyanosis or clubbing; no edema; s/p left BKA Skin: No rash Objective Data Vital Signs Vital Signs: Vital Signs - 24 hr 02/03/21 12:00 02/03/21 16:00 02/03/21 20:00 Temperature 36.3 C L 36.8 C Pulse Rate 81 76 71 Respiratory Rate 18 24 H 24 H Blood Pressure 120/56 L 114/57 L Pulse Oximetry 100 97 97 02/03/21 21:31 02/03/21 22:00 02/03/21 22:41 Temperature Pulse Rate 78 77 74 Respiratory Rate 16 Blood Pressure Pulse Oximetry 02/04/21 00:00 02/04/21 02:00 02/04/21 04:00 Temperature 36.9 C Pulse Rate 71 73 67 Respiratory Rate 17 Blood Pressure 164/54 H Pulse Oximetry 98 02/04/21 06:00 02/04/21 08:00 Temperature 36.6 C Pulse Rate 73 70 Respiratory Rate 16 Blood Pressure 121/66 Pulse Oximetry 98 Intake/Output Intake/Output: Intake & Output 02/01/21 02/02/21 02/03/21 02/04/21 23:59 23:59 23:59 23:59 Intake Total 800 1250 320 Output Total 0 5000 0 0 Balance 0 -4200 1250 320 Meds/Results Medications: Active Medications Generic Name Dose Route Start Last Admin Trade Name Freq PRN Reason Stop Dose Admin Albuterol 2.5 mg 02/03/21 14:00 02/04/21 05:10 Albuterol Sulfate Neb 2.5 Mg/0.5 Ml Inh INHALATION Not Given Q6HRT BELKIS Artificial Tears 1 drop 02/02/21 17:13 Artificial Tears Ophth Soln 15 Ml Bottle EACH EYE QID PRN Dry Eye(s) Clopidogrel Bisulfate 75 mg 02/02/21 09:00 02/04/21 09:34 Clopidogrel Bisulfate 75 Mg Tablet PO 75 mg QAM BELKIS Administration Dextrose 12.5 gm 02/01/21 14:50 Dextrose 50% 25 Gm/50 Ml Syringe
[2021-02-04 11:38] LABS: Glucose Point of Care 191 mg/dl (65-105)
[2021-02-04] MEDS: ALBUTEROL SULFATE NEB 2.5 MG/0.5 ML INH INHALATION (13:28)
[2021-02-04] MEDS: IPRATROPIUM BR 0.02% INH SOLN 0.5 MG/2.5 ML VIAL INHALATION (13:28)
[2021-02-04 16:07] LABS: Glucose Point of Care 209 mg/dl (65-105)
[2021-02-04] MEDS: INSULIN ASPART (*BKC) 100 UNITS/ML SUB-Q (16:46)
[2021-02-04] MEDS: SODIUM CHLORIDE 0.9% IV 1,000 ML 999 ML (20:20)
[2021-02-04] MEDS: EPOETIN ALFA-EPBX 10,000 UNITS/ML VIAL 10000 UNITS IV PUSH (20:21)
[2021-02-05] VITALS (9 sets, daily range): BP systolic 115; BP diastolic 56; PULSE 59–86; RESP 18; TEMP 36.2; O2SAT 94–98; BMI 10.0
--- NOTE | 2021-02-05 03:48 | PCRCNOTE ---
Window of time for administration has passed. See next scheduled administration.
[2021-02-05 05:06] LABS: Basophils Percent Auto 0.4 % (0.2-1.2); Eosinophils Absolute Auto 0.1 K/mm3 (0-0.3); Eosinophils Percent Auto 1.8 % (0-4.4); Hematocrit 30.9 % (42.0-52.0); Hemoglobin 9.8 g/dL (14.0-18.0); Immature Granulocyte Percent A 1.3 % (0-0.5); Lymphocytes Absolute Auto 1.41 K/mm3 (0.9-3.2); Lymphocytes Percent Auto 18.1 % (18.3-44.2); Mean Corpuscular HGB Conc 31.7 g/dl (32-36); Mean Corpuscular Hemoglobin 31.2 pg (26-34); Mean Corpuscular Volume 98.4 fl (80-100); Mean Platelet Volume 9.6 fl (7.4-10.4); Monocytes Absolute Auto 0.8 K/mm3 (0.1-0.6); Monocytes Percent Auto 10.7 % (2.6-8.5); Neutrophils Absolute Auto 5.3 K/mm3 (1.3-6.7); Neutrophils Percent Auto 67.7 % (45.5-73.1); Platelet Count Result 217 k/mm3 (150-375); Red Blood Count 3.14 M/mm3 (4.6-6.20); Red Cell Distribution Width 13.9 % (11.5-14.5); White Blood Count 7.8 K/mm3 (4.5-10.0)
[2021-02-05 05:26] LABS: Blood Urea Nitrogen 41 mg/dL (9-20); Calcium 8.9 mg/dL (8.4-10.2); Carbon Dioxide 24 mmol/L (22-30); Chloride 98 mmol/L (98-107); Estimated CRCL calculation 16 ml/min; Estimated Glomerular Filt Rate 15; Glucose 131 mg/dL (65-110); Potassium 3.4 mmol/L (3.4-5.0)
[2021-02-05 05:52] LABS: Anion Gap 12 mmol/L (8-16); Sodium 134 mmol/L (137-145)
[2021-02-05] MEDS: IPRATROPIUM BR 0.02% INH SOLN 0.5 MG/2.5 ML VIAL INHALATION ×3 (08:37→20:27)
[2021-02-05] MEDS: ALBUTEROL SULFATE NEB 2.5 MG/0.5 ML INH INHALATION ×3 (08:37→20:27)
[2021-02-05 08:49] LABS: Glucose Point of Care 134 mg/dl (65-105)
[2021-02-05] MEDS: LABETALOL HCL 100 MG TABLET PO (10:16)
[2021-02-05] MEDS: lisinopriL 5 MG TABLET BY MOUTH (10:16)
[2021-02-05] MEDS: CLOPIDOGREL BISULFATE 75 MG TABLET PO (10:16)
[2021-02-05] MEDS: PANTOPRAZOLE SOD SESQUIHYDRATE 20 MG TAB PO (10:16)
[2021-02-05] MEDS: ESCITALOPRAM OXALATE 10 MG TABLET PO (10:17)
[2021-02-05] MEDS: levoFLOXacin 500 MG TABLET PO (10:17)
[2021-02-05] MEDS: HEPARIN SODIUM 5,000 UNITS/ML VIAL 5000 UNITS SUB-Q (10:17)
--- NOTE | 2021-02-05 12:20 | P.PNNP_ITS ---
Progress Note: A&P Assessment and Plan (1) ESRD (end stage renal disease): Code(s): N18.6 - End stage renal disease Status: Chronic Assessment and Plan: * HD is due tomorrow * We will remove more fluid * volume status: seems improved. (2) Volume overload: Code(s): E87.70 - Fluid overload, unspecified Status: Acute Assessment and Plan: * as evidence by admission imaging * ultrafiltration yesterday and dialysis today * follow fluid and respiratory status (3) Acute hypercapnic respiratory failure: Code(s): J96.02 - Acute respiratory failure with hypercapnia Status: Acute Assessment and Plan: * presumably due to #2 +/- pneumonia * BiPAP and supplemental oxygen PRN * On Levaquin. * fluid removal with H (4) Hypertension: Qualifiers: Hypertension type: primary hypertension Qualified Code(s): I10 - Essential (primary) hypertension Code(s): I10 - Essential (primary) hypertension Status: Chronic Assessment and Plan: * reasonable control at this time * follow trend of hemodynamics (5) AMS (altered mental status): Code(s): R41.82 - Altered mental status, unspecified Status: Acute Assessment and Plan: * He looks baseline. (6) T2DM (type 2 diabetes mellitus): Qualifiers: Diabetes mellitus jail insulin use: with termite control servicer use Diabetes mellitus complication status: with skin complications Diabetes mellitus complication detail: with foot ulcer Qualified Code(s): E11.621 - Type 2 diabetes mellitus with foot ulcer; L97.509 - Non-pressure chronic ulcer of other part of unspecified foot with unspecified severity; Z79.4 - residential (current) use of insulin Code(s): E11.9 - Type 2 diabetes mellitus without complications Status: Chronic Assessment and Plan: * follow accuchecks * glycemic control Subjective Date/time seen: 02/05/21 12:20 Interval history: Gonsalo is lying flat in bed breathing easily. no cp he had HD yesterday and it went well Exam Narrative: General: Large male in NAD Heart: normal S1 and S2; no rub or gallop Lungs: coarse and decreased at bases Abdomen: soft, nontender, nondistended, positive bowel sounds Extremities: no cyanosis or clubbing; no edema; s/p left BKA Skin: No rash Objective Data Vital Signs Vital Signs: Vital Signs - 24 hr 02/04/21 13:28 02/04/21 13:37 02/04/21 16:00 Temperature 36.9 C Pulse Rate 69 73 75 Respiratory Rate 16 16 18 Blood Pressure 112/55 L Pulse Oximetry 99 99 100 02/04/21 18:10 02/04/21 18:18 02/04/21 18:40 Temperature 36.8 C Pulse Rate 61 70 69 Respiratory Rate 16 Blood Pressure 118/69 128/71 130/67 Pulse Oximetry 02/04/21 19:00 02/04/21 19:20 02/04/21 19:40 Temperature Pulse Rate 66 66 66 Respiratory Rate Blood Pressure 126/67 135/68 119/72 Pulse Oximetry 02/04/21 20:00 02/04/21 20:20 02/04/21 20:40 Temperature Pulse Rate 68 70 66 Respiratory Rate Blood Pressure 114/65 116/65 104/51 L Pulse Oximetry 02/04/21 21:00 02/04/21 21:20 02/04/21 21:40 Temperature
--- NOTE | 2021-02-05 12:20 | PM.PNNEP ---
Progress Note: A&P Assessment and Plan (1) ESRD (end stage renal disease): Code(s): N18.6 - End stage renal disease Status: Chronic Assessment and Plan: HD is due tomorrow We will remove more fluid volume status: seems improved. (2) Volume overload: Code(s): E87.70 - Fluid overload, unspecified Status: Acute Assessment and Plan: as evidence by admission imaging ultrafiltration yesterday and dialysis today follow fluid and respiratory status (3) Acute hypercapnic respiratory failure: Code(s): J96.02 - Acute respiratory failure with hypercapnia Status: Acute Assessment and Plan: presumably due to #2 +/- pneumonia BiPAP and supplemental oxygen PRN On Levaquin. fluid removal with H (4) Hypertension: Qualifiers: Hypertension type: primary hypertension Qualified Code(s): I10 - Essential (primary) hypertension Code(s): I10 - Essential (primary) hypertension Status: Chronic Assessment and Plan: reasonable control at this time follow trend of hemodynamics (5) AMS (altered mental status): Code(s): R41.82 - Altered mental status, unspecified Status: Acute Assessment and Plan: He looks baseline. 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 no cp he had HD yesterday and it went well Exam Narrative: General: Large male in NAD Heart: normal S1 and S2; no rub or gallop Lungs: coarse and decreased at bases Abdomen: soft, nontender, nondistended, positive bowel sounds Extremities: no cyanosis or clubbing; no edema; s/p left BKA Skin: No rash Objective Data Vital Signs Vital Signs: Vital Signs - 24 hr 02/04/21 13:28 02/04/21 13:37 02/04/21 16:00 Temperature 36.9 C Pulse Rate 69 73 75 Respiratory Rate 16 16 18 Blood Pressure 112/55 L Pulse Oximetry 99 99 100 02/04/21 18:10 02/04/21 18:18 02/04/21 18:40 Temperature 36.8 C Pulse Rate 61 70 69 Respiratory Rate 16 Blood Pressure 118/69 128/71 130/67 Pulse Oximetry 02/04/21 19:00 02/04/21 19:20 02/04/21 19:40 Temperature Pulse Rate 66 66 66 Respiratory Rate Blood Pressure 126/67 135/68 119/72 Pulse Oximetry 02/04/21 20:00 02/04/21 20:20 02/04/21 20:40 Temperature Pulse Rate 68 70 66 Respiratory Rate Blood Pressure 114/65 116/65 104/51 L Pulse Oximetry 02/04/21 21:00 02/04/21 21:20 02/04/21 21:40 Temperature Pulse Rate 66 62 66 Respiratory Rate Blood Pressure 98/51 L 99/51 L 94/50 L Pulse Oximetry 02/04/21 22:00 02/04/21 22:10 02/04/21 22:52 Temperature 36.6 C Pulse Rate 67 68 80 Respiratory Rate 16 Blood Pressure 92/48 L 99/50 L Pulse Oximetry 02/04/21 23:18 02/05/21 08:00 02/05/21 08:37 Temperature 36.6 C 36.2 C L Pulse Rate 66 59 L 67 Respiratory Rate 16 18 18 Blood Pressure 99/50 L 115/56 L Pulse Oximetry 95 97 97 02/05/21 08:46 Temperature Pulse Rate 65 Respiratory Rate 18 Blood Pressure Pulse Oximetry 97 Intake/Output Intake/Output: Intake & Output 02/02/21 02/03/21 02/04/21 02/05/21 23:59 23:59 23:59 23:59 Intake Total 800 1250 1100 240 Output Total 5000 0 2846 Balance -4200 1250 -1746 240 Meds/Results Medications: Active
[2021-02-05 12:51] LABS: Glucose Point of Care 180 mg/dl (65-105)
--- NOTE | 2021-02-05 15:25 | PM.DS ---
DS: Admitting Diagnosis Admitting Diagnosis Acute hypoxic respiratory failure Probable pneumonia Atrial fibrillation End-stage renal disease Altered mental status Peripheral vascular disease Fluid overload secondary to the renal and cardiac status CAD Diabetes mellitus DS: Discharge Diagnosis Discharge Diagnosis (1) AMS (altered mental status): Code(s): R41.82 - Altered mental status, unspecified Status: Acute Assessment and Plan: -Appears to be improving, likely metabolic which is improving with hemodialysis. Unclear from medication was building up in his system, many of his medications such as trazodone have not been restarted yet. We will be careful in restarting his medications with both oxycodone and trazodone which both has sedating side effects. He seems to be at his baseline now. He was on BiPAP at nighttime. He should resume his CPAP in the facility. - will continue home Neurontin at regular scheduled b.i.d. dosing. (2) Pneumonia: Code(s): J18.9 - Pneumonia, unspecified organism Status: Acute Assessment and Plan: With hypoxia and questionable pneumonia on chest x-ray with infiltrates will continue Levaquin. Patient's mentation has also been improving and it is unclear if there was infectious encephalopathy as well as metabolic. We will complete 5 day course for community-acquired pneumonia. He has 1 more day of levofloxacin left. He is afebrile in no sputum production. Cultures remain negative. (3) PVD (peripheral vascular disease): Code(s): I73.9 - Peripheral vascular disease, unspecified Status: Acute Assessment and Plan: Continue home medications (4) CAD (coronary artery disease): Code(s): I25.10 - Atherosclerotic heart disease of [place] coronary artery without angina pectoris Status: Acute Assessment and Plan: Continue home medications (5) ESRD (end stage renal disease): Code(s): N18.6 - End stage renal disease Status: Chronic Assessment and Plan: Continue hemodialysis as per Nephrology, Thursday schedule (6) Afib: Code(s): I48.91 - Unspecified atrial fibrillation Status: Acute Assessment and Plan: Appears to be normal sinus rhythm, continue home medications, beta-blockers being held with hypotension parameters (7) Volume overload: Code(s): E87.70 - Fluid overload, unspecified Status: Acute Assessment and Plan: -Improved after 5 L removed 02/02, patient to return to his home hemodialysis regimen. He is on 2 L of oxygen currently however at home is only on at night. -blood pressure improved after yesterday 5 L removed he was hypotensive now normotensive Chest x-ray improved after dialysis. (8) Respiratory failure with hypoxia and hypercapnia: Code(s): J96.91 - Respiratory failure, unspecified with hypoxia; J96.92 - Respiratory failure, unspecified with hypercapnia Status: Acute Assessment and Plan: -continue BiPAP overnight. He uses CPAP at his baseline. -he may have a component of obesity hypoventilation syndrome -wean oxygen as tolerated, patient has 2 L home oxygen therapy q.h.s. only with his CPAP. He was requiring oxygen supplementation initially but that has been weaned down to room air now. DS: Summary Hospital Course Hospital Course: As above Time Spent with Patient Time attestation: Total time spent providing and/or coordinating discharge services: >35 minutes Exam Narrative: - GENERAL: Pleasant morbidly obese male laying comfortably in bed, soft-spoken - EYES: EOMI. Anicteric. - HENT: Moist oral mucosa - LUNGS: Improved lung sounds less coarse. Nonlabored respirations. - CARDIOVASCULAR: Regular rate and rhythm. No murmur. - ABDOMEN: Soft, non-tender and non-distended. Obese. - EXTREMITIES: 1+ peripheral edema, right lower extremity chronic skin changes from venous stasis, left lower extremity BKA. - NEUROLOGIC:
[2021-02-05 17:13] LABS: Glucose Point of Care 187 mg/dl (65-105)
[2021-02-05] MEDS: GABAPENTIN 100 MG CAPSULE PO (17:26)
--- NOTE | 2021-02-05 19:44 | PC.NURSE ---
Attempted to notify patient's family of discharge to snf but was unable to reach them.
[2021-02-05] MEDS: LABETALOL HCL 50 MG TABLET PO (21:08)
[2021-02-06] VITALS: BP 105/55; PULSE 76; RESP 18; TEMP 36.6; O2SAT 97
[2021-02-06 05:04] LABS: Hematocrit 30.5 % (42.0-52.0); Hemoglobin 9.5 g/dL (14.0-18.0); Mean Corpuscular HGB Conc 31.1 g/dl (32-36); Mean Corpuscular Hemoglobin 31.4 pg (26-34); Mean Corpuscular Volume 100.7 fl (80-100); Mean Platelet Volume 9.5 fl (7.4-10.4); Platelet Count Result 192 k/mm3 (150-375); Red Blood Count 3.03 M/mm3 (4.6-6.20); Red Cell Distribution Width 14.4 % (11.5-14.5); White Blood Count 7.9 K/mm3 (4.5-10.0)
[2021-02-06 05:23] LABS: Albumin Level 2.8 g/dL (3.5-5.1); Anion Gap 8 mmol/L (8-16); Blood Urea Nitrogen 55 mg/dL (9-20); Calcium 8.9 mg/dL (8.4-10.2); Carbon Dioxide 23 mmol/L (22-30); Chloride 102 mmol/L (98-107); Estimated CRCL calculation 12 ml/min; Estimated Glomerular Filt Rate 11; Glucose 167 mg/dL (65-110); Phosphorus 4.4 mg/dL (2.5-4.5); Potassium 3.8 mmol/L (3.4-5.0); Sodium 133 mmol/L (137-145)
== END 2021-02-06 06:16 | DRG 193 ==
LOC: ANHED 07:44 → ANHIMU 12:45
PROVIDERS: Internal Medicine; Internal Medicine Nephrology; Student in an Organized Health Care Education/Training Program; Admitting Provider Internal Medicine; Emergency Provider Emergency Medicine; PCP Family Medicine; Visit Provider Internal Medicine Critical Care Medicine
DX: J18.9 Pneumonia, unspecified organism (principal); J96.01 Acute respiratory failure with hypoxia; J96.02 Acute respiratory failure with hypercapnia; N18.6 End stage renal disease; G92 Toxic encephalopathy; E66.2 Morbid (severe) obesity with alveolar hypoventilation; Z68.41 Body mass index [BMI] 40.0-44.9, adult; F84.5 Asperger's syndrome; Z20.822 Contact with and (suspected) exposure to COVID-19; I73.9 Peripheral vascular disease, unspecified; I25.10 Atherosclerotic heart disease of native coronary artery without angina pectoris; I48.91 Unspecified atrial fibrillation; E87.70 Fluid overload, unspecified; E11.22 Type 2 diabetes mellitus with diabetic chronic kidney disease; G47.33 Obstructive sleep apnea (adult) (pediatric); E11.621 Type 2 diabetes mellitus with foot ulcer; L97.509 Non-pressure chronic ulcer of other part of unspecified foot with unspecified severity; E11.42 Type 2 diabetes mellitus with diabetic polyneuropathy; J43.9 Emphysema, unspecified; F32.9 Major depressive disorder, single episode, unspecified; Z96.651 Presence of right artificial knee joint; Z90.49 Acquired absence of other specified parts of digestive tract; Z89.512 Acquired absence of left leg below knee; Z98.84 Bariatric surgery status; Z99.2 Dependence on renal dialysis; Z79.4 Long term (current) use of insulin; Z66 Do not resuscitate
CPT/HCPCS: 36415; 36600; 70450; 71045; 80048; 80053; 80069; 80076; 82805; 82948; 83036; 83605; 83735; 83880; 84100; 84145; 84484; 85025; 85027; 85610; 85730; 86706; 87040; 87340; 93005; 94003; 94640; 99291; A9270; C9803; G0257; J1644; J1815; J1956; J7030; Q5106; U0003; U0005

== ENCOUNTER 2021-02-18 06:45 | Inpatient (IN) | payer MEDICARE, SELFPAY ==
[2021-02-18] VITALS (28 sets, daily range): BP systolic 92–130; BP diastolic 36–98; PULSE 58–107; RESP 14–34; TEMP 36–37.1; O2SAT 91–100; BMI 38.6
--- NOTE | ~2021-02-18 | XR_ITS ---
EXAMINATION: XR chest 1V portable INDICATION: Altered mental status TECHNIQUE: Portable AP chest at 0744 hours COMPARISON: 02/04/2021 FINDINGS: There is stable cardiomegaly. Small pleural effusions are unchanged. A mild diffuse interst itial pattern is present. There is no pneumothorax. Previously described bibasilar airspace opacities have improved. IMPRESSION: 1. Cardiomegaly with possible mild pulmonary edema. 2. Small pleural effusions. Reviewed, dictated and finalized at location A.
--- NOTE | 2021-02-18 06:52 | ECG_ITS ---
Measurements Intervals [place] Rate: 79 P: WI: 0 QRS: 10 QRSD: 105 T: 56 QT: 392 QTc: 450 Interpretive Statements ATRIAL FIBRILLATION LOW QRS VOLTAGE IN LIMB LEADS BORDERLINE T WAVE ABNORMALITY- INF/HIGH LAT LEADS BASELINE ARTIFACT- I, II, V1-V3, V6 ABNORMAL ECG Electronically Signed On 02-18-2021 8:06:16 CDT by César Aragon D.O.
[2021-02-18 07:11] LABS: Basophils Absolute Auto 0.1 K/mm3 (0.0-0.1); Basophils Percent Auto 0.5 % (0.2-1.2); Eosinophils Absolute Auto 0.2 K/mm3 (0-0.3); Eosinophils Percent Auto 1.9 % (0-4.4); Hematocrit 31.7 % (42.0-52.0); Hemoglobin 9.9 g/dL (14.0-18.0); Immature Granulocyte Absolute 0.08 K/mm3 (0.00-0.031); Immature Granulocyte Percent A 0.7 % (0-0.5); Lymphocytes Absolute Auto 1.46 K/mm3 (0.9-3.2); Lymphocytes Percent Auto 13.3 % (18.3-44.2); Mean Corpuscular HGB Conc 31.2 g/dl (32-36); Mean Corpuscular Hemoglobin 31.1 pg (26-34); Mean Corpuscular Volume 99.7 fl (80-100); Mean Platelet Volume 9.9 fl (7.4-10.4); Monocytes Percent Auto 8.9 % (2.6-8.5); Neutrophils Absolute Auto 8.2 K/mm3 (1.3-6.7); Neutrophils Percent Auto 74.7 % (45.5-73.1); Platelet Count Result 229 k/mm3 (150-375); Red Blood Count 3.18 M/mm3 (4.6-6.20); Red Cell Distribution Width 14.4 % (11.5-14.5)
--- NOTE | 2021-02-18 07:13 | PC.NURSE ---
Pts Mary called. She confirmed he is a DNR/DNI and that she is on her way to this facility. Attempted to call Sarah Rivera to get additional patient information with no answer.
[2021-02-18 07:19] LABS: Alveolar/Arterial O2 Gradient 350.8 mmHg; Base Excess ABG -0.5 mEq/l (+/-2.0); Fractional Inspired Oxygen 100 %; HCO3 ABG 26.9 mEq/l (22.0-26.0); Oxygen Content ABG 14.9 %vol (16.0-22.0); Oxygen Saturation ABG 99.6 % (95.0-100.0); Oxyhemoglobin 97.5 % THb (90.0-100.0); PCO2 ABG 58.6 mmHg (35.0-45.0); PO2 ABG 303.6 mmHg (80.0-100.0); PO2 FiO2 Ratio Arterial Blood 3.04 %; Total Hemoglobin 10.3 g/dL (12.0-18.0)
--- NOTE | 2021-02-18 07:21 | ED.GENADULT ---
HPI - General Adult General Chief complaint: Altered Mental Status Stated complaint: LETHARGY Time Seen by Provider: 02/18/21 07:21 Source: EMS and RN notes reviewed Mode of arrival: EMS Limitations: clinical condition History of Present Illness HPI narrative: Patient brought to the emergency room by EMT from dialysis. The dialysis unit told EMT that patient arrived to them unresponsive. Nobody knows if the patient lives at home or at a long term, no access to any information at this time. No more information about the patient at this time, Related Data Home Medications Medication Instructions Recorded Confirmed Anoro Ellipta 1 puff INHALATION DAILY 05/10/19 02/01/21 Centrum Silver Men 1 tablet PO DAILY 05/10/19 02/01/21 allopurinol 100 mg PO DAILY 05/10/19 02/01/21 metoclopramide HCl [Reglan] 10 mg PO Q12H PRN 05/10/19 02/01/21 pyridoxine (vitamin B6) 100 mg PO DAILY 05/10/19 02/01/21 sevelamer carbonate [Renvela] 800 mg PO TID 05/10/19 02/01/21 labetalol 100 mg PO DAILY 06/23/19 02/01/21 acetaminophen 650 mg PO Q6H PRN 11/14/19 02/01/21 albuterol sulfate 2 puff INHALATION Q4H PRN 11/14/19 02/01/21 escitalopram oxalate 10 mg PO DAILY 11/14/19 02/01/21 gabapentin 100 mg PO Q12H 11/14/19 02/01/21 insulin aspart U-100 7 unit SUBCUT TID 11/14/19 02/01/21 loperamide See Rx Instructions .ROUTE 11/14/19 02/01/21 .COMPLEX PRN loratadine 10 mg PO DAILY 11/14/19 02/01/21 pantoprazole 20 mg PO DAILY 11/14/19 02/01/21 Toujeo SoloStar U-300 Insulin 20 unit SUBCUT BID 12/21/19 02/01/21 polyethylene glycol 3350 [Miralax] 17 g PO DAILY PRN 12/21/19 02/01/21 labetalol 50 mg PO HS 02/01/21 02/01/21 lisinopril 5 mg PO DAILY 02/01/21 02/01/21 olopatadine 1 drp EACH EYE BID 02/01/21 02/01/21 oxycodone [Roxicodone] 5 mg PO Q6H PRN 02/01/21 02/01/21 Allergies Allergy/AdvReac Type Severity Reaction Status Date / Time aspirin Allergy Unknown [place]ushing Verified 02/01/21 09:55 salicylates Allergy Unknown [place] Verified 02/01/21 09:55 Review of Systems Review of Systems: ROS unobtainable: Yes unobtainable due to medical condition and unobtainable due to mental status PMFSH Past Medical History Medical History Afib AMS (altered mental status) Asperger's syndrome Grubbs's palsy CAD (coronary artery disease) Constipation Critical limb ischemia with history of revascularization of same extremity With subsequent left heel ulcer requiring left below-knee amputation August 2019 Depression Diabetic peripheral neuropathy Duodenal ulcer disease Emphysema of lung End stage renal disease on dialysis Thursday managed by Dr. Blas. ESRD (end stage renal disease) Gout Hypertension Kidney stones Morbid obesity Obstructive sleep apnea Peripheral vascular disease Plantar fasciitis PVD (peripheral vascular disease) Type II diabetes mellitus Hemoglobin A1c 7 in November of 2018 Surgical History Surgical History AV fistula Left upper extremity History of appendectomy History of cardiac catheterization History of cataract surgery History of cholecystectomy History of colonoscopy History of esophagogastroduodenoscopy (EGD) History of gastric bypass History of morbid obesity with Gastric Bypass in 1974 with reversal when he had a colectomy performed in 1999 for pre-cancerous polyps. History of left below knee amputation Due to peripheral vascular disease, nonhealing diabetic foot wound with osteomyelitis and Proteus bacteremia History of total right knee replacement Family History Family History Father Prostate carcinoma Social History Social History Social History: He is currently residing [facility]. He lived in his own home until his hospitalization in August at which time he required a left [id number]
[2021-02-18 07:23] LABS: Device NON-REBREATHER MASK; Site Drawn RIGHT BRACHIAL
[2021-02-18 07:30] LABS: Alanine Aminotransferase 20 U/L (4-50); Albumin Level 3.2 g/dL (3.5-5.1); Alkaline Phosphatase 116 U/L (38-126); Anion Gap 11 mmol/L (8-16); Aspartate Amino Transferase 38 U/L (17-59); Bilirubin,Total 0.5 mg/dL (0.2-1.3); Blood Urea Nitrogen 92 mg/dL (9-20); Calcium 8.9 mg/dL (8.4-10.2); Carbon Dioxide 25 mmol/L (22-30); Chloride 92 mmol/L (98-107); Estimated CRCL calculation 10 ml/min; Estimated Glomerular Filt Rate 9; Glucose 141 mg/dL (65-110); Potassium 5.1 mmol/L (3.4-5.0); Sodium 128 mmol/L (137-145)
[2021-02-18] MEDS: HEPARIN SODIUM 5,000 UNITS/ML VIAL IV PUSH (11:30)
[2021-02-18] MEDS: EPOETIN ALFA-EPBX 10,000 UNITS/ML VIAL 10000 UNITS IV PUSH (11:30)
--- NOTE | 2021-02-18 11:56 | P.PNNP_ITS ---
Progress Note: A&P Assessment and Plan (1) End stage renal disease: Code(s): N18.6 - End stage renal disease Status: Chronic Assessment and Plan: * HD today and continue M/W/ schedule * follow electrolytes, volume status, and clearance FULL CONSULT to follow. Subjective Date/time seen: 02/18/21 11:56 Tolerating hemodialysis treatment at the time of my visit (seen on HD at 11:45am); BiPAP in place and able to answer questions; no apparent distress voiced. Exam Narrative: General: Large male in NAD Heart: normal S1 and S2; no rub Lungs: decreased at bases Abdomen: soft, nontender, nondistended, positive bowel sounds Extremities: no cyanosis or clubbing; no edema; s/p left BKA Skin: warm and intact Objective Data Vital Signs Vital Signs: Vital Signs Temp Pulse Resp BP Pulse Ox 02/18/21 11:40 66 122/58 L 02/18/21 11:20 107 H 92/36 L 02/18/21 11:00 75 98/57 L 02/18/21 10:40 67 110/59 L 02/18/21 10:20 63 117/60 02/18/21 10:10 37.1 C 58 L 22 H 111/59 L 100 02/18/21 09:29 36.4 C L 66 20 123/60 98 02/18/21 09:17 62 17 123/60 99 02/18/21 07:35 71 18 99 02/18/21 07:19 84 23 H 107/47 L 100 02/18/21 06:47 36.6 C 72 14 117/53 L 100 Meds/Results Medications: Active Medications Generic Name Dose Route Start Last Admin Trade Name Freq PRN Reason Stop Dose Admin Heparin Sodium (Porcine) 0 units 02/18/21 09:57 Heparin Sodium 1,000 Units/Ml Vial IV PUSH 02/18/21 13:00 PRN PRN WITH DIALYSIS Radiology Results: ITS Impressions Chest X-Ray 02/18/21 07:56 IMPRESSION: 1. Cardiomegaly with possible mild pulmonary edema. 2. Small pleural effusions. Labs Labs: Laboratory Tests 02/18/21 07:02 02/18/21 07:02 Quality Patient seen/evaluated on hemodialysis ([id number]).
[2021-02-18 13:13] LABS: INR 1.1; Prothrombin Time 14.1 Seconds (11.1-14.7)
[2021-02-18 13:15] LABS: Partial Thromboplastin Time 49.6 SECONDS (22.3-36.8)
--- NOTE | 2021-02-18 13:53 | PM.IMHP ---
H&P: HPI History of Present Illness Date/Time: 02/18/21 13:15 Chief Complaint: altered mental status Narrative: date of service 02/18/2021 at 2:00 p.m. patient is an 85-year-old male with a past medical history of end-stage renal disease on hemodialysis, diabetes type 2, COPD, CAD who presented to the ED from dialysis for Altered mental status. while interviewing patient patient stated that he does not know what happened to him. He denies any past or current issues with breathing or cardiac over the last week or 2. Patient denies chest pain, shortness of breath, weakness, fatigue, nausea, vomiting, abdominal pain, constipation, diarrhea, headaches, urinary dysfunction, cough, fevers, sweats, chills. Patient stated that he feels like he does every other day. Currently patient is in dialysis which they are planning on taking off 3500 cc of fluids today. Currently they have 2700 often patient is tolerating quite well. Patient is also on BiPAP at minimal settings 05/27 with a rate of 16 at 30% FiO2. patient stated that he goes to [facility] Wednesdays and Fridays for treatments. Blood gas shows respiratory acidosis. patient was recently admitted for the same sort of issue. Patient was on Levaquin for pneumonia. Metabolic encephalopathy did resolve after dialysis and a few days of antibiotics. No signs of infections seen at this time. Will check labs again tomorrow and re-evaluate patient is being admitted to our services as an inpatient Review of Systems Review of Systems: All systems reviewed & are unremarkable except as noted in HPI and below PMFSH Past Medical History Medical History Afib AMS (altered mental status) Asperger's syndrome Grubbs's palsy CAD (coronary artery disease) Constipation Critical limb ischemia with history of revascularization of same extremity With subsequent left heel ulcer requiring left below-knee amputation August 2019 Depression Diabetic peripheral neuropathy Duodenal ulcer disease Emphysema of lung End stage renal disease on dialysis Thursday managed by Dr. Blas. ESRD (end stage renal disease) Gout Hypertension Kidney stones Morbid obesity Obstructive sleep apnea Peripheral vascular disease Plantar fasciitis PVD (peripheral vascular disease) Type II diabetes mellitus Hemoglobin A1c 7 in November of 2018 Surgical History Surgical History AV fistula Left upper extremity History of appendectomy History of cardiac catheterization History of cataract surgery History of cholecystectomy History of colonoscopy History of esophagogastroduodenoscopy (EGD) History of gastric bypass History of morbid obesity with Gastric Bypass in 1973 with reversal when he had a colectomy performed in 1999 for pre-cancerous polyps. History of left below knee amputation Due to peripheral vascular disease, nonhealing diabetic foot wound with osteomyelitis and Proteus bacteremia History of total right knee replacement Family History Family History Father Prostate carcinoma Social History Social History (Updated 02/18/21 @ 13:58 by BIANCA Ramirez) Social History: He is currently residing [facility]. He lived in his own home until his hospitalization in August at which time he required a left [id number] amputation. He is wheelchair-bound. Healthcare power of collections attorney, [address]. Patient wishes to be a do not resuscitate Smoking status: Unknown if ever smoked Second hand tobacco smoke exposure: No Alcohol intake: never Substance use: never Substance use type: does not use Gender identity (if verbalized by the patient): Male Sexual Orientation (if Verbalized by the Patient): Straight or Heterosexual Spiritual care concerns: No Agree to blood products
[2021-02-18] MEDS: OLOPATADINE 0.1% OPHTH SOLN 5 ML BTL 1 DROP EACH EYE (16:07)
[2021-02-18] MEDS: SEVELAMER CARBONATE 800 MG TABLET PO (16:08)
[2021-02-18] MEDS: GABAPENTIN 100 MG CAPSULE PO ×2 (16:08→20:43)
--- NOTE | 2021-02-18 18:19 | ADMGEN ---
This patient, Gonsalo Moore, was admitted to IMU Room 210-01 at 1407. Patient/family oriented to hospital policies and general routines including ID bracelet, bed and alarms, visiting hours, pain management, procedures, bathroom and other care routines, personal items, smoking policy, room service/diet, and visiting hours. Information on how to activate the Rapid Response Team has been discussed. Patient/Family are encouraged to report perceived risks to care and to ask questions if they do not understand what they are told or what they should do.
[2021-02-18 18:48] LABS: Glucose Point of Care 81 mg/dl (65-105)
[2021-02-18 20:13] LABS: Glucose Point of Care 67 mg/dl (65-105)
[2021-02-18 20:13] LABS: Glucose Point of Care 74 mg/dl (65-105)
[2021-02-18] MEDS: LABETALOL HCL 50 MG TABLET PO (20:44)
[2021-02-18 21:06] LABS: Glucose Point of Care 113 mg/dl (65-105)
[2021-02-19] VITALS (15 sets, daily range): BP systolic 101–117; BP diastolic 54–68; PULSE 64–96; RESP 20–22; TEMP 35.9–37.2; O2SAT 93–100; BMI 10.0; BMI 38.6
[2021-02-19 05:38] LABS: Basophils Percent Auto 0.5 % (0.2-1.2); Eosinophils Absolute Auto 0.2 K/mm3 (0-0.3); Hemoglobin 9.3 g/dL (14.0-18.0); Immature Granulocyte Absolute 0.06 K/mm3 (0.00-0.031); Immature Granulocyte Percent A 0.7 % (0-0.5); Lymphocytes Absolute Auto 1.25 K/mm3 (0.9-3.2); Lymphocytes Percent Auto 14.7 % (18.3-44.2); Mean Corpuscular Hemoglobin 30.6 pg (26-34); Mean Corpuscular Volume 98.7 fl (80-100); Mean Platelet Volume 9.7 fl (7.4-10.4); Monocytes Percent Auto 11.5 % (2.6-8.5); Neutrophils Percent Auto 70.6 % (45.5-73.1); Platelet Count Result 232 k/mm3 (150-375); Red Blood Count 3.04 M/mm3 (4.6-6.20); Red Cell Distribution Width 14.3 % (11.5-14.5); White Blood Count 8.5 K/mm3 (4.5-10.0)
[2021-02-19 06:05] LABS: Alanine Aminotransferase 18 U/L (4-50); Alkaline Phosphatase 107 U/L (38-126); Anion Gap 8 mmol/L (8-16); Aspartate Amino Transferase 29 U/L (17-59); Bilirubin,Total 0.5 mg/dL (0.2-1.3); Blood Urea Nitrogen 52 mg/dL (9-20); Calcium 9.1 mg/dL (8.4-10.2); Carbon Dioxide 28 mmol/L (22-30); Chloride 99 mmol/L (98-107); Estimated CRCL calculation 15 ml/min; Estimated Glomerular Filt Rate 13; Glucose 81 mg/dL (65-110); Phosphorus 5.2 mg/dL (2.5-4.5); Potassium 4.1 mmol/L (3.4-5.0); Sodium 135 mmol/L (137-145)
[2021-02-19] MEDS: UMECLIDINIUM/VILANTEROL 62.5-25 MCG ELLIPTA 1 PUFF INHALATION (08:45)
[2021-02-19 08:55] LABS: Glucose Point of Care 72 mg/dl (65-105)
[2021-02-19] MEDS: lisinopriL 5 MG TABLET PO (08:57)
[2021-02-19] MEDS: LORATADINE 10 MG TABLET PO (08:57)
[2021-02-19] MEDS: SEVELAMER CARBONATE 800 MG TABLET PO ×3 (08:57→17:57)
[2021-02-19] MEDS: LABETALOL HCL 100 MG TABLET PO (08:57)
[2021-02-19] MEDS: GABAPENTIN 100 MG CAPSULE PO (08:57)
[2021-02-19] MEDS: OLOPATADINE 0.1% OPHTH SOLN 5 ML BTL 1 DROP EACH EYE ×2 (08:57→17:57)
[2021-02-19] MEDS: CLOPIDOGREL BISULFATE 75 MG TABLET PO (08:57)
[2021-02-19] MEDS: PANTOPRAZOLE SOD SESQUIHYDRATE 20 MG TAB PO (08:57)
[2021-02-19] MEDS: ESCITALOPRAM OXALATE 10 MG TABLET PO (08:57)
[2021-02-19] MEDS: allopurinoL 100 MG TABLET PO (08:57)
[2021-02-19 09:07] LABS: Glucose Point of Care 92 mg/dl (65-105)
--- NOTE | 2021-02-19 12:30 | PM.CNNEP ---
Assessment and Plan Assessment and plan (1) End stage renal disease: Code(s): N18.6 - End stage renal disease Status: Chronic Assessment and Plan: HD yesterday and continue M/W/ schedule electrolytes, volume status, and clearance acceptable (2) Altered mental status: Code(s): R41.82 - Altered mental status, unspecified Status: Acute Assessment and Plan: possible uremia versus hypercapnia versus other clinically better at this time monitor mentation (3) Acute hypercapnic respiratory failure: Code(s): J96.02 - Acute respiratory failure with hypercapnia Status: Acute Assessment and Plan: admission blood gas noted placed on BiPAP on admision uses BIPAP at night for EVIE (4) Hypertension: Qualifiers: Hypertension type: primary hypertension Qualified Code(s): I10 - Essential (primary) hypertension Code(s): I10 - Essential (primary) hypertension Status: Chronic Assessment and Plan: reasonable control at this time continue BP medications follow trend of hemodynamics (5) Diabetes: Code(s): E11.9 - Type 2 diabetes mellitus without complications Status: Acute Assessment and Plan: follow accuchecks glycemic control Will continue to follow -- not opposed to discharge from renal perspective if otherwise medically stable. History of Present Illness Reason for Consult Consult date: 02/19/21 Reason for consult: end stage renal disease Chief Complaint Chief complaint: Hemodialysis patient/acute hypercapnic respiratory History of Present Illness Narrative: The patient is a 85-year-old male with a past medical history as outlined below who presented to [facility] ER from his dialysis center for altered mental status. The patient himself is not entirely clear what occurred that led to his presentation to the emergency room. From review of the records and discussion with his outpatient dialysis center, he presented yesterday to his dialysis clinic at his usual scheduled dialysis treatment time but he was found to be quite confused if not apparently unresponsive. As the nursing staff had difficulty getting the patient to respond despite significant stimulation, they called 911 /EMS who subsequently took him to [facility] Emergency room for further evaluation. Workup and evaluation emergency room did find the patient be somewhat confused but certainly not at his baseline. ABG demonstrated respiratory acidosis and subsequently BiPAP was applied with some improvement in his mentation/mental status. Routine blood test demonstrated labs consistent with his known history of end-stage renal disease and with no other significant findings. His chest x-ray showed cardiomegaly with some mild pulmonary vascular changes as well. He was subsequent admitted to the hospital for further evaluation and therapy. Since his admission, he received dialysis yesterday on his regularly scheduled dialysis day and with the use of BiPAP and supportive therapy, his mental status seemed to improve if not return to baseline. Renal consultation was requested due to his end-stage renal disease. The patient normally dialyzes on a Thursday, Thursday, Thursday dialysis schedule at [facility] under the care of Dr. Tulio Blas. From a dialysis perspective, he usually tolerates his treatments reasonably well and most of his issues/problems related to his end-stage renal disease are his sometimes significant and large fluid gains in between dialysis treatments which result in difficulty getting him down to his dry weight but this has not been a problem recently. His dialysis nurses/staff have noted that he is sometimes is confused about things but it is not consistent. He Received dialysis yesterday and is due for his next dialysis treatment tomorrow. Currently, at the time of my visit, he appears reasonably comforta
[2021-02-19 12:57] LABS: Glucose Point of Care 87 mg/dl (65-105)
--- NOTE | 2021-02-19 15:02 | P.DS_ITS ---
DS: Admitting Diagnosis Admitting Diagnosis Acute metabolic encephalopathy DS: Discharge Diagnosis Discharge Diagnosis (1) Acute metabolic encephalopathy: Code(s): G93.41 - Metabolic encephalopathy Status: Acute Assessment and Plan: * came in unresponsive * labs indicate need for emergent dialysis * patient getting dialysis right now * monitor (2) End stage renal disease: Code(s): N18.6 - End stage renal disease Status: Chronic Assessment and Plan: * patient has dialysis Thursday at [facility]. * BUN and creatinine are 92/6.20, potassium is 5.1, sodium is 128 * nephrology has been consulted thank you for your recommendations and management of dialysis * trend labs * labs in a.m. (3) Acute hypercapnic respiratory failure: Code(s): J96.02 - Acute respiratory failure with hypercapnia Status: Acute Assessment and Plan: * blood gas shows respiratory acidosis with a pH is 7.28, carbon dioxide of 58.6 * patient placed on BiPAP with the settings of 05/27 with a rate of 16 and 30% * probably related to end-stage renal disease * patient getting emergent dialysis now * trend and monitor respiratory status (4) Hypertension: Qualifiers: Hypertension type: primary hypertension Qualified Code(s): I10 - Essential (primary) hypertension Code(s): I10 - Essential (primary) hypertension Status: Chronic Assessment and Plan: * current blood pressure 119/57 * continue home labetalol 100 mg p.o. daily, home lisinopril 5 mg p.o. daily, and labetalol 50 mg p.o. at night * trend blood pressure * adjust medications as needed (5) Diabetes mellitus, with long-term current use of insulin: Code(s): E11.9 - Type 2 diabetes mellitus without complications; Z79.4 - associate faculty ( current) use of insulin Status: Chronic Assessment and Plan: * current glucose 141 * Accu-Cheks AC and HS * hold home medications * initiate sliding scale * hypoglycemic protocol * adjust medications as needed (6) Obstructive sleep apnea: Code(s): G47.33 - Obstructive sleep apnea (adult) (pediatric) Status: Chronic Assessment and Plan: * currently on BiPAP * patient's wear BiPAP or CPAP at night * weaned to home settings DS: Summary Hospital Course Reason for hospitalization: Date of service 02/19/2021 at 1345 Hospital Course: Patient is an 85-year-old male who was brought to the hospital from dialysis treatment for altered mental status. According to [facility] patient was unresponsive. Patient was emergently dialyzed from the ED and they took roughly 3500 off. Patient was also placed on BiPAP for that time and at night. Patient does not know anderson here or what had happened to him. Patient states that he feels fine and feels like himself to today. He has no pain. Appetite is good. He denies fevers sweats and chills. Urology has been consulted for the case and has been managing his dialysis. Blood gas on arrival did show respiratory acidosis. Patient gets dialysis is Thursday [facility] and states that he never misses appointments. Renal lab work upon arrival was elevated however today it is back to his baseline with a BUN of 52 a creatinine of 4.50 phosphorus of 5.2 and magnesium of 2.0. Patient is able to breathe with 2 L nasal cannula which is his baseline at the [facility]. Patient will be returnin
--- NOTE | 2021-02-19 15:02 | PM.DS ---
DS: Admitting Diagnosis Admitting Diagnosis Acute metabolic encephalopathy DS: Discharge Diagnosis Discharge Diagnosis (1) Acute metabolic encephalopathy: Code(s): G93.41 - Metabolic encephalopathy Status: Acute Assessment and Plan: came in unresponsive labs indicate need for emergent dialysis patient getting dialysis right now monitor (2) End stage renal disease: Code(s): N18.6 - End stage renal disease Status: Chronic Assessment and Plan: patient has dialysis Thursday at [facility]. BUN and creatinine are 92/6.20, potassium is 5.1, sodium is 128 nephrology has been consulted thank you for your recommendations and management of dialysis trend labs labs in a.m. (3) Acute hypercapnic respiratory failure: Code(s): J96.02 - Acute respiratory failure with hypercapnia Status: Acute Assessment and Plan: blood gas shows respiratory acidosis with a pH is 7.28, carbon dioxide of 58.6 patient placed on BiPAP with the settings of 12/6 with a rate of 16 and 30% probably related to end-stage renal disease patient getting emergent dialysis now trend and monitor respiratory status (4) Hypertension: Qualifiers: Hypertension type: primary hypertension Qualified Code(s): I10 - Essential (primary) hypertension Code(s): I10 - Essential (primary) hypertension Status: Chronic Assessment and Plan: current blood pressure 119/57 continue home labetalol 100 mg p.o. daily, home lisinopril 5 mg p.o. daily, and labetalol 50 mg p.o. at night trend blood pressure adjust medications as needed (5) Diabetes mellitus, with long-term current use of insulin: Code(s): E11.9 - Type 2 diabetes mellitus without complications; Z79.4 - rn long term care (current) use of insulin Status: Chronic Assessment and Plan: current glucose 141 Accu-Cheks AC and HS hold home medications initiate sliding scale hypoglycemic protocol adjust medications as needed (6) Obstructive sleep apnea: Code(s): G47.33 - Obstructive sleep apnea (adult) (pediatric) Status: Chronic Assessment and Plan: currently on BiPAP patient's wear BiPAP or CPAP at night weaned to home settings DS: Summary Hospital Course Reason for hospitalization: Date of service 02/19/2021 at 1345 Hospital Course: Patient is an 85-year-old male who was brought to the hospital from dialysis treatment for altered mental status. According to [facility] patient was unresponsive. Patient was emergently dialyzed from the ED and they took roughly 3500 off. Patient was also placed on BiPAP for that time and at night. Patient does not know anderson here or what had happened to him. Patient states that he feels fine and feels like himself to today. He has no pain. Appetite is good. He denies fevers sweats and chills. Urology has been consulted for the case and has been managing his dialysis. Blood gas on arrival did show respiratory acidosis. Patient gets dialysis is Thursday [facility] and states that he never misses appointments. Renal lab work upon arrival was elevated however today it is back to his baseline with a BUN of 52 a creatinine of 4.50 phosphorus of 5.2 and magnesium of 2.0. Patient is able to breathe with 2 L nasal cannula which is his baseline at the [facility]. [facility]. Nephrology was also talked to about discharge and agreed with this at this time. From what I understand baseline mentality for this patient is not established. Status at Discharge Functional status at discharge: wheelchair bound Overall status at discharge: patient is back to baseline Time Spent with Patient Time attestation: Total time spent providing and/or coordinating discharge services: 43 minutes Time spent: [place]
[2021-02-19 17:07] LABS: Glucose Point of Care 144 mg/dl (65-105)
== END 2021-02-19 19:45 | DRG 70 ==
LOC: ANHED 09:19 → ANHIMU 02-19 15:11
PROVIDERS: Emergency Medicine; Admitting Provider Internal Medicine Nephrology; Emergency Provider Emergency Medicine; PCP Family Medicine; Visit Provider Nurse Practitioner
DX: G93.41 Metabolic encephalopathy (principal); N18.6 End stage renal disease; J96.02 Acute respiratory failure with hypercapnia; I12.0 Hypertensive chronic kidney disease with stage 5 chronic kidney disease or end stage renal disease; F84.5 Asperger's syndrome; Z99.2 Dependence on renal dialysis; E11.22 Type 2 diabetes mellitus with diabetic chronic kidney disease; G47.33 Obstructive sleep apnea (adult) (pediatric); E11.42 Type 2 diabetes mellitus with diabetic polyneuropathy; E11.51 Type 2 diabetes mellitus with diabetic peripheral angiopathy without gangrene; I25.10 Atherosclerotic heart disease of native coronary artery without angina pectoris; J43.9 Emphysema, unspecified; Z66 Do not resuscitate; Z79.4 Long term (current) use of insulin; Z79.899 Other long term (current) drug therapy; Z89.512 Acquired absence of left leg below knee; Z96.651 Presence of right artificial knee joint; Z99.3 Dependence on wheelchair
CPT/HCPCS: 36415; 36600; 71045; 80053; 82805; 82948; 83735; 84100; 85025; 85610; 85730; 93005; 94002; 94640; 97161; 97165; 99285; A9270; G0257; J1644; J7030; P9047; Q5106